=== PATIENT | male | born 1945 | race Caucasian/White ===

== ENCOUNTER 2017-01-06 06:26 | Observation (INO) | payer OTHER ==
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
[2017-01-06] MEDS ORDERED: ONDANSETRON 4 MG/2 ML VIAL IVPB ONE (07:31)
[2017-01-06] MEDS ORDERED: PANTOPRAZOLE SODIUM 40 MG in SODIUM CHLORIDE 100 ML IVPB ONE (07:31)
[2017-01-06] MEDS ORDERED: morphine CARPU-JECT 4 MG/1 ML DISP.SYRIN IVPUSH ONE ×2 (07:31→11:57)
[2017-01-06] MEDS ORDERED: ONDANSETRON 4 MG/2 ML VIAL ONE (07:39)
[2017-01-06] MEDS ORDERED: morphine CARPU-JECT 4 MG/1 ML DISP.SYRIN ONE ×2 (07:39→11:56)
[2017-01-06] MEDS ORDERED: PANTOPRAZOLE SODIUM 100 ML IVPB ONE (07:39)
--- NOTE | 2017-01-06 07:53 | PDOC ---
Attending Attestation - Resident Resident Name: Joana Alvarez - ED Attending Attestation I have performed the following: I have examined & evaluated the patient, The case was reviewed & discussed with the resident, I agree w/resident's findings & plan, Exceptions are as noted - HPI HPI: 71 yo M multiple medical comorbidities presents with abdominal pain. He has history of umbilical hernia which is reducible. He states that the pain is epigastric in origin, but radiates to the entire abdomen. It is crampy, waxing and waning, 10/10 at the worst. Associated with N/V/D, subjective fever, chills. He has had prior similar symptoms in the past. He was evaluated by Dr. Allen on a prior admission, but was lost to follow-up. He has been taking loperamide for the diarrhea. - Physicial Exam PE: GENERAL: Awake, alert, and fully oriented, in no acute distress HEAD: No signs of trauma EYES: PERRLA, EOMI, sclera anicteric, conjunctiva clear ENT: Auricles normal inspection, hearing grossly normal, nares patent, oropharynx clear without exudates. Moist mucosa NECK: Normal ROM, supple, no lymphadenopathy, JVD, or masses LUNGS: Breath sounds equal, clear to auscultation bilaterally. No wheezes, and no crackles HEART: Regular rate and rhythm, normal S1 and S2, no murmurs, rubs or gallops ABDOMEN: Soft, diffuse moderate tenderness, normoactive bowel sounds. No guarding, no rebound. No masses EXTREMITIES: Normal range of motion, no edema. No clubbing or cyanosis. No cords, erythema, or tenderness NEUROLOGICAL: Cranial nerves II through XII grossly intact. Normal speech, normal gait SKIN: Warm, Dry, normal turgor, no rashes or lesions noted. - Medical Decision Making Pt with multiple medical comorbidities presenting with N/V/D, f/c. Will obtain labs, CT a/p to evaluate for possible colitis, diverticulitis.
[2017-01-06 07:56] LABS: BASOPHIL 1.5 % (0-2.0); EOSINOPHIL 0.5 % (0-4.5); MCH 31.1 pg (25.7-33.7); MCHC 34.5 g/dl (32.0-35.9); MEAN CELL VOLUME 90.3 fl (80-96); MEAN PLT VOLUME 7.5 fl (7.5-11.1); PLATELET COUNT 265 K/MM3 (134-434); RDW 13.7 % (11.9-15.9); WHITE BLOOD COUNT 7.7 K/mm3 (4.0-10.0)
[2017-01-06 09:13] LABS: ANION GAP 10 (8-16); BILIRUBIN,TOTAL 0.8 mg/dL (0.2-1.0); CALCIUM 8.7 mg/dL (8.5-10.1); CO2 25 mmol/L (21-32); CREATININE 0.9 mg/dL (0.7-1.3); GLUCOSE,RANDOM 125 mg/dL (74-106); SGOT/AST 22 U/L (15-37); SGPT/ALT 29 U/L (12-78); TOT PROT 7.2 g/dl (6.4-8.2)
[2017-01-06 09:15] LABS: ALK PHOS 59 U/L (45-117); TROPONIN I < 0.02 ng/ml (0.00-0.05)
[2017-01-06 10:59] LABS: URINE APPEARANCE CLEAR; URINE BILIRUBIN NEGATIVE (NEGATIVE); URINE BLOOD NEGATIVE (NEGATIVE); URINE COLOR LTYELLOW; URINE GLUCOSE (UA) NEGATIVE (NEGATIVE); URINE KETONE NEGATIVE (NEGATIVE); URINE LEUK ESTERASE NEGATIVE (NEGATIVE); URINE NITRITE NEGATIVE (NEGATIVE); URINE PROTEIN NEGATIVE (NEGATIVE); URINE UROBILINOGEN NEGATIVE E.U./dl (0.2-1.0)
[2017-01-06] MEDS ORDERED: MAG HYDROX/AL HYDROX/SIMETH 355 ML ORAL.SUSP PO ONE (12:03)
[2017-01-06] MEDS ORDERED: MAG HYDROX/AL HYDROX/SIMETH 30 ML UNIT-DOSE CUP ONE (12:04)
--- NOTE | 2017-01-06 13:48 | EKG ---
Test Reason : Blood Pressure : / mmHG Vent. Rate : 068 BPM Atrial Rate : 068 BPM P-R Int : 188 ms QRS Dur : 108 ms QT Int : 396 ms P-R-T Axes : 037 -18 -03 degrees QTc Int : 421 ms NORMAL SINUS RHYTHM POSSIBLE LEFT ATRIAL ENLARGEMENT SEPTAL INFARCT , AGE UNDETERMINED ABNORMAL ECG WHEN COMPARED WITH ECG OF 23-JAN-2016 00:54, NONSPECIFIC T WAVE ABNORMALITY, WORSE IN LATERAL LEADS Confirmed by KWABENA SOLOMON MD ([id number]) on 01/06/2017 1:47:43 PM Referred By: Confirmed By:KWABENA SOLOMON MD
[2017-01-06 15:42] VITALS: BMI 32.5
[2017-01-06] MEDS: HYDROmorphone HCL CARPU-JECT 1 MG/1 ML DISP.SYRIN IVPB PRN ×2 (16:48→22:09)
[2017-01-06] MEDS: SODIUM CHLORIDE 0.45%/POT 1,000 ML IV SCH (16:49)
[2017-01-06] MEDS: metFORMIN HCL 500 MG TABLET (FP) PO SCH (16:57)
[2017-01-06] MEDS: LIPASE/PROTEASE/AMYLASE 6,000 UNIT CAPSULE PO SCH (16:57)
[2017-01-06] MEDS: sitaGLIPtin PHOSPHATE 50 MG TABLET PO SCH (16:57)
[2017-01-06] MEDS: LOSARTAN POTASSIUM 50 MG TABLET (FP) PO SCH (17:16)
[2017-01-06] MEDS: METOPROLOL SUCCINATE 100 MG TAB.SR.24H (FP) PO SCH (17:17)
[2017-01-06] MEDS: ASPIRIN 81 MG CHEWABLE TABLETS PO SCH (17:17)
[2017-01-06] MEDS: ROFLUMILAST 500 MCG TABLET PO SCH (17:17)
[2017-01-06] MEDS: HYDROCHLOROTHIAZIDE 12.5 MG CAPSULE (FP) PO SCH (17:17)
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
[2017-01-06] MEDS: PANTOPRAZOLE SODIUM 80 MG in SODIUM CHLORIDE 100 ML IVPB SCH (18:24)
[2017-01-06] MEDS ORDERED: PT OWN MED DRAWER 7, Y5N ONE (21:01)
[2017-01-06] MEDS ORDERED: QUEtiapine FUMARATE 25 MG TABLET (FP) ONE (21:01)
[2017-01-06] MEDS: ATORVASTATIN CA 10 MG TABLET (FP) PO SCH (21:29)
[2017-01-06] MEDS: GABAPENTIN 400 MG CAPSULE (FP) PO SCH (21:29)
[2017-01-06] MEDS: QUEtiapine FUMARATE 50 MG TABLET PO SCH (21:29)
[2017-01-06] MEDS: TAMSULOSIN HCL 0.4 MG CAP.ER.24H (FP) PO SCH (21:29)
[2017-01-06] MEDS ORDERED: PATIENT'S OWN MEDICATION (NON-FORMULARY) (Linagliptin/Metformin Hcl [Jentadueto 2.5 Mg-500 PO SCH (22:00)
[2017-01-07] MEDS: PANTOPRAZOLE SODIUM 80 MG in SODIUM CHLORIDE 100 ML IVPB SCH ×3 (02:20→21:31)
[2017-01-07] MEDS: sitaGLIPtin PHOSPHATE 50 MG TABLET PO SCH (06:16)
[2017-01-07] MEDS: metFORMIN HCL 500 MG TABLET (FP) PO SCH (06:16)
[2017-01-07] MEDS: HYDROmorphone HCL CARPU-JECT 1 MG/1 ML DISP.SYRIN IVPB PRN ×3 (06:16→21:30)
[2017-01-07] MEDS ORDERED: PT OWN MED DRAWER 7, Y5N ONE ×5 (07:21→21:26)
[2017-01-07] MEDS: LIPASE/PROTEASE/AMYLASE 6,000 UNIT CAPSULE PO SCH ×2 (07:38→16:58)
[2017-01-07 07:39] LABS: BASOPHIL 0.2 % (0-2.0); EOSINOPHIL 0.9 % (0-4.5); MCH 31.1 pg (25.7-33.7); MCHC 33.9 g/dl (32.0-35.9); MEAN CELL VOLUME 91.6 fl (80-96); MEAN PLT VOLUME 7.2 fl (7.5-11.1); NEUTROPHILS 57.1 % (42.8-82.8); PLATELET COUNT 227 K/MM3 (134-434); RDW 13.8 % (11.9-15.9); WHITE BLOOD COUNT 5.6 K/mm3 (4.0-10.0)
[2017-01-07] MEDS: SODIUM CHLORIDE 0.45%/POT 1,000 ML IV SCH ×3 (07:39→23:00)
[2017-01-07 08:03] LABS: CALCIUM 8.8 mg/dL (8.5-10.1)
[2017-01-07 08:10] LABS: ALBUMIN 3.8 g/dl (3.4-5.0); ALK PHOS 55 U/L (45-117); ANION GAP 8 (8-16); BILIRUBIN,TOTAL 0.9 mg/dL (0.2-1.0); CO2 31 mmol/L (21-32); CREATININE 1.1 mg/dL (0.7-1.3); GLUCOSE,RANDOM 107 mg/dL (74-106); SGOT/AST 22 U/L (15-37); SGPT/ALT 31 U/L (12-78); TOT PROT 6.8 g/dl (6.4-8.2)
[2017-01-07] MEDS: ASPIRIN 81 MG CHEWABLE TABLETS PO SCH (09:18)
[2017-01-07] MEDS: METOPROLOL SUCCINATE 100 MG TAB.SR.24H (FP) PO SCH (09:18)
[2017-01-07] MEDS: LOSARTAN POTASSIUM 50 MG TABLET (FP) PO SCH (09:19)
[2017-01-07] MEDS: ROFLUMILAST 500 MCG TABLET PO SCH (09:19)
[2017-01-07] MEDS: HYDROCHLOROTHIAZIDE 12.5 MG CAPSULE (FP) PO SCH (09:19)
[2017-01-07] MEDS ORDERED: HYDROCHLOROTHIAZIDE 12.5 MG CAPSULE (FP) PO SCH (10:00)
[2017-01-07] MEDS ORDERED: METOPROLOL SUCCINATE 100 MG TAB.SR.24H (FP) PO SCH (10:00)
[2017-01-07] MEDS ORDERED: PATIENT'S OWN MEDICATION (NON-FORMULARY) (Losartan/Hydrochlorothiazide [Hyzaar 100-12.5 Ta PO SCH (10:00)
[2017-01-07] MEDS ORDERED: ASPIRIN 81 MG CHEWABLE TABLETS PO SCH (10:00)
[2017-01-07] MEDS ORDERED: LOSARTAN POTASSIUM 50 MG TABLET (FP) PO SCH (10:00)
[2017-01-07] MEDS ORDERED: ROFLUMILAST 500 MCG TABLET PO SCH (10:00)
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
[2017-01-07] MEDS: INSULIN SLIDING SCALE (NOVOLOG) 1 VIAL SQ SCH ×3 (11:41→21:36)
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
[2017-01-07] MEDS ORDERED: QUEtiapine FUMARATE 25 MG TABLET (FP) ONE (21:25)
[2017-01-07] MEDS: TAMSULOSIN HCL 0.4 MG CAP.ER.24H (FP) PO SCH (21:31)
[2017-01-07] MEDS: GABAPENTIN 400 MG CAPSULE (FP) PO SCH (21:31)
[2017-01-07] MEDS: ATORVASTATIN CA 10 MG TABLET (FP) PO SCH (21:31)
[2017-01-07] MEDS: QUEtiapine FUMARATE 50 MG TABLET PO SCH (21:31)
[2017-01-08] MEDS ORDERED: PT OWN MED DRAWER 7, Y5N ONE ×2 (00:05→10:28)
[2017-01-08] MEDS: HYDROmorphone HCL CARPU-JECT 1 MG/1 ML DISP.SYRIN IVPB PRN (06:11)
[2017-01-08] MEDS: INSULIN SLIDING SCALE (NOVOLOG) 1 VIAL SQ SCH (06:19)
[2017-01-08] MEDS ORDERED: HYDROmorphone HCL CARPU-JECT 1 MG/1 ML DISP.SYRIN IVPB PRN (06:49)
[2017-01-08 06:53] VITALS: BP 139/90; PULSE 75; TEMP 97.7
[2017-01-08 07:59] LABS: BASOPHIL 0.4 % (0-2.0); EOSINOPHIL 0.9 % (0-4.5); MCH 31.3 pg (25.7-33.7); MCHC 34.2 g/dl (32.0-35.9); MEAN CELL VOLUME 91.4 fl (80-96); MEAN PLT VOLUME 7.2 fl (7.5-11.1); NEUTROPHILS 63.9 % (42.8-82.8); PLATELET COUNT 226 K/MM3 (134-434); RDW 13.5 % (11.9-15.9); WHITE BLOOD COUNT 7.7 K/mm3 (4.0-10.0)
--- NOTE | 2017-01-08 08:20 | CON.GU ---
Consult Consult Specialty:: urology Reason for Consultation:: thickened bladder wall - History of Present Illness Chief Complaint: thickened bladder wall History of Present Illness: Patient with history of epigastric pain admitted with diarrhea and epigastric pain. Pathiet with history of bph on flomax. Patient denies gross hematuria, history of kidney stones or previous urologic surgery, dysuria, recurrent uti's , or stranguria. He describes moderate frequency and urgency with nocturia x 2. He feels he is emptying his bladder and denies incontinence. - History Source History Provided By: Patient Limitations to Obtaining History: No Limitations - Past Medical History Cardio/Vascular: Yes: HTN Gastrointestinal: Yes: GERD Hepatobiliary: Yes: Other (cholecystectomy) Musculoskeletal: Yes: Osteoarthritis, Other (chronic lower leg pain) Endocrine: Yes: Diabetes Mellitus - Past Surgical History Past Surgical History: Yes: Cholecystectomy - Alcohol/Substance Use Hx Alcohol Use: No History of Substance Use: reports: None - Smoking History Smoking history: Unknown if ever smoked Have you smoked in the past 12 months: No - Social History ADL: Independent History of Recent Travel: No Home Medications - Allergies Allergies/Adverse Reactions: Allergies Allergy/AdvReac Type Severity Reaction Status Date / Time No Known Allergies Allergy Verified 01/06/17 06:32 - Home Medications Home Medications: Ambulatory Orders Aspirin [ASA -] 81 mg PO DAILY 01/22/16 Ergocalciferol (Vitamin D2) [Drisdol] 50,000 units PO DAILY 01/22/16 Gabapentin [Neurontin] 400 mg PO HS 01/22/16 Linagliptin/Metformin HCl [Jentadueto 2.5 mg-500 mg Tab] 1 each PO BID 01/22/16 Losartan/Hydrochlorothiazide [Hyzaar 100-12.5 Tablet] 1 each PO DAILY 01/22/16 Quetiapine Fumarate [Seroquel -] 50 mg PO HS 01/22/16 Tamsulosin HCl [Flomax -] 0.4 mg PO HS 01/22/16 Metoprolol Succinate [Toprol XL -] 100 mg PO DAILY 01/23/16 Atorvastatin Calcium [Lipitor] 10 mg PO HS 01/06/17 Lipase/Protease/Amylase [Adama Figueroa 36,000 Units Capsule] 1 each PO BID 01/06/17 Roflumilast [Daliresp] 500 mcg PO DAILY 01/06/17 Family Disease History - Family Disease History Family Disease History: Heart Disease: Father ( of [place] 20yrs ago), [place]: Grandparent, Father, Mother, Brother, Sister, Son, Daughter Physical Exam- Vital Signs: Vital Signs Temperature 97.7 F 01/08/17 06:00 Pulse Rate 75 01/08/17 06:00 Respiratory Rate 20 01/08/17 06:00 Blood Pressure 139/90 01/08/17 06:00 O2 Sat by Pulse Oximetry (%) 98 01/08/17 01:00 Constitutional: Yes: Well Nourished, No Distress, Calm Eyes: Yes: WNL, Conjunctiva Clear, EOM Intact HENT: Yes: WNL, Atraumatic, Normocephalic Neck: Yes: WNL, Supple, Trachea Midline Cardiovascular: Yes: Regular Rate and Rhythm Respiratory: Yes: WNL, Regular Gastrointestinal: Yes: Normal Bowel Sounds, Soft Renal/: Yes: WNL Kidneys: Yes: WNL Pelvis: Yes: WNL, Bladder Non Palpable Prostate Exam: Yes: Asymmetrical, Swollen (no prostatic tenderness or fluctuance ) Labs: CBC, BMP 01/08/17 06:30 01/07/17 06:00 Imaging - Results Cat Scan: Report Reviewed Assessment/Plan impression bph neurogenic bladder with wall thickenin plan continue flomax will arrange follow-up as outpatient for uroflow analysis
[2017-01-08 08:22] LABS: CHOLESTEROL 139 mg/dL (50-200); LDL CHOLESTEROL (ONLY SJRH) 92 mg/dL (5-100)
[2017-01-08] MEDS: LIPASE/PROTEASE/AMYLASE 6,000 UNIT CAPSULE PO SCH (09:30)
[2017-01-08] MEDS: PANTOPRAZOLE SODIUM 80 MG in SODIUM CHLORIDE 100 ML IVPB SCH (10:05)
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
[2017-01-08] MEDS: HYDROCHLOROTHIAZIDE 12.5 MG CAPSULE (FP) PO SCH (10:43)
[2017-01-08] MEDS: METOPROLOL SUCCINATE 100 MG TAB.SR.24H (FP) PO SCH (10:43)
[2017-01-08] MEDS: LOSARTAN POTASSIUM 50 MG TABLET (FP) PO SCH (10:43)
[2017-01-08] MEDS: ASPIRIN 81 MG CHEWABLE TABLETS PO SCH (10:43)
[2017-01-08] MEDS: ROFLUMILAST 500 MCG TABLET PO SCH (10:43)
== END 2017-01-08 12:39 | disposition home or self-care (01) ==
LOC: JER 06:26 → JERBED 11:58 → UNDOADMOB 12:49 → J8W 15:27
PROVIDERS: ADMIT Family Medicine; ATTEND Family Medicine
DX: R10.9 Unspecified abdominal pain (principal); K42.9 Umbilical hernia without obstruction or gangrene; K21.9 Gastro-esophageal reflux disease without esophagitis; E11.9 Type 2 diabetes mellitus without complications; I10 Essential (primary) hypertension; M19.90 Unspecified osteoarthritis, unspecified site; M79.606 Pain in leg, unspecified; N32.89 Other specified disorders of bladder; R60.0 Localized edema; N40.0 Benign prostatic hyperplasia without lower urinary tract symptoms; N31.9 Neuromuscular dysfunction of bladder, unspecified; Z87.442 Personal history of urinary calculi
CPT/HCPCS: 36415; 74177-TC; 80053; 80061; 81003; 82550; 82553; 83036; 83605; 83690; 83721; 84484; 85025; 87081; 93005; 93010; 99284-25; G0378; J3480

== ENCOUNTER 2017-02-26 00:51 | Emergency (ER) | payer OTHER ==
[2017-02-26] MEDS ORDERED: ASPIRIN 81 MG CHEWABLE TABLETS PO ONE (01:41)
[2017-02-26] MEDS ORDERED: PANTOPRAZOLE SODIUM 40 MG in SODIUM CHLORIDE 100 ML IVPB ONE (02:22)
[2017-02-26] MEDS ORDERED: morphine CARPU-JECT 4 MG/1 ML DISP.SYRIN IVPUSH ONE (02:22)
[2017-02-26] MEDS ORDERED: SODIUM CHLORIDE 0.9% 1000 ML INFUS.BAG IV ONE (02:22)
[2017-02-26] MEDS ORDERED: FAMOTIDINE 20 MG/50 ML IVPB 50 ML IVPB ONE ×2 (02:22→03:08)
[2017-02-26] MEDS ORDERED: MAG HYDROX/AL HYDROX/SIMETH 30 ML UNIT-DOSE CUP PO ONE (02:22)
[2017-02-26 02:28] VITALS: BMI 32.5
--- NOTE | 2017-02-26 03:00 | PDOC ---
[id number] 4d CHEST PAIN Time Seen by Provider: 02/26/17 01:29 - History of Present Illness Initial Comments: 02/26/17 02:24 CHIEF COMPLAINT: HISTORY OF PRESENT ILLNESS: 71 yo M with hx of DM, Hypertension, GERD, Epigastric hernia, Obesity, s/p cholecystectomy, RLE fracture repair presents to ED with epigastric pain. Patient was initially triaged with chest pain but patient was revealed to have just AMA'ed from [facility]. Called [facility] and discussed with hospitalist MD Veloz, who states patient was brought in for possible ST changes, but was seen by interventional cards who stated ST changes were nonspecific and did not meet STEMI criteria. Patient had full cardiac work up at [facility] this evening with two negative trops. No recent travel or sick contacts. PAST MEDICAL HISTORY: Denies past medical history FAMILY HISTORY: Denies SURGICAL HISTORY: Denies ALLERGIES: No known drug allergies REVIEW OF SYSTEMS General/Constitutional: Denies fever or chills. Denies weakness, weight change. HEENT: Denies change in vision. Denies ear pain or discharge. Denies sore throat. Cardiovascular: Denies chest pain or shortness of breath. Respiratory: Denies cough, wheezing, or hemoptysis. Gastrointestinal: Abdominal pain. Denies nausea, vomiting, diarrhea or constipation. Denies rectal bleeding. Genitourinary: Denies dysuria, frequency, or change in urination. Musculoskeletal: Denies joint or muscle swelling or pain. Denies neck or back pain. Skin and breasts: Denies rash or easy bruising. PHYSICAL EXAM General Appearance: Well-appearing, appropriately dressed. No apparent distress , no intoxication. HEENT: EOMI, PERRLA. No conjunctival pallor. No photophobia, scleral icterus. Respiratory/Chest: Lungs CTAB. Cardiovascular: RRR. S1, S2. Gastrointestinal/Abdominal: Normal bowel sounds. Abdomen soft, non-distended. No tenderness or rebound tenderness. No organomegaly, pulsatile mass, guarding, hernia, hepatomegaly, splenomegaly. Musculoskeletal/Extremities: Normal inspection. FROM of all extremities, normal capillary refill. Pelvis Stable. No CVA tenderness. No tenderness to extremities, pedal edema, swelling, erythema or deformity. Integumentary: Appropriate color, dry, warm. No cyanosis, erythema, jaundice or rash Neurologic: [employer] business [employer] II-XII intact. Fully oriented, alert. Appropriate mood/affect. Motor strength 5/5. No appreciable EOM palsy, facial droop or sensory deficit. 02/26/17 05:07 Past History - Past Medical History Allergies/Adverse Reactions: Allergies Allergy/AdvReac Type Severity Reaction Status Date / Time No Known Allergies Allergy Verified 02/26/17 01:21 Home Medications: Ambulatory Orders Gabapentin [Neurontin] 400 mg PO HS 01/22/16 Linagliptin/Metformin HCl [Jentadueto 2.5 mg-500 mg Tab] 1 each PO BID 01/22/16 Losartan/Hydrochlorothiazide [Hyzaar 100-12.5 Tablet] 1 each PO DAILY 01/22/16 Quetiapine Fumarate [Seroquel -] 50 mg PO HS 01/22/16 Tamsulosin HCl [Flomax -] 0.4 mg PO HS 01/22/16 Metoprolol Succinate [Toprol XL -] 50 mg PO DAILY 01/23/16 Atorvastatin Calcium [Lipitor] 10 mg PO HS 01/06/17 Lipase/Protease/Amylase [Creon Dr 36,000 Units Capsule] 1 each PO BID 01/06/17 Roflumilast [Daliresp] 500 mcg PO DAILY 01/06/17 Aspirin [ASA -] 81 mg PO DAILY tab.chew 01/08/17 Pantoprazole Sodium [Protonix -] 40 mg PO DAILY #30 tablet.ec 01/08/17 Diabetes: Yes GI Disorders: Yes (GERD) HTN: Yes - Surgical History Abdominal Surgery: Yes (gallbladder) Cholecystectomy: Yes Orthopedic Surgery: Yes (screws and pins on his leg.) - Immunization History Immunization Up to Date: Yes - Psycho/Social/Smoking Cessation Hx Anxiety: No Suicidal Ideation: No Smoking History: Unknown if ever smoked Have you smoked in the past 12 months: No Hx Alcohol Use: No Drug/Substance Use Hx: No Substance Use Type: None Hx Substance Use Treatment: No Abd/GI Specific PMHX - Complaint Specific PMHX Colitis: No Diverticulitis: No GERD: Yes Irritable Bowel Synd (IBS): No *Physical Exam - Vital Signs Last Vital Signs Temp Pulse Resp BP Pulse Ox 79 20 178/98 97 02/26/17 02:10 02/26/17 02:10 02/26/17 02:10 02/26/17 02:10 ED Treatment Course - LABORATORY CBC & Chemistry Diagram: 02/26/17 03:41 02/26/17 03:41 Medical Decision Making - Medical Decision Making 71 yo M with hx of DM, Hypertension, GERD, Epigastric hernia, Obesity, s/p cholecystectomy, RLE fracture repair presents to ED with epigastric pain. -EKG, Labs EKG unchanged from prior. Labs unremarkable. Discharge to home with close f/u with GI. *DC/Admit/Observation/Transfer Diagnosis at time of Disposition: Abdominal pain Qualifiers: Abdominal location: epigastric Qualified Code(s): R10.13 - Epigastric pain - Discharge Dispostion Disposition: HOME Admit: No - Referrals Referrals: Donna Galdamez MD [Primary Care Provider] - - Patient Instructions Printed Discharge Instructions: DI for Abdominal Pain-Adult Additional Instructions: Please follow up with Dr. Suarez within the next week. You also need to follow up with the manager maintenance by the end of the next week as well. If you experience any fever, nausea, vomiting, diarrhea, or any new or worsening symptoms, please return to the ER.
[2017-02-26] MEDS ORDERED: PANTOPRAZOLE SODIUM 100 ML IVPB ONE (03:08)
[2017-02-26] MEDS ORDERED: MAG HYDROX/AL HYDROX/SIMETH 30 ML UNIT-DOSE CUP ONE (03:41)
[2017-02-26] MEDS ORDERED: morphine CARPU-JECT 4 MG/1 ML DISP.SYRIN ONE (03:41)
[2017-02-26 03:52] LABS: BASOPHIL 0.3 % (0-2.0); EOSINOPHIL 0.2 % (0-4.5); MCH 31.2 pg (25.7-33.7); MCHC 34.3 g/dl (32.0-35.9); MEAN PLT VOLUME 6.9 fl (7.5-11.1); NEUTROPHILS 62.7 % (42.8-82.8); PLATELET COUNT 197 K/MM3 (134-434); RDW 14.2 % (11.9-15.9); WHITE BLOOD COUNT 8.5 K/mm3 (4.0-10.0)
[2017-02-26 04:18] LABS: ALBUMIN 3.9 g/dl (3.4-5.0); ALK PHOS 58 U/L (45-117); ANION GAP 10 (8-16); BILIRUBIN,TOTAL 0.5 mg/dL (0.2-1.0); CALCIUM 8.8 mg/dL (8.5-10.1); CO2 28 mmol/L (21-32); COCKROFT - GAULT 96.21; CREATININE 1.1 mg/dL (0.7-1.3); GLUCOSE,RANDOM 118 mg/dL (74-106); SGOT/AST 23 U/L (15-37); SGPT/ALT 35 U/L (12-78); TOT PROT 7.1 g/dl (6.4-8.2)
[2017-02-26 05:07] VITALS: BP 175/99; PULSE 81
--- NOTE | 2017-02-26 09:55 | EKG ---
Test Reason : Blood Pressure : / mmHG Vent. Rate : 081 BPM Atrial Rate : 081 BPM P-R Int : 194 ms QRS Dur : 098 ms QT Int : 370 ms P-R-T Axes : 047 012 105 degrees QTc Int : 429 ms NORMAL SINUS RHYTHM POSSIBLE LEFT ATRIAL ENLARGEMENT SEPTAL INFARCT (CITED ON OR BEFORE 06-JAN-2017) ABNORMAL ECG WHEN COMPARED WITH ECG OF 06-JAN-2017 07:45, NONSPECIFIC T WAVE ABNORMALITY, IMPROVED IN LATERAL LEADS Confirmed by GIOVANY JIMENEZ MD ([id number]) on 02/26/2017 9:55:19 AM Referred By: Confirmed By:GIOVANY JIMENEZ MD
== END 2017-02-26 05:16 | disposition home or self-care (01) ==
LOC: JER 00:51
PROC: 3E033GC Introduction of Other Therapeutic Substance into Peripheral Vein, Percutaneous Approach (ICD-10-PCS; principal; 2017-02-26)
PROC: 3E033GC Introduction of Other Therapeutic Substance into Peripheral Vein, Percutaneous Approach (ICD-10-PCS; 2017-02-26)
DX: R10.13 Epigastric pain (principal); I10 Essential (primary) hypertension; E11.9 Type 2 diabetes mellitus without complications; Z79.84 Long term (current) use of oral hypoglycemic drugs; K21.9 Gastro-esophageal reflux disease without esophagitis
CPT/HCPCS: 36415; 80053; 83690; 85025; 93005; 93010; 96365; 96368; 96374; 99283-25

== ENCOUNTER 2017-04-19 23:56 | Inpatient (IN) | payer OTHER ==
[2017-04-20 00:47] VITALS: BMI 24.4
[2017-04-20] MEDS ORDERED: SODIUM CHLORIDE 1,000 ML IV STA (01:13)
--- NOTE | 2017-04-20 01:13 | PDOC ---
History of Present Illness - General History Source: Patient <Everett Zhao - Last Filed: 04/20/17 06:12> - General History Source: Patient Exam Limitations: No Limitations - History of Present Illness Initial Comments: 04/20/17 01:31 The patient is a 71 year old male with significant past medical history of diabetes, hypertension, GERD, epigastric hernia, and obesity who presents to the ED for two complaints. First complaint - patient reports 2 days of pain and discharge from both eyes. He describes the pain as a burning sensation with itchiness and redness to both eyes. Denies any dizziness or visual changes. Second complaint - patient reports 5 days of pain and discomfort to his hernia in the epigastric region. States he has a long history of the hernia and attempted to seek medical attention, but has not had it corrected. Patient also has complaints of associated nausea, but no vomiting or diarrhea. His last bowel movement was 5 days ago. The patient denies fever, chills, cough, SOB, chest pain, and palpitations. Allergies: NKDA Social History: No alcohol, tobacco, or drug use reported. Past Surgical History: cholecystectomy, RLE fracture repair PCP: Dr. Donna Galdamez <Zoe Strong - Last Filed: 04/20/17 06:50> - General Chief Complaint: Eye Problem Stated Complaint: BLURRED VISION/CONSTIPATION Time Seen by Provider: 04/20/17 01:08 Past History - Past Medical History Diabetes: Yes GI Disorders: Yes (GERD) HTN: Yes Psychiatric Problems: Yes - Surgical History Abdominal Surgery: Yes (gallbladder) Cholecystectomy: Yes Orthopedic Surgery: Yes (screws and pins on his leg.) - Immunization History Immunization Up to Date: Yes - Psycho/Social/Smoking Cessation Hx Anxiety: No Suicidal Ideation: No Smoking History: Never smoked Have you smoked in the past 12 months: No Information on smoking cessation initiated: No Hx Alcohol Use: No Drug/Substance Use Hx: No Substance Use Type: None Hx Substance Use Treatment: No <Everett Zhao - Last Filed: 04/20/17 06:12> <Zoe Strong - Last Filed: 04/20/17 06:50> - Past Medical History Allergies/Adverse Reactions: Allergies Allergy/AdvReac Type Severity Reaction Status Date / Time No Known Allergies Allergy Verified 04/20/17 00:43 Home Medications: Ambulatory Orders Gabapentin [Neurontin] 400 mg PO HS 01/22/16 Linagliptin/Metformin HCl [Jentadueto 2.5 mg-500 mg Tab] 1 each PO BID 01/22/16 Losartan/Hydrochlorothiazide [Hyzaar 100-12.5 Tablet] 1 each PO DAILY 01/22/16 Quetiapine Fumarate [Seroquel -] 50 mg PO HS 01/22/16 Tamsulosin HCl [Flomax -] 0.4 mg PO HS 01/22/16 Metoprolol Succinate [Toprol XL -] 50 mg PO DAILY 01/23/16 Atorvastatin Calcium [Lipitor] 10 mg PO HS 01/06/17 Lipase/Protease/Amylase [Creon Dr 36,000 Units Capsule] 1 each PO BID 01/06/17 Roflumilast [Daliresp] 500 mcg PO DAILY 01/06/17 Aspirin [ASA -] 81 mg PO DAILY tab.chew 01/08/17 Pantoprazole Sodium [Protonix -] 40 mg PO DAILY #30 tablet.ec 01/08/17 Review of Systems - Review of Systems Able to Perform ROS?: Yes Comments:: 04/20/17 01:31 CONSTITUTIONAL: Absent: fever, no chills, no fatigue EYES: +bilateral eye pain, discharge, redness, and itchiness Absent: visual changes ENT: Absent: ear pain, no sore throat CARDIOVASCULAR: Absent: chest pain, no palpitations RESPIRATORY: Absent: cough, no SOB GI: +epigastric hernia pain, nausea, constipation Absent: no vomiting, no diarrhea GENITOURINARY: Absent: dysuria, no frequency, no hematuria MUSCULOSKELETAL: Absent: back pain, no arthralgia, no myalgia SKIN: Absent: rash NEURO: Absent: headache <Zoe Strong - Last Filed: 04/20/17 06:50> *Physical Exam - Vital Signs Last Vital Signs Temp Pulse Resp BP Pulse Ox 98.3 F 87 16 181/98 99 04/20/17 00:44 04/20/17 00:44 04/20/17 00:44 04/20/17 00:44 04/20/17 00:44 <Everett Zhao - Last Filed: 04/20/17 06:12> - Vital Signs Last Vital Signs Temp Pulse Resp BP Pulse Ox 98.3 F 87 16 181/98 99 04/20/17 00:44 04/20/17 00:44 04/20/17 00:44 04/20/17 00:44 04/20/17 00:44 - Physical Exam Comments: 04/20/17 01:31 GENERAL: Well-appearing, well-nourished. Mild distress. HEENT: Normocephalic, atraumatic. PERRL, EOM intact. Bilateral eye erythema with copious yellow discharge, primarily in the medial canthus region bilaterally. CARDIOVASCULAR: Normal S1, S2. Regular rate and rhythm. PULMONARY: Clear to auscultation bilaterally. ABDOMEN: Slightly firm, morbidly obese, distended, moderate tenderness and fullness in the epigastric region. EXTREMITIES: Normal ROM in all four extremities. No gross deformities. SKIN: Warm, dry. No rash NEUROLOGICAL: No focal neurological deficits. <Zoe Strong - Last Filed: 04/20/17 06:50> Heart Score/ECG Review - ECG Impressions Comment:: 04/20/17 06:50 NSR @80bpm Possible L atrial enlargement Nonspecific T wave abnormality Abnormal ECG <Zoe Strong - Last Filed: 04/20/17 06:50> ED Treatment Course - LABORATORY CBC & Chemistry Diagram: 04/20/17 02:20 04/20/17 02:29 <Everett Zhao - Last Filed: 04/20/17 06:12> - LABORATORY CBC & Chemistry Diagram: 04/20/17 02:20 04/20/17 02:29 - RADIOLOGY Radiograph Interpretation: 04/20/17 02:40 EXAM: CT ABDOMEN AND PELVIS WITHOUT CONTRAST Reviewed by Imaging cardiac sonographer: Small umbilical hernia containing fat. No nephrolithiasis, ureterolithiasis or obstructive uropathy. No bladder calculi. Unremarkable pancreas. Cholecystectomy. No bowel obstruction, colitis, diverticulitis, free fluid or free air. Appendix not seen. No pericecal inflammation to suggest acute appendicitis. <Zoe Strong - Last Filed: 04/20/17 06:50> Medical Decision Making - Medical Decision Making 04/20/17 06:11 Dr. Zhao: The scribe's documentation has been prepared under my direction and personally reviewed by me in its entirery. I confirm that the note above accurately reflects all work, treatment, procedures, and medical decision making performed by me. <Everett Zhao - Last Filed: 04/20/17 06:12> - Medical Decision Making 04/20/17 05:[address] Isabella Garnett (via answering service) at 5:40 Awaiting call back 04/20/17 06:07 Second call placed to Dr. Garnett (via answering service) at 6:07 and patient's case was discussed. <Zoe Strong - Last Filed: 04/20/17 06:50> *DC/Admit/Observation/Transfer - Discharge Dispostion Admit: Yes <Everett Zhao - Last Filed: 04/20/17 06:12> - Attestations Scribe Attestion: 04/20/17 01:31 Documentation prepared by Zoe Strong, acting as medical library assistant for Everett Zhao MD/DO. <Zoe Strong - Last Filed: 04/20/17 06:50> Diagnosis at time of Disposition: Umbilical hernia, Intractable abdominal pain Abdominal pain Qualifiers: Abdominal location: periumbilical Qualified Code(s): R10.33 - Periumbilical pain Conjunctivitis Qualifiers: Conjunctivitis type: acute Acute conjunctivitis type: unspecified - Discharge Dispostion Condition at time of disposition: Stable - Referrals
[2017-04-20] MEDS ORDERED: CIPROFLOXACIN 0.3% EYE DROPS 5 ML BOTTLE OU STA (01:15)
[2017-04-20] MEDS ORDERED: KETOROLAC TROMETHAMINE 30 MG/1 ML VIAL IVPUSH ONE (01:16)
[2017-04-20] MEDS ORDERED: CIPROFLOXACIN HCL 0.3% OPHTH 2.5ML BOTTLE ONE (02:02)
[2017-04-20] MEDS ORDERED: KETOROLAC TROMETHAMINE 30 MG/1 ML VIAL ONE (02:03)
[2017-04-20 02:30] LABS: BASOPHIL 0.3 % (0-2.0); EOSINOPHIL 1.2 % (0-4.5); MCH 30.4 pg (25.7-33.7); MCHC 32.7 g/dl (32.0-35.9); MEAN PLT VOLUME 7.5 fl (7.5-11.1); NEUTROPHILS 66.6 % (42.8-82.8); PLATELET COUNT 241 K/MM3 (134-434); RDW 14.9 % (11.9-15.9); WHITE BLOOD COUNT 7.8 K/mm3 (4.0-10.0)
[2017-04-20 02:41] LABS: INR 0.98 (0.82-1.09); PROTHROMBIN TIME (PATIENT) 10.8 SEC (9.98-11.88)
[2017-04-20 02:55] LABS: URINE APPEARANCE CLEAR; URINE BILIRUBIN NEGATIVE (NEGATIVE); URINE BLOOD NEGATIVE (NEGATIVE); URINE COLOR COLORLESS; URINE GLUCOSE (UA) NEGATIVE (NEGATIVE); URINE KETONE NEGATIVE (NEGATIVE); URINE LEUK ESTERASE NEGATIVE (NEGATIVE); URINE NITRITE NEGATIVE (NEGATIVE); URINE PROTEIN NEGATIVE (NEGATIVE); URINE UROBILINOGEN NEGATIVE E.U./dl (0.2-1.0)
[2017-04-20 03:02] LABS: ALBUMIN 4.1 g/dl (3.4-5.0); ANION GAP 11 (8-16); BILIRUBIN,TOTAL 0.4 mg/dL (0.2-1.0); CALCIUM 9.4 mg/dL (8.5-10.1); CO2 29 mmol/L (21-32); COCKROFT - GAULT 72.16; CREATININE 1.1 mg/dL (0.7-1.3); GLUCOSE,RANDOM 135 mg/dL (74-106); MAGNESIUM 2.2 mg/dL (1.8-2.4); SGOT/AST 21 U/L (15-37); SGPT/ALT 37 U/L (12-78); TOT PROT 7.7 g/dl (6.4-8.2)
[2017-04-20 03:03] LABS: ALK PHOS 65 U/L (45-117)
[2017-04-20] MEDS ORDERED: traMADol HCL 50 MG TABLET PO ONE (04:28)
[2017-04-20] MEDS ORDERED: traMADol HCL 50 MG TABLET ONE (04:37)
[2017-04-20] MEDS ORDERED: morphine CARPU-JECT 2 MG/1 ML DISP.SYRIN IVPUSH ONE (06:11)
[2017-04-20] MEDS ORDERED: morphine CARPU-JECT 4 MG/1 ML DISP.SYRIN ONE ×3 (06:13→12:46)
[2017-04-20] MEDS ORDERED: MAG HYDROX/AL HYDROX/SIMETH 30 ML UNIT-DOSE CUP PO ONE (06:17)
[2017-04-20] MEDS ORDERED: MAG HYDROX/AL HYDROX/SIMETH 30 ML UNIT-DOSE CUP ONE (06:20)
[2017-04-20] MEDS ORDERED: ACETAMINOPHEN 1000 MG/100 ML VIAL (NON FORMULARY) IVPB PRN (07:04)
[2017-04-20] MEDS ORDERED: ACETAMINOPHEN INJECTION 100 ML IVPB ONE (08:32)
[2017-04-20] MEDS: morphine CARPU-JECT 4 MG/1 ML DISP.SYRIN IVPUSH PRN ×2 (08:49→12:49)
[2017-04-20] MEDS: DEXTROSE 5%-NORMAL SALINE 1,000 ML IV SCH ×2 (08:49→16:16)
--- NOTE | 2017-04-20 08:51 | HP ---
Admitting History and Physical - Admission History of Present Illness: 71 year old male with significant past medical history of diabetes, hypertension , GERD, epigastric hernia, and obesity who presents to the ED for two complaints. First complaint - patient reports 2 days of pain and discharge from both eyes. He describes the pain as a burning sensation with itchiness and redness to both eyes. Denies any dizziness or visual changes. Second complaint - patient reports 5 days of pain and discomfort to his hernia in the epigastric region. States he has a long history of the hernia and attempted to seek medical attention, but has not had it corrected. Patient also has complaints of associated nausea, but no vomiting or diarrhea. His last bowel movement was 5 days ago. - Past Medical History Cardiovascular: Yes: HTN Gastrointestinal: Yes: GERD Hepatobiliary: Yes: Other (cholecystectomy) Musculoskeletal: Yes: Osteoarthritis, Other (chronic lower leg pain) Endocrine: Yes: Diabetes Mellitus - Past Surgical History Past Surgical History: Yes: Cholecystectomy - Smoking History Smoking history: Never smoked Have you smoked in the past 12 months: No - Alcohol/Substance Use Hx Alcohol Use: No History of Substance Use: reports: None - Social History ADL: Independent History of Recent Travel: No Home Medications - Allergies Allergies/Adverse Reactions: Allergies Allergy/AdvReac Type Severity Reaction Status Date / Time No Known Allergies Allergy Verified 04/20/17 00:43 - Home Medications Home Medications: Ambulatory Orders Gabapentin [Neurontin] 400 mg PO HS 01/22/16 Linagliptin/Metformin HCl [Jentadueto 2.5 mg-500 mg Tab] 1 each PO BID 01/22/16 Losartan/Hydrochlorothiazide [Hyzaar 100-12.5 Tablet] 1 each PO DAILY 01/22/16 Quetiapine Fumarate [Seroquel -] 50 mg PO HS 01/22/16 Tamsulosin HCl [Flomax -] 0.4 mg PO HS 01/22/16 Metoprolol Succinate [Toprol XL -] 50 mg PO DAILY 01/23/16 Atorvastatin Calcium [Lipitor] 10 mg PO HS 01/06/17 Lipase/Protease/Amylase [Creon Dr 36,000 Units Capsule] 1 each PO BID 01/06/17 Roflumilast [Daliresp] 500 mcg PO DAILY 01/06/17 Aspirin [ASA -] 81 mg PO DAILY tab.chew 01/08/17 Pantoprazole Sodium [Protonix -] 40 mg PO DAILY #30 tablet.ec 01/08/17 Family Disease History - Family Disease History Family Disease History: Heart Disease: Father ( of MS 20yrs ago), [place]: Grandparent, Father, Mother, Brother, Sister, Son, Daughter Review of Systems - Review of Systems Eyes: reports: Eye Pain, Other (REDNESS) Cardiovascular: reports: Chest Pain (EPIGASTRIC AREA) Respiratory: denies: Cough Gastrointestinal: reports: Abdominal Pain, Bloating, Indigestion, Nausea Physical Examination Vital Signs: Vital Signs Temperature 98.4 F 04/20/17 07:28 Pulse Rate 81 04/20/17 07:28 Respiratory Rate 18 04/20/17 07:28 Blood Pressure 163/92 04/20/17 07:28 O2 Sat by Pulse Oximetry (%) 96 04/20/17 07:28 Eyes: Yes: Other (CONJUNCTIVA RED) Cardiovascular: Yes: Regular Rate and Rhythm Respiratory: Yes: Regular, CTA Bilaterally Gastrointestinal: Yes: Normal Bowel Sounds, Soft, Distention, Tenderness, Epigastrium Imaging - Results Cat Scan: Report Reviewed Problem List - Problems (1) Abdominal pain Assessment/Plan: GI CONSULT PPI NPO IVF Code(s): R10.9 - UNSPECIFIED ABDOMINAL PAIN Qualifiers: Abdominal location: periumbilical Qualified Code(s): R10.33 - Periumbilical pain (2) Conjunctivitis Assessment/Plan: CIPRO OPHTHALMOLOGY CONSULT Code(s): H10.9 - UNSPECIFIED CONJUNCTIVITIS Qualifiers: Conjunctivitis type: acute Acute conjunctivitis type: unspecified (3) Umbilical hernia Assessment/Plan: SURGICAL CONSULT Code(s): K42.9 - UMBILICAL HERNIA WITHOUT OBSTRUCTION OR GANGRENE (4) Acid reflux Assessment/Plan: ON PPI CE EKG Code(s): K21.9 - GASTRO-ESOPHAGEAL REFLUX DISEASE WITHOUT ESOPHAGITIS Qualifiers: Esophagitis presence: without esophagitis Qualified Code(s): K21.9 - Gastro-esophageal reflux disease without esophagitis
[2017-04-20] MEDS: PANTOPRAZOLE SODIUM 100 ML IVPB SCH (09:37)
--- NOTE | 2017-04-20 10:28 | CONSULT ---
Consult Consult Specialty:: Surgery Reason for Consultation:: Abdominal pain, umbilical hernia - History of Present Illness History of Present Illness: 71 male presents for abdominal pain and burning/itching of both of his eyes States the abdominal pain started several days ago Has not had a recent BM + Gas No vomiting/diarrhea - History Source History Provided By: Patient, Medical Record Limitations to Obtaining History: No Limitations - Past Medical History Cardio/Vascular: Yes: HTN Gastrointestinal: Yes: GERD Hepatobiliary: Yes: Other (cholecystectomy) Musculoskeletal: Yes: Osteoarthritis, Other (chronic lower leg pain) Endocrine: Yes: Diabetes Mellitus - Past Surgical History Past Surgical History: Yes: Cholecystectomy - Alcohol/Substance Use Hx Alcohol Use: No History of Substance Use: reports: None - Smoking History Smoking history: Never smoked Have you smoked in the past 12 months: No - Social History ADL: Independent History of Recent Travel: No Home Medications - Allergies Allergies/Adverse Reactions: Allergies Allergy/AdvReac Type Severity Reaction Status Date / Time No Known Allergies Allergy Verified 04/20/17 00:43 - Home Medications Home Medications: Ambulatory Orders Gabapentin [Neurontin] 400 mg PO HS 01/22/16 Linagliptin/Metformin HCl [Jentadueto 2.5 mg-500 mg Tab] 1 each PO BID 01/22/16 Losartan/Hydrochlorothiazide [Hyzaar 100-12.5 Tablet] 1 each PO DAILY 01/22/16 Quetiapine Fumarate [Seroquel -] 50 mg PO HS 01/22/16 Tamsulosin HCl [Flomax -] 0.4 mg PO HS 01/22/16 Metoprolol Succinate [Toprol XL -] 50 mg PO DAILY 01/23/16 Atorvastatin Calcium [Lipitor] 10 mg PO HS 01/06/17 Lipase/Protease/Amylase [Creon Dr 36,000 Units Capsule] 1 each PO BID 01/06/17 Roflumilast [Daliresp] 500 mcg PO DAILY 01/06/17 Aspirin [ASA -] 81 mg PO DAILY tab.chew 01/08/17 Pantoprazole Sodium [Protonix -] 40 mg PO DAILY #30 tablet.ec 01/08/17 Family Disease History - Family Disease History Family Disease History: Heart Disease: Father ( of [place] 20yrs ago), [place]: Grandparent, Father, Mother, Brother, Sister, Son, Daughter Review of Systems - Review of Systems Constitutional: denies: Chills, Fever Neck: reports: No Symptoms Cardiovascular: denies: Chest Pain Respiratory: denies: Cough Gastrointestinal: reports: Abdominal Pain. denies: Diarrhea, Melena, Nausea, Vomiting Neurological: denies: Change in LOC Pain Intensity: 4 Physical Exam Vital Signs: Vital Signs Temperature 98.4 F 04/20/17 07:28 Pulse Rate 86 04/20/17 07:45 Respiratory Rate 16 04/20/17 07:45 Blood Pressure 166/76 04/20/17 07:45 O2 Sat by Pulse Oximetry (%) 97 04/20/17 07:45 Constitutional: Yes: Calm Cardiovascular: Yes: WNL Respiratory: Yes: Diminished Gastrointestinal: Yes: Soft, Tenderness, Other (Reducible nontender umbilical hernia). No: Tenderness, Rebound Neurological: Yes: Alert Labs: CBC,CMP WBC 7.8 K/mm3 (4.0-10.0) 04/20/17 02:20 RBC 4.54 M/mm3 (4.00-5.60) 04/20/17 02:20 Hgb 13.8 GM/dL (11.7-16.9) 04/20/17 02:20 Hct 42.2 % (35.4-49) 04/20/17 02:20 MCV 93.0 fl (80-96) 04/20/17 02:20 MCHC 32.7 g/dl (32.0-35.9) 04/20/17 02:20 RDW 14.9 % (11.9-15.9) 04/20/17 02:20 Plt Count 241 K/MM3 (134-434) D 04/20/17 02:20 MPV 7.5 fl (7.5-11.1) 04/20/17 02:20 Neutrophils % 66.6 % (42.8-82.8) 04/20/17 02:20 Lymphocytes % 21.3 % (8-40) 04/20/17 02:20 Monocytes % 10.6 % (3.8-10.2) H 04/20/17 02:20 Eosinophils % 1.2 % (0-4.5) D 04/20/17 02:20 Basophils % 0.3 % (0-2.0) 04/20/17 02:20 Sodium 140 mmol/L (136-145) 04/20/17 02:29 Potassium 4.7 mmol/L (3.5-5.1) 04/20/17 02:29 Chloride 100 mmol/L (98-107) 04/20/17 02:29 Carbon Dioxide 29 mmol/L (21-32) 04/20/17 02:29 Anion Gap 11 (8-16) 04/20/17 02:29 BUN 11 mg/dL (7-18) D 04/20/17 02:29 Creatinine 1.1 mg/dL (0.7-1.3) 04/20/17 02:29 Creat Clearance w eGFR > 60 (>60) 04/20/17 02:29 Random Glucose 135 mg/dL (74-106) H 04/20/17 02:29 Calcium 9.4 mg/dL (8.5-10.1) 04/20/17 02:29 Magnesium 2.2 mg/dL (1.8-2.4) 04/20/17 02:29 Total Bilirubin 0.4 mg/dL (0.2-1.0) 04/20/17 02:29 AST 21 U/L (15-37) 04/20/17 02:29 ALT 37 U/L (12-78) 04/20/17 02:29 Alkaline Phosphatase 65 U/L (45-117) 04/20/17 02:29 Total Protein 7.7 g/dl (6.4-8.2) 04/20/17 02:29 Albumin 4.1 g/dl (3.4-5.0) 04/20/17 02:29 Lipase 77 U/L (73-393) 04/20/17 02:29 Imaging - Results Cat Scan: Report Reviewed, Image Reviewed Problem List - Problems (1) Abdominal pain Code(s): R10.9 - UNSPECIFIED ABDOMINAL PAIN Qualifiers: Abdominal location: periumbilical Qualified Code(s): R10.33 - Periumbilical pain (2) Umbilical hernia Code(s): K42.9 - UMBILICAL HERNIA WITHOUT OBSTRUCTION OR GANGRENE Qualifiers: Obstruction and gangrene presence: without obstruction or gangrene Qualified Code(s): K42.9 - Umbilical hernia without obstruction or gangrene Assessment/Plan 71 male with umbilical pain + Umbilical hernia noted on exam and imaging- fully reducible and without pain on palpation Unclear the etiology of his abdominal pain but the umbilical hernia does not seem to be the source Can repair electively if desires repair
--- NOTE | 2017-04-20 10:48 | EKG ---
Test Reason : Blood Pressure : / mmHG Vent. Rate : 080 BPM Atrial Rate : 080 BPM P-R Int : 182 ms QRS Dur : 108 ms QT Int : 370 ms P-R-T Axes : 041 -08 016 degrees QTc Int : 426 ms NORMAL SINUS RHYTHM POSSIBLE LEFT ATRIAL ENLARGEMENT NONSPECIFIC T WAVE ABNORMALITY ABNORMAL ECG WHEN COMPARED WITH ECG OF 26-FEB-2017 01:26, NO SIGNIFICANT CHANGE WAS FOUND Confirmed by ALE YOO, MYNOR ([id number]) on 04/20/2017 10:48:27 AM Referred By: VIVIAN Confirmed By:MYNOR AGUILERA MD
[2017-04-20 11:31] LABS: TROPONIN I < 0.02 ng/ml (0.00-0.05)
--- NOTE | 2017-04-20 11:49 | EKG ---
Test Reason : Blood Pressure : / mmHG Vent. Rate : 089 BPM Atrial Rate : 089 BPM P-R Int : 182 ms QRS Dur : 104 ms QT Int : 356 ms P-R-T Axes : 038 -09 007 degrees QTc Int : 433 ms NORMAL SINUS RHYTHM POSSIBLE LEFT ATRIAL ENLARGEMENT NONSPECIFIC T WAVE ABNORMALITY ABNORMAL ECG WHEN COMPARED WITH ECG OF 20-APR-2017 06:45, NO SIGNIFICANT CHANGE WAS FOUND Confirmed by ALE YOO, MYNOR ([id number]) on 04/20/2017 11:49:14 AM Referred By: AMNA ONTIVEROS Confirmed By:MYNOR AGUILERA MD
--- NOTE | 2017-04-20 14:16 | CON.GI ---
Consult Consult Specialty:: gastroenterology Referred by:: Dr Garnett Reason for Consultation:: abdominal pain - History of Present Illness History of Present Illness: 71 y/o male with PMH of diabetes was asked to be seen because of progressive abdominal pain, abdominal distention and constipation. He denies nausea, vomiting , rectal bleeding and weight loss. - Past Medical History Cardio/Vascular: Yes: HTN Gastrointestinal: Yes: GERD Hepatobiliary: Yes: Other (cholecystectomy) Musculoskeletal: Yes: Osteoarthritis, Other (chronic lower leg pain) Endocrine: Yes: Diabetes Mellitus - Past Surgical History Past Surgical History: Yes: Cholecystectomy - Alcohol/Substance Use Hx Alcohol Use: No History of Substance Use: reports: None - Smoking History Smoking history: Never smoked Have you smoked in the past 12 months: No - Social History ADL: Independent History of Recent Travel: No Home Medications - Allergies Allergies/Adverse Reactions: Allergies Allergy/AdvReac Type Severity Reaction Status Date / Time No Known Allergies Allergy Verified 04/20/17 00:43 - Home Medications Home Medications: Ambulatory Orders Gabapentin [Neurontin] 400 mg PO HS 01/22/16 Linagliptin/Metformin HCl [Jentadueto 2.5 mg-500 mg Tab] 1 each PO BID 01/22/16 Losartan/Hydrochlorothiazide [Hyzaar 100-12.5 Tablet] 1 each PO DAILY 01/22/16 Quetiapine Fumarate [Seroquel -] 50 mg PO HS 01/22/16 Tamsulosin HCl [Flomax -] 0.4 mg PO HS 01/22/16 Metoprolol Succinate [Toprol XL -] 50 mg PO DAILY 01/23/16 Atorvastatin Calcium [Lipitor] 10 mg PO HS 01/06/17 Lipase/Protease/Amylase [Adama Figueroa 36,000 Units Capsule] 1 each PO BID 01/06/17 Roflumilast [Daliresp] 500 mcg PO DAILY 01/06/17 Aspirin [ASA -] 81 mg PO DAILY tab.chew 01/08/17 Pantoprazole Sodium [Protonix -] 40 mg PO DAILY #30 tablet.ec 01/08/17 Family Disease History - Family Disease History Family Disease History: Heart Disease: Father ( of [place] 20yrs ago), [place]: Grandparent, Father, Mother, Brother, Sister, Son, Daughter Review of Systems - Review of Systems Constitutional: denies: Fever Eyes: denies: Blind Spots HENT: denies: Difficult Swallowing Neck: denies: Decreased ROM Cardiovascular: denies: Chest Pain Respiratory: denies: SOB Gastrointestinal: reports: Abdominal Pain, Constipation. denies: Dysphagia, Indigestion, Melena, Nausea Physical Exam-GI Vital Signs: Vital Signs Temperature 98.4 F 04/20/17 07:28 Pulse Rate 79 04/20/17 12:18 Respiratory Rate 16 04/20/17 12:18 Blood Pressure 152/79 04/20/17 12:18 O2 Sat by Pulse Oximetry (%) 96 04/20/17 12:18 Constitutional: Yes: Obese Eyes: Yes: Conjunctiva Clear HENT: Yes: Atraumatic Neck: Yes: Supple Cardiovascular: Yes: Regular Rate and Rhythm Respiratory: Yes: CTA Bilaterally Gastrointestinal Inspection: Yes: Other (umbilical hernia) ...Palpate: Yes: Soft. No: Firm/Rigid, Guarding, Hepatomegaly, Pulsatile Mass, Splenomegaly, Tenderness ...Percussion: Yes: Tympanitic Labs: INR, PTT INR 0.98 (0.82-1.09) 04/20/17 02:20 CBC,CMP WBC 7.8 K/mm3 (4.0-10.0) 04/20/17 02:20 RBC 4.54 M/mm3 (4.00-5.60) 04/20/17 02:20 Hgb 13.8 GM/dL (11.7-16.9) 04/20/17 02:20 Hct 42.2 % (35.4-49) 04/20/17 02:20 MCV 93.0 fl (80-96) 04/20/17 02:20 MCHC 32.7 g/dl (32.0-35.9) 04/20/17 02:20 RDW 14.9 % (11.9-15.9) 04/20/17 02:20 Plt Count 241 K/MM3 (134-434) D 04/20/17 02:20 MPV 7.5 fl (7.5-11.1) 04/20/17 02:20 Neutrophils % 66.6 % (42.8-82.8) 04/20/17 02:20 Lymphocytes % 21.3 % (8-40) 04/20/17 02:20 Monocytes % 10.6 % (3.8-10.2) H 04/20/17 02:20 Eosinophils % 1.2 % (0-4.5) D 04/20/17 02:20 Basophils % 0.3 % (0-2.0) 04/20/17 02:20 Sodium 140 mmol/L (136-145) 04/20/17 02:29 Potassium 4.7 mmol/L (3.5-5.1) 04/20/17 02:29 Chloride 100 mmol/L (98-107) 04/20/17 02:29 Carbon Dioxide 29 mmol/L (21-32) 04/20/17 02:29 Anion Gap 11 (8-16) 04/20/17 02:29 BUN 11 mg/dL (7-18) D 04/20/17 02:29 Creatinine 1.1 mg/dL (0.7-1.3) 04/20/17 02:29 Creat Clearance w eGFR > 60 (>60) 04/20/17 02:29 Random Glucose 135 mg/dL (74-106) H 04/20/17 02:29 Calcium 9.4 mg/dL (8.5-10.1) 04/20/17 02:29 Magnesium 2.2 mg/dL (1.8-2.4) 04/20/17 02:29 Total Bilirubin 0.4 mg/dL (0.2-1.0) 04/20/17 02:29 AST 21 U/L (15-37) 04/20/17 02:29 ALT 37 U/L (12-78) 04/20/17 02:29 Alkaline Phosphatase 65 U/L (45-117) 04/20/17 02:29 Creatine Kinase 122 IU/L (39-308) 04/20/17 10:50 Troponin I < 0.02 ng/ml (0.00-0.05) 04/20/17 10:50 Total Protein 7.7 g/dl (6.4-8.2) 04/20/17 02:29 Albumin 4.1 g/dl (3.4-5.0) 04/20/17 02:29 Lipase 77 U/L (73-393) 04/20/17 02:29 Imaging - Results Cat Scan: Image Reviewed Problem List - Problems (1) IBS (irritable bowel syndrome) Assessment/Plan: with concstipation, suspect small bowel bacterial overgrowth and underlying pancratic insufficiency R> flagyl 250mg tid pancrealipase citroma x 1 dose made aware to follow-up for further gi w/u Code(s): K58.9 - IRRITABLE BOWEL SYNDROME WITHOUT DIARRHEA
[2017-04-20] MEDS ORDERED: MAGNESIUM CITRATE 300 ML BOTTLE PO ONE (14:21)
[2017-04-20] MEDS: metroNIDAZOLE 250 MG TABLET PO SCH ×2 (16:13→22:37)
--- NOTE | 2017-04-20 16:42 | CONSULT ---
Consult - text type - Consultation Consultation Note: Ophthalmology consult 71 year old male c/o red eyes with discharge for 2-3 days vision, near OD 20/200, OS 20/200 P 4/4--> 3+/3+, no APD EOM full OU LLL flat S/C tr injection OU K clear OU A/C formed I round lens, appears about 2+ NS through undilated pupil Imp/Plan Ocular allergies vs viral conjunctivitis OU - pt given Ocuflox in the ER, advise to use Ocuflox 4 times a day both eyes in case of bacterial component. Also advise Zaditor (ketotifen) eyedrops (or equivalent allergy drops) twice a day both eyes. Follow up as outpatient
[2017-04-20] MEDS: METOCLOPRAMIDE HCL 10 MG TABLET (FP) PO SCH (17:22)
[2017-04-20] MEDS: LIPASE/PROTEASE/AMYLASE 6,000 UNIT CAPSULE PO SCH (18:35)
[2017-04-20] MEDS ORDERED: PT OWN MED DRAWER 7, Y5N ONE (18:36)
[2017-04-20] MEDS: QUEtiapine FUMARATE 50 MG TABLET PO SCH (22:37)
[2017-04-21] MEDS: morphine CARPU-JECT 4 MG/1 ML DISP.SYRIN IVPUSH PRN ×3 (00:07→21:10)
[2017-04-21] MEDS: METOCLOPRAMIDE HCL 10 MG TABLET (FP) PO SCH ×3 (06:08→17:15)
[2017-04-21] MEDS: metroNIDAZOLE 250 MG TABLET PO SCH ×3 (06:09→21:09)
[2017-04-21 07:14] LABS: MCH 31.6 pg (25.7-33.7); MCHC 33.9 g/dl (32.0-35.9); MEAN CELL VOLUME 93.2 fl (80-96); MEAN PLT VOLUME 7.2 fl (7.5-11.1); PLATELET COUNT 213 K/MM3 (134-434); RDW 15.2 % (11.9-15.9); WHITE BLOOD COUNT 5.9 K/mm3 (4.0-10.0)
[2017-04-21 07:45] LABS: ALBUMIN 3.9 g/dl (3.4-5.0); ALK PHOS 104 U/L (45-117); ANION GAP 7 (8-16); BILIRUBIN,TOTAL 0.7 mg/dL (0.2-1.0); CALCIUM 8.9 mg/dL (8.5-10.1); CO2 30 mmol/L (21-32); COCKROFT - GAULT 79.37; GLUCOSE,RANDOM 132 mg/dL (74-106); SGOT/AST 85 U/L (15-37); SGPT/ALT 163 U/L (12-78); TOT PROT 7.2 g/dl (6.4-8.2)
[2017-04-21] MEDS ORDERED: PT OWN MED DRAWER 7, Y5N ONE ×4 (08:17→18:01)
[2017-04-21] MEDS: LIPASE/PROTEASE/AMYLASE 6,000 UNIT CAPSULE PO SCH ×3 (08:19→17:15)
[2017-04-21] MEDS: DEXTROSE 5%-NORMAL SALINE 1,000 ML IV SCH (08:20)
[2017-04-21] MEDS: PANTOPRAZOLE SODIUM 100 ML IVPB SCH (10:17)
[2017-04-21] MEDS: METOPROLOL SUCCINATE 50 MG TAB.SR.24H (FP) PO SCH (10:20)
--- NOTE | 2017-04-21 16:53 | PN ---
Progress Note (short form) - Note Progress Note: No acute events On diet Pain somewhat improved Vital Signs Period Temp Pulse Resp BP Sys/Hayes Pulse Ox Last 24 Hr 98.1 F-98.7 F 70-80 18-20 145-173/75-85 96-96 Abd soft, no rebound CBC, BMP 04/21/17 06:00 04/21/17 06:00 GI following- suspect underlying pancreatic insufficiency No surgical intervention needed at this time Thank you Problem List - Problems (1) Abdominal pain Code(s): R10.9 - UNSPECIFIED ABDOMINAL PAIN Qualifiers: Abdominal location: periumbilical Qualified Code(s): R10.33 - Periumbilical pain (2) Umbilical hernia Code(s): K42.9 - UMBILICAL HERNIA WITHOUT OBSTRUCTION OR GANGRENE Qualifiers: Obstruction and gangrene presence: without obstruction or gangrene Qualified Code(s): K42.9 - Umbilical hernia without obstruction or gangrene
--- NOTE | 2017-04-21 20:13 | PN ---
Progress Note, Physician Chief Complaint: ABDOMINAL PAIN History of Present Illness: STILL COMPLAINING OF ITCHY EYES MILD ABDOMINAL PAIN, MORPHINE IS HELPING, STILL DECREASED APPETITE BLLE +1 EDEMA - Current Medication List Current Medications: Active Medications Dextrose/Sodium Chloride (D5-Ns -) 1,000 mls @ 42 mls/hr IV ASDIR [facility] Last Admin: 04/21/17 08:20 Dose: 42 mls/hr Pantoprazole Sodium (Protonix 40mg Ivpb (Pre-Docked)) 100 mls @ 200 mls/hr IVPB DAILY [facility] Last Admin: 04/21/17 10:17 Dose: 200 mls/hr Metoclopramide HCl (Reglan -) 5 mg PO TIDAC [facility] Last Admin: 04/21/17 17:15 Dose: 5 mg Metoprolol Succinate (Toprol Xl -) 50 mg PO DAILY [facility] Last Admin: 04/21/17 10:20 Dose: 50 mg Metronidazole (Flagyl -) 250 mg PO TID [facility] Last Admin: 04/21/17 14:26 Dose: 250 mg Morphine Sulfate (Morphine Injection -) 4 mg IVPUSH Q6H PRN PRN Reason: PAIN Last Admin: 04/21/17 11:34 Dose: 4 mg Pancrelipase (Creon Dr 6,000 Units Capsule) 3 cap PO TIDCM [facility] Last Admin: 04/21/17 17:15 Dose: 3 cap Quetiapine Fumarate (Seroquel -) 50 mg PO HS [facility] Last Admin: 04/20/17 22:37 Dose: 50 mg Tetrahydrozoline HCl (Visine -) 1 drop OU BID [facility] - Objective Vital Signs: Vital Signs Temperature 98.3 F 04/21/17 16:00 Pulse Rate 68 04/21/17 16:00 Respiratory Rate 20 04/21/17 16:00 Blood Pressure 118/90 04/21/17 16:00 O2 Sat by Pulse Oximetry (%) 96 04/21/17 14:00 Constitutional: Yes: Well Nourished, No Distress, Calm Eyes: Yes: Conjunctiva Clear Cardiovascular: Yes: Regular Rate and Rhythm, Murmur (LSB GRADE 2 DIASTOLIC MURMER) Respiratory: Yes: Regular Gastrointestinal: Yes: Normal Bowel Sounds Musculoskeletal: Yes: WNL Extremities: Yes: WNL Edema: Yes Edema: LLE: 1+, RLE: 1+ Peripheral Pulses: Left Doralis Pedis: 2+, Right Dorsalis Pedis: 2+ Neurological: Yes: Alert, Oriented Labs: CBC, BMP 04/21/17 06:00 04/21/17 06:00 INR, PTT INR 0.98 (0.82-1.09) 04/20/17 02:20 Problem List - Problems (1) Abdominal pain Assessment/Plan: ON MORPHINE. DIET TOLERATED. NO NAUSEA/VOMITING/DIARRHEA ABNORMAL LIVER ENZYMES Code(s): R10.9 - UNSPECIFIED ABDOMINAL PAIN Qualifiers: Abdominal location: periumbilical Qualified Code(s): R10.33 - Periumbilical pain (2) IBS (irritable bowel syndrome) Code(s): K58.9 - IRRITABLE BOWEL SYNDROME WITHOUT DIARRHEA (3) Umbilical hernia Code(s): K42.9 - UMBILICAL HERNIA WITHOUT OBSTRUCTION OR GANGRENE Qualifiers: Obstruction and gangrene presence: without obstruction or gangrene Qualified Code(s): K42.9 - Umbilical hernia without obstruction or gangrene Assessment/Plan LABS MORPHINE D/C IVF COMPRESSION STOCKINGS DIET MODIFICATION
[2017-04-21] MEDS: QUEtiapine FUMARATE 50 MG TABLET PO SCH (21:09)
[2017-04-21] MEDS: NAPHAZOLINE/PHENIRAMINE OPHTHALMIC 15 ML BOTTLE OU SCH (21:09)
[2017-04-21] MEDS ORDERED: TETRAHYDROZOLINE HCL 1 DROP DROPS OU SCH (22:00)
[2017-04-22] MEDS: morphine CARPU-JECT 4 MG/1 ML DISP.SYRIN IVPUSH PRN (03:23)
[2017-04-22] MEDS ORDERED: amLODIPine BESYLATE 5 MG TABLET (FP) PO ONE (05:45)
[2017-04-22] MEDS: metroNIDAZOLE 250 MG TABLET PO SCH ×2 (05:51→14:50)
[2017-04-22] MEDS: METOCLOPRAMIDE HCL 10 MG TABLET (FP) PO SCH ×3 (06:02→17:35)
[2017-04-22 07:51] LABS: BASOPHIL 0.3 % (0-2.0); EOSINOPHIL 2.5 % (0-4.5); MCH 31.8 pg (25.7-33.7); MCHC 34.4 g/dl (32.0-35.9); MEAN CELL VOLUME 92.5 fl (80-96); MEAN PLT VOLUME 7.2 fl (7.5-11.1); NEUTROPHILS 55.7 % (42.8-82.8); PLATELET COUNT 223 K/MM3 (134-434); RDW 14.7 % (11.9-15.9)
[2017-04-22 08:07] LABS: ALBUMIN 3.9 g/dl (3.4-5.0); ANION GAP 8 (8-16); BILIRUBIN,TOTAL 0.5 mg/dL (0.2-1.0); CALCIUM 9.2 mg/dL (8.5-10.1); CO2 30 mmol/L (21-32); COCKROFT - GAULT 79.37; GLUCOSE,RANDOM 145 mg/dL (74-106); SGOT/AST 35 U/L (15-37); SGPT/ALT 114 U/L (12-78); TOT PROT 7.5 g/dl (6.4-8.2)
[2017-04-22 08:08] LABS: ALK PHOS 93 U/L (45-117)
[2017-04-22] MEDS ORDERED: PT OWN MED DRAWER 7, Y5N ONE ×2 (08:27→20:51)
[2017-04-22] MEDS: LIPASE/PROTEASE/AMYLASE 6,000 UNIT CAPSULE PO SCH ×3 (08:55→17:36)
[2017-04-22] MEDS: PANTOPRAZOLE SODIUM 100 ML IVPB SCH (09:26)
[2017-04-22] MEDS: NAPHAZOLINE/PHENIRAMINE OPHTHALMIC 15 ML BOTTLE OU SCH ×2 (09:27→22:48)
[2017-04-22] MEDS: METOPROLOL SUCCINATE 50 MG TAB.SR.24H (FP) PO SCH (09:28)
--- NOTE | 2017-04-22 10:26 | PN ---
Progress Note, Physician Chief Complaint: ABDOMINAL PAIN History of Present Illness: STILL COMPLAINING OF ITCHY EYES MILD ABDOMINAL PAIN, MORPHINE IS HELPING, STILL DECREASED APPETITE BLLE +1 EDEMA - Current Medication List Current Medications: Active Medications Furosemide (Lasix Injection -) 40 mg IVPUSH ONCE ONE Stop: 04/22/17 10:36 Pantoprazole Sodium (Protonix 40mg Ivpb (Pre-Docked)) 100 mls @ 200 mls/hr IVPB DAILY [facility] Last Admin: 04/22/17 09:26 Dose: 200 mls/hr Metoclopramide HCl (Reglan -) 5 mg PO TIDAC [facility] Last Admin: 04/22/17 06:02 Dose: 5 mg Metoprolol Succinate (Toprol Xl -) 50 mg PO DAILY [facility] Last Admin: 04/22/17 09:28 Dose: 50 mg Metronidazole (Flagyl -) 250 mg PO TID [facility] Last Admin: 04/22/17 05:51 Dose: 250 mg Morphine Sulfate (Morphine Injection -) 4 mg IVPUSH Q6H PRN PRN Reason: PAIN Last Admin: 04/22/17 03:23 Dose: 4 mg Naphazoline HCl/Pheniramine Maleate (Visine-A -) 1 drop OU BID [facility] Last Admin: 04/22/17 09:27 Dose: 1 drop Pancrelipase (Creon Dr 6,000 Units Capsule) 3 cap PO TIDCM [facility] Last Admin: 04/22/17 08:55 Dose: 3 cap Quetiapine Fumarate (Seroquel -) 50 mg PO HS [facility] Last Admin: 04/21/17 21:09 Dose: 50 mg - Objective Vital Signs: Vital Signs Temperature 98.1 F 04/22/17 10:00 Pulse Rate 81 04/22/17 10:00 Respiratory Rate 22 04/22/17 10:05 Blood Pressure 158/102 04/22/17 10:00 O2 Sat by Pulse Oximetry (%) 99 04/22/17 10:05 Constitutional: Yes: Well Nourished, No Distress, Calm Cardiovascular: Yes: Regular Rate and Rhythm Respiratory: Yes: Regular Gastrointestinal: Yes: Normal Bowel Sounds Musculoskeletal: Yes: Joint Stiffness, Muscle Pain (left wrist) Edema: Yes Edema: LLE: 1+, RLE: 1+ Labs: CBC, BMP 04/22/17 06:45 04/22/17 06:45 INR, PTT INR 0.98 (0.82-1.09) 04/20/17 02:20 Problem List - Problems (1) Abdominal pain Assessment/Plan: ON MORPHINE. DIET TOLERATED. NO NAUSEA/VOMITING/DIARRHEA ABNORMAL LIVER ENZYMES Code(s): R10.9 - UNSPECIFIED ABDOMINAL PAIN Qualifiers: Abdominal location: periumbilical Qualified Code(s): R10.33 - Periumbilical pain (2) IBS (irritable bowel syndrome) Code(s): K58.9 - IRRITABLE BOWEL SYNDROME WITHOUT DIARRHEA (3) Umbilical hernia Code(s): K42.9 - UMBILICAL HERNIA WITHOUT OBSTRUCTION OR GANGRENE Qualifiers: Obstruction and gangrene presence: without obstruction or gangrene Qualified Code(s): K42.9 - Umbilical hernia without obstruction or gangrene Assessment/Plan LABS MORPHINE D/C IVF COMPRESSION STOCKINGS THIGH HIGH DIET MODIFICATION FUROSEMIDE IVP ONCE
[2017-04-22] MEDS ORDERED: FUROSEMIDE 40 MG/4 ML INJECTABLE VIAL IVPUSH ONE (10:35)
[2017-04-22] MEDS ORDERED: oxyCODONE HCL 5 MG TABLET PO PRN (16:37)
--- NOTE | 2017-04-22 19:14 | PN ---
GI Progress Note Subjective: patient has chronic abdominal distention, abdominal bloating and constipation for many years, patient on Oxycodone, - Objective Vital Signs: Vital Signs Temperature 98.7 F 04/22/17 14:00 Pulse Rate 71 04/22/17 14:00 Respiratory Rate 20 04/22/17 14:00 Blood Pressure 151/86 04/22/17 14:00 O2 Sat by Pulse Oximetry (%) 99 04/22/17 10:05 Constitutional: Well Nourished Eyes: Yes: Conjunctiva Clear HENT: Yes: Atraumatic Neck: Yes: Supple Cardiovascular: Yes: Regular Rate and Rhythm Respiratory: Yes: CTA Bilaterally ...Palpate: Yes: Soft. No: Firm/Rigid, Guarding, Hepatomegaly, Mass, Pulsatile Mass, Splenomegaly, Tenderness Labs: INR, PTT INR 0.98 (0.82-1.09) 04/20/17 02:20 Problem List - Problems (1) IBS (irritable bowel syndrome) Assessment/Plan: R> discontinue Flagyl Xifaxan 550mg tid continue pancreatic enzyme Code(s): K58.9 - IRRITABLE BOWEL SYNDROME WITHOUT DIARRHEA
[2017-04-22] MEDS ORDERED: morphine CARPU-JECT 4 MG/1 ML DISP.SYRIN IVPUSH ONE (20:00)
[2017-04-22] MEDS: QUEtiapine FUMARATE 50 MG TABLET PO SCH (22:49)
[2017-04-22] MEDS: RIFAXIMIN 550 MG TABLET (UD) PO SCH (22:49)
[2017-04-22] MEDS: Methylnaltrexone Bromide 12 MG/0.6 ML KIT SQ SCH (22:50)
[2017-04-23] MEDS: RIFAXIMIN 550 MG TABLET (UD) PO SCH ×3 (05:46→21:26)
[2017-04-23] MEDS: METOCLOPRAMIDE HCL 10 MG TABLET (FP) PO SCH ×3 (06:01→18:15)
[2017-04-23] MEDS ORDERED: morphine CARPU-JECT 4 MG/1 ML DISP.SYRIN IVPUSH ONE (08:15)
[2017-04-23] MEDS: LIPASE/PROTEASE/AMYLASE 6,000 UNIT CAPSULE PO SCH ×3 (08:23→18:16)
[2017-04-23] MEDS ORDERED: FUROSEMIDE 20 MG TABLET (FP) PO SCH (10:00)
[2017-04-23] MEDS ORDERED: LOSARTAN POTASSIUM 50 MG TABLET (FP) PO SCH (10:00)
[2017-04-23] MEDS: METOPROLOL SUCCINATE 50 MG TAB.SR.24H (FP) PO SCH (10:36)
[2017-04-23] MEDS: PANTOPRAZOLE SODIUM 100 ML IVPB SCH (10:37)
[2017-04-23] MEDS: NAPHAZOLINE/PHENIRAMINE OPHTHALMIC 15 ML BOTTLE OU SCH ×2 (10:39→21:28)
[2017-04-23] MEDS ORDERED: amLODIPine BESYLATE 5 MG TABLET (FP) PO SCH (11:30)
--- NOTE | 2017-04-23 11:36 | PN ---
Progress Note, Physician Chief Complaint: complaining of abdominal pain and leg pain high BP got norvasc got iv lasix yesterday - Current Medication List Current Medications: Active Medications Amlodipine Besylate (Norvasc -) 5 mg PO DAILY [facility] Furosemide (Lasix Injection -) 40 mg IVPUSH DAILY [facility] Losartan Potassium (Cozaar -) 50 mg PO DAILY [facility] Last Admin: 04/23/17 10:36 Dose: 50 mg Methylnaltrexone [place] (Relistor -) 12 mg SQ DAILY [facility] Last Admin: 04/22/17 22:50 Dose: 12 mg Metoclopramide HCl (Reglan -) 5 mg PO TIDAC [facility] Last Admin: 04/23/17 10:37 Dose: 5 mg Metoprolol Succinate (Toprol Xl -) 50 mg PO DAILY [facility] Last Admin: 04/23/17 10:36 Dose: 50 mg Morphine Sulfate (Morphine Injection -) 4 mg IVPUSH Q6H PRN PRN Reason: PAIN Naphazoline HCl/Pheniramine Maleate (Visine-A -) 1 drop OU BID [facility] Last Admin: 04/23/17 10:39 Dose: 1 drop Pancrelipase (Creon Dr 6,000 Units Capsule) 3 cap PO TIDCM [facility] Last Admin: 04/23/17 08:23 Dose: 3 cap Pantoprazole Sodium (Protonix -) 40 mg PO DAILY [facility] Quetiapine Fumarate (Seroquel -) 50 mg PO HS [facility] Last Admin: 04/22/17 22:49 Dose: 50 mg Rifaximin (Xifaxan -) 550 mg PO TID [facility] Last Admin: 04/23/17 05:46 Dose: 550 mg - Objective Vital Signs: Vital Signs Temperature 98.7 F 04/23/17 06:00 Pulse Rate 82 04/23/17 06:00 Respiratory Rate 20 04/23/17 06:00 Blood Pressure 161/100 04/23/17 06:00 O2 Sat by Pulse Oximetry (%) 98 04/22/17 22:00 Constitutional: Yes: Calm Eyes: Yes: Other (conjuctival erythema) Cardiovascular: Yes: Regular Rate and Rhythm, S1, S2 Respiratory: Yes: CTA Bilaterally Gastrointestinal: Yes: Soft, Distention Edema: Yes Neurological: Yes: Alert, Oriented Labs: INR, PTT INR 0.98 (0.82-1.09) 04/20/17 02:20 Problem List - Problems (1) Hypertension Assessment/Plan: inc norvasc to 10mg daily on cozaar Code(s): I10 - ESSENTIAL (PRIMARY) HYPERTENSION Qualifiers: Hypertension type: essential hypertension Qualified Code(s): I10 - Essential (primary) hypertension (2) Abdominal pain Assessment/Plan: appreicate gi fu rifaximin pancreatic enzymes relsitor for constipation Code(s): R10.9 - UNSPECIFIED ABDOMINAL PAIN Qualifiers: Abdominal location: periumbilical Qualified Code(s): R10.33 - Periumbilical pain (3) Conjunctivitis Assessment/Plan: appreicate ophthalmology note oculox drops Code(s): H10.9 - UNSPECIFIED CONJUNCTIVITIS Qualifiers: Conjunctivitis type: acute Acute conjunctivitis type: unspecified (4) Leg edema Assessment/Plan: iv lasix check bmp in am Code(s): R60.0 - LOCALIZED EDEMA
[2017-04-23] MEDS: FUROSEMIDE 40 MG/4 ML INJECTABLE VIAL IVPUSH SCH (13:26)
[2017-04-23] MEDS: morphine CARPU-JECT 4 MG/1 ML DISP.SYRIN IVPUSH PRN ×2 (15:46→22:55)
[2017-04-23] MEDS: OFLOXACIN 0.3% OPHTHALMIC SOLUTION 5 ML BOTTLE OU SCH ×3 (15:47→21:29)
[2017-04-23] MEDS: Methylnaltrexone Bromide 12 MG/0.6 ML KIT SQ SCH (17:00)
[2017-04-23] MEDS ORDERED: PT OWN MED DRAWER 7, Y5N ONE (21:14)
[2017-04-23] MEDS: QUEtiapine FUMARATE 50 MG TABLET PO SCH (22:52)
[2017-04-24] MEDS: OFLOXACIN 0.3% OPHTHALMIC SOLUTION 5 ML BOTTLE OU SCH ×5 (06:15→22:40)
[2017-04-24] MEDS: RIFAXIMIN 550 MG TABLET (UD) PO SCH ×3 (06:15→22:39)
[2017-04-24] MEDS: morphine CARPU-JECT 4 MG/1 ML DISP.SYRIN IVPUSH PRN ×3 (06:16→19:19)
[2017-04-24] MEDS: METOCLOPRAMIDE HCL 10 MG TABLET (FP) PO SCH ×3 (07:52→17:39)
[2017-04-24] MEDS: LIPASE/PROTEASE/AMYLASE 6,000 UNIT CAPSULE PO SCH ×3 (08:00→17:39)
[2017-04-24 08:26] LABS: ANION GAP 11 (8-16); CALCIUM 9.6 mg/dL (8.5-10.1); CO2 31 mmol/L (21-32); CREATININE 1.1 mg/dL (0.7-1.3); GLUCOSE,RANDOM 136 mg/dL (74-106)
[2017-04-24] MEDS ORDERED: PT OWN MED DRAWER 7, Y5N ONE ×6 (10:02→22:37)
[2017-04-24] MEDS: METOPROLOL SUCCINATE 50 MG TAB.SR.24H (FP) PO SCH (10:06)
[2017-04-24] MEDS: FUROSEMIDE 40 MG/4 ML INJECTABLE VIAL IVPUSH SCH (10:06)
[2017-04-24] MEDS: amLODIPine BESYLATE 5 MG TABLET (FP) PO SCH (10:07)
[2017-04-24] MEDS: PANTOPRAZOLE 40 MG TABLET (FP) PO SCH (10:07)
[2017-04-24] MEDS: LOSARTAN POTASSIUM 50 MG TABLET (FP) PO SCH (10:07)
[2017-04-24] MEDS: NAPHAZOLINE/PHENIRAMINE OPHTHALMIC 15 ML BOTTLE OU SCH ×2 (10:09→22:41)
[2017-04-24] MEDS: Methylnaltrexone Bromide 12 MG/0.6 ML KIT SQ SCH (13:29)
--- NOTE | 2017-04-24 18:56 | PN ---
Progress Note, Physician Chief Complaint: ABDOMINAL PAIN History of Present Illness: ITCHY EYES ARE BETTER MILD ABDOMINAL PAIN, MORPHINE IS HELPING, STILL DECREASED APPETITE BLLE TRACE - Current Medication List Current Medications: Active Medications Amlodipine Besylate (Norvasc -) 10 mg PO DAILY COUNTS INCLUDE 234 BEDS AT THE [facility] Last Admin: 04/24/17 10:07 Dose: 10 mg Furosemide (Lasix Injection -) 40 mg IVPUSH DAILY COUNTS INCLUDE 234 BEDS AT THE [facility] Last Admin: 04/24/17 10:06 Dose: 40 mg Losartan Potassium (Cozaar -) 100 mg PO DAILY COUNTS INCLUDE 234 BEDS AT THE [facility] Last Admin: 04/24/17 10:07 Dose: 100 mg Methylnaltrexone [place] (Relistor -) 12 mg SQ DAILY COUNTS INCLUDE 234 BEDS AT THE [facility] Last Admin: 04/24/17 13:29 Dose: 12 mg Metoclopramide HCl (Reglan -) 5 mg PO TIDAC COUNTS INCLUDE 234 BEDS AT THE [facility] Last Admin: 04/24/17 17:39 Dose: 5 mg Metoprolol Succinate (Toprol Xl -) 50 mg PO DAILY COUNTS INCLUDE 234 BEDS AT THE [facility] Last Admin: 04/24/17 10:06 Dose: 50 mg Morphine Sulfate (Morphine Injection -) 4 mg IVPUSH Q6H PRN PRN Reason: PAIN Last Admin: 04/24/17 12:30 Dose: 4 mg Naphazoline HCl/Pheniramine Maleate (Visine-A -) 1 drop OU BID COUNTS INCLUDE 234 BEDS AT THE [facility] Last Admin: 04/24/17 10:09 Dose: 1 drop Ofloxacin (Ocuflox 0.3% Eye Drops -) 1 drop OU Q4HWA COUNTS INCLUDE 234 BEDS AT THE [facility] Last Admin: 04/24/17 17:39 Dose: 1 drop Pancrelipase (Creon Dr 6,000 Units Capsule) 3 cap PO TIDCM COUNTS INCLUDE 234 BEDS AT THE [facility] Last Admin: 04/24/17 17:39 Dose: 3 cap Pantoprazole Sodium (Protonix -) 40 mg PO DAILY COUNTS INCLUDE 234 BEDS AT THE [facility] Last Admin: 04/24/17 10:07 Dose: 40 mg Quetiapine Fumarate (Seroquel -) 50 mg PO HS COUNTS INCLUDE 234 BEDS AT THE [facility] Last Admin: 04/23/17 22:52 Dose: 50 mg Rifaximin (Xifaxan -) 550 mg PO TID COUNTS INCLUDE 234 BEDS AT THE [facility] Last Admin: 04/24/17 13:34 Dose: 550 mg - Objective Vital Signs: Vital Signs Temperature 98.0 F 04/24/17 15:37 Pulse Rate 79 04/24/17 15:37 Respiratory Rate 20 04/24/17 15:37 Blood Pressure 161/78 04/24/17 15:37 O2 Sat by Pulse Oximetry (%) 98 04/24/17 10:00 Constitutional: Yes: Well Nourished, No Distress, Calm Cardiovascular: Yes: Regular Rate and Rhythm Respiratory: Yes: Regular Musculoskeletal: Yes: WNL Extremities: Yes: WNL Edema: Yes Edema: LLE: Trace, RLE: Trace Peripheral Pulses WNL: Yes Neurological: Yes: Alert, Oriented Labs: CBC, BMP 04/24/17 06:40 INR, PTT INR 0.98 (0.82-1.09) 04/20/17 02:20 Problem List - Problems (1) Abdominal pain Assessment/Plan: ON MORPHINE. DIET TOLERATED. NO NAUSEA/VOMITING/DIARRHEA ABNORMAL LIVER ENZYMES- IMPROVING Code(s): R10.9 - UNSPECIFIED ABDOMINAL PAIN Qualifiers: Abdominal location: periumbilical Qualified Code(s): R10.33 - Periumbilical pain (2) IBS (irritable bowel syndrome) Assessment/Plan: ON RIFAXIMIN MORPHINE FOR PAIN Code(s): K58.9 - IRRITABLE BOWEL SYNDROME WITHOUT DIARRHEA (3) Umbilical hernia Code(s): K42.9 - UMBILICAL HERNIA WITHOUT OBSTRUCTION OR GANGRENE Qualifiers: Obstruction and gangrene presence: without obstruction or gangrene Qualified Code(s): K42.9 - Umbilical hernia without obstruction or gangrene Assessment/Plan LABS IMPROVING MORPHINE D/C IVF COMPRESSION STOCKINGS THIGH HIGH DIET MODIFICATION LABS IN AM
[2017-04-24 19:21] LABS: BASOPHIL 0.4 % (0-2.0); EOSINOPHIL 1.3 % (0-4.5); MCH 30.9 pg (25.7-33.7); MCHC 33.4 g/dl (32.0-35.9); MEAN CELL VOLUME 92.3 fl (80-96); MEAN PLT VOLUME 7.2 fl (7.5-11.1); PLATELET COUNT 258 K/MM3 (134-434); RDW 14.4 % (11.9-15.9); WHITE BLOOD COUNT 8.4 K/mm3 (4.0-10.0)
[2017-04-24] MEDS: QUEtiapine FUMARATE 50 MG TABLET PO SCH (22:40)
[2017-04-25] MEDS: morphine CARPU-JECT 4 MG/1 ML DISP.SYRIN IVPUSH PRN ×4 (01:09→19:34)
[2017-04-25] MEDS: METOCLOPRAMIDE HCL 10 MG TABLET (FP) PO SCH ×3 (06:04→16:39)
[2017-04-25] MEDS: RIFAXIMIN 550 MG TABLET (UD) PO SCH ×2 (06:04→13:24)
[2017-04-25] MEDS: OFLOXACIN 0.3% OPHTHALMIC SOLUTION 5 ML BOTTLE OU SCH ×4 (06:07→17:36)
[2017-04-25 07:46] LABS: ALBUMIN 3.7 g/dl (3.4-5.0); ANION GAP 7 (8-16); BILIRUBIN,TOTAL 0.6 mg/dL (0.2-1.0); CALCIUM 8.9 mg/dL (8.5-10.1); CO2 31 mmol/L (21-32); CREATININE 1.2 mg/dL (0.7-1.3); GLUCOSE,RANDOM 115 mg/dL (74-106); SGOT/AST 24 U/L (15-37); SGPT/ALT 67 U/L (12-78); TOT PROT 6.9 g/dl (6.4-8.2)
[2017-04-25 07:47] LABS: ALK PHOS 71 U/L (45-117)
[2017-04-25] MEDS: LIPASE/PROTEASE/AMYLASE 6,000 UNIT CAPSULE PO SCH ×3 (08:51→16:39)
[2017-04-25] MEDS: FUROSEMIDE 40 MG/4 ML INJECTABLE VIAL IVPUSH SCH (09:28)
[2017-04-25] MEDS: Methylnaltrexone Bromide 12 MG/0.6 ML KIT SQ SCH (09:34)
[2017-04-25] MEDS: METOPROLOL SUCCINATE 50 MG TAB.SR.24H (FP) PO SCH (09:34)
[2017-04-25] MEDS: PANTOPRAZOLE 40 MG TABLET (FP) PO SCH (09:34)
[2017-04-25] MEDS: amLODIPine BESYLATE 5 MG TABLET (FP) PO SCH (09:34)
[2017-04-25] MEDS: LOSARTAN POTASSIUM 50 MG TABLET (FP) PO SCH (09:34)
[2017-04-25] MEDS: NAPHAZOLINE/PHENIRAMINE OPHTHALMIC 15 ML BOTTLE OU SCH (09:35)
--- NOTE | 2017-04-25 18:52 | PN ---
Progress Note, Physician Chief Complaint: ABDOMINAL PAIN History of Present Illness: ITCHY EYES ARE BETTER MILD ABDOMINAL PAIN, MORPHINE IS HELPING, STILL DECREASED APPETITE BLLE TRACE - Current Medication List Current Medications: Active Medications Amlodipine Besylate (Norvasc -) 10 mg PO DAILY [facility] Last Admin: 04/25/17 09:34 Dose: 10 mg Furosemide (Lasix Injection -) 40 mg IVPUSH DAILY [facility] Last Admin: 04/25/17 09:28 Dose: 40 mg Losartan Potassium (Cozaar -) 100 mg PO DAILY [facility] Last Admin: 04/25/17 09:34 Dose: 100 mg Methylnaltrexone [place] (Relistor -) 12 mg SQ DAILY [facility] Last Admin: 04/25/17 09:34 Dose: 12 mg Metoclopramide HCl (Reglan -) 5 mg PO TIDAC [facility] Last Admin: 04/25/17 16:39 Dose: 5 mg Metoprolol Succinate (Toprol Xl -) 50 mg PO DAILY [facility] Last Admin: 04/25/17 09:34 Dose: 50 mg Morphine Sulfate (Morphine Injection -) 4 mg IVPUSH Q6H PRN PRN Reason: PAIN Last Admin: 04/25/17 13:05 Dose: 4 mg Naphazoline HCl/Pheniramine Maleate (Visine-A -) 1 drop OU BID [facility] Last Admin: 04/25/17 09:35 Dose: 1 drop Ofloxacin (Ocuflox 0.3% Eye Drops -) 1 drop OU Q4HWA [facility] Last Admin: 04/25/17 17:36 Dose: 1 drop Pancrelipase (Creon Dr 6,000 Units Capsule) 3 cap PO TIDCM [facility] Last Admin: 04/25/17 16:39 Dose: 3 cap Pantoprazole Sodium (Protonix -) 40 mg PO DAILY [facility] Last Admin: 04/25/17 09:34 Dose: 40 mg Quetiapine Fumarate (Seroquel -) 50 mg PO HS [facility] Last Admin: 04/24/17 22:40 Dose: 50 mg Rifaximin (Xifaxan -) 550 mg PO TID [facility] Last Admin: 04/25/17 13:24 Dose: 550 mg - Objective Vital Signs: Vital Signs Temperature 98.2 F 04/25/17 16:00 Pulse Rate 70 04/25/17 16:00 Respiratory Rate 20 04/25/17 16:00 Blood Pressure 144/79 04/25/17 16:00 O2 Sat by Pulse Oximetry (%) 96 04/25/17 10:00 Constitutional: Yes: Well Nourished, Calm, Mild Distress (STILL COMPLAINING FOR ABDOMINAL PAIN) Cardiovascular: Yes: Regular Rate and Rhythm Respiratory: Yes: Regular Gastrointestinal: Yes: Abdomen, Obese Edema: Yes Edema: LLE: Trace, RLE: Trace Neurological: Yes: Alert, Oriented Labs: CBC, BMP 04/24/17 19:10 04/25/17 05:35 INR, PTT INR 0.98 (0.82-1.09) 04/20/17 02:20 Problem List - Problems (1) Abdominal pain Assessment/Plan: ON MORPHINE. DIET TOLERATED. NO NAUSEA/VOMITING/DIARRHEA ABNORMAL LIVER ENZYMES- IMPROVING Code(s): R10.9 - UNSPECIFIED ABDOMINAL PAIN Qualifiers: Abdominal location: periumbilical Qualified Code(s): R10.33 - Periumbilical pain (2) IBS (irritable bowel syndrome) Assessment/Plan: ON RIFAXIMIN MORPHINE FOR PAIN Code(s): K58.9 - IRRITABLE BOWEL SYNDROME WITHOUT DIARRHEA (3) Umbilical hernia Code(s): K42.9 - UMBILICAL HERNIA WITHOUT OBSTRUCTION OR GANGRENE Qualifiers: Obstruction and gangrene presence: without obstruction or gangrene Qualified Code(s): K42.9 - Umbilical hernia without obstruction or gangrene Assessment/Plan LABS IMPROVING MORPHINE, TRIED CONVERTING TO OXYCODONE, PAIN WASN'T WELL MANAGED BLLE TRACE EDEMA HAS COMPRESSION STOCKINGS THIGH HIGH DIET MODIFICATION LABS IN AM
[2017-04-26] MEDS ORDERED: PT OWN MED DRAWER 7, Y5N ONE ×3 (00:03→11:35)
[2017-04-26] MEDS: OFLOXACIN 0.3% OPHTHALMIC SOLUTION 5 ML BOTTLE OU SCH ×3 (00:07→12:06)
[2017-04-26] MEDS: RIFAXIMIN 550 MG TABLET (UD) PO SCH ×2 (00:07→06:06)
[2017-04-26] MEDS: QUEtiapine FUMARATE 50 MG TABLET PO SCH (00:07)
[2017-04-26] MEDS: NAPHAZOLINE/PHENIRAMINE OPHTHALMIC 15 ML BOTTLE OU SCH ×2 (00:08→10:16)
[2017-04-26] MEDS: morphine CARPU-JECT 4 MG/1 ML DISP.SYRIN IVPUSH PRN ×2 (02:29→08:52)
[2017-04-26] MEDS: METOCLOPRAMIDE HCL 10 MG TABLET (FP) PO SCH ×2 (06:07→10:19)
[2017-04-26] MEDS: LIPASE/PROTEASE/AMYLASE 6,000 UNIT CAPSULE PO SCH ×2 (08:52→11:53)
[2017-04-26] MEDS: Methylnaltrexone Bromide 12 MG/0.6 ML KIT SQ SCH (10:17)
[2017-04-26] MEDS: FUROSEMIDE 40 MG/4 ML INJECTABLE VIAL IVPUSH SCH (10:19)
[2017-04-26] MEDS: PANTOPRAZOLE 40 MG TABLET (FP) PO SCH (10:19)
[2017-04-26] MEDS: amLODIPine BESYLATE 5 MG TABLET (FP) PO SCH (10:19)
[2017-04-26] MEDS: LOSARTAN POTASSIUM 50 MG TABLET (FP) PO SCH (10:19)
[2017-04-26] MEDS: METOPROLOL SUCCINATE 50 MG TAB.SR.24H (FP) PO SCH (10:25)
--- NOTE | 2017-04-26 11:41 | DS ---
Physical Examination Vital Signs: Vital Signs Temperature 97.9 F 04/26/17 06:18 Pulse Rate 69 04/26/17 06:18 Respiratory Rate 16 04/26/17 06:18 Blood Pressure 139/63 04/26/17 06:18 O2 Sat by Pulse Oximetry (%) 96 04/25/17 10:00 Constitutional: Yes: Calm Eyes: Yes: Other Neck: Yes: Trachea Midline Cardiovascular: Yes: Regular Rate and Rhythm, S1, S2 Respiratory: Yes: CTA Bilaterally Gastrointestinal: Yes: Soft Extremities: Yes: Other (compression stockings) Neurological: Yes: Alert, Oriented Labs: CBC, BMP 04/24/17 19:10 04/25/17 05:35 Discharge Summary Reason For Visit: INTRACTABLE ABDOMINAL PAIN UMBILICAL HERNIA Current Active Problems Abdominal pain (Acute) Conjunctivitis (Acute) IBS (irritable bowel syndrome) (Acute) Intractable abdominal pain (Acute) Umbilical hernia (Acute) Hospital Course: Admission History of Present Illness: 71 year old male with significant past medical history of diabetes, hypertension , GERD, epigastric hernia, and obesity who presents to the ED for two complaints. First complaint - patient reports 2 days of pain and discharge from both eyes. He describes the pain as a burning sensation with itchiness and redness to both eyes. Denies any dizziness or visual changes. Second complaint - patient reports 5 days of pain and discomfort to his hernia in the epigastric region. States he has a long history of the hernia and attempted to seek medical attention, but has not had it corrected. Patient also has complaints of associated nausea, but no vomiting or diarrhea. His last bowel movement was 5 days ago. - Past Medical History Cardiovascular: Yes: HTN Gastrointestinal: Yes: GERD Hepatobiliary: Yes: Other (cholecystectomy) Musculoskeletal: Yes: Osteoarthritis, Other (chronic lower leg pain) Endocrine: Yes: Diabetes Mellitus - Past Surgical History Past Surgical History: Yes: Cholecystectomy - Smoking History Smoking history: Never smoked Have you smoked in the past 12 months: No abdominal pain sec to small bowel bacterial overgrowth,pancreatic insufiency pancreatic enzymes rfiaximin was on flagyl then stopped seen by GI and surgery conjuctivitis seen by optho got eye drops now improved contispation on chronic opioids relistor Condition: Improved - Instructions Referrals: Donna Galdamez MD [Primary Care Provider] - - Home Medications Comprehensive Discharge Medication List: Ambulatory Orders Gabapentin [Neurontin] 400 mg PO HS 01/22/16 Linagliptin/Metformin HCl [Jentadueto 2.5 mg-500 mg Tab] 1 each PO BID 01/22/16 Losartan/Hydrochlorothiazide [Hyzaar 100-12.5 Tablet] 1 each PO DAILY 01/22/16 Quetiapine Fumarate [Seroquel -] 50 mg PO HS 01/22/16 Tamsulosin HCl [Flomax -] 0.4 mg PO HS 01/22/16 Metoprolol Succinate [Toprol XL -] 50 mg PO DAILY 01/23/16 Atorvastatin Calcium [Lipitor] 10 mg PO HS 01/06/17 Lipase/Protease/Amylase [Creon Dr 36,000 Units Capsule] 1 each PO BID 01/06/17 Roflumilast [Daliresp] 500 mcg PO DAILY 01/06/17 Aspirin [ASA -] 81 mg PO DAILY tab.chew 01/08/17 Pantoprazole Sodium [Protonix -] 40 mg PO DAILY #30 tablet.ec 01/08/17
[2017-04-26 12:19] VITALS: BP 148/77; PULSE 77; TEMP 97.5
[2017-04-26 12:34] LABS: ALBUMIN 4.1 g/dl (3.4-5.0); ANION GAP 7 (8-16); CALCIUM 9.1 mg/dL (8.5-10.1); CO2 31 mmol/L (21-32); CREATININE 1.2 mg/dL (0.7-1.3); GLUCOSE,RANDOM 128 mg/dL (74-106); SGOT/AST 24 U/L (15-37); SGPT/ALT 63 U/L (12-78)
[2017-04-26 12:36] LABS: ALK PHOS 80 U/L (45-117); BILIRUBIN,TOTAL 0.7 mg/dL (0.2-1.0); TOT PROT 7.9 g/dl (6.4-8.2)
== END 2017-04-26 14:05 | disposition home or self-care (01) | DRG 392 ==
LOC: JER 23:56 → INTOOBSV 04-20 06:10 → JERBED 04-20 06:10 → UNDOADMOB 04-20 06:10 → JERBED 04-20 06:17 → UNDOADMIN 04-20 06:17 → JERBED 04-20 07:03 → J5S 04-20 15:30 → OBSVTOIN 04-22 16:00
PROVIDERS: ADMIT Family Medicine; ATTEND Family Medicine
DX: K58.9 Irritable bowel syndrome, unspecified (principal); H10.33 Unspecified acute conjunctivitis, bilateral; K44.9 Diaphragmatic hernia without obstruction or gangrene; K21.9 Gastro-esophageal reflux disease without esophagitis; I10 Essential (primary) hypertension; M19.90 Unspecified osteoarthritis, unspecified site; E11.9 Type 2 diabetes mellitus without complications; K42.9 Umbilical hernia without obstruction or gangrene; K86.89 Other specified diseases of pancreas
CPT/HCPCS: 36415; 71010-TC; 74176-TC; 80048; 80053; 81003; 82550; 83036; 83690; 83735; 83880; 84484; 85025; 85027; 85610; 86850; 86900; 86901; 93005; 93010; 93306-TC; 99283-25; G0378

== ENCOUNTER 2017-05-14 07:31 | Emergency (ER) | payer OTHER ==
[2017-05-14 07:49] VITALS: TEMP 99.7; BMI 33.9
--- NOTE | 2017-05-14 08:03 | PDOC ---
Attending Attestation - Resident Resident Name: Philip Barry - HPI HPI: 05/14/17 09:28 pt presents to the ED complaining of recurrent, diffuse abdominal pain that is similar to prior episodes of similar pain from chronic umbilical hernia, nausea and vomiting. Well appearing in the ED, but with diffuse abdominal tenderness. Patient tells me that no one has ever recommended surgery to correct his hernia. - Physicial Exam PE: 05/14/17 09:33 Abdomen is obese and mildly distended with diffuse tenderness. I do not appreciate a hernia, although the patient is more tender around his umbilicus. - Medical Decision Making 05/14/17 09:[address] abdomen pelvis during admission two weeks ago for the same complaint. Will check labs and give pain control and reassess. will consider discharge home if labs are within normal limits.
[2017-05-14] MEDS ORDERED: morphine CARPU-JECT 4 MG/1 ML DISP.SYRIN IVPUSH ONE (08:29)
[2017-05-14] MEDS ORDERED: morphine CARPU-JECT 4 MG/1 ML DISP.SYRIN ONE (08:36)
--- NOTE | 2017-05-14 08:46 | PDOC ---
History of Present Illness - History of Present Illness Initial Comments: 05/14/17 08:35 Patient is a 71 year old male with a history of HTN, HLD, DM, and an umbilical hernia who presents with a 2 day history of abdominal pain. Patient reports a 2 day history of worsening twisting abdominal pain similar to his previous pain from his umbilical hernia. He states that last night he had 4-5 episodes of non- bloody, non-bilious emesis and worsening 10/10 abdominal pain worse with movement prompting him to call EMS and present to the ED this morning. He reports that his last bowel movement was 2 days ago. He denies any fevers, chills, chest pain, SOB, or dysuria. Of note, he had a recent admission for abdominal pain related to his umbilical hernia d/c on 04/24. He reports that he has never had his hernia repaired and it is questionable whether he has been evaluated for surgical repair of his hernia. <Philip Barry - Last Filed: 05/14/17 15:23> <Jane Leon - Last Filed: 05/15/17 08:16> - General Chief Complaint: Pain Stated Complaint: ABD PAIN Time Seen by Provider: 05/14/17 07:45 Past History - Past Medical History Diabetes: Yes GI Disorders: Yes (GERD) HTN: Yes Psychiatric Problems: Yes - Surgical History Abdominal Surgery: Yes (gallbladder) Cholecystectomy: Yes Orthopedic Surgery: Yes (screws and pins on his leg.) - Immunization History Immunization Up to Date: Yes - Psycho/Social/Smoking Cessation Hx Anxiety: No Suicidal Ideation: No Smoking History: Never smoked Have you smoked in the past 12 months: No Information on smoking cessation initiated: No Hx Alcohol Use: No Drug/Substance Use Hx: No Substance Use Type: None Hx Substance Use Treatment: No <Philip Barry - Last Filed: 05/14/17 15:23> <Jane Leon - Last Filed: 05/15/17 08:16> - Past Medical History Allergies/Adverse Reactions: Allergies Allergy/AdvReac Type Severity Reaction Status Date / Time No Known Allergies Allergy Verified 04/20/17 00:43 Home Medications: Ambulatory Orders Gabapentin [Neurontin] 400 mg PO HS 01/22/16 Linagliptin/Metformin HCl [Jentadueto 2.5 mg-500 mg Tab] 1 each PO BID 01/22/16 Quetiapine Fumarate [Seroquel -] 50 mg PO HS 01/22/16 Tamsulosin HCl [Flomax -] 0.4 mg PO HS 01/22/16 Metoprolol Succinate [Toprol XL -] 50 mg PO DAILY 01/23/16 Atorvastatin Calcium [Lipitor] 10 mg PO HS 01/06/17 Roflumilast [Daliresp] 500 mcg PO DAILY 01/06/17 Aspirin [ASA -] 81 mg PO DAILY tab.chew 01/08/17 Pantoprazole Sodium [Protonix -] 40 mg PO DAILY #30 tablet.ec 01/08/17 Amlodipine Besylate [Norvasc -] 10 mg PO DAILY #30 tablet MDD 1 04/26/17 Lipase/Protease/Amylase [Creon Dr 6,000 Units Capsule] 3 cap PO TIDCM #100 tab MDD 3 04/26/17 Losartan Potassium [Cozaar -] 100 mg PO DAILY #30 tablet MDD 1 04/26/17 Methylnaltrexone [place] [Relistor -] 12 mg SQ DAILY #30 kit MDD 1 04/26/17 Oxycodone HCl 10 mg PO QID PRN #7 tablet MDD 4 04/26/17 Rifaximin [Xifaxan -] 550 mg PO TID #60 tablet MDD 3 04/26/17 Review of Systems - Review of Systems Constitutional: No: Chills, Fever, Night Sweats Respiratory: Yes: Cough. No: Shortness of Breath, Productive cough Cardiac (ROS): No: Chest Pain, Lightheadedness, Palpitations ABD/GI: Yes: Nausea, Vomiting. No: Constipated, Diarrhea, Rectal Bleeding, Tarry Stools : No: Dysuria Integumentary: No: Rash Neurological: No: Headache, Numbness, Tingling, Dizziness <Philip Barry - Last Filed: 05/14/17 15:23> *Physical Exam - Vital Signs Last Vital Signs Temp Pulse Resp BP Pulse Ox 99.7 F H 75 18 189/112 97 05/14/17 07:41 05/14/17 07:41 05/14/17 07:41 05/14/17 07:41 05/14/17 07:41 - Physical Exam Comments: 05/14/17 15:23 General Appearance: Nourished in Moderate Distress, Obese HEENT: No Pharyngeal Erythema, Tonsillar Exudate, Tonsillar Erythema Respiratory/Chest: Lungs Clear, Normal Breath Sounds. No Rales, Rhonchi, Wheezing Cardiovascular: Regular Rhythm, Regular Rate. No Murmur, Gallop/S3, Gallop/S4 Gastrointestinal/Abdominal: Normal Bowel Sounds, Protuberent, Diffuse tenderness to palpation worse around the umbilicus. Guarding noted on exam. No reducible or nonreducible hernia noted on exam. No Rebound Extremity: Normal Capillary Refill. No Coldness, Cyanosis Integumentary: Normal Color, Dry, Warm Neurologic: Fully Oriented, Normal Mood/Affect <Philip Barry - Last Filed: 05/14/17 15:23> - Vital Signs Last Vital Signs Temp Pulse Resp BP Pulse Ox 99.7 F H 80 18 158/90 100 05/14/17 07:41 05/14/17 13:23 05/14/17 13:23 05/14/17 13:23 05/14/17 13:23 <Jane Leon - Last Filed: 05/15/17 08:16> ED Treatment Course - LABORATORY CBC & Chemistry Diagram: 05/14/17 08:34 05/14/17 08:34 <Philip Barry - Last Filed: 05/14/17 15:23> - LABORATORY CBC & Chemistry Diagram: 05/14/17 08:34 05/14/17 08:34 - ADDITIONAL ORDERS Additional order review: 05/14/17 08:34 RBC 4.52 MCV 91.7 MCHC 34.2 RDW 14.4 MPV 7.2 L Neutrophils % 65.0 Lymphocytes % 24.2 Monocytes % 9.8 Eosinophils % 0.7 Basophils % 0.3 - Medications Given in the ED: ED Medications Discontinued Medications Generic Name Dose Route Start Last Admin Trade Name Freq PRN Reason Stop Dose Admin Morphine Sulfate 4 mg 05/14/17 08:29 05/14/17 08:56 Morphine Injection - IVPUSH 05/14/17 08:30 4 mg ONCE ONE Administration Ondansetron HCl 4 mg 05/14/17 09:48 05/14/17 10:02 Zofran Injection IVPUSH 05/14/17 09:49 4 mg ONCE ONE Administration Oxycodone/Acetaminophen 2 combo 05/14/17 12:41 05/14/17 12:50 Percocet 5/325 - PO 05/14/17 12:42 2 combo ONCE ONE Administration <Jane Leon - Last Filed: 05/15/17 08:16> Medical Decision Making - Medical Decision Making 05/14/17 08:55 Patient is a 71 year old male with a history of HTN, HLD, DM, and an umbilical hernia who presents with a 2 day history of abdominal pain. Given that his pain is a similar presentation to he last admission for umbilical hernia pain and hid physical exam, his current symptoms are most likely due to his umbilical hernia. We must rule out incarceration and strangulation of the hernia, however his exam is less concerning for these diagnoses. Given his age and history we feel it reasonable to rule out ACS and will obtain troponin and EKG. Pancreatits is also on the differential although less likely given his presentation and exam and we will obtain a lipase to rule out. Patient had previous had his gallbladder removed which was the original cause of his hernia and therefore gallbladder pathology is less likely as well. We will manage his pain appropriately. 05/14/17 12:15 Patient's laboratory values show no concerning values. We called the patient's primary care physician Dr. Galdamez at 12:12pm and discussed the case. Dr. Galdamez agrees that there is no concerning acute process. The patient has had multiple CT scans which all show benign pathology the most recent on 04/20/17. Dr. Galdamez reports that the patient has been referred to GI multiple times, but the patient has refused follow up with GI. Dr. Galdamez recommended that we discharge the patient with follow up in his clinic. <Philip Barry - Last Filed: 05/14/17 15:23> - Medical Decision Making 05/15/17 08:13 Pt seen and examined with the resident. Agree with above history and physical, assement and plan. Patient presents to the ED with periumbilical pain that appears to be chronic. Abdomen is obese, with mild diffuse tenderness to deep palpation and no perceptable hernia on my exam. Recent admission and CT abdomen that showed umbilical hernia containing fat only. Labs show no concerning values. Patient tolerated PO in the ED. Given recent negative evaluation, will discharge the patient home with follow up with Dr. Galdamez. <Jane Leon - Last Filed: 05/15/17 08:16> *DC/Admit/Observation/Transfer - Attestations Physician Attestion: 05/14/17 12:25 I, Dr. Philip Barry, attest that this document has been prepared under my direction and personally reviewed by me in its entirety. I further attest, that it accurately reflects all work, treatment, procedures and medical decision -making performed by me. <Philip Barry - Last Filed: 05/14/17 15:23> <Jane Leon - Last Filed: 05/15/17 08:16> Diagnosis at time of Disposition: Abdominal pain Qualifiers: Abdominal location: periumbilical Qualified Code(s): R10.33 - Periumbilical pain - Discharge Dispostion Disposition: HOME Condition at time of disposition: Improved - Referrals Referrals: Donna Galdamez MD [Primary Care Provider] - - Patient Instructions Printed Discharge Instructions: DI for Abdominal Pain-Adult Additional Instructions: Please return to the ER if you experience severe worsening symptoms such as vomiting blood, fevers, chills, worsening shortness of breath, or chest pain. Please schedule follow up with your Primary care physician Dr. Galdamez to discuss your ER visit.
[2017-05-14 09:30] LABS: BASOPHIL 0.3 % (0-2.0); EOSINOPHIL 0.7 % (0-4.5); MCH 31.3 pg (25.7-33.7); MCHC 34.2 g/dl (32.0-35.9); MEAN CELL VOLUME 91.7 fl (80-96); MEAN PLT VOLUME 7.2 fl (7.5-11.1); PLATELET COUNT 229 K/MM3 (134-434); RDW 14.4 % (11.9-15.9); WHITE BLOOD COUNT 8.2 K/mm3 (4.0-10.0)
[2017-05-14] MEDS ORDERED: ONDANSETRON 4 MG/2 ML VIAL IVPUSH ONE (09:48)
[2017-05-14] MEDS ORDERED: ONDANSETRON 4 MG/2 ML VIAL ONE (09:58)
[2017-05-14 10:12] LABS: ALBUMIN 3.8 g/dl (3.4-5.0); ANION GAP 10 (8-16); CO2 27 mmol/L (21-32); GLUCOSE,RANDOM 155 mg/dL (74-106); SGOT/AST 23 U/L (15-37); SGPT/ALT 37 U/L (12-78)
[2017-05-14 10:16] LABS: ALK PHOS 70 U/L (45-117); BILIRUBIN,TOTAL 0.3 mg/dL (0.2-1.0); TOT PROT 7.2 g/dl (6.4-8.2); TROPONIN I < 0.02 ng/ml (0.00-0.05)
[2017-05-14] MEDS ORDERED: OXYCODONE/APAP 5/325MG COMBO TABLET PO ONE (12:41)
[2017-05-14] MEDS ORDERED: OXYCODONE/APAP 5/325MG COMBO TABLET ONE (12:48)
[2017-05-14 13:24] VITALS: BP 158/90; PULSE 80
--- NOTE | 2017-05-14 15:48 | EKG ---
Test Reason : Blood Pressure : / mmHG Vent. Rate : 071 BPM Atrial Rate : 071 BPM P-R Int : 182 ms QRS Dur : 106 ms QT Int : 392 ms P-R-T Axes : 045 001 144 degrees QTc Int : 425 ms NORMAL SINUS RHYTHM CANNOT RULE OUT ANTERIOR INFARCT , AGE UNDETERMINED T WAVE ABNORMALITY, CONSIDER LATERAL ISCHEMIA ABNORMAL ECG WHEN COMPARED WITH ECG OF 20-APR-2017 11:00, NO SIGNIFICANT CHANGE WAS FOUND Confirmed by GIOVANY JIMENEZ MD ([id number]) on 05/14/2017 3:47:34 PM Referred By: Confirmed By:GIOVANY JIMENEZ MD
== END 2017-05-14 13:25 | disposition home or self-care (01) ==
LOC: JER 07:31
PROC: 3E033NZ Introduction of Analgesics, Hypnotics, Sedatives into Peripheral Vein, Percutaneous Approach (ICD-10-PCS; principal; 2017-05-14)
PROC: 3E033GC Introduction of Other Therapeutic Substance into Peripheral Vein, Percutaneous Approach (ICD-10-PCS; 2017-05-14)
DX: K42.9 Umbilical hernia without obstruction or gangrene (principal); I10 Essential (primary) hypertension; E78.00 Pure hypercholesterolemia, unspecified; E11.9 Type 2 diabetes mellitus without complications; K21.9 Gastro-esophageal reflux disease without esophagitis
CPT/HCPCS: 36415; 80053; 82550; 82553; 83690; 84484; 85025; 93005; 93010; 96374; 96375; 99283-25

== ENCOUNTER 2017-05-15 10:55 | Emergency (ER) | payer OTHER ==
[2017-05-15 11:05] VITALS: BMI 32.5
--- NOTE | 2017-05-15 11:16 | PDOC ---
Attending Attestation - Resident Resident Name: Vilma Deyica - ED Attending Attestation I have performed the following: I have examined & evaluated the patient, The case was reviewed & discussed with the resident, I agree w/resident's findings & plan, Exceptions are as noted - HPI HPI: 05/15/17 11:14 71 yo M returning to the Er for nausea and vomiting No fevers or chills Was seen in the ER yesterday and hydrated Was seen by PMD and noted to have intractable vomiting - Physicial Exam PE: 05/15/17 11:14 Pt nauseous and vomiting RRR Lungs CTA Abd soft, non tender to palpation - Medical Decision Making Labs wnl Pt has had multiple CT scans Will not repeat today Pt states he feels better Will dicharge to home Follow up with PMD Heart Score/ECG Review #1 ECG reviewed & interpreted by me at: 11:15 05/15/17 11:15 Twelve-lead EKG was performed and reviewed by me. There is normal sinus rhythm with a tachycardiac rate of 102 bpm. The axis is normal. The intervals are normal - pr:176ms, QRS:92ms, QTc:440ms. There are no ST elevations or depressions. T waves nml
[2017-05-15 11:29] LABS: BASOPHIL 0.5 % (0-2.0); EOSINOPHIL 0.4 % (0-4.5); MCHC 34.9 g/dl (32.0-35.9); MEAN CELL VOLUME 91.6 fl (80-96); MEAN PLT VOLUME 6.9 fl (7.5-11.1); NEUTROPHILS 72.2 % (42.8-82.8); PLATELET COUNT 254 K/MM3 (134-434); RDW 14.1 % (11.9-15.9); WHITE BLOOD COUNT 9.1 K/mm3 (4.0-10.0)
[2017-05-15] MEDS ORDERED: LOSARTAN 50MG/HCTZ 12.5MG 1 TAB (FP) PO ONE (11:32)
[2017-05-15] MEDS ORDERED: amLODIPine BESYLATE 10 MG TABLET (FP) PO ONE (11:32)
[2017-05-15] MEDS ORDERED: METOPROLOL SUCCINATE 100 MG TAB.SR.24H (FP) PO ONE (11:33)
[2017-05-15] MEDS ORDERED: SODIUM CHLORIDE 0.9% 1000 ML INFUS.BAG IV ONE (11:35)
[2017-05-15] MEDS ORDERED: amLODIPine BESYLATE 5 MG TABLET (FP) ONE (11:40)
[2017-05-15] MEDS ORDERED: METOPROLOL SUCCINATE 50 MG TAB.SR.24H (FP) ONE (11:40)
[2017-05-15] MEDS ORDERED: LOSARTAN POTASSIUM 25 MG TABLET ONE (11:41)
[2017-05-15 11:54] LABS: ALBUMIN 4.5 g/dl (3.4-5.0); ANION GAP 10 (8-16); BILIRUBIN,TOTAL 0.5 mg/dL (0.2-1.0); CALCIUM 9.7 mg/dL (8.5-10.1); CO2 27 mmol/L (21-32); CREATININE 1.3 mg/dL (0.7-1.3); GLUCOSE,RANDOM 176 mg/dL (74-106); SGOT/AST 36 U/L (15-37); SGPT/ALT 51 U/L (12-78); TOT PROT 8.2 g/dl (6.4-8.2)
[2017-05-15 11:57] LABS: ALK PHOS 73 U/L (45-117); TROPONIN I < 0.02 ng/ml (0.00-0.05)
--- NOTE | 2017-05-15 11:57 | PDOC ---
History of Present Illness - General Chief Complaint: Nausea/Vomiting Stated Complaint: NAUSIA/VOMITING Time Seen by Provider: 05/15/17 10:56 History Source: Patient Exam Limitations: Language Barrier - History of Present Illness Initial Comments: 05/16/17 Patient is a 71 y.o. male with a PMH of HTN, HLD and Type 2 DM who presented to our facility today for a 3 day h/o abdominal pain and associated non-bloody, bilious vomiting. Patient was evaluated at our facility yesterday (05/14) for similar complaints at which time ACS was ruled out and recent CT was noted to show umbilical hernia containing fat only and PE revealed no appreciable hernia. Patient states he returned to the ED since pain and vomiting has not abated since his discharge (3 episodes of non-bloody, non-bilous vomiting since discharge). Timing/Duration: reports: getting worse Quality: reports: severe Abdominal Pain Onset Location: reports: generalized abdomen Treatment Prior to Arrive: improves with: other (Patient was evaluated in our facility on) Past History - Past Medical History Allergies/Adverse Reactions: Allergies Allergy/AdvReac Type Severity Reaction Status Date / Time No Known Allergies Allergy Verified 05/15/17 11:04 Home Medications: Ambulatory Orders Gabapentin [Neurontin] 400 mg PO HS 01/22/16 Linagliptin/Metformin HCl [Jentadueto 2.5 mg-500 mg Tab] 1 each PO BID 01/22/16 Quetiapine Fumarate [Seroquel -] 50 mg PO HS 01/22/16 Tamsulosin HCl [Flomax -] 0.4 mg PO HS 01/22/16 Metoprolol Succinate [Toprol XL -] 50 mg PO DAILY 01/23/16 Atorvastatin Calcium [Lipitor] 10 mg PO HS 01/06/17 Roflumilast [Daliresp] 500 mcg PO DAILY 01/06/17 Aspirin [ASA -] 81 mg PO DAILY tab.chew 01/08/17 Pantoprazole Sodium [Protonix -] 40 mg PO DAILY #30 tablet.ec 01/08/17 Amlodipine Besylate [Norvasc -] 10 mg PO DAILY #30 tablet MDD 1 04/26/17 Lipase/Protease/Amylase [Adama Figueroa 6,000 Units Capsule] 3 cap PO TIDCM #100 tab MDD 3 04/26/17 Losartan Potassium [Cozaar -] 100 mg PO DAILY #30 tablet MDD 1 04/26/17 Methylnaltrexone [place] [Relistor -] 12 mg SQ DAILY #30 kit MDD 1 04/26/17 Oxycodone HCl 10 mg PO QID PRN #7 tablet MDD 4 04/26/17 Rifaximin [Xifaxan -] 550 mg PO TID #60 tablet MDD 3 04/26/17 Hyoscyamine Sulfate 0.125 mg PO BID PRN #10 tab.rapdis 05/15/17 Diabetes: Yes GI Disorders: Yes (GERD) HTN: Yes Psychiatric Problems: Yes - Surgical History Abdominal Surgery: Yes (gallbladder) Cholecystectomy: Yes Orthopedic Surgery: Yes (screws and pins on his leg.) - Immunization History Immunization Up to Date: Yes - Psycho/Social/Smoking Cessation Hx Anxiety: No Suicidal Ideation: No Smoking History: Never smoked Have you smoked in the past 12 months: No Hx Alcohol Use: No Drug/Substance Use Hx: No Substance Use Type: None Hx Substance Use Treatment: No Abd/GI Specific PMHX - Complaint Specific PMHX Colitis: No Diverticulitis: No GERD: Yes Irritable Bowel Synd (IBS): No ED Treatment Course - LABORATORY CBC & Chemistry Diagram: 05/15/17 11:15 05/15/17 11:15 Medical Decision Making - Medical Decision Making As patient continued to complain of pain and given's patient history of hernia as well as distended abdomen on PE, patient was sent for abdominal X-ray which showed no signs of free air or organomegaly. Dr. Garnett (covering physician for patient's PCP Dr. Galdamez) was consulted and agreed with current treatment plan of of IV Fluids and Zofran. As patient's pain had decreased (08/17 @ admission --> 02/15 @ discharge) and Troponin x1 was negative patient was discharged home with a prescription for Bentyl as well instruction to follow up with his PCP, Dr. Galdamez, on Wednesday. At time of discharge patient was also extensively counseled on the importance of evaluation by GI which has been repeatedly suggested by our department and his PCP. *DC/Admit/Observation/Transfer Diagnosis at time of Disposition: Abdominal pain Qualifiers: Abdominal location: generalized Qualified Code(s): R10.84 - Generalized abdominal pain - Discharge Dispostion Disposition: HOME Condition at time of disposition: Improved - Prescriptions Prescriptions: Hyoscyamine Sulfate 0.125 mg PO BID PRN #10 tab.rapdis PRN Reason: abdominal pain - Referrals Referrals: Donna Galdamez MD [Primary Care Provider] - - Attestations Physician Attestion: 05/15/17 15:00 I, Dr. Kamila Dey, attest that this document has been prepared under my direction and personally reviewed by me in its entirety. I further attest, that it accurately reflects all work, treatment, procedures and medical decision -making performed by me.
[2017-05-15] MEDS ORDERED: KETOROLAC TROMETHAMINE 15 MG/ML VIAL IM ONE (12:24)
[2017-05-15] MEDS ORDERED: KETOROLAC TROMETHAMINE 30 MG/1 ML VIAL ONE (12:33)
[2017-05-15 14:46] VITALS: BP 172/92; PULSE 79; TEMP 98.9
[2017-05-15] MEDS ORDERED: DICYCLOMINE HCL 10 MG CAPSULE PO ONE (14:49)
[2017-05-15] MEDS ORDERED: DICYCLOMINE HCL 10 MG CAPSULE ONE (14:52)
--- NOTE | 2017-05-17 13:52 | EKG ---
Test Reason : Blood Pressure : / mmHG Vent. Rate : 102 BPM Atrial Rate : 102 BPM P-R Int : 176 ms QRS Dur : 092 ms QT Int : 338 ms P-R-T Axes : 039 -11 030 degrees QTc Int : 440 ms SINUS TACHYCARDIA POSSIBLE LEFT ATRIAL ENLARGEMENT NONSPECIFIC T WAVE ABNORMALITY ABNORMAL ECG WHEN COMPARED WITH ECG OF 14-MAY-2017 08:45, NO SIGNIFICANT CHANGE WAS FOUND Confirmed by MYNOR AGUILERA MD ([id number]) on 05/17/2017 1:52:20 PM Referred By: Confirmed By:MYNOR AGUILERA MD
== END 2017-05-15 15:34 | disposition home or self-care (01) ==
LOC: JER 10:55
PROC: 3E0233Z Introduction of Anti-inflammatory into Muscle, Percutaneous Approach (ICD-10-PCS; principal; 2017-05-15)
DX: R10.84 Generalized abdominal pain (principal); I10 Essential (primary) hypertension; E11.9 Type 2 diabetes mellitus without complications; Z79.84 Long term (current) use of oral hypoglycemic drugs; K21.9 Gastro-esophageal reflux disease without esophagitis
CPT/HCPCS: 36415; 74020-TC; 80053; 82550; 82553; 84484; 85025; 93005; 93010; 96372; 99282-25

== ENCOUNTER 2017-06-28 08:55 | Inpatient (IN) | payer OTHER ==
[2017-06-28] MEDS ORDERED: ONDANSETRON 4 MG/2 ML VIAL IVPUSH ONE (09:23)
[2017-06-28] MEDS ORDERED: morphine CARPU-JECT 2 MG/1 ML DISP.SYRIN IVPUSH ONE (09:23)
[2017-06-28] MEDS ORDERED: morphine CARPU-JECT 10 MG/1 ML DISP.SYRIN ONE ×2 (09:34→12:06)
[2017-06-28] MEDS ORDERED: ONDANSETRON 4 MG/2 ML VIAL ONE ×2 (09:34→18:31)
--- NOTE | 2017-06-28 09:46 | PDOC ---
History of Present Illness - General Chief Complaint: Pain Stated Complaint: HTN,ABD PAIN Time Seen by Provider: 06/28/17 09:06 History Source: Patient Exam Limitations: No Limitations - History of Present Illness Travel History: No Initial Comments: 06/28/17 09:39 71-year-old male presents to the ED with complaints of generalized abdominal cramping and distention for the past 4 days along with nausea. Patient states last bowel movement was 4 days ago. Patient denies shortness of breath, chest pain, back pain, change in urine pattern, or change in medications. Patient has been seen here in the past for similar symptoms and states was seen by a marine erector in the past but unable to recall his name. Patient denies recent change in diet, recent change in weight. Patient denies alcohol use or drug use. Timing/Duration: reports: constant Quality: reports: mild, moderate, cramping Abdominal Pain Onset Location: reports: generalized abdomen Activities at Onset: reports: none Aggravating Factors: improves with: None Alleviating Factors: improves with: None Past History - Travel Traveled outside of the country in the last 30 days: No Close contact w/someone who was outside of country & ill: No - Past Medical History Allergies/Adverse Reactions: Allergies Allergy/AdvReac Type Severity Reaction Status Date / Time No Known Allergies Allergy Verified 06/28/17 09:05 Home Medications: Ambulatory Orders Gabapentin [Neurontin] 400 mg PO HS 01/22/16 Linagliptin/Metformin HCl [Jentadueto 2.5 mg-500 mg Tab] 1 each PO BID 01/22/16 Quetiapine Fumarate [Seroquel -] 50 mg PO HS 01/22/16 Tamsulosin HCl [Flomax -] 0.4 mg PO HS 01/22/16 Metoprolol Succinate [Toprol XL -] 50 mg PO DAILY 01/23/16 Atorvastatin Calcium [Lipitor] 10 mg PO HS 01/06/17 Roflumilast [Daliresp] 500 mcg PO DAILY 01/06/17 Aspirin [ASA -] 81 mg PO DAILY tab.chew 01/08/17 Pantoprazole Sodium [Protonix -] 40 mg PO DAILY #30 tablet.ec 01/08/17 Amlodipine Besylate [Norvasc -] 10 mg PO DAILY #30 tablet MDD 1 04/26/17 Lipase/Protease/Amylase [Adama Fgiueroa 6,000 Units Capsule] 3 cap PO TIDCM #100 tab MDD 3 04/26/17 Losartan Potassium [Cozaar -] 100 mg PO DAILY #30 tablet MDD 1 04/26/17 Methylnaltrexone [place] [Relistor -] 12 mg SQ DAILY #30 kit MDD 1 04/26/17 Oxycodone HCl 10 mg PO QID PRN #7 tablet MDD 4 04/26/17 Rifaximin [Xifaxan -] 550 mg PO TID #60 tablet MDD 3 04/26/17 Hyoscyamine Sulfate 0.125 mg PO BID PRN #10 tab.rapdis 05/15/17 Diabetes: Yes GI Disorders: Yes (GERD) HTN: Yes Psychiatric Problems: Yes - Surgical History Abdominal Surgery: Yes (gallbladder) Cholecystectomy: Yes Orthopedic Surgery: Yes (screws and pins on his leg.) - Immunization History Immunization Up to Date: Yes - Psycho/Social/Smoking Cessation Hx Anxiety: No Suicidal Ideation: No Smoking History: Never smoked Have you smoked in the past 12 months: No Information on smoking cessation initiated: No Hx Alcohol Use: No Drug/Substance Use Hx: No Substance Use Type: None Hx Substance Use Treatment: No Patient Lives Alone: Yes Lives with/in: lives alone Abd/GI Specific PMHX - Complaint Specific PMHX Colitis: No Diverticulitis: No GERD: Yes Irritable Bowel Synd (IBS): No Review of Systems - Review of Systems Able to Perform ROS?: Yes Constitutional: No: Symptoms Reported HEENTM: No: Symptoms Reported Respiratory: No: Symptoms reported Cardiac (ROS): No: Symptoms Reported ABD/GI: Yes: Constipated, Nausea, Abdominal cramping : No: Symptoms Reported Musculoskeletal: No: Symptoms Reported Integumentary: No: Symptoms Reported Neurological: No: Symptoms reported *Physical Exam - Vital Signs Last Vital Signs Temp Pulse Resp BP Pulse Ox 98.4 F 86 20 169/94 100 06/28/17 09:05 06/28/17 09:05 06/28/17 09:05 06/28/17 09:05 06/28/17 09:05 - Physical Exam General Appearance: Yes: Nourished, Appropriately Dressed. No: Apparent Distress HEENT: negative: Pale Conjunctivae Respiratory/Chest: positive: Lungs Clear, Normal Breath Sounds. negative: Respiratory Distress, Accessory Muscle Use Cardiovascular: positive: Regular Rhythm, Regular Rate. negative: Murmur Vascular Pulses: Dorsalis-Pedis (R): 2+, Doralis-Pedis (L): 2+ Gastrointestinal/Abdominal: positive: Soft, Decreased BS (x4), Distended, Tenderness (generalized mild) Extremity: positive: Normal Capillary Refill, Pedal Edema (2+ pitting bilateral) Integumentary: positive: Normal Color, Warm, Moist Neurologic: positive: Normal Mood/Affect, Motor Strength 5/5 Heart Score/ECG Review - ECG Intrepretation Rhythm: Regular Rhythm (rate 78. Unchanged from previous 05/24) ED Treatment Course - LABORATORY CBC & Chemistry Diagram: 06/28/17 09:28 06/28/17 09:28 - RADIOLOGY Radiology Studies Ordered: Category Date Time Status CHEST X-RAY PORTABLE* [RAD] Stat Radiology 06/28/17 09:26 Completed KUB (KID UR & BLAD) [RAD] Stat Radiology 06/28/17 09:23 Ordered Medical Decision Making - Medical Decision Making 06/28/17 09:57 Patient with complaints of generalized abdominal pain with nausea and constipation for the past 3 days. Patient on exam had abdominal distention with decreased bowel sounds 4 quadrants. Patient otherwise a normal vital signs. Patient ordered for labs including KUB, chest x-ray, Zofran, morphine, urinalysis and will prep for CT with by mouth contrast if KUB is positive for acute findings. As per records patient was admitted here in April and was seen by Dr. Isidro who diagnosed him with IBS without diarrhea and bacterial overgrowth recommending Ward and Adama. 06/28/17 10:41 Chest x-ray negative. Patient with sodium of 133 and a CK of 356. Patient will be given a liter of normal saline. Patient requesting more pain control , pt ordered for morphine ivp Laboratory Tests 05/15/17 05/15/17 06/28/17 11:15 11:15 09:28 WBC 7.9 Hgb 13.4 D Hct 38.7 Plt Count 271 MPV 6.9 L 7.2 L Neutrophils % 69.9 Sodium 131 L Potassium 4.2 Chloride Random Glucose Creatine Kinase 384 H D Troponin I < 0.02 Lipase 06/28/17 09:28 WBC Hgb Hct Plt Count MPV Neutrophils % Sodium 133 L Potassium 3.4 L Chloride 99 Random Glucose 172 H Creatine Kinase 356 H Troponin I 0.02 Lipase 46 L 06/28/17 15:[address] Patient be discharged home to follow-up with Dr. Isidro and his PCP. Patient is to continue his medication as previously prescribed. 06/28/17 16:33 Upon discussing discharge with the patient patient is now stating pain has returned to his abdomen and stating he does not want to go home with the level of pain he is having. I have called his primary care physician Dr. Donna ontiveros who states patient is often noncompliant with GI follow-up including colonoscopy and should be admitted for GI consultation and/or colonoscopy. He recommended I contact Dr. ONTIVEROS for admission. Case discussed with the nurse practitioner Bobbi who will accept the patient to service. I will place consultation to Dr. Isidro. *DC/Admit/Observation/Transfer Diagnosis at time of Disposition: Nausea Abdominal pain Qualifiers: Abdominal location: generalized Qualified Code(s): R10.84 - Generalized abdominal pain - Discharge Dispostion Admit: Yes - Referrals - Patient Instructions
[2017-06-28 09:49] LABS: BASOPHIL 0.3 % (0-2.0); EOSINOPHIL 0.4 % (0-4.5); MCHC 34.7 g/dl (32.0-35.9); MEAN CELL VOLUME 92.4 fl (80-96); MEAN PLT VOLUME 7.2 fl (7.5-11.1); NEUTROPHILS 69.9 % (42.8-82.8); PLATELET COUNT 271 K/MM3 (134-434); RDW 13.8 % (11.9-15.9); WHITE BLOOD COUNT 7.9 K/mm3 (4.0-10.0)
[2017-06-28 10:07] LABS: ANION GAP 8 (8-16); BILIRUBIN,TOTAL 0.7 mg/dL (0.2-1.0); CALCIUM 8.6 mg/dL (8.5-10.1); CO2 26 mmol/L (21-32); CREATININE 0.9 mg/dL (0.7-1.3); GLUCOSE,RANDOM 172 mg/dL (74-106); SGOT/AST 33 U/L (15-37); SGPT/ALT 45 U/L (12-78); TOT PROT 7.2 g/dl (6.4-8.2)
[2017-06-28 10:11] LABS: ALK PHOS 61 U/L (45-117); CPK 356 IU/L (39-308); TROPONIN I 0.02 ng/ml (0.00-0.05)
[2017-06-28] MEDS ORDERED: SODIUM CHLORIDE 1,000 ML IV STA (10:38)
--- NOTE | 2017-06-28 10:58 | EKG ---
Test Reason : Blood Pressure : / mmHG Vent. Rate : 078 BPM Atrial Rate : 078 BPM P-R Int : 194 ms QRS Dur : 108 ms QT Int : 392 ms P-R-T Axes : 048 020 -87 degrees QTc Int : 446 ms NORMAL SINUS RHYTHM POSSIBLE LEFT ATRIAL ENLARGEMENT NONSPECIFIC T WAVE ABNORMALITY ABNORMAL ECG WHEN COMPARED WITH ECG OF 15-MAY-2017 11:07, NO SIGNIFICANT CHANGE WAS FOUND Confirmed by MYNOR AGUILERA MD ([id number]) on 06/28/2017 10:57:32 AM Referred By: Confirmed By:MYNOR AGUILERA MD
[2017-06-28] MEDS ORDERED: morphine CARPU-JECT 4 MG/1 ML DISP.SYRIN IVPUSH ONE (11:53)
[2017-06-28] MEDS ORDERED: MAG HYDROX/AL HYDROX/SIMETH 30 ML UNIT-DOSE CUP PO ONE (14:28)
[2017-06-28] MEDS ORDERED: MAG HYDROX/AL HYDROX/SIMETH 30 ML UNIT-DOSE CUP ONE (14:29)
[2017-06-28] MEDS ORDERED: HYOSCYAMINE SULFATE 0.125 MG *ODT PO PRN (17:22)
[2017-06-28] MEDS ORDERED: POTASSIUM CHLORIDE TABS 20 MEQ TABLET.ER (FP) PO ONE ×2 (17:24→18:30)
[2017-06-28] MEDS ORDERED: LIPASE/PROTEASE/AMYLASE 6,000 UNIT CAPSULE PO SCH (17:30)
--- NOTE | 2017-06-28 18:10 | PDOC ---
*Physical Exam - Vital Signs Last Vital Signs Temp Pulse Resp BP Pulse Ox 98.4 F 66 18 148/85 97 06/28/17 09:05 06/28/17 15:30 06/28/17 15:30 06/28/17 15:30 06/28/17 15:30 ED Treatment Course - LABORATORY CBC & Chemistry Diagram: 06/28/17 09:28 06/28/17 09:28 - ADDITIONAL ORDERS Additional order review: Laboratory Results 06/28/17 06/28/17 09:28 09:28 Sodium 133 L Potassium 3.4 L Chloride 99 Carbon Dioxide 26 Anion Gap 8 BUN 14 Creatinine 0.9 D Creat Clearance w eGFR > 60 Random Glucose 172 H Lactic Acid 1.1 Calcium 8.6 Magnesium 2.0 Total Bilirubin 0.7 D AST 33 ALT 45 Alkaline Phosphatase 61 Creatine Kinase 356 H Creatine Kinase Index 0.9 CK-MB (CK-2) 3.457 Troponin I 0.02 Total Protein 7.2 Albumin 4.0 Lipase 46 L 06/28/17 09:28 RBC 4.20 MCV 92.4 MCHC 34.7 RDW 13.8 MPV 7.2 L Neutrophils % 69.9 Lymphocytes % 21.2 Monocytes % 8.2 Eosinophils % 0.4 Basophils % 0.3 - Medications Given in the ED: ED Medications Discontinued Medications Generic Name Dose Route Start Last Admin Trade Name Martin PRN Reason Stop Dose Admin Al Hydroxide/Mg Hydroxide 30 ml 06/28/17 14:28 06/28/17 14:46 Mylanta Oral Suspension - PO 06/28/17 14:29 30 ml ONCE ONE Administration Sodium Chloride 1,000 mls @ 250 mls/hr 06/28/17 10:38 06/28/17 10:56 Normal Saline - IV 06/28/17 14:37 250 mls/hr ASDIR STA Administration Morphine Sulfate 4 mg 06/28/17 09:23 06/28/17 09:42 Morphine Injection - IVPUSH 06/28/17 09:24 4 mg ONCE ONE Administration Morphine Sulfate 6 mg 06/28/17 11:53 06/28/17 12:14 Morphine Injection - IVPUSH 06/28/17 11:54 6 mg ONCE ONE Administration Ondansetron HCl 4 mg 06/28/17 09:23 06/28/17 09:41 Zofran Injection IVPUSH 06/28/17 09:24 4 mg ONCE ONE Administration Medical Decision Making - Medical Decision Making 06/28/17 18:09 I agree with ERNESTINA Vidal's assessment and plan. *DC/Admit/Observation/Transfer Diagnosis at time of Disposition: Nausea Abdominal pain Qualifiers: Abdominal location: generalized Qualified Code(s): R10.84 - Generalized abdominal pain
[2017-06-28] MEDS ORDERED: oxyCODONE HCL 5 MG TABLET ONE (18:30)
[2017-06-28] MEDS: oxyCODONE HCL 5 MG TABLET PO PRN (18:39)
[2017-06-28] MEDS: ONDANSETRON 4 MG/2 ML VIAL IVPB PRN (18:40)
--- NOTE | 2017-06-28 19:19 | CON.GI ---
Consult Consult Specialty:: GI Referred by:: Dr Galdamez Reason for Consultation:: abdominal pain - History of Present Illness Chief Complaint: Abdominal pain History of Present Illness: Patient well known to our service with several admissions for abdominal pain. Has refused colonoscopy in the past. No evidence of colonic pathology now or in the past. He has had 10 CT scans in the past 3 years. He has no significant lab or imaging abnormals. His complaint is vague with diffuse abdominal discomfort. He was evaluated in the ER and discharged with opt f/u but refused to leave. - History Source History Provided By: Medical Record Limitations to Obtaining History: Poor Historian - Past Medical History Cardio/Vascular: Yes: HTN Gastrointestinal: Yes: GERD Hepatobiliary: Yes: Other (cholecystectomy) Musculoskeletal: Yes: Osteoarthritis, Other (chronic lower leg pain) Endocrine: Yes: Diabetes Mellitus - Past Surgical History Past Surgical History: Yes: Cholecystectomy - Alcohol/Substance Use Hx Alcohol Use: No History of Substance Use: reports: None - Smoking History Smoking history: Never smoked Have you smoked in the past 12 months: No - Social History ADL: Independent History of Recent Travel: No Home Medications - Allergies Allergies/Adverse Reactions: Allergies Allergy/AdvReac Type Severity Reaction Status Date / Time No Known Allergies Allergy Verified 06/28/17 09:05 - Home Medications Home Medications: Ambulatory Orders Gabapentin [Neurontin] 400 mg PO HS 01/22/16 Linagliptin/Metformin HCl [Jentadueto 2.5 mg-500 mg Tab] 1 each PO BID 01/22/16 Quetiapine Fumarate [Seroquel -] 50 mg PO HS 01/22/16 Tamsulosin HCl [Flomax -] 0.4 mg PO HS 01/22/16 Metoprolol Succinate [Toprol XL -] 50 mg PO DAILY 01/23/16 Atorvastatin Calcium [Lipitor] 10 mg PO HS 01/06/17 Roflumilast [Daliresp] 500 mcg PO DAILY 01/06/17 Aspirin [ASA -] 81 mg PO DAILY tab.chew 01/08/17 Pantoprazole Sodium [Protonix -] 40 mg PO DAILY #30 tablet.ec 01/08/17 Amlodipine Besylate [Norvasc -] 10 mg PO DAILY #30 tablet MDD 1 04/26/17 Lipase/Protease/Amylase [Adama Figueroa 6,000 Units Capsule] 3 cap PO TIDCM #100 tab MDD 3 04/26/17 Losartan Potassium [Cozaar -] 100 mg PO DAILY #30 tablet MDD 1 04/26/17 Methylnaltrexone [place] [Relistor -] 12 mg SQ DAILY #30 kit MDD 1 04/26/17 Oxycodone HCl 10 mg PO QID PRN #7 tablet MDD 4 04/26/17 Rifaximin [Xifaxan -] 550 mg PO TID #60 tablet MDD 3 04/26/17 Hyoscyamine Sulfate 0.125 mg PO BID PRN #10 tab.rapdis 05/15/17 Family Disease History - Family Disease History Family Disease History: Heart Disease: Father ( of [place] 20yrs ago), [place]: Grandparent, Father, Mother, Brother, Sister, Son, Daughter Physical Exam-GI Vital Signs: Vital Signs Temperature 98.4 F 06/28/17 09:05 Pulse Rate 66 06/28/17 15:30 Respiratory Rate 18 06/28/17 15:30 Blood Pressure 148/85 06/28/17 15:30 O2 Sat by Pulse Oximetry (%) 97 06/28/17 15:30 Constitutional: Yes: Well Nourished, Obese Cardiovascular: Yes: Regular Rate and Rhythm Respiratory: Yes: CTA Bilaterally Gastrointestinal Inspection: Yes: Distention ...Auscultate: Yes: Normoactive Bowel Sounds Labs: CBC, BMP 06/28/17 09:28 06/28/17 09:28 Hepatic Panel Total Bilirubin 0.7 mg/dL (0.2-1.0) D 06/28/17 09:28 AST 33 U/L (15-37) 06/28/17 09:28 ALT 45 U/L (12-78) 06/28/17 09:28 Alkaline Phosphatase 61 U/L (45-117) 06/28/17 09:28 Albumin 4.0 g/dl (3.4-5.0) 06/28/17 09:28 Imaging - Results Cat Scan: Report Reviewed (NO pathology) Assessment/Plan 71 M with multiple admissions for abdominal discomfort Rec Creon for exocrine pancreatic dysfunction. Can probably d/c if he improves over the next 24 hours. Can schedule for procedures as opt.
[2017-06-28] MEDS: LIPASE/PROTEASE/AMYLASE 36,000 UNIT CAPSULE PO SCH (20:10)
[2017-06-28] MEDS ORDERED: amLODIPine BESYLATE 5 MG TABLET (FP) PO ONE (20:45)
[2017-06-28] MEDS ORDERED: DOCUSATE SODIUM 100 MG CAPSULE (FP) PO ONE (20:45)
[2017-06-28] MEDS: QUEtiapine FUMARATE 50 MG TABLET PO SCH (21:19)
[2017-06-28] MEDS: MAG HYDROX/AL HYDROX/SIMETH 30 ML UNIT-DOSE CUP PO PRN (21:19)
[2017-06-28] MEDS: ATORVASTATIN CA 10 MG TABLET (FP) PO SCH (21:19)
[2017-06-28] MEDS: HEPARIN NA (PORCINE) 5,000 UNITS/ML 1ML VIAL SQ SCH (21:19)
[2017-06-28] MEDS: GABAPENTIN 400 MG CAPSULE (FP) PO SCH (21:20)
[2017-06-28] MEDS: morphine CARPU-JECT 4 MG/1 ML DISP.SYRIN IVPB PRN (21:20)
[2017-06-28] MEDS ORDERED: PATIENT'S OWN MEDICATION (NON-FORMULARY) (Linagliptin/Metformin Hcl [Jentadueto 2.5 Mg-500 PO SCH (22:00)
[2017-06-28] MEDS: RIFAXIMIN 550 MG TABLET (UD) PO SCH (23:00)
[2017-06-29 00:26] VITALS: BMI 34.3
[2017-06-29] MEDS: morphine CARPU-JECT 4 MG/1 ML DISP.SYRIN IVPB PRN ×3 (03:50→16:04)
[2017-06-29] MEDS ORDERED: PT OWN MED DRAWER 7, Y5N ONE ×6 (06:41→17:11)
[2017-06-29] MEDS: metFORMIN HCL 500 MG TABLET (FP) PO SCH ×2 (06:47→16:03)
[2017-06-29] MEDS: RIFAXIMIN 550 MG TABLET (UD) PO SCH ×3 (06:47→21:08)
[2017-06-29] MEDS: sitaGLIPtin PHOSPHATE 100 MG TABLET (FP) PO SCH (06:48)
[2017-06-29 07:22] LABS: BASOPHIL 0.4 % (0-2.0); EOSINOPHIL 1.2 % (0-4.5); MCH 31.5 pg (25.7-33.7); MCHC 33.6 g/dl (32.0-35.9); MEAN CELL VOLUME 93.8 fl (80-96); MEAN PLT VOLUME 6.8 fl (7.5-11.1); PLATELET COUNT 269 K/MM3 (134-434); RDW 14.1 % (11.9-15.9); WHITE BLOOD COUNT 5.8 K/mm3 (4.0-10.0)
[2017-06-29 07:55] LABS: AMYLASE 33 U/L (25-115); ANION GAP 7 (8-16); CALCIUM 8.8 mg/dL (8.5-10.1); CO2 31 mmol/L (21-32); CREATININE 1.1 mg/dL (0.7-1.3); GLUCOSE,RANDOM 141 mg/dL (74-106); SGOT/AST 35 U/L (15-37); SGPT/ALT 54 U/L (12-78)
[2017-06-29 07:57] LABS: ALK PHOS 68 U/L (45-117); BILIRUBIN,TOTAL 0.8 mg/dL (0.2-1.0); TOT PROT 7.5 g/dl (6.4-8.2)
[2017-06-29] MEDS: TAMSULOSIN HCL 0.4 MG CAP.ER.24H (FP) PO SCH (08:24)
[2017-06-29] MEDS: LIPASE/PROTEASE/AMYLASE 36,000 UNIT CAPSULE PO SCH ×3 (08:24→17:13)
[2017-06-29] MEDS: ASPIRIN 81 MG CHEWABLE TABLETS PO SCH (09:27)
[2017-06-29] MEDS: LOSARTAN POTASSIUM 50 MG TABLET (FP) PO SCH (09:27)
[2017-06-29] MEDS: METOPROLOL SUCCINATE 50 MG TAB.SR.24H (FP) PO SCH (09:27)
[2017-06-29] MEDS: amLODIPine BESYLATE 10 MG TABLET (FP) PO SCH (09:27)
[2017-06-29] MEDS: PANTOPRAZOLE 40 MG TABLET (FP) PO SCH (09:27)
[2017-06-29] MEDS: HEPARIN NA (PORCINE) 5,000 UNITS/ML 1ML VIAL SQ SCH ×2 (09:28→21:08)
--- NOTE | 2017-06-29 10:32 | HP ---
Admitting History and Physical - Primary Care Physician PCP: Donna Galdamez I (Edin Suarez) - Admission Chief Complaint: Abdominal pain History of Present Illness: 71-year-old male presents to the ED with complaints of generalized abdominal cramping and distention for the past 3 days along with nausea. Patient states last bowel movement was 3 days ago. Patient denies shortness of breath, chest pain, back pain, change in urine pattern, or change in medications. Pt has been admitted to [facility] multiple times and has had multiple CT abdomen with no underlying etiology. He has cancelled colonoscopy scheduled for him as outpatient twice. Upon evaluation he was given morphine for pain as oxycodone wasn't helping resolve his pain. Today, upon mentioning discharge he complains that he can't walk because of pain in his legs. History Source: Patient Limitations to Obtaining History: No Limitations - Past Medical History Cardiovascular: Yes: HTN Gastrointestinal: Yes: Constipation, GERD, Pancreatitis Hepatobiliary: Yes: Other (cholecystectomy) Musculoskeletal: Yes: Osteoarthritis, Other (chronic lower leg pain) Endocrine: Yes: Diabetes Mellitus - Past Surgical History Past Surgical History: Yes: Cholecystectomy - Smoking History Smoking history: Never smoked Have you smoked in the past 12 months: No - Alcohol/Substance Use Hx Alcohol Use: Yes (occasional beer or glass of wine) History of Substance Use: reports: None - Social History ADL: Independent History of Recent Travel: No Home Medications - Allergies Allergies/Adverse Reactions: Allergies Allergy/AdvReac Type Severity Reaction Status Date / Time No Known Allergies Allergy Verified 06/28/17 09:05 - Home Medications Home Medications: Ambulatory Orders Gabapentin [Neurontin] 400 mg PO HS 01/22/16 Linagliptin/Metformin HCl [Jentadueto 2.5 mg-500 mg Tab] 1 each PO BID 01/22/16 Quetiapine Fumarate [Seroquel -] 50 mg PO HS 01/22/16 Tamsulosin HCl [Flomax -] 0.4 mg PO HS 01/22/16 Metoprolol Succinate [Toprol XL -] 50 mg PO DAILY 01/23/16 Atorvastatin Calcium [Lipitor] 10 mg PO HS 01/06/17 Roflumilast [Daliresp] 500 mcg PO DAILY 01/06/17 Aspirin [ASA -] 81 mg PO DAILY tab.chew 01/08/17 Pantoprazole Sodium [Protonix -] 40 mg PO DAILY #30 tablet.ec 01/08/17 Amlodipine Besylate [Norvasc -] 10 mg PO DAILY #30 tablet MDD 1 04/26/17 Lipase/Protease/Amylase [Creon Dr 6,000 Units Capsule] 3 cap PO TIDCM #100 tab MDD 3 04/26/17 Losartan Potassium [Cozaar -] 100 mg PO DAILY #30 tablet MDD 1 04/26/17 Methylnaltrexone [place] [Relistor -] 12 mg SQ DAILY #30 kit MDD 1 04/26/17 Oxycodone HCl 10 mg PO QID PRN #7 tablet MDD 4 04/26/17 Rifaximin [Xifaxan -] 550 mg PO TID #60 tablet MDD 3 04/26/17 Hyoscyamine Sulfate 0.125 mg PO BID PRN #10 tab.rapdis 05/15/17 Family Disease History - Family Disease History Family Disease History: Heart Disease: Father ( of [place] 20yrs ago), [place]: Grandparent, Father, Mother, Brother, Sister, Son, Daughter Physical Examination Vital Signs: Vital Signs Temperature 98.6 F 06/29/17 09:00 Pulse Rate 85 06/29/17 09:00 Respiratory Rate 18 06/29/17 09:00 Blood Pressure 163/93 06/29/17 09:00 O2 Sat by Pulse Oximetry (%) 98 06/28/17 20:00 Constitutional: Yes: Well Nourished, No Distress, Calm Cardiovascular: Yes: Regular Rate and Rhythm Respiratory: Yes: Regular Gastrointestinal: Yes: Abdomen, Obese, Hypoactive Bowel Sounds, Tenderness ( generalized) Musculoskeletal: Yes: WNL Edema: Yes Edema: LLE: Trace, RLE: Trace Neurological: Yes: Alert, Oriented Psychiatric: Yes: Alert, Oriented Labs: CBC, BMP 06/29/17 06:45 06/29/17 06:45 Imaging - Results X-ray: Report Reviewed Cat Scan: Report Reviewed Problem List - Problems (1) Abdominal pain Code(s): R10.9 - UNSPECIFIED ABDOMINAL PAIN Qualifiers: Abdominal location: generalized Qualified Code(s): R10.84 - Generalized abdominal pain (2) IBS (irritable bowel syndrome) Code(s): K58.9 - IRRITABLE BOWEL SYNDROME WITHOUT DIARRHEA (3) Nausea Code(s): R11.0 - NAUSEA Assessment/Plan -Morphine for pain management -seen by GI -Clear liquid diet today -Prep tomorrow for colonoscopy on -physical therapy
[2017-06-29] MEDS: Methylnaltrexone Bromide 12 MG/0.6 ML KIT SQ SCH (11:30)
[2017-06-29] MEDS: ROFLUMILAST 500 MCG TABLET PO SCH (11:31)
[2017-06-29] MEDS: oxyCODONE HCL 5 MG TABLET PO PRN (20:27)
[2017-06-29] MEDS: QUEtiapine FUMARATE 50 MG TABLET PO SCH (21:08)
[2017-06-29] MEDS: ATORVASTATIN CA 10 MG TABLET (FP) PO SCH (21:08)
[2017-06-29] MEDS: GABAPENTIN 400 MG CAPSULE (FP) PO SCH (21:08)
[2017-06-29 21:10] LABS: URINE APPEARANCE CLEAR; URINE BILIRUBIN NEGATIVE (NEGATIVE); URINE BLOOD NEGATIVE (NEGATIVE); URINE COLOR YELLOW; URINE GLUCOSE (UA) NEGATIVE (NEGATIVE); URINE KETONE NEGATIVE (NEGATIVE); URINE LEUK ESTERASE NEGATIVE (NEGATIVE); URINE NITRITE NEGATIVE (NEGATIVE); URINE PROTEIN NEGATIVE (NEGATIVE); URINE UROBILINOGEN 4.0 E.U/dl mg/dL (0.2-1.0)
[2017-06-30] MEDS: morphine CARPU-JECT 4 MG/1 ML DISP.SYRIN IVPB PRN ×2 (00:11→13:25)
[2017-06-30] MEDS: LIPASE/PROTEASE/AMYLASE 36,000 UNIT CAPSULE PO SCH ×3 (10:05→19:07)
[2017-06-30] MEDS ORDERED: PT OWN MED DRAWER 7, Y5N ONE ×4 (10:09→19:05)
[2017-06-30] MEDS: LOSARTAN POTASSIUM 50 MG TABLET (FP) PO SCH (10:10)
[2017-06-30] MEDS: METOPROLOL SUCCINATE 50 MG TAB.SR.24H (FP) PO SCH (10:10)
[2017-06-30] MEDS: TAMSULOSIN HCL 0.4 MG CAP.ER.24H (FP) PO SCH (10:11)
[2017-06-30] MEDS: ASPIRIN 81 MG CHEWABLE TABLETS PO SCH ×2 (10:11→13:07)
[2017-06-30] MEDS: amLODIPine BESYLATE 10 MG TABLET (FP) PO SCH (10:11)
[2017-06-30] MEDS: PANTOPRAZOLE 40 MG TABLET (FP) PO SCH (10:11)
[2017-06-30] MEDS: ROFLUMILAST 500 MCG TABLET PO SCH (10:13)
[2017-06-30] MEDS: Methylnaltrexone Bromide 12 MG/0.6 ML KIT SQ SCH (11:13)
[2017-06-30] MEDS: HEPARIN NA (PORCINE) 5,000 UNITS/ML 1ML VIAL SQ SCH (11:13)
[2017-06-30 11:28] LABS: BASOPHIL 0.4 % (0-2.0); EOSINOPHIL 2.9 % (0-4.5); MCH 31.2 pg (25.7-33.7); MCHC 33.7 g/dl (32.0-35.9); MEAN CELL VOLUME 92.7 fl (80-96); MEAN PLT VOLUME 6.6 fl (7.5-11.1); NEUTROPHILS 57.3 % (42.8-82.8); PLATELET COUNT 293 K/MM3 (134-434); RDW 14.2 % (11.9-15.9); WHITE BLOOD COUNT 8.3 K/mm3 (4.0-10.0)
[2017-06-30 11:54] LABS: ALBUMIN 4.1 g/dl (3.4-5.0); ANION GAP 8 (8-16); CALCIUM 9.1 mg/dL (8.5-10.1); CO2 28 mmol/L (21-32); CREATININE 1.1 mg/dL (0.7-1.3); GLUCOSE,RANDOM 134 mg/dL (74-106); SGOT/AST 30 U/L (15-37); SGPT/ALT 51 U/L (12-78)
[2017-06-30 11:55] LABS: ALK PHOS 67 U/L (45-117); BILIRUBIN,TOTAL 0.7 mg/dL (0.2-1.0); TOT PROT 7.5 g/dl (6.4-8.2)
--- NOTE | 2017-06-30 13:49 | PN ---
Progress Note, Physician Chief Complaint: Abdominal pain History of Present Illness: NAD,BLLE edema, RLE pain, going for colonoscopy in in AM, still complains of abdominal pain multiple admissions at [facility] in the past, receives morphine IVP, edema seems to be worse. would like to hold morphine, increase oxycodone. Patient wants Demerol instead of PO oxycodone because it upsets his stomach. - Current Medication List Current Medications: Active Medications Al Hydroxide/Mg Hydroxide (Mylanta Oral Suspension -) 30 ml PO Q8H PRN PRN Reason: INDIGESTION Last Admin: 06/28/17 21:19 Dose: 30 ml Amlodipine Besylate (Norvasc -) 10 mg PO DAILY [facility] Last Admin: 06/30/17 10:11 Dose: 10 mg Aspirin (Asa -) 81 mg PO DAILY [facility] Last Admin: 06/30/17 13:07 Dose: 81 mg Atorvastatin Calcium (Lipitor -) 10 mg PO HS [facility] Last Admin: 06/29/17 21:08 Dose: 10 mg Bisacodyl (Dulcolax -) 20 mg PO ONCE ONE Stop: 06/30/17 18:01 Gabapentin (Neurontin -) 400 mg PO HS [facility] Last Admin: 06/29/17 21:08 Dose: 400 mg Heparin Sodium (Porcine) (Heparin -) 5,000 unit SQ BID [facility] Last Admin: 06/30/17 11:13 Dose: 5,000 unit Hyoscyamine Sulfate (Levsin Odt -) 0.125 mg PO BID PRN PRN Reason: abdominal pain Losartan Potassium (Cozaar -) 100 mg PO DAILY [facility] Last Admin: 06/30/17 10:10 Dose: 100 mg Metformin HCl (Glucophage -) 500 mg PO BID@0700,1630 [facility] Last Admin: 06/29/17 16:03 Dose: 500 mg Methylnaltrexone [place] (Relistor -) 12 mg SQ DAILY [facility] Last Admin: 06/30/17 11:13 Dose: 12 mg Metoprolol Succinate (Toprol Xl -) 50 mg PO DAILY [facility] Last Admin: 06/30/17 10:10 Dose: 50 mg Morphine Sulfate (Morphine Injection -) 4 mg IVPB Q6H PRN Last Admin: 06/30/17 13:25 Dose: 4 mg Ondansetron HCl (Zofran Injection) 4 mg IVPB Q8H PRN PRN Reason: NAUSEA Last Admin: 06/28/17 18:40 Dose: 4 mg Oxycodone HCl (Roxicodone -) 10 mg PO QID PRN PRN Reason: PAIN Last Admin: 06/29/17 20:27 Dose: 10 mg Pancrelipase (Creon Dr 36,000 Units Capsule) 1 cap PO TIDCM [facility] Last Admin: 06/30/17 13:08 Dose: 1 cap Pantoprazole Sodium (Protonix -) 40 mg PO DAILY [facility] Last Admin: 06/30/17 10:11 Dose: 40 mg Polyethylene Glycol (Miralax (For Bowel Prep) -) 255 gm PO ONCE ONE Stop: 06/30/17 13:37 Quetiapine Fumarate (Seroquel -) 50 mg PO HS [facility] Last Admin: 06/29/17 21:08 Dose: 50 mg Rifaximin (Xifaxan -) 550 mg PO TID [facility] Last Admin: 06/29/17 21:08 Dose: 550 mg Roflumilast (Daliresp -) 500 mcg PO DAILY [facility] Last Admin: 06/30/17 10:13 Dose: 500 mcg Sitagliptin Phosphate (Januvia -) 100 mg PO DAILY@0700 [facility] Last Admin: 06/29/17 06:48 Dose: 100 mg Sodium Phosphate (Fleet Adult Rectal Enema -) 133 ml CA ONCE ONE Stop: 07/01/17 06:01 Tamsulosin HCl (Flomax -) 0.4 mg PO DAILY@0830 [facility] Last Admin: 06/30/17 10:11 Dose: 0.4 mg - Objective Vital Signs: Vital Signs Temperature 98.2 F 06/30/17 10:04 Pulse Rate 77 06/30/17 10:04 Respiratory Rate 20 06/30/17 10:04 Blood Pressure 161/76 06/30/17 10:04 O2 Sat by Pulse Oximetry (%) 100 06/30/17 11:00 Constitutional: Yes: Well Nourished, No Distress, Calm Cardiovascular: Yes: Regular Rate and Rhythm Respiratory: Yes: Regular Gastrointestinal: Yes: Normal Bowel Sounds, Abdomen, Obese Musculoskeletal: Yes: WNL Extremities: Yes: WNL Edema: Yes Edema: LLE: 1+, RLE: 1+ Peripheral Pulses WNL: Yes Neurological: Yes: Alert, Oriented Psychiatric: Yes: Alert, Oriented Labs: CBC, BMP 06/30/17 11:18 06/30/17 11:18 Problem List - Problems (1) Abdominal pain Assessment/Plan: -colonoscopy in am -had BM yesterday and today -oxycodone and demerol for pain management -NPO after 8 PM tonight, except meds Code(s): R10.9 - UNSPECIFIED ABDOMINAL PAIN Qualifiers: Abdominal location: generalized Qualified Code(s): R10.84 - Generalized abdominal pain (2) IBS (irritable bowel syndrome) Code(s): K58.9 - IRRITABLE BOWEL SYNDROME WITHOUT DIARRHEA (3) Nausea Code(s): R11.0 - NAUSEA (4) Urinary retention Assessment/Plan: U/S renal/bladder-negative for any urinary retention Code(s): R33.9 - RETENTION OF URINE, UNSPECIFIED (5) Bilateral lower extremity edema Assessment/Plan: 2/2 morphine? BLLE U/S doppler, r/o dvt-negative furosemide for diuresis Code(s): R60.0 - LOCALIZED EDEMA Assessment/Plan -d/c morphine, might be the cause of LE edema -Added demerol 25 mg IVp TID PRN -Furosemide for diuresis -U/S doppler BLLE -U/S renal/bladder for urinary retention -seen by GI -Dulcolax x 2-6pm and 9 pm -miralax 1 pkt in 2 liters of crystal light -hold Clear liquid diet at 8 pm -Bowel Prep for colonoscopy tomorrow -Seen by physical therapy
[2017-06-30] MEDS ORDERED: oxyCODONE HCL 5 MG TABLET PO PRN ×2 (13:50→16:59)
[2017-06-30] MEDS: FUROSEMIDE 40 MG/4 ML INJECTABLE VIAL IVPUSH SCH ×2 (14:52→16:07)
[2017-06-30] MEDS: RIFAXIMIN 550 MG TABLET (UD) PO SCH ×2 (14:52→22:18)
[2017-06-30] MEDS: POLYETHYLENE GLYCOL 3350 255 GM BTL PO ONE ×2 (14:55→16:16)
[2017-06-30] MEDS ORDERED: MEPERIDINE HCL CARPU-JECT 25 MG/1 ML DISP.SYRIN IVPUSH PRN (16:53)
[2017-06-30] MEDS: metFORMIN HCL 500 MG TABLET (FP) PO SCH ×2 (19:05→19:06)
[2017-06-30] MEDS: BISACODYL 5 MG TABLET.DR (FP) PO SCH ×2 (19:06→22:17)
[2017-06-30] MEDS: ATORVASTATIN CA 10 MG TABLET (FP) PO SCH (22:17)
[2017-06-30] MEDS: GABAPENTIN 400 MG CAPSULE (FP) PO SCH (22:17)
[2017-06-30] MEDS: QUEtiapine FUMARATE 50 MG TABLET PO SCH (22:17)
[2017-06-30] MEDS: ONDANSETRON 4 MG/2 ML VIAL IVPB PRN (22:17)
[2017-06-30] MEDS: MEPERIDINE HCL CARPU-JECT 25 MG/1 ML DISP.SYRIN IM PRN (22:54)
[2017-07-01] MEDS: sitaGLIPtin PHOSPHATE 100 MG TABLET (FP) PO SCH ×2 (01:45→06:05)
[2017-07-01] MEDS: RIFAXIMIN 550 MG TABLET (UD) PO SCH ×5 (05:20→21:49)
[2017-07-01] MEDS ORDERED: SODIUM PHOSPHATE/NA BIPHOS 133 ML ENEMA PR ONE (06:00)
[2017-07-01] MEDS: metFORMIN HCL 500 MG TABLET (FP) PO SCH ×2 (06:04→17:52)
[2017-07-01] MEDS: MEPERIDINE HCL CARPU-JECT 25 MG/1 ML DISP.SYRIN IM PRN ×2 (07:12→19:06)
[2017-07-01] MEDS ORDERED: PROPOFOL 20 ML ONE ×2 (07:51)
[2017-07-01] MEDS: LIPASE/PROTEASE/AMYLASE 36,000 UNIT CAPSULE PO SCH ×3 (07:53→17:52)
[2017-07-01] MEDS: TAMSULOSIN HCL 0.4 MG CAP.ER.24H (FP) PO SCH ×2 (07:53→11:07)
--- NOTE | 2017-07-01 08:29 | PN ---
Progress Note (short form) - Note Progress Note: ADDENDUM: S/P COLONOSCOPY PREP WAS POOR BUT THE SCOPE WAS PASSED TO THE CECUM AND THE COLON WAS COPIOUSLY IRRIGATED THE SCOPE WAS REMOVED. cOLONOSCOPY WAS NORMAL REC: REPEAT IN 5 YEARS WITH A 2 DAY PREP PATIENT CAN RESUME DIET AND CAN DISCHARGE FROM GI POV FF
[2017-07-01] MEDS ORDERED: PT OWN MED DRAWER 7, Y5N ONE ×2 (11:04→17:56)
[2017-07-01] MEDS: PANTOPRAZOLE 40 MG TABLET (FP) PO SCH (11:05)
[2017-07-01] MEDS: ASPIRIN 81 MG CHEWABLE TABLETS PO SCH (11:06)
[2017-07-01] MEDS: LOSARTAN POTASSIUM 50 MG TABLET (FP) PO SCH (11:07)
[2017-07-01] MEDS: METOPROLOL SUCCINATE 50 MG TAB.SR.24H (FP) PO SCH (11:07)
[2017-07-01] MEDS: amLODIPine BESYLATE 10 MG TABLET (FP) PO SCH (11:07)
[2017-07-01] MEDS: ROFLUMILAST 500 MCG TABLET PO SCH (11:12)
[2017-07-01] MEDS: Methylnaltrexone Bromide 12 MG/0.6 ML KIT SQ SCH (11:14)
[2017-07-01] MEDS: FUROSEMIDE 40 MG/4 ML INJECTABLE VIAL IVPUSH SCH (11:15)
--- NOTE | 2017-07-01 11:31 | DS ---
Physical Examination Vital Signs: Vital Signs Temperature 98.6 F 07/01/17 09:24 Pulse Rate 64 07/01/17 09:24 Respiratory Rate 20 07/01/17 09:24 Blood Pressure 134/64 07/01/17 09:24 O2 Sat by Pulse Oximetry (%) 100 07/01/17 09:24 Constitutional: Yes: Calm Neck: Yes: Trachea Midline Cardiovascular: Yes: Regular Rate and Rhythm, S1, S2 Respiratory: Yes: CTA Bilaterally Gastrointestinal: Yes: Normal Bowel Sounds, Soft Edema: Yes Neurological: Yes: Alert, Oriented Labs: CBC, BMP 06/30/17 11:18 06/30/17 11:18 Discharge Summary Reason For Visit: INTRACTABLE ABDOMINAL PAIN Current Active Problems Abdominal pain (Acute) Bilateral lower extremity edema (Acute) Conjunctivitis (Acute) IBS (irritable bowel syndrome) (Acute) Intractable abdominal pain (Acute) Nausea (Acute) Umbilical hernia (Acute) Urinary retention (Acute) Hospital Course: PCP: Donna Galdamez Iyad) - Admission Chief Complaint: Abdominal pain History of Present Illness: 71-year-old male presents to the ED with complaints of generalized abdominal cramping and distention for the past 3 days along with nausea. Patient states last bowel movement was 3 days ago. Patient denies shortness of breath, chest pain, back pain, change in urine pattern, or change in medications. Pt has been admitted to [facility] multiple times and has had multiple CT abdomen with no underlying etiology. He has cancelled colonoscopy scheduled for him as outpatient twice. Upon evaluation he was given morphine for pain as oxycodone wasn't helping resolve his pain. Today, upon mentioning discharge he complains that he can't walk because of pain in his legs. History Source: Patient Limitations to Obtaining History: No Limitations - Past Medical History Cardiovascular: Yes: HTN Gastrointestinal: Yes: Constipation, GERD, Pancreatitis Hepatobiliary: Yes: Other (cholecystectomy) Musculoskeletal: Yes: Osteoarthritis, Other (chronic lower leg pain) Endocrine: Yes: Diabetes Mellitus - Past Surgical History Past Surgical History: Yes: Cholecystectomy - Smoking History Smoking history: Never smoked Have you smoked in the past 12 months: No - Alcohol/Substance Use Hx Alcohol Use: Yes (occasional beer or glass of wine) abdominal pain: ct scan negative, ceon for exocrine pancreatic dysfunction in hospital seen by GI had colonoscopy- was normal despite poor prep leg swelling iv lasix doppler no dvt PT to see patient Condition: Improved - Instructions Referrals: Donna Galdamez MD [Primary Care Provider] - Orlando Allen MD [Staff Physician] - 1 Week Disposition: HOME - Home Medications Comprehensive Discharge Medication List: Ambulatory Orders Gabapentin [Neurontin] 400 mg PO HS 01/22/16 Linagliptin/Metformin HCl [Jentadueto 2.5 mg-500 mg Tab] 1 each PO BID 01/22/16 Quetiapine Fumarate [Seroquel -] 50 mg PO HS 01/22/16 Tamsulosin HCl [Flomax -] 0.4 mg PO HS 01/22/16 Metoprolol Succinate [Toprol XL -] 50 mg PO DAILY 01/23/16 Atorvastatin Calcium [Lipitor] 10 mg PO HS 01/06/17 Roflumilast [Daliresp] 500 mcg PO DAILY 01/06/17 Aspirin [ASA -] 81 mg PO DAILY tab.chew 01/08/17 Pantoprazole Sodium [Protonix -] 40 mg PO DAILY #30 tablet.ec 01/08/17 Amlodipine Besylate [Norvasc -] 10 mg PO DAILY #30 tablet MDD 1 04/26/17 Lipase/Protease/Amylase [Creon Dr 6,000 Units Capsule] 3 cap PO TIDCM #100 tab MDD 3 04/26/17 Losartan Potassium [Cozaar -] 100 mg PO DAILY #30 tablet MDD 1 04/26/17 Methylnaltrexone [place] [Relistor -] 12 mg SQ DAILY #30 kit MDD 1 04/26/17 Oxycodone HCl 10 mg PO QID PRN #7 tablet MDD 4 04/26/17 Rifaximin [Xifaxan -] 550 mg PO TID #60 tablet MDD 3 04/26/17 Hyoscyamine Sulfate 0.125 mg PO BID PRN #10 tab.rapdis 05/15/17
--- NOTE | 2017-07-01 14:17 | PN ---
Progress Note (short form) - Note Progress Note: assisted living facilty refusing to take patient back unless he has been seen by psychiatry dr elliott consult ordered PT to see patient
[2017-07-01] MEDS: MAG HYDROX/AL HYDROX/SIMETH 30 ML UNIT-DOSE CUP PO PRN (15:05)
--- NOTE | 2017-07-01 19:23 | CON.PSY ---
Psychiatry Consult Chief Complaint: Asked to see this patient to assist with discharge planning, and to evaluate his decision making capacity History of Present Problem: Patient was seen in the [facility]/o of [facility]. He states that he lives in his own apartment and is looking forward to going home. Symptoms: reports: Other. denies: Depressed Mood, Anhedonia, Worthlessness/ Guilt, Decreased Energy, Suicidality, Self destructive thoughts, Appetite Disturbance, Weight change, Hopelessness, Sleep Disturbance, Diurnal Mood Changes, Impaired Concentration, Decreased Motivation, Memory Impairment, Irritability, Expansive / Elevated Mood, Grandiosity, Hyper-religiosity, Excessive Energy, Racing Thoughts, Anxiety, Panic Attacks, Obsessive Thoughts, Flashbacks, Compulsive Behaviors, Agoraphobia, Restlessness, Phobias, Bulimic Behavior, Anorexic Behavior, Somatic Symptoms, Sexual Dysfunction, Inability to Control Temper, Aggressivity, Impulsivity, Depersonalization, Derealization, Amnesic Episodes, Disorganized/Disruptive Thoughts, Delusions, Hallucinations, Paranoia, Conduct Problems, Oppositionalism, Attention Deficit, Learning Problems, Firesetting, Enuresis, Lying, Hyperactivity - Current Medications Current Medications: Active Medications Al Hydroxide/Mg Hydroxide (Mylanta Oral Suspension -) 30 ml PO Q8H PRN PRN Reason: INDIGESTION Last Admin: 07/01/17 15:05 Dose: 30 ml Amlodipine Besylate (Norvasc -) 10 mg PO DAILY [facility] Last Admin: 07/01/17 11:07 Dose: 10 mg Aspirin (Asa -) 81 mg PO DAILY [facility] Last Admin: 07/01/17 11:06 Dose: 81 mg Atorvastatin Calcium (Lipitor -) 10 mg PO HS [facility] Last Admin: 06/30/17 22:17 Dose: 10 mg Furosemide (Lasix Injection -) 40 mg IVPUSH DAILY [facility] Last Admin: 07/01/17 11:15 Dose: 40 mg Gabapentin (Neurontin -) 400 mg PO HS [facility] Last Admin: 06/30/17 22:17 Dose: 400 mg Heparin Sodium (Porcine) (Heparin -) 5,000 unit SQ BID [facility] Last Admin: 06/30/17 11:13 Dose: 5,000 unit Hyoscyamine Sulfate (Levsin Odt -) 0.125 mg PO BID PRN PRN Reason: abdominal pain Losartan Potassium (Cozaar -) 100 mg PO DAILY [facility] Last Admin: 07/01/17 11:07 Dose: 100 mg Meperidine HCl (Demerol Injection -) 25 mg IM Q8H PRN PRN Reason: PAIN Last Admin: 07/01/17 19:06 Dose: 25 mg Metformin HCl (Glucophage -) 500 mg PO BID@0700,1630 [facility] Last Admin: 07/01/17 17:52 Dose: 500 mg Methylnaltrexone [place] (Relistor -) 12 mg SQ DAILY [facility] Last Admin: 07/01/17 11:14 Dose: Not Given Metoprolol Succinate (Toprol Xl -) 50 mg PO DAILY [facility] Last Admin: 07/01/17 11:07 Dose: 50 mg Ondansetron HCl (Zofran Injection) 4 mg IVPB Q8H PRN PRN Reason: NAUSEA Last Admin: 06/30/17 22:17 Dose: 4 mg Oxycodone HCl (Roxicodone -) 10 mg PO Q6H PRN PRN Reason: PAIN Last Admin: 07/01/17 15:05 Dose: 10 mg Pancrelipase (Creon Dr 36,000 Units Capsule) 1 cap PO TIDCM [facility] Last Admin: 07/01/17 17:52 Dose: 1 cap Pantoprazole Sodium (Protonix -) 40 mg PO DAILY [facility] Last Admin: 07/01/17 11:05 Dose: 40 mg Quetiapine Fumarate (Seroquel -) 50 mg PO HS [facility] Last Admin: 06/30/17 22:17 Dose: 50 mg Rifaximin (Xifaxan -) 550 mg PO TID [facility] Last Admin: 07/01/17 15:05 Dose: 550 mg Roflumilast (Daliresp -) 500 mcg PO DAILY [facility] Last Admin: 07/01/17 11:12 Dose: 500 mcg Sitagliptin Phosphate (Januvia -) 100 mg PO DAILY@0700 [facility] Last Admin: 07/01/17 06:05 Dose: Not Given Tamsulosin HCl (Flomax -) 0.4 mg PO DAILY@0830 [facility] Last Admin: 07/01/17 11:07 Dose: 0.4 mg - Allergies Allergies: Allergies Allergy/AdvReac Type Severity Reaction Status Date / Time No Known Allergies Allergy Verified 06/28/17 09:05 - Current Mental Status Evaluation Appearance: Other (neat and casual) Attitude: Cooperative - Affect Affect: Constrictive Appropriateness: Appropriate to Content - Mood Mood: Anxious - Speech/Language Expressive: Coherent Receptive: Age Appropriate Comprehension of Spoken Words - Psychomotor Activity Psychomotor Activity: Normal - Thought Process Thought Process: Intact - Thought Content Hallucinations: Absent Delusions: Absent - Self Perception Self Perception: No Impairment - Cognition Attention: Alert Orientation: Time, Person, Place Memory, Short Term: 2/3 Memory, Remote: Impaired Memory, Remote with Promptin/3 - Concentration Simple Calculations Intact: Yes - Abstraction Proverb Interpretation: Intact Judgement: Minimally Impaired - Insight Insight: Intact - Suicidal Ideation Suicidal Ideation: No - Homicidal Ideation Homicidal Ideation: No Assessment/Plan Patient was conversant and he was able to discuss the potential consequences of going back to his apartment where he lives alone: falls, medications errors, keeping up with his appointments etc. Patient has the capacity at this time, to make decisions with regard to discharge planning providing that its a safe discharge. He will need VNS, REJECTOR and an assessment of his support system if any prior to discharge.
[2017-07-01] MEDS: HEPARIN NA (PORCINE) 5,000 UNITS/ML 1ML VIAL SQ SCH ×2 (21:37→21:48)
[2017-07-01] MEDS: ATORVASTATIN CA 10 MG TABLET (FP) PO SCH ×2 (21:37→21:49)
[2017-07-01] MEDS: GABAPENTIN 400 MG CAPSULE (FP) PO SCH ×2 (21:37→21:49)
[2017-07-01] MEDS: QUEtiapine FUMARATE 50 MG TABLET PO SCH ×2 (21:37→21:49)
[2017-07-02] MEDS: MEPERIDINE HCL CARPU-JECT 25 MG/1 ML DISP.SYRIN IM PRN (02:38)
[2017-07-02] MEDS: sitaGLIPtin PHOSPHATE 100 MG TABLET (FP) PO SCH (06:44)
[2017-07-02] MEDS: RIFAXIMIN 550 MG TABLET (UD) PO SCH ×2 (06:44→14:07)
[2017-07-02] MEDS: metFORMIN HCL 500 MG TABLET (FP) PO SCH (06:44)
[2017-07-02 07:17] VITALS: PULSE 87
[2017-07-02] MEDS ORDERED: PT OWN MED DRAWER 7, Y5N ONE ×2 (08:16→10:43)
[2017-07-02] MEDS: LIPASE/PROTEASE/AMYLASE 36,000 UNIT CAPSULE PO SCH ×2 (08:19→12:27)
[2017-07-02] MEDS: TAMSULOSIN HCL 0.4 MG CAP.ER.24H (FP) PO SCH (08:41)
--- NOTE | 2017-07-02 10:49 | PN ---
Progress Note, Physician Chief Complaint: patient in selerium sitting in wheel chair spoke to him about VNS and STR he refused he said he wants to go home - Current Medication List Current Medications: Active Medications Al Hydroxide/Mg Hydroxide (Mylanta Oral Suspension -) 30 ml PO Q8H PRN PRN Reason: INDIGESTION Last Admin: 07/01/17 15:05 Dose: 30 ml Amlodipine Besylate (Norvasc -) 10 mg PO DAILY [facility] Last Admin: 07/01/17 11:07 Dose: 10 mg Aspirin (Asa -) 81 mg PO DAILY [facility] Last Admin: 07/01/17 11:06 Dose: 81 mg Atorvastatin Calcium (Lipitor -) 10 mg PO HS [facility] Last Admin: 07/01/17 21:49 Dose: 10 mg Furosemide (Lasix Injection -) 40 mg IVPUSH DAILY [facility] Last Admin: 07/01/17 11:15 Dose: 40 mg Gabapentin (Neurontin -) 400 mg PO HS [facility] Last Admin: 07/01/17 21:49 Dose: 400 mg Heparin Sodium (Porcine) (Heparin -) 5,000 unit SQ BID [facility] Last Admin: 07/01/17 21:48 Dose: 5,000 unit Hyoscyamine Sulfate (Levsin Odt -) 0.125 mg PO BID PRN PRN Reason: abdominal pain Losartan Potassium (Cozaar -) 100 mg PO DAILY [facility] Last Admin: 07/01/17 11:07 Dose: 100 mg Meperidine HCl (Demerol Injection -) 25 mg IM Q8H PRN PRN Reason: PAIN Last Admin: 07/02/17 02:38 Dose: 25 mg Metformin HCl (Glucophage -) 500 mg PO BID@0700,1630 [facility] Last Admin: 07/02/17 06:44 Dose: 500 mg Methylnaltrexone [place] (Relistor -) 12 mg SQ DAILY [facility] Last Admin: 07/01/17 11:14 Dose: Not Given Metoprolol Succinate (Toprol Xl -) 50 mg PO DAILY [facility] Last Admin: 07/01/17 11:07 Dose: 50 mg Ondansetron HCl (Zofran Injection) 4 mg IVPB Q8H PRN PRN Reason: NAUSEA Last Admin: 06/30/17 22:17 Dose: 4 mg Oxycodone HCl (Roxicodone -) 10 mg PO Q6H PRN PRN Reason: PAIN Last Admin: 07/01/17 15:05 Dose: 10 mg Pancrelipase (Creon Dr 36,000 Units Capsule) 1 cap PO TIDCM [facility] Last Admin: 07/02/17 08:19 Dose: 1 cap Pantoprazole Sodium (Protonix -) 40 mg PO DAILY [facility] Last Admin: 07/01/17 11:05 Dose: 40 mg Quetiapine Fumarate (Seroquel -) 50 mg PO HS [facility] Last Admin: 07/01/17 21:49 Dose: 50 mg Rifaximin (Xifaxan -) 550 mg PO TID [facility] Last Admin: 07/02/17 06:44 Dose: 550 mg Roflumilast (Daliresp -) 500 mcg PO DAILY [facility] Last Admin: 07/01/17 11:12 Dose: 500 mcg Sitagliptin Phosphate (Januvia -) 100 mg PO DAILY@0700 [facility] Last Admin: 07/02/17 06:44 Dose: 100 mg Tamsulosin HCl (Flomax -) 0.4 mg PO DAILY@0830 [facility] Last Admin: 07/02/17 08:41 Dose: 0.4 mg - Objective Vital Signs: Vital Signs Temperature 98.0 F 07/02/17 06:00 Pulse Rate 87 07/02/17 06:00 Respiratory Rate 20 07/02/17 06:00 Blood Pressure 145/71 07/02/17 06:00 O2 Sat by Pulse Oximetry (%) 98 07/01/17 10:00 Constitutional: Yes: Calm Neck: Yes: Trachea Midline Cardiovascular: Yes: Regular Rate and Rhythm, S1, S2 Respiratory: Yes: CTA Bilaterally Gastrointestinal: Yes: Normal Bowel Sounds, Soft Edema: Yes Neurological: Yes: Alert, Oriented Labs: CBC, BMP 06/30/17 11:18 06/30/17 11:18 Problem List - Problems (1) Abdominal pain Assessment/Plan: seen by GI s/p colonscopy can go home and FU as outpatient levsin as needed creon for exocrine dysfunction Code(s): R10.9 - UNSPECIFIED ABDOMINAL PAIN Qualifiers: Abdominal location: generalized Qualified Code(s): R10.84 - Generalized abdominal pain (2) Bilateral lower extremity edema Assessment/Plan: getting iv lasix at hospital to go home on po lasix fu with PMD Code(s): R60.0 - LOCALIZED EDEMA (3) Diabetes Assessment/Plan: on metformin and januvia Code(s): E11.9 - TYPE 2 DIABETES MELLITUS WITHOUT COMPLICATIONS Qualifiers: Diabetes mellitus type: type 2 (4) Constipation due to opioid therapy Assessment/Plan: relistor Code(s): K59.03 - DRUG INDUCED CONSTIPATION [id number] - ADVERSE EFFECT OF OTHER OPIOIDS, INITIAL ENCOUNTER Assessment/Plan dc home today with VNS and PT patient to FU with PMD
[2017-07-02 10:50] VITALS: BP 131/84; TEMP 98.2
[2017-07-02] MEDS: FUROSEMIDE 40 MG/4 ML INJECTABLE VIAL IVPUSH SCH (10:50)
[2017-07-02] MEDS: HEPARIN NA (PORCINE) 5,000 UNITS/ML 1ML VIAL SQ SCH (10:50)
[2017-07-02] MEDS: Methylnaltrexone Bromide 12 MG/0.6 ML KIT SQ SCH (10:51)
[2017-07-02] MEDS: ROFLUMILAST 500 MCG TABLET PO SCH (10:51)
[2017-07-02] MEDS: amLODIPine BESYLATE 10 MG TABLET (FP) PO SCH (10:52)
[2017-07-02] MEDS: METOPROLOL SUCCINATE 50 MG TAB.SR.24H (FP) PO SCH (10:52)
[2017-07-02] MEDS: PANTOPRAZOLE 40 MG TABLET (FP) PO SCH (10:52)
[2017-07-02] MEDS: ASPIRIN 81 MG CHEWABLE TABLETS PO SCH (10:52)
[2017-07-02] MEDS: LOSARTAN POTASSIUM 50 MG TABLET (FP) PO SCH (10:52)
== END 2017-07-02 14:38 | disposition home or self-care (01) | DRG 392 ==
LOC: JER 08:55 → JERBED 16:40 → J5S 19:36
PROVIDERS: ADMIT Family Medicine; ATTEND Family Medicine
PROC: 0DJD8ZZ Inspection of Lower Intestinal Tract, Via Natural or Artificial Opening Endoscopic (ICD-10-PCS; principal; 2017-07-01 08:00)
DX: R10.84 Generalized abdominal pain (principal); K58.9 Irritable bowel syndrome, unspecified; E11.9 Type 2 diabetes mellitus without complications; R11.0 Nausea; R33.9 Retention of urine, unspecified; K59.03 Drug induced constipation; T40.2X5A Adverse effect of other opioids, initial encounter; D50.9 Iron deficiency anemia, unspecified
CPT/HCPCS: 36415; 71010-TC; 74000-TC; 74176-TC; 76856-TC; 80053; 81003; 82150; 82553; 83605; 83690; 83735; 84484; 85025; 87086; 93005; 93010; 93970-TC; 97116-GP; 97161-GP; 99284-25; C1887; J1644; Q9967

== ENCOUNTER 2017-07-03 06:57 | Emergency (ER) | payer OTHER ==
[2017-07-03 07:33] VITALS: TEMP 97.5; BMI 34.5
--- NOTE | 2017-07-03 07:34 | PDOC ---
*Physical Exam - Vital Signs Last Vital Signs Temp Pulse Resp BP Pulse Ox 97.5 F L 93 H 18 135/88 98 07/03/17 07:18 07/03/17 07:18 07/03/17 07:18 07/03/17 07:18 07/03/17 07:18 ED Treatment Course - LABORATORY CBC & Chemistry Diagram: 07/03/17 07:45 07/03/17 07:45 Medical Decision Making - Medical Decision Making 07/04/17 08:29 I agree with ERNESTINA Salazar's history, assessment and plan *DC/Admit/Observation/Transfer Diagnosis at time of Disposition: Epigastric abdominal pain - Discharge Dispostion Disposition: HOME Condition at time of disposition: Good - Referrals Referrals: Donna Galdamez MD [Primary Care Provider] - - Patient Instructions Printed Discharge Instructions: DI for Epigastric Pain Additional Instructions: You were recommended to start Levsin as stated in your discharge instructions you were given to yesterday. Please also follow-up with Dr. Isidro as discussed. VNS is to begin next week.
[2017-07-03] MEDS ORDERED: MAG HYDROX/AL HYDROX/SIMETH 30 ML UNIT-DOSE CUP PO ONE (07:39)
[2017-07-03] MEDS ORDERED: diphenhydrAMINE HCL 12.5 MG/5 ML UNIT-DOSE CUPS PO ONE (07:39)
[2017-07-03] MEDS ORDERED: HYOSCYAMINE SULFATE 0.125 MG *ODT PO ONE (07:39)
[2017-07-03 08:01] LABS: BASOPHIL 0.4 % (0-2.0); EOSINOPHIL 1.2 % (0-4.5); MCH 31.4 pg (25.7-33.7); MEAN CELL VOLUME 92.3 fl (80-96); MEAN PLT VOLUME 6.7 fl (7.5-11.1); PLATELET COUNT 265 K/MM3 (134-434); WHITE BLOOD COUNT 8.8 K/mm3 (4.0-10.0)
--- NOTE | 2017-07-03 08:10 | PDOC ---
History of Present Illness - General Chief Complaint: Chest Pain Stated Complaint: CHEST PAIN Time Seen by Provider: 07/03/17 07:25 History Source: Patient Exam Limitations: No Limitations - History of Present Illness Initial Comments: 07/03/17 08:10 71-year-old male presents to emergency room with complaints of epigastric pain that radiates to his lower mid chest without palpitations, nausea, or shortness of breath. Patient also complaining of runny nose and generalized body aches. Patient has no other complaints presently and denies fever and chills. Patient also denies urinary or bowel complaints. Patient was recently discharged from [facility] after receiving a colonoscopy and consultations to cardiology and psychiatry. Patient states was to begin a new medication but didn't start it and has not received vns as of yet either. Timing/Duration: constant Severity: moderate Associated Symptoms: reports: chest pain (lower mid sternal) Past History - Travel Traveled outside of the country in the last 30 days: No Close contact w/someone who was outside of country & ill: No - Past Medical History Allergies/Adverse Reactions: Allergies Allergy/AdvReac Type Severity Reaction Status Date / Time No Known Allergies Allergy Verified 07/03/17 07:15 Home Medications: Ambulatory Orders Gabapentin [Neurontin] 400 mg PO HS 01/22/16 Linagliptin/Metformin HCl [Jentadueto 2.5 mg-500 mg Tab] 1 each PO BID 01/22/16 Quetiapine Fumarate [Seroquel -] 50 mg PO HS 01/22/16 Tamsulosin HCl [Flomax -] 0.4 mg PO HS 01/22/16 Metoprolol Succinate [Toprol XL -] 50 mg PO DAILY 01/23/16 Atorvastatin Calcium [Lipitor] 10 mg PO HS 01/06/17 Roflumilast [Daliresp] 500 mcg PO DAILY 01/06/17 Aspirin [ASA -] 81 mg PO DAILY tab.chew 01/08/17 Pantoprazole Sodium [Protonix -] 40 mg PO DAILY #30 tablet.ec 01/08/17 Amlodipine Besylate [Norvasc -] 10 mg PO DAILY #30 tablet MDD 1 04/26/17 Lipase/Protease/Amylase [Adama Dr 6,000 Units Capsule] 3 cap PO TIDCM #100 tab MDD 3 04/26/17 Losartan Potassium [Cozaar -] 100 mg PO DAILY #30 tablet MDD 1 04/26/17 Methylnaltrexone [place] [Relistor -] 12 mg SQ DAILY #30 kit MDD 1 04/26/17 Oxycodone HCl 10 mg PO QID PRN #7 tablet MDD 4 04/26/17 Rifaximin [Xifaxan -] 550 mg PO TID #60 tablet MDD 3 04/26/17 Hyoscyamine Sulfate 0.125 mg PO BID PRN #10 tab.rapdis 05/15/17 Diabetes: Yes GI Disorders: Yes (GERD) HTN: Yes Hypercholesterolemia: Yes Psychiatric Problems: Yes - Surgical History Abdominal Surgery: Yes (gallbladder) Cholecystectomy: Yes Orthopedic Surgery: Yes (screws and pins on his leg.) - Immunization History Immunization Up to Date: Yes - Psycho/Social/Smoking Cessation Hx Anxiety: No Suicidal Ideation: No Smoking History: Never smoked Have you smoked in the past 12 months: No Information on smoking cessation initiated: No Hx Alcohol Use: No Drug/Substance Use Hx: No Substance Use Type: None Hx Substance Use Treatment: No Patient Lives Alone: Yes Lives with/in: lives alone Review of Systems - Review of Systems Able to Perform ROS?: Yes Constitutional: No: Symptoms Reported HEENTM: Yes: Other (runny nose) Respiratory: No: Symptoms reported Cardiac (ROS): Yes: Chest Pain ABD/GI: Yes: Abdominal cramping Musculoskeletal: Yes: Joint Pain (generalized) Integumentary: No: Symptoms Reported Neurological: No: Symptoms reported Hematologic/Lymphatic: No: Symptoms Reported *Physical Exam - Vital Signs Last Vital Signs Temp Pulse Resp BP Pulse Ox 97.5 F L 93 H 18 135/88 98 07/03/17 07:18 07/03/17 07:18 07/03/17 07:18 07/03/17 07:18 07/03/17 07:18 - Physical Exam General Appearance: Yes: Nourished, Appropriately Dressed. No: Apparent Distress HEENT: positive: EOMI, [place], TMs Normal, Pharynx Normal. negative: Pale Conjunctivae Neck: positive: Supple Respiratory/Chest: positive: Lungs Clear, Normal Breath Sounds. negative: Chest Tender, Respiratory Distress, Accessory Muscle Use Cardiovascular: positive: Regular Rhythm, Regular Rate. negative: Murmur Gastrointestinal/Abdominal: positive: Normal Bowel Sounds, Soft, Distended, Tenderness (epigastric). negative: Guarding, Rebound Musculoskeletal: negative: CVA Tenderness Extremity: positive: Normal Capillary Refill, Pedal Edema (2+ pitting) Integumentary: positive: Normal Color, Warm, Moist Neurologic: positive: Motor Strength 5/5 (ambulatory) Heart Score/ECG Review - History History: Slightly suspicious - Electrocardiogram EKG: Normal - Age Age: >/= 65 - Risk Factors Risk Factors Heart Score: Yes Hx Diabetes Based on the list above the patient has:: 1-2 risk factors - Troponin Troponin: </= normal limit - Score Heart Score - Total: 3 - ECG Intrepretation Rhythm: Regular Rhythm (rate 88. no acute findings. Unchanged from 06/28) ED Treatment Course - LABORATORY CBC & Chemistry Diagram: 07/03/17 07:45 07/03/17 07:45 Medical Decision Making - Medical Decision Making 07/03/17 08:14 Patient here with complaints of epigastric pain radiating to his lower mid chest since awakening this morning. Patient states was discharged here yesterday with no complaints. Patient states this had no fever, palpitations, shortness of breath. Patient on exam had epigastric tenderness without reproducible sternal discomfort. Patient given aspirin in the field. Patient has normal vital signs here. Patient ordered for cardiac workup including GI cocktail 07/03/17 09:16 Patient requesting to leave and go home. Patient had repeat vitals which were stable. 07/03/17 09:17 Laboratory Tests 07/03/17 07/03/17 07/03/17 07:45 07:45 07:45 WBC 8.8 Hgb 13.2 Hct 38.8 Plt Count 265 MPV 6.7 L Lymphocytes % 19.2 D Sodium 134 L Potassium 3.6 Chloride 97 L Carbon Dioxide 31 Anion Gap 6 L BUN 13 Creatinine 1.1 Creat Clearance w eGFR > 60 Random Glucose 133 H Calcium 8.7 Total Bilirubin 0.6 AST 41 H D ALT 54 Alkaline Phosphatase 53 D Creatine Kinase 291 Creatine Kinase Index 0.7 Troponin I 0.02 Lipase 144 *DC/Admit/Observation/Transfer Diagnosis at time of Disposition: Epigastric abdominal pain - Discharge Dispostion Disposition: HOME Condition at time of disposition: Good - Referrals Referrals: Donna Galdamez MD [Primary Care Provider] - - Patient Instructions Printed Discharge Instructions: DI for Epigastric Pain Additional Instructions: You were recommended to start Levsin as stated in your discharge instructions you were given to yesterday. Please also follow-up with Dr. Isidro as discussed. VNS is to begin next week.
[2017-07-03 08:22] LABS: ALBUMIN 3.9 g/dl (3.4-5.0); ALK PHOS 53 U/L (45-117); ANION GAP 6 (8-16); BILIRUBIN,TOTAL 0.6 mg/dL (0.2-1.0); CALCIUM 8.7 mg/dL (8.5-10.1); CO2 31 mmol/L (21-32); CREATININE 1.1 mg/dL (0.7-1.3); GLUCOSE,RANDOM 133 mg/dL (74-106); SGOT/AST 41 U/L (15-37); SGPT/ALT 54 U/L (12-78); TOT PROT 6.8 g/dl (6.4-8.2); TROPONIN I 0.02 ng/ml (0.00-0.05)
[2017-07-03] MEDS ORDERED: diphenhydrAMINE HCL 25 MG CAPSULE (FP) PO ONE (08:28)
[2017-07-03] MEDS ORDERED: MAG HYDROX/AL HYDROX/SIMETH 30 ML UNIT-DOSE CUP ONE (08:28)
[2017-07-03 09:18] VITALS: BP 114/51; PULSE 62
--- NOTE | 2017-07-04 21:09 | EKG ---
Test Reason : Blood Pressure : / mmHG Vent. Rate : 088 BPM Atrial Rate : 088 BPM P-R Int : 180 ms QRS Dur : 096 ms QT Int : 344 ms P-R-T Axes : 029 003 -58 degrees QTc Int : 416 ms NORMAL SINUS RHYTHM POSSIBLE LEFT ATRIAL ENLARGEMENT NONSPECIFIC T WAVE ABNORMALITY ABNORMAL ECG WHEN COMPARED WITH ECG OF 28-JUN-2017 09:20, NONSPECIFIC T WAVE ABNORMALITY LESS EVIDENT Confirmed by KEVIN YOO, SARAH ([id number]) on 07/04/2017 9:09:09 PM Referred By: Confirmed By:SARAH BROWN MD
== END 2017-07-03 09:22 | disposition home or self-care (01) ==
LOC: JER 06:57
DX: R10.13 Epigastric pain (principal); K21.9 Gastro-esophageal reflux disease without esophagitis; I10 Essential (primary) hypertension; E11.9 Type 2 diabetes mellitus without complications
CPT/HCPCS: 36415; 80053; 82553; 83690; 84484; 85025; 93005; 93010; 99282-25

== ENCOUNTER 2017-07-18 02:22 | Emergency (ER) | payer OTHER ==
[2017-07-18] MEDS ORDERED: SODIUM CHLORIDE 500 ML IV STA (02:36)
--- NOTE | 2017-07-18 02:47 | PDOC ---
History of Present Illness - General Stated Complaint: BODY ACHES Time Seen by Provider: 07/18/17 02:26 History Source: Patient Exam Limitations: No Limitations - History of Present Illness Travel History: No Initial Comments: 07/18/17 02:42 71yo Male patient w/ PmHx: HTN, HLD, NIDDM presents to ED c/o generalized abdominal pain and bloating which began today at 11am. Patient states he took Pepto Bismuth with worsening of symptoms. Patient was seen on 05/14, 05/15, 07/03 for similar symptoms. Abdominal X-ray done 05/15: resulted negative for pathology. Patient denies CP, Back pain, n/v/d, rash, fever, change in appetite , diff breathing, rectal bleeding, hematuria, dysuria, or any other complaints at this time. Timing/Duration: reports: constant, getting worse Quality: reports: moderate Abdominal Pain Onset Location: reports: generalized abdomen Pain Radiation: reports: no radiation Activities at Onset: reports: no specific activity Treatment Prior to Arrive: worse with: analgesics, antacids, cold pack, heat, laxative, enema, other Past History - Travel Traveled outside of the country in the last 30 days: No Close contact w/someone who was outside of country & ill: No - Past Medical History Allergies/Adverse Reactions: Allergies Allergy/AdvReac Type Severity Reaction Status Date / Time No Known Allergies Allergy Verified 07/18/17 03:07 Home Medications: Ambulatory Orders Gabapentin [Neurontin] 400 mg PO HS 01/22/16 Linagliptin/Metformin HCl [Jentadueto 2.5 mg-500 mg Tab] 1 each PO BID 01/22/16 Quetiapine Fumarate [Seroquel -] 50 mg PO HS 01/22/16 Tamsulosin HCl [Flomax -] 0.4 mg PO HS 01/22/16 Metoprolol Succinate [Toprol XL -] 50 mg PO DAILY 01/23/16 Atorvastatin Calcium [Lipitor] 10 mg PO HS 01/06/17 Roflumilast [Daliresp] 500 mcg PO DAILY 01/06/17 Aspirin [ASA -] 81 mg PO DAILY tab.chew 01/08/17 Pantoprazole Sodium [Protonix -] 40 mg PO DAILY #30 tablet.ec 01/08/17 Amlodipine Besylate [Norvasc -] 10 mg PO DAILY #30 tablet MDD 1 04/26/17 Lipase/Protease/Amylase [[place]on Dr 6,000 Units Capsule] 3 cap PO TIDCM #100 tab MDD 3 04/26/17 Losartan Potassium [Cozaar -] 100 mg PO DAILY #30 tablet MDD 1 04/26/17 Methylnaltrexone [place] [Relistor -] 12 mg SQ DAILY #30 kit MDD 1 04/26/17 Rifaximin [Xifaxan -] 550 mg PO TID #60 tablet MDD 3 04/26/17 Hyoscyamine Sulfate 0.125 mg PO BID PRN #10 tab.rapdis 05/15/17 Diabetes: Yes GI Disorders: Yes (GERD) HTN: Yes Hypercholesterolemia: Yes Psychiatric Problems: Yes - Surgical History Abdominal Surgery: Yes (gallbladder) Cholecystectomy: Yes Orthopedic Surgery: Yes (screws and pins on his leg.) - Immunization History Immunization Up to Date: Yes - Psycho/Social/Smoking Cessation Hx Anxiety: No Suicidal Ideation: No Smoking History: Never smoked Have you smoked in the past 12 months: No Hx Alcohol Use: Yes (occasional beer or glass of wine) Drug/Substance Use Hx: No Substance Use Type: None Hx Substance Use Treatment: No Abd/GI Specific PMHX - Complaint Specific PMHX Colitis: No Diverticulitis: No Gall Bladder Disease: No GERD: Yes Hepatitis: No Irritable Bowel Synd (IBS): No Pancreatitis: No GI Ulcer Disease: No Review of Systems - Review of Systems Able to Perform ROS?: Yes Is the patient limited Tristanian proficient: No Constitutional: No: Chills, Fever, Weakness Respiratory: No: Cough, Shortness of Breath, Wheezing Cardiac (ROS): No: Chest Pain, Palpitations, Syncope, Chest Tightness ABD/GI: Yes: Abdominal Distended, Abdominal cramping. No: Diarrhea, Nausea, Poor Appetite, Poor Fluid Intake, Rectal Bleeding, Vomiting : No: Burning, Dysuria, Flank Pain, Hematuria Musculoskeletal: No: Back Pain Integumentary: No: Bruising, Erythema, Rash, Sweating Neurological: No: Headache, Tremors, Dizziness All Other Systems: Reviewed and Negative *Physical Exam - Physical Exam General Appearance: Yes: Nourished, Appropriately Dressed. No: Apparent Distress, Mild Distress, Moderate Distress, Severe Distress Neck: positive: Trachea midline, Normal Thyroid, Supple. negative: Decreased range of motion, Stridor, Lymphadenopathy (R), Lymphadenopathy (L) Respiratory/Chest: positive: Lungs Clear, Normal Breath Sounds. negative: Chest Tender, Respiratory Distress, Accessory Muscle Use, Labored Respiration, Rapid RR, Rhonchi, Stridor, Wheezing Cardiovascular: positive: Regular Rhythm, Regular Rate Gastrointestinal/Abdominal: positive: Tender ("All over"), Soft, Decreased BS, Distended. negative: Guarding, Rebound, Tenderness Musculoskeletal: positive: Normal Inspection. negative: CVA Tenderness, Decreased Range of Motion, Vertebral Tenderness Extremity: positive: Normal Capillary Refill, Normal Inspection, Normal Range of Motion. negative: Pedal Edema, Swelling, Calf Tenderness, Erythema, Inflammation Integumentary: positive: Normal Color, Dry, Warm Neurologic: positive: gardening supervisor II-XII NML intact, Fully Oriented, Alert, Normal Mood/ Affect, Normal Response, Motor Strength 03/12 ED Treatment Course - LABORATORY CBC & Chemistry Diagram: 07/18/17 02:48 07/18/17 02:48 - RADIOLOGY Radiology Studies Ordered: Category Date Time Status ABDOMEN & PELVIS CT W/O CONTR [CT] Stat CT Scan 07/18/17 02:36 Ordered CHEST X-RAY PORTABLE* [RAD] Stat Radiology 07/18/17 02:36 Ordered *DC/Admit/Observation/Transfer Diagnosis at time of Disposition: Steatosis of liver, abdominal pain, diarrhea and vomi - Discharge Dispostion Disposition: HOME Condition at time of disposition: Stable Admit: No - Referrals Referrals: Orlando Allen MD [Staff Physician] - - Patient Instructions Printed Discharge Instructions: Nonalcoholic Fatty Liver Disease, DI for Abdominal Pain-Adult Additional Instructions: Follow up with Dr. Allen (Gastroenterology). Call to schedule appointment. Continue your current medications as prescribed. Print Language: MALAY
[2017-07-18 02:59] LABS: BASOPHIL 0.4 % (0-2.0); EOSINOPHIL 1.3 % (0-4.5); MCH 31.5 pg (25.7-33.7); MCHC 34.4 g/dl (32.0-35.9); MEAN CELL VOLUME 91.7 fl (80-96); MEAN PLT VOLUME 7.1 fl (7.5-11.1); NEUTROPHILS 65.3 % (42.8-82.8); PLATELET COUNT 258 K/MM3 (134-434); RDW 13.8 % (11.9-15.9); WHITE BLOOD COUNT 8.7 K/mm3 (4.0-10.0)
[2017-07-18 03:07] VITALS: BP 203/86; PULSE 71; TEMP 98.2; BMI 33.9
[2017-07-18 03:29] LABS: ALBUMIN 3.9 g/dl (3.4-5.0); AMYLASE 46 U/L (25-115); ANION GAP 9 (8-16); BILIRUBIN,TOTAL 0.5 mg/dL (0.2-1.0); CALCIUM 8.7 mg/dL (8.5-10.1); CO2 29 mmol/L (21-32); CREATININE 1.1 mg/dL (0.7-1.3); GLUCOSE,RANDOM 145 mg/dL (74-106); SGOT/AST 27 U/L (15-37); SGPT/ALT 47 U/L (12-78); TOT PROT 7.3 g/dl (6.4-8.2)
[2017-07-18 03:30] LABS: ALK PHOS 67 U/L (45-117)
[2017-07-18 04:30] LABS: URINE APPEARANCE CLEAR; URINE BILIRUBIN NEGATIVE (NEGATIVE); URINE BLOOD NEGATIVE (NEGATIVE); URINE COLOR STRAW; URINE GLUCOSE (UA) NEGATIVE (NEGATIVE); URINE KETONE NEGATIVE (NEGATIVE); URINE LEUK ESTERASE NEGATIVE (NEGATIVE); URINE NITRITE NEGATIVE (NEGATIVE); URINE PROTEIN NEGATIVE (NEGATIVE); URINE UROBILINOGEN NEGATIVE mg/dL (0.2-1.0)
[2017-07-18] MEDS ORDERED: morphine CARPU-JECT 4 MG/1 ML DISP.SYRIN IVPUSH ONE (04:33)
[2017-07-18] MEDS ORDERED: morphine CARPU-JECT 4 MG/1 ML DISP.SYRIN ONE (04:38)
--- NOTE | 2017-07-18 09:43 | EKG ---
Test Reason : Blood Pressure : / mmHG Vent. Rate : 086 BPM Atrial Rate : 086 BPM P-R Int : 184 ms QRS Dur : 110 ms QT Int : 380 ms P-R-T Axes : 039 009 027 degrees QTc Int : 454 ms NORMAL SINUS RHYTHM POSSIBLE LEFT ATRIAL ENLARGEMENT POSSIBLE ANTERIOR INFARCT , AGE UNDETERMINED POOR R WAVE PROGRESSION ABNORMAL ECG Confirmed by MD CRISTIAN, YAYA ([id number]) on 07/18/2017 9:43:31 AM Referred By: Confirmed By:YAYA FOSTER MD
== END 2017-07-18 07:10 | disposition home or self-care (01) ==
LOC: JER 02:22
PROC: 3E0337Z Introduction of Electrolytic and Water Balance Substance into Peripheral Vein, Percutaneous Approach (ICD-10-PCS; principal; 2017-07-18)
PROC: 3E033NZ Introduction of Analgesics, Hypnotics, Sedatives into Peripheral Vein, Percutaneous Approach (ICD-10-PCS; 2017-07-18)
DX: K76.0 Fatty (change of) liver, not elsewhere classified (principal); R10.84 Generalized abdominal pain; I10 Essential (primary) hypertension; E11.9 Type 2 diabetes mellitus without complications; Z79.84 Long term (current) use of oral hypoglycemic drugs; E78.00 Pure hypercholesterolemia, unspecified; K21.9 Gastro-esophageal reflux disease without esophagitis
CPT/HCPCS: 36415; 74176-TC; 80053; 81003; 82150; 82553; 83605; 83690; 84484; 85025; 87804; 93005; 93010; 96361; 96374; 99284-25

== ENCOUNTER 2018-01-22 19:45 | Inpatient (IN) | payer MEDICARE, OTHER ==
[2018-01-22] MEDS ORDERED: ACETAMINOPHEN 1000 MG/100 ML VIAL (NON FORMULARY) IVPB ONE (20:31)
[2018-01-22] MEDS ORDERED: SODIUM CHLORIDE 0.9% 500 ML INFUS.BAG IV ONE (20:31)
--- NOTE | 2018-01-22 20:31 | PDOC ---
History of Present Illness - General History Source: Patient Exam Limitations: No Limitations - History of Present Illness Initial Comments: 01/22/18 21:53 Patient is a 72 year old male with a significant past medical history of Hernias , HTN, Diabetes, High cholesterol, who presents to the ED with complaints of abdominal pain that began earlier today. Patient reports experiencing diffuse abdominal pain that began earlier today while at home. He reports experiencing associated symptoms of intermittent back pain, prompting him to come into the ED for further evaluation. He reports noticing brown coloration in his urine which he states has begun to worry him. Denies chest pain, Sob. Denies nausea, vomiting. Denies fevers, chills. Denies trauma to affected area. Denies any other symptoms. Allergies: No allergies Social history: No smoking. No alcohol. No illicit drugs. Surgical history: None PMD: Dr. Galdamez <Tao Womack - Last Filed: 01/22/18 21:53> <Danielle Redman - Last Filed: 01/23/18 01:59> - General Chief Complaint: Pain, Acute Stated Complaint: ABDOMINAL/CHEST PAIN Time Seen by Provider: 01/22/18 20:11 Past History <Tao Womack - Last Filed: 01/22/18 21:53> - Suicide/Smoking/Psychosocial Hx Smoking History: Never smoked Have you smoked in the past 12 months: No Information on smoking cessation initiated: No Hx Alcohol Use: No Drug/Substance Use Hx: No <Danielle Redman - Last Filed: 01/23/18 01:59> - Past Medical History Allergies/Adverse Reactions: Allergies Allergy/AdvReac Type Severity Reaction Status Date / Time No Known Allergies Allergy Verified 01/22/18 21:02 Home Medications: Ambulatory Orders Unobtainable [Unobtainable] 01/22/18 Review of Systems - Review of Systems Able to Perform ROS?: Yes Comments:: 01/22/18 21:53 GENERAL/CONSTITUTIONAL: No fever or chills. No weakness. HEAD, EYES, EARS, NOSE AND THROAT: No change in vision. No ear pain or discharge. No sore throat. CARDIOVASCULAR: No chest pain or shortness of breath. RESPIRATORY: No cough, wheezing, or hemoptysis. GASTROINTESTINAL: +abdominal pain. No nausea, vomiting, diarrhea or constipation. GENITOURINARY: No dysuria, frequency, or change in urination. MUSCULOSKELETAL: +back pain. No joint or muscle swelling or pain. No neck. SKIN: No rash NEUROLOGIC: No headache, vertigo, loss of consciousness, or change in strength/ sensation. ENDOCRINE: No increased thirst. No abnormal weight change. HEMATOLOGIC/LYMPHATIC: No anemia, easy bleeding, or history of blood clots. ALLERGIC/IMMUNOLOGIC: No hives or skin allergy. <Tao Womack - Last Filed: 01/22/18 21:53> *Physical Exam - Vital Signs Last Vital Signs Temp Pulse Resp BP Pulse Ox 99.7 F H 109 H 20 157/86 97 01/22/18 20:08 01/22/18 20:08 01/22/18 20:08 01/22/18 20:08 01/22/18 20:08 - Physical Exam Comments: 01/22/18 21:53 GENERAL: Awake, alert, and fully oriented, in no acute distress HEAD: No signs of trauma EYES: PERRLA, EOMI, sclera anicteric, conjunctiva clear ENT: Auricles normal inspection, hearing grossly normal, nares patent, oropharynx clear without exudates. Moist mucosa NECK: Normal ROM, supple, no lymphadenopathy, JVD, or masses LUNGS: Breath sounds equal, clear to auscultation bilaterally. No wheezes, and no crackles HEART: Regular rate and rhythm, normal S1 and S2, no murmurs, rubs or gallops ABDOMEN: +Decreased bowel sounds. Soft, nontender, No guarding, no rebound. No masses EXTREMITIES: Normal range of motion, no edema. No clubbing or cyanosis. No cords, erythema, or tenderness NEUROLOGICAL: Cranial nerves II through XII grossly intact. Normal speech, normal gait SKIN: Warm, Dry, normal turgor, no rashes or lesions noted. <Tao Womack - Last Filed: 01/22/18 21:53> - Vital Signs Last Vital Signs Temp Pulse Resp BP Pulse Ox 99.7 F H 109 H 20 157/86 97 01/22/18 20:08 01/22/18 20:08 01/22/18 20:08 01/22/18 20:08 01/22/18 20:08 <Danielle Redman - Last Filed: 01/23/18 01:59> ED Treatment Course - LABORATORY CBC & Chemistry Diagram: 01/22/18 20:50 01/22/18 20:50 - ADDITIONAL ORDERS Additional order review: Laboratory Results 01/22/18 01/22/18 20:50 20:50 PT with INR 13.50 H INR 1.19 H PTT (Actin FS) 30.5 01/22/18 20:50 RBC 4.40 MCV 91.4 MCHC 34.7 RDW 14.5 MPV 7.4 L Neutrophils % 85.6 H Lymphocytes % 6.9 L Monocytes % 7.3 Eosinophils % 0.0 Basophils % 0.2 - Medications Given in the ED: ED Medications Discontinued Medications Generic Name Dose Route Start Last Admin Trade Name Martin PRN Reason Stop Dose Admin Acetaminophen 1,000 mg 01/22/18 20:31 01/22/18 21:11 Ofirmev Injection - IVPB 01/22/18 20:32 1,000 mg ONCE ONE Administration Piperacillin Sod/Tazobactam Sod 3.375 gm 01/22/18 21:30 01/22/18 21:45 Zosyn 3.375gm Ivpb (Pre-Docked) IVPB 01/22/18 21:31 3.375 gm NOW ONE Administration Protocol Sodium Chloride 1,000 ml 01/22/18 20:31 01/22/18 21:10 Normal Saline - IV 01/22/18 20:32 1,000 ml ONCE ONE Administration <Tao Womack - Last Filed: 01/22/18 21:53> - LABORATORY CBC & Chemistry Diagram: 01/22/18 20:50 01/22/18 20:50 <Danielle Redman - Last Filed: 01/23/18 01:59> Medical Decision Making - Medical Decision Making 01/22/18 23:17 Pt comes with distended abd and pain; history of ventral hernias. He is afebrile. He states that he has been unable to eat x 2 days. States that he has nura staying hydrated with water. Pt is worried that he may have an obstruction. He has DM and HTN and he is complaint with his meds. 01/22/18 23:18 Chem normal; WBC is elevated. He will be treated with Zosyn; we sent off blood cultures and lactic acid.. Pt's abd pelvis CT is pending 01/23/18 00:33 Patient Name: LITO CLEMENS THIS IS A PRELIMINARY REPORT FROM [facility] DATE OF SERVICE: 2018-01-22 23:22:31 IMAGES: [id number] EXAM: ABDOMEN \T\ PELVIS CT W/O CONTR HISTORY: Rule out ileus COMPARISON: No prior scans have been transmitted for comparison FINDINGS: There is no bowel obstruction, free air, or free fluid. Negative for diverticulitis or colitis. Ventral hernia containing no bowel. Negative for urinary tract stone or obstruction. Fatty borderline enlarged liver. Normal spleen. Fatty atrophy pancreas. Prior cholecystectomy. Normal adrenal glands. The osseous structures are intact. Trace pericardial fluid THIS DOCUMENT HAS BEEN ELECTRONICALLY SIGNED 01/23/18 01:58 Though pt remains with elevated lactic acid, I will not continue hydration, as he has pitting edema of his legs bilaterally and I dont want to fluid overload him. <Danielle Redman - Last Filed: 01/23/18 01:59> *DC/Admit/Observation/Transfer - Attestations Scribe Attestion: 01/22/18 21:54 Documentation prepared by Tao Womack, acting as medical billing instructor for Danielle Redman MD/DO. <Tao Womack - Last Filed: 01/22/18 21:53> - Discharge Dispostion Admit: Yes <Danielle Redman - Last Filed: 01/23/18 01:59> Diagnosis at time of Disposition: Sepsis, Urinary tract infection - Discharge Dispostion Condition at time of disposition: Guarded - Referrals Referrals: Donna Galdamez MD [Primary Care Provider] - - Patient Instructions - Post Discharge Activity
[2018-01-22 20:58] LABS: BASO % 0.2 % (0-2.0); HEMATOCRIT 40.2 % (35.4-49); LYMPH % 6.9 % (8-40); MCH 31.7 pg (25.7-33.7); MCHC 34.7 g/dl (32.0-35.9); MEAN CELL VOLUME 91.4 fl (80-96); MEAN PLT VOLUME 7.4 fl (7.5-11.1); MONO % 7.3 % (3.8-10.2); NEUT % 85.6 % (42.8-82.8); PLATELET COUNT 216 K/MM3 (134-434); RDW 14.5 % (11.9-15.9); WHITE BLOOD COUNT 17.5 K/mm3 (4.0-10.0)
[2018-01-22 21:21] LABS: PROTHROMBIN TIME (PATIENT) 13.5 SEC (9.98-11.88)
[2018-01-22 21:22] LABS: INR 1.19 (0.82-1.09)
[2018-01-22] MEDS ORDERED: ONDANSETRON 4 MG/2 ML VIAL IVPB ONE (21:23)
[2018-01-22] MEDS ORDERED: PIPERACILLIN/TAZOB 3.375 GM/50 ML PRE-DOCKED IVPB ONE (21:30)
[2018-01-22] MEDS ORDERED: PIPERACILLIN/TAZOB 3.375 GM 3.375 GM/50 ML BAG IVPB ONE (21:40)
[2018-01-22 22:48] LABS: ALBUMIN 3.8 g/dl (3.4-5.0); ANION GAP 15 (8-16); BLOOD UREA NITROGEN 13 mg/dL (7-18); CALCIUM 8.8 mg/dL (8.5-10.1); CHLORIDE 95 mmol/L (98-107); CO2 24 mmol/L (21-32); CREATININE 1.2 mg/dL (0.7-1.3); GLUCOSE,RANDOM 207 mg/dL (74-106); POTASSIUM 3.4 mmol/L (3.5-5.1); SGOT/AST 19 U/L (15-37); SGPT/ALT 34 U/L (12-78); SODIUM 134 mmol/L (136-145)
[2018-01-22 22:51] LABS: ALK PHOS 81 U/L (45-117); BILIRUBIN,TOTAL 1.2 mg/dL (0.2-1.0); TOT PROT 7.7 g/dl (6.4-8.2)
[2018-01-23] MEDS ORDERED: HYDROmorphone HCL CARPU-JECT 2 MG/1 ML DISP.SYRIN IVPUSH ONE (00:34)
[2018-01-23] MEDS ORDERED: morphine CARPU-JECT 2 MG/1 ML DISP.SYRIN IVPUSH ONE (00:59)
[2018-01-23] MEDS ORDERED: morphine SULFATE 4 MG/ML VIAL ONE ×2 (00:59→02:56)
[2018-01-23 01:16] LABS: URINE APPEARANCE CLEAR; URINE BILIRUBIN NEGATIVE (NEGATIVE); URINE BLOOD 1+ (NEGATIVE); URINE COLOR YELLOW; URINE GLUCOSE (UA) NEGATIVE (NEGATIVE); URINE KETONE TRACE (NEGATIVE); URINE NITRITE NEGATIVE (NEGATIVE)
[2018-01-23 01:25] LABS: URINE LEUK ESTERASE 1+ (NEGATIVE); URINE PROTEIN 1+ (NEGATIVE)
[2018-01-23 01:27] LABS: URINE BACTERIA MANY /hpf (NONE SEEN); URINE HYALINE CAST 7 /lpf; URINE MUCUS MODERATE
[2018-01-23] MEDS ORDERED: DEXTROSE 5%-0.45% SALINE 1,000 ML IV SCH ×2 (02:00→06:45)
[2018-01-23] MEDS ORDERED: ONDANSETRON 4 MG/2 ML VIAL IVPUSH PRN ×2 (02:02→08:31)
[2018-01-23] MEDS ORDERED: morphine SULFATE 4 MG/ML VIAL IVPUSH PRN (02:02)
--- NOTE | 2018-01-23 02:14 | HP ---
Admitting History and Physical - Primary Care Physician PCP: Edin Suarez - Admission Chief Complaint: Abdominal Pain History of Present Illness: This is a 72 y/o man with a PMHx of HTN, HLD, Cholecystectomy, Hernia's. Who presents to the ED with generalized abdominal pain, nausea, vomiting x1 day. Patient reports having brown urine. Patient reports lower extremity swelling and pain. Patient denies fever, chills, cough, SOB, CP, diarrhea, constipation. History Source: Patient Limitations to Obtaining History: No Limitations - Past Medical History Cardiovascular: Yes: HTN, Hyperlipdemia Gastrointestinal: Yes: Other (Cholecystitis) - Past Surgical History Past Surgical History: Yes: Cholecystectomy - Smoking History Smoking history: Never smoked Have you smoked in the past 12 months: No - Alcohol/Substance Use Hx Alcohol Use: No History of Substance Use: reports: None - Social History ADL: Independent History of Recent Travel: No Home Medications - Allergies Allergies/Adverse Reactions: Allergies Allergy/AdvReac Type Severity Reaction Status Date / Time No Known Allergies Allergy Verified 07/18/17 03:07 - Home Medications Home Medications: Ambulatory Orders Gabapentin [Neurontin] 400 mg PO HS 01/22/16 Linagliptin/Metformin HCl [Jentadueto 2.5 mg-500 mg Tab] 1 each PO BID 01/22/16 Quetiapine Fumarate [Seroquel -] 50 mg PO HS 01/22/16 Tamsulosin HCl [Flomax -] 0.4 mg PO HS 01/22/16 Metoprolol Succinate [Toprol XL -] 50 mg PO DAILY 01/23/16 Atorvastatin Calcium [Lipitor] 10 mg PO HS 01/06/17 Roflumilast [Daliresp] 500 mcg PO DAILY 01/06/17 Aspirin [ASA -] 81 mg PO DAILY tab.chew 01/08/17 Pantoprazole Sodium [Protonix -] 40 mg PO DAILY #30 tablet.ec 01/08/17 Amlodipine Besylate [Norvasc -] 10 mg PO DAILY #30 tablet MDD 1 04/26/17 Lipase/Protease/Amylase [Creon Dr 6,000 Units Capsule] 3 cap PO TIDCM #100 tab MDD 3 04/26/17 Losartan Potassium [Cozaar -] 100 mg PO DAILY #30 tablet MDD 1 04/26/17 Methylnaltrexone Merino [Relistor -] 12 mg SQ DAILY #30 kit MDD 1 04/26/17 Rifaximin [Xifaxan -] 550 mg PO TID #60 tablet MDD 3 04/26/17 Hyoscyamine Sulfate 0.125 mg PO BID PRN #10 tab.rapdis 05/15/17 Unobtainable [Unobtainable] 01/22/18 Family Disease History - Family Disease History Family History: Unable to Obtain Review of Systems - Review of Systems Constitutional: reports: Loss of Appetite Eyes: reports: No Symptoms HENT: reports: No Symptoms Neck: reports: No Symptoms Cardiovascular: reports: No Symptoms Respiratory: reports: No Symptoms Gastrointestinal: reports: Abdominal Pain, Nausea, Vomiting Genitourinary: reports: No Symptoms Breasts: reports: No Symptoms Reported Musculoskeletal: reports: No Symptoms Integumentary: reports: No Symptoms Neurological: reports: No Symptoms Endocrine: reports: No Symptoms Hematology/Lymphatic: reports: No Symptoms Psychiatric: reports: No Symptoms Physical Examination Vital Signs: Vital Signs Temperature 99.7 F H 01/22/18 20:08 Pulse Rate 109 H 01/22/18 20:08 Respiratory Rate 20 01/22/18 20:08 Blood Pressure 157/86 01/22/18 20:08 O2 Sat by Pulse Oximetry (%) 97 01/22/18 20:08 Labs: CBC, BMP 01/22/18 20:50 01/22/18 20:50 Imaging - Results Cat Scan: Image Reviewed Problem List - Problems (1) Sepsis Code(s): A41.9 - SEPSIS, UNSPECIFIED ORGANISM (2) Urinary tract infection Code(s): N39.0 - URINARY TRACT INFECTION, SITE NOT SPECIFIED (3) Abdominal pain with vomiting Code(s): R10.9 - UNSPECIFIED ABDOMINAL PAIN; R11.10 - VOMITING, UNSPECIFIED (4) HTN (hypertension) Code(s): I10 - ESSENTIAL (PRIMARY) HYPERTENSION (5) HLD (hyperlipidemia) Code(s): E78.5 - HYPERLIPIDEMIA, UNSPECIFIED (6) DVT prophylaxis Code(s): [id number] - Assessment/Plan This is a 72 y/o man with a PMHx of: HTN, HLD. Admitted for Sepsis secondary to UTI, Abdominal Pain Plan: 1. Sepsis- Likely secondary to UTI, UA +leukocytes, trace ketones, bacteria. Urine Culture pending, Blood Culture pending, Lactic Acid 2.2, Fluid bolus given in ED, Will trend LA, Zosyn given in ED for pseudomonal coverage will continue, Appreciate ID consult, monitor CBC, BMP, monitor vitals. qSOFA 0, SIRS Criteria met IV 2. UTI- see above 3. Abdominal Pain- CTAP- no bowel obstruction, no free air, no ileus, + ventral hernia, continue IVF, Morphine Sulfate prn, Consider Surgical consult if condition worsens or FU in outpatient setting, monitor vitals 4. HTN- Monitor BP, continue home med, monitor renal function 5. HLD- stable Continue home med, monitor LFTs 6. DM- BGMs, ISS, HgbA1c in am 7. FEN- NS@75ml/hr, Replete lytes prn, NPO 8. DVT ppx- OOB, SCDs, Heparin SQ 9. Medication Reconciliation- Will need to verify current home meds, with patient's pharmacy, 2/2 pt- poor historian Code Status: Full Code Dispo: Requires Inpatient Care Visit type - Emergency Visit Emergency Visit: Yes ED Registration Date: 01/23/18 Care time: The patient presented to the Emergency Department on the above date and was hospitalized for further evaluation of their emergent condition. - New Patient This patient is new to me today: Yes Date on this admission: 01/23/18 - Critical Care Critical Care patient: No Hospitalist Screening - Colonoscopy Questionnaire Colonoscopy Questionnaire: Colonoscopy Questionnaire - Patient: 50 - 75 years old and never had a screening colonoscopy: No History of colon or rectal polyps, or CA: No History of IBD, Crohn's disease or UC: No History of abdominal radiation therapy as a child: No - Relative: 1 with colon or rectal CA, or polyps at age 60 or younger: No Colon or rectal CA diagnosed at age 45 or younger: No Multiple relatives with colon or rectal CA: No - Outcome: Screening Result: Negative Screen
[2018-01-23] MEDS ORDERED: ONDANSETRON 4 MG/2 ML VIAL ONE (02:57)
[2018-01-23 05:06] VITALS: BMI 33.9
[2018-01-23] MEDS ORDERED: HYDROmorphone HCL CARPU-JECT 4 MG/1 ML DISP.SYRIN IVPUSH ONE (06:30)
[2018-01-23] MEDS ORDERED: HYDROmorphone HCL CARPU-JECT 4 MG/1 ML DISP.SYRIN IVPB ONE (06:45)
--- NOTE | 2018-01-23 09:56 | PN ---
Progress Note (short form) - Note Progress Note: ID Full note dictated Selected Entries 01/22/18 20:08 Temperature 99.7 F H Pulse Rate 109 H Respiratory 20 Rate Blood Pressure 157/86 Abd Distended soft no localized pain Microbiology Laboratory Tests 01/22/18 01/22/18 01/22/18 20:50 20:50 21:32 WBC 17.5 H RBC 4.40 Plt Count 216 BUN 13 Creatinine 1.2 Creat Clearance w eGFR 59.68 Lactic Acid 2.2 H* Ur Leukocyte Esterase Urine WBC (Auto) 01/23/18 01:24 WBC RBC Plt Count BUN Creatinine Creat Clearance w eGFR Lactic Acid Ur Leukocyte Esterase 1+ H Urine WBC (Auto) 63 Assessment UTI No intrabd obstruction DM Plan Zosyn pending c/s Problem List - Problems (1) Sepsis Code(s): A41.9 - SEPSIS, UNSPECIFIED ORGANISM (2) Urinary tract infection Code(s): N39.0 - URINARY TRACT INFECTION, SITE NOT SPECIFIED
[2018-01-23] MEDS ORDERED: PIPERACILLIN/TAZOB 3.375 GM 3.375 GM in DEXTROSE 5%-WATER - 50 ML IVPB ONE (10:00)
--- NOTE | 2018-01-23 10:42 | PN ---
Physical Exam: SUBJECTIVE: Patient seen and examined. He is complaining of pain in both legs, abdominal pain and nausea. OBJECTIVE: Vital Signs Period Temp Pulse Resp BP Sys/Hayes Pulse Ox Last 24 Hr 98.1 F-99.7 F 89-109 19-20 134-160/78-88 97-97 GENERAL: The patient is awake, alert, and fully oriented, in no acute distress. LUNGS: Breath sounds equal, clear to auscultation bilaterally, no wheezes, no crackles, no accessory muscle use. HEART: Regular rate and rhythm, S1, S2 without murmur, rub or gallop. ABDOMEN: Obese, soft, nontender, nondistended, normoactive bowel sounds, no guarding, no rebound, no hepatosplenomegaly, no masses. EXTREMITIES: 2+ pulses, warm, well-perfused, 1+ edema. Laboratory Results - last 24 hr 01/22/18 01/22/18 01/22/18 20:30 20:50 20:50 WBC 17.5 H RBC 4.40 Hgb 14.0 Hct 40.2 MCV 91.4 MCH 31.7 MCHC 34.7 RDW 14.5 Plt Count 216 MPV 7.4 L Neutrophils % 85.6 H Lymphocytes % 6.9 L Monocytes % 7.3 Eosinophils % 0.0 Basophils % 0.2 PT with INR INR PTT (Actin FS) 30.5 Sodium Potassium Chloride Carbon Dioxide Anion Gap BUN Creatinine Creat Clearance w eGFR Random Glucose Lactic Acid Calcium Total Bilirubin AST ALT Alkaline Phosphatase Total Protein Albumin Lipase 73 Urine Color Urine Appearance Urine pH Ur Specific Fisher Urine Protein Urine Glucose (UA) Urine Ketones Urine Blood Urine Nitrite Urine Bilirubin Urine Urobilinogen Ur Leukocyte Esterase Urine WBC (Auto) Urine RBC (Auto) Urine Bacteria Hyaline Casts Urine Mucus Blood Type Antibody Screen 01/22/18 01/22/18 01/22/18 20:50 20:50 20:50 WBC RBC Hgb Hct MCV MCH MCHC RDW Plt Count MPV Neutrophils % Lymphocytes % Monocytes % Eosinophils % Basophils % PT with INR 13.50 H INR 1.19 H PTT (Actin FS) Sodium 134 L Potassium 3.4 L Chloride 95 L Carbon Dioxide 24 Anion Gap 15 BUN 13 Creatinine 1.2 Creat Clearance w eGFR 59.68 Random Glucose 207 H Lactic Acid Calcium 8.8 Total Bilirubin 1.2 H AST 19 ALT 34 Alkaline Phosphatase 81 Total Protein 7.7 Albumin 3.8 Lipase Urine Color Urine Appearance Urine pH Ur Specific Fisher Urine Protein Urine Glucose (UA) Urine Ketones Urine Blood Urine Nitrite Urine Bilirubin Urine Urobilinogen Ur Leukocyte Esterase Urine WBC (Auto) Urine RBC (Auto) Urine Bacteria Hyaline Casts Urine Mucus Blood Type A POSITIVE Antibody Screen Negative 01/22/18 01/23/18 01/23/18 21:32 01:24 01:39 WBC RBC Hgb Hct MCV MCH MCHC RDW Plt Count MPV Neutrophils % Lymphocytes % Monocytes % Eosinophils % Basophils % PT with INR INR PTT (Actin FS) Sodium Potassium Chloride Carbon Dioxide Anion Gap BUN Creatinine Creat Clearance w eGFR Random Glucose Lactic Acid 2.2 H* 1.7 Calcium Total Bilirubin AST ALT Alkaline Phosphatase Total Protein Albumin Lipase Urine Color Yellow Urine Appearance Clear Urine pH 5.0 Ur Specific Fisher 1.025 Urine Protein 1+ H Urine Glucose (UA) Negative Urine Ketones Trace H Urine Blood 1+ H Urine Nitrite Negative Urine Bilirubin Negative Urine Urobilinogen 2.0 Ur Leukocyte Esterase 1+ H Urine WBC (Auto) 63 Urine RBC (Auto) 1 Urine Bacteria Many Hyaline Casts 7 Urine Mucus Moderate Blood Type Antibody Screen Active Medications Generic Name Dose Route Start Last Admin Trade Name Freq PRN Reason Stop Dose Admin Dextrose/Sodium Chloride 1,000 mls @ 42 mls/hr 01/23/18 06:45 01/23/18 07:20 D5-1/2ns - IV Not Given ASDIR [facility] Piperacillin/Tazobactam/Dextrose 4.5 gm in 100 mls @ 200 mls/hr 01/23/18 10: 00 Zosyn 4.5gm Ivpb (Premix) IVPB Q8H-IV [facility] Protocol Morphine Sulfate 4 mg 01/23/18 02:02 01/23/18 03:10 Morphine Sulfate IVPUSH 4 mg Q6H PRN Administration PAIN LEVEL 7 - 10 Ondansetron HCl 4 mg 01/23/18 02:02 01/23/18 03:10 Zofran Injection IVPUSH 4 mg Q6H PRN Administration NAUSEA ASSESSMENT/PLAN: 1. Sepsis secondary to UTI - Lactic acid improved with IV fluid - Continue Zosyn - Follow up urine and blood cultures 2. Leg pain and edema - Check venous dopplers 3. Abdominal pain with nausea - Possibly secondary to sepsis, UTI - No acute findings on CT - Continue IV fluid - Continue NPO - Zofran as needed for nausea - Morphine as needed for pain 4. HTN - Patient is unsure of his medications 5. Hyperlipidemia - Patient is unsure of his medications 6. Type 2 DM - Fingersticks with Novolog sliding scale 7. Hyponatremia, mild - Continue IV fluid and monitor electrolytes 8. Hypokalemia - Replete potassium Visit type - Emergency Visit Emergency Visit: Yes ED Registration Date: 01/23/18 Care time: The patient presented to the Emergency Department on the above date and was hospitalized for further evaluation of their emergent condition. - New Patient This patient is new to me today: Yes Date on this admission: 01/23/18 - Critical Care Critical Care patient: No - Discharge Referral Referred to [facility] No
[2018-01-23] MEDS: PIPERACILLIN/TAZOB 4.5 GM 4.5 GM/100 ML BAG IVPB SCH ×2 (10:44→16:59)
--- NOTE | 2018-01-23 11:15 | CONSULT ---
- Consultation REQUESTING PROVIDER: Gray YOO CONSULT REQUEST: We have been asked to surgically evaluate this patient for abdominal pain PCP:Jamaal Castellano MD HISTORY OF PRESENT ILLNESS:72 y/o male presented w/several days of sudden onset diffuse abdominal pain and dark urine w/o anyother c/o. He has known ? abdominal wall hernias ? PMHx: unknown PSHx: cholecystectomy Home Medications Medication Instructions Recorded Unobtainable [Unobtainable] 01/22/18 Allergies Allergy/AdvReac Type Severity Reaction Status Date / Time No Known Allergies Allergy Verified 01/22/18 21:02 PSYCHIATRIC: Absent: anxiety, depression, suicidal or homicidal ideation, hallucinations. PHYSICAL EXAM: GENERAL: Awake, alert, and fully oriented, in no acute distress; uncooperative . HEAD: Normal with no signs of trauma. EYES: sclera anicteric, conjunctiva clear. ABDOMEN: Soft, nontender, not distended but obese, normoactive bowel sounds, no guarding, no rebound, no masses. No organomegaly. ?? ventral hernia below the xiphoid versus diastasis and reducible umbilical hernia. MUSCULOSKELETAL: Normal ROM at all joints. No bony deformities or tenderness. No CVA tenderness. UPPER EXTREMITIES: 2+ pulses, warm, well-perfused. No cyanosis. Cap refill <2 seconds. No peripheral edema. LOWER EXTREMITIES: 2+ pulses, warm, well-perfused. No calf tenderness. No peripheral edema. NEUROLOGICAL: Normal speech, gait not observed. PSYCH: Cooperative. Poor eye contact. Inappropriate mood and affect. SKIN: Warm, dry, normal turgor, no rashes or lesions noted. Vital Signs Temperature 98.8 F 01/23/18 05:03 Pulse Rate 98 H 01/23/18 05:03 Respiratory Rate 20 01/23/18 05:03 Blood Pressure 160/88 01/23/18 05:03 O2 Sat by Pulse Oximetry (%) 97 01/23/18 04:19 Lab Results WBC 17.5 K/mm3 (4.0-10.0) H 01/22/18 20:50 RBC 4.40 M/mm3 (4.00-5.60) 01/22/18 20:50 Hgb 14.0 GM/dL (11.7-16.9) 01/22/18 20:50 Hct 40.2 % (35.4-49) 01/22/18 20:50 MCV 91.4 fl (80-96) 01/22/18 20:50 MCHC 34.7 g/dl (32.0-35.9) 01/22/18 20:50 RDW 14.5 % (11.9-15.9) 01/22/18 20:50 Plt Count 216 K/MM3 (134-434) 01/22/18 20:50 Sodium 134 mmol/L (136-145) L 01/22/18 20:50 Potassium 3.4 mmol/L (3.5-5.1) L 01/22/18 20:50 Chloride 95 mmol/L (98-107) L 01/22/18 20:50 Carbon Dioxide 24 mmol/L (21-32) 01/22/18 20:50 Anion Gap 15 (8-16) 01/22/18 20:50 BUN 13 mg/dL (7-18) 01/22/18 20:50 Creatinine 1.2 mg/dL (0.7-1.3) 01/22/18 20:50 Random Glucose 207 mg/dL (74-106) H 01/22/18 20:50 Calcium 8.8 mg/dL (8.5-10.1) 01/22/18 20:50 Blood Type A POSITIVE 01/22/18 20:50 Antibody Screen Negative 01/22/18 20:50 INR 1.19 (0.82-1.09) H 01/22/18 20:50 CT scan a/p reviewed IMP: umbilical hernia not incarcerated and /or strangulated and ? ventral hernia vs. diastsasis. PLAN: There is no urgency to fix these hernias at this time until the source of his sepsis is identified and treated; will f/u. Octaviano Morales MD FACS Visit type - Case Type Case Type: ED Admission - Emergency Emergency Visit: Yes ED Registration Date: 01/23/18 Care time: The patient presented to the Emergency Department on the above date and was hospitalized for further evaluation of their emergent condition. - New patient This patient is new to me today: Yes Date on this admission: 01/24/18 - Critical Care Critical Care patient: No
[2018-01-23] MEDS ORDERED: SODIUM CHLORIDE 0.45%/POT 20 MEQ/1,000 ML INFUS.BAG IV SCH (11:45)
[2018-01-23] MEDS ORDERED: HYDROmorphone HCL CARPU-JECT 1 MG/1 ML DISP.SYRIN IVPB PRN (13:35)
[2018-01-23] MEDS: morphine SULFATE 4 MG/ML VIAL IVPUSH PRN ×2 (15:42→22:35)
[2018-01-23] MEDS: INSULIN SLIDING SCALE (NOVOLOG) 1 VIAL SQ SCH ×2 (16:55→22:36)
--- NOTE | 2018-01-23 17:30 | CONS ---
DATE OF CONSULTATION: 01/23/2018 This is a 72-year-old diabetic man who is admitted from home complaining of diffuse abdominal discomfort. He is originally from [place] but has lived in the [place] for many years. As mentioned, he is a known diabetic with a history of ventral abdominal hernias, and when he came to the emergency room, he had a CT scan done, which failed to show any evidence of an acute intraabdominal process. I am asked to see him for further evaluation, as he had low-grade temperature and leukocytosis on admission. He denies any cough and states that he has straining when he attempts to urinate. He denies any dysuria. Past medical history as noted above. MEDICATIONS AT HOME: Unknown. ALLERGIES: None known. SOCIAL HISTORY: Former smoker. No history of alcohol use. . No travel. FAMILY HISTORY: Noncontributory. REVIEW OF SYSTEMS: Respiratory: No cough or shortness of breath. Cardiac: No chest pain, palpitations. Gastrointestinal: Abdominal discomfort and distention. No vomiting, diarrhea. Genitourinary: Positive difficulty urinating. PHYSICAL EXAMINATION: General: He was a heavyset male, sitting in a chair, in no acute distress. Vital Signs: Temperature was 98.8, pulse 99, blood pressure 160/88, respirations 20. Neck: Supple. Lungs: Clear to P&A. Heart: S1, S2. Regular rhythm without audible murmur. Abdomen: Distended. Positive bowel sounds. No localized tenderness, guarding, or rebound. Ventral hernias. Extremities: 2+ peripheral edema. White count 17.5, hemoglobin 14, platelets of 216, BUN 13, creatinine 1.2, lactic acid 2.2 and 1.7, liver enzymes within normal limits. Urinalysis was 63 WBCs, 1+ leukocyte esterase, many bacteria. Abdominal CT scan obtained shows trace pericardial effusion, fatty liver, and 2 ventral hernias. No bowel obstruction. ASSESSMENT: Suspect fever and leukocytosis secondary to urinary tract infection. Clinically, no evidence of intraabdominal infection or bowel obstruction related to the ventral hernias. Will empirically treat him with piperacillin/tazobactam for gram-negative urinary organisms in this 72-year-old diabetic male with possible prostatitis. Await cultures of blood and urine. OSCAR WORTHINGTON M.D. [id number]
[2018-01-23] MEDS ORDERED: PIPERACIL/TAZOB 3.375 GM 3.375 GM/50 ML PREMIX IVPB SCH (18:00)
[2018-01-23] MEDS ORDERED: ONDANSETRON 4 MG/2 ML VIAL IVPB STA (20:12)
--- NOTE | 2018-01-23 20:20 | CON.GI ---
Consult Consult Specialty:: GI Referred by:: hsopitalist - History of Present Illness History of Present Illness: 72 y/o male was asked to be seen because of abdominal pain, He was doing well until 5 days ago when he developed progressive abdominal pain associated with dark colored urine. He was admitted with urosepsis. He continued to have mild ot moderated abdominal pain. Uirinal observed to have dark colored urine - Past Medical History Cardio/Vascular: Yes: HTN, Hyperlipdemia Gastrointestinal: Yes: Other (Cholecystitis) - Past Surgical History Past Surgical History: Yes: Cholecystectomy - Alcohol/Substance Use Hx Alcohol Use: No History of Substance Use: reports: None - Smoking History Smoking history: Never smoked Have you smoked in the past 12 months: No - Social History ADL: Independent History of Recent Travel: No Home Medications - Allergies Allergies/Adverse Reactions: Allergies Allergy/AdvReac Type Severity Reaction Status Date / Time No Known Allergies Allergy Verified 01/22/18 21:02 - Home Medications Home Medications: Ambulatory Orders Unobtainable [Unobtainable] 01/22/18 Physical Exam-GI Vital Signs: Vital Signs Temperature 98.7 F 01/23/18 20:00 Pulse Rate 86 01/23/18 20:00 Respiratory Rate 20 01/23/18 20:00 Blood Pressure 159/92 01/23/18 20:00 O2 Sat by Pulse Oximetry (%) 97 01/23/18 09:00 Constitutional: Yes: Obese, Poor Hygeine HENT: Yes: Atraumatic Neck: Yes: Supple Cardiovascular: Yes: Regular Rate and Rhythm Respiratory: Yes: CTA Bilaterally Gastrointestinal Inspection: Yes: Distention ...Palpate: Yes: Soft, Tenderness (--diffuse). No: Firm/Rigid, Guarding, Hepatomegaly, Splenomegaly ...Percussion: Yes: Tympanitic Edema: LLE: 2+, RLE: 2+ Labs: CBC, BMP 01/22/18 20:50 01/22/18 20:50 INR, PTT INR 1.19 (0.82-1.09) H 01/22/18 20:50 Home Medications Medication Instructions Recorded Unobtainable [Unobtainable] 01/22/18 Problem List - Problems (1) Dehydration Assessment/Plan: IV hydration Code(s): E86.0 - DEHYDRATION (2) Abdominal pain with vomiting Assessment/Plan: r/o dyspepsia vs mesenteric ischemia--unlikeiv R> IV hydration CTA r/o mesenteric ischemia Code(s): R10.9 - UNSPECIFIED ABDOMINAL PAIN; R11.10 - VOMITING, UNSPECIFIED
[2018-01-23] MEDS ORDERED: ONDANSETRON 4 MG/2 ML VIAL IVPUSH SCH (20:30)
[2018-01-23] MEDS: SODIUM CHLORIDE 1,000 ML IV SCH (20:31)
[2018-01-23] MEDS: METOCLOPRAMIDE HCL INJECTION 10 MG/2 ML VIAL IVPB SCH (20:31)
[2018-01-23] MEDS: ONDANSETRON 4 MG/2 ML VIAL IVPUSH SCH (20:31)
[2018-01-23] MEDS ORDERED: PANTOPRAZOLE SODIUM 40 MG in SODIUM CHLORIDE 100 ML IVPB SCH (22:00)
[2018-01-23] MEDS: PANTOPRAZOLE SODIUM 40 MG VIAL IVPUSH SCH (22:35)
[2018-01-24] MEDS ORDERED: ONDANSETRON 4 MG/2 ML VIAL IVPUSH PRN (00:31)
[2018-01-24] MEDS: ONDANSETRON 4 MG/2 ML VIAL IVPUSH SCH ×3 (01:01→09:27)
[2018-01-24] MEDS: METOCLOPRAMIDE HCL INJECTION 10 MG/2 ML VIAL IVPB SCH ×3 (02:35→17:39)
[2018-01-24] MEDS: PIPERACILLIN/TAZOB 4.5 GM 4.5 GM/100 ML BAG IVPB SCH (02:35)
[2018-01-24] MEDS: SODIUM CHLORIDE 1,000 ML IV SCH (04:32)
[2018-01-24] MEDS: INSULIN SLIDING SCALE (NOVOLOG) 1 VIAL SQ SCH ×4 (06:01→21:09)
[2018-01-24 08:01] LABS: BASO % 0.4 % (0-2.0); EOS % 0.5 % (0-4.5); HEMATOCRIT 37.1 % (35.4-49); HEMOGLOBIN 12.7 GM/dL (11.7-16.9); LYMPH % 16.6 % (8-40); MCH 31.8 pg (25.7-33.7); MCHC 34.3 g/dl (32.0-35.9); MEAN CELL VOLUME 92.6 fl (80-96); MEAN PLT VOLUME 7.4 fl (7.5-11.1); MONO % 9.8 % (3.8-10.2); NEUT % 72.7 % (42.8-82.8); PLATELET COUNT 208 K/MM3 (134-434); RBC 4.01 M/mm3 (4.00-5.60); RDW 14.5 % (11.9-15.9); WHITE BLOOD COUNT 8.2 K/mm3 (4.0-10.0)
[2018-01-24 08:14] LABS: ANION GAP 4 (8-16); BLOOD UREA NITROGEN 13 mg/dL (7-18); CALCIUM 7.4 mg/dL (8.5-10.1); CHLORIDE 102 mmol/L (98-107); CO2 30 mmol/L (21-32); CREATININE 0.9 mg/dL (0.7-1.3); GLUCOSE,RANDOM 141 mg/dL (74-106); POTASSIUM 3.7 mmol/L (3.5-5.1); SODIUM 136 mmol/L (136-145)
[2018-01-24] MEDS: PANTOPRAZOLE SODIUM 40 MG VIAL IVPUSH SCH ×2 (09:27→21:05)
[2018-01-24] MEDS ORDERED: INSULIN (NOVOLOG) ASPART 100 UNITS/ML 10ML VIAL ONE ×2 (10:06→15:58)
--- NOTE | 2018-01-24 11:02 | PN ---
Progress Note, Physician Chief Complaint: ID Zosyn day 2 therapy T max 100 No complaints Feels better with regard to abd discomfort - Current Medication List Current Medications: Active Medications Piperacillin/Tazobactam/Dextrose (Zosyn 4.5gm Ivpb (Premix)) 4.5 gm in 100 mls @ 200 mls/hr IVPB Q8H-IV [facility] PRN Reason: Protocol Last Admin: 01/24/18 02:35 Dose: 200 mls/hr Sodium Chloride (Normal Saline -) 1,000 mls @ 150 mls/min IV ASDIR [facility] Stop: 01/26/18 01:14 Last Admin: 01/24/18 04:32 Dose: 150 mls/min Insulin Aspart (Novolog Vial Sliding Scale -) 1 vial SQ ACHS [facility] PRN Reason: Protocol Last Admin: 01/24/18 10:44 Dose: 2 units Metoclopramide HCl (Reglan Injection -) 10 mg IVPB Q8H-IV [facility] Last Admin: 01/24/18 09:27 Dose: 10 mg Morphine Sulfate (Morphine Sulfate) 2 mg IVPUSH Q4H PRN PRN Reason: PAIN LEVEL 6-10 Last Admin: 01/23/18 22:35 Dose: 2 mg Ondansetron HCl (Zofran Injection) 4 mg IVPUSH Q4H PRN PRN Reason: NAUSEA AND/OR VOMITING Pantoprazole Sodium (Protonix Iv) 40 mg IVPUSH BID [facility] Last Admin: 01/24/18 09:27 Dose: 40 mg - Objective Vital Signs: Vital Signs Temperature 97.6 F 01/24/18 06:13 Pulse Rate 84 01/24/18 06:13 Respiratory Rate 18 01/24/18 06:13 Blood Pressure 160/90 01/24/18 06:13 O2 Sat by Pulse Oximetry (%) 96 01/23/18 21:00 Constitutional: Yes: Obese Cardiovascular: Yes: S1, S2 Respiratory: Yes: WNL, Regular, CTA Bilaterally Gastrointestinal: Yes: WNL, Normal Bowel Sounds, Soft. No: Tenderness, Tenderness, Rebound Edema: Yes Labs: CBC, BMP 01/24/18 06:30 01/24/18 06:30 INR, PTT INR 1.19 (0.82-1.09) H 01/22/18 20:50 Problem List - Problems (1) Sepsis Code(s): A41.9 - SEPSIS, UNSPECIFIED ORGANISM (2) Urinary tract infection Code(s): N39.0 - URINARY TRACT INFECTION, SITE NOT SPECIFIED Assessment/Plan Microbiology 01/23/18 01:24 Urine - Urine Clean Catch Urine Culture - Final NO GROWTH OBTAINED 01/22/18 21:45 Blood - Peripheral Venous Blood Culture - Preliminary NO GROWTH OBTAINED AFTER 24 HOURS, INCUBATION TO CONTINUE FOR 4 DAYS. 01/22/18 21:34 Blood - Peripheral Venous Blood Culture - Preliminary NO GROWTH OBTAINED AFTER 24 HOURS, INCUBATION TO CONTINUE FOR 4 DAYS. Laboratory Tests 01/22/18 01/23/18 01/24/18 20:50 01:39 06:30 WBC 17.5 H 8.2 D Hgb 12.7 Hct 37.1 Plt Count 208 BUN Creatinine Lactic Acid 1.7 01/24/18 06:30 WBC Hgb Hct Plt Count BUN 13 Creatinine 0.9 D Lactic Acid Assessment Treat for UTI ? prostatitis Plan Ceftin 500mg bid 10 days Robel YOO
--- NOTE | 2018-01-24 15:11 | PN ---
Progress Note, Physician Chief Complaint: Low Grdae fever denies and pain, moving bowel , no abd distentions - Current Medication List Current Medications: Active Medications Cefuroxime Axetil (Ceftin -) 500 mg PO BID [facility] Insulin Aspart (Novolog Vial Sliding Scale -) 1 vial SQ ACHS [facility] PRN Reason: Protocol Last Admin: 01/24/18 10:44 Dose: 2 units Metoclopramide HCl (Reglan Injection -) 10 mg IVPB Q8H-IV [facility] Last Admin: 01/24/18 09:27 Dose: 10 mg Morphine Sulfate (Morphine Sulfate) 2 mg IVPUSH Q4H PRN PRN Reason: PAIN LEVEL 6-10 Last Admin: 01/23/18 22:35 Dose: 2 mg Ondansetron HCl (Zofran Injection) 4 mg IVPUSH Q4H PRN PRN Reason: NAUSEA AND/OR VOMITING Pantoprazole Sodium (Protonix Iv) 40 mg IVPUSH BID [facility] Last Admin: 01/24/18 09:27 Dose: 40 mg - Objective Vital Signs: Vital Signs Temperature 98.5 F 01/24/18 08:00 Pulse Rate 86 01/24/18 08:00 Respiratory Rate 20 01/24/18 08:00 Blood Pressure 163/88 01/24/18 08:00 O2 Sat by Pulse Oximetry (%) 97 01/24/18 08:00 Elderly man not in distress asking for dilaudid HEENT: Mm moist, no anemia, PERRLA EOMI NECK: No JVd No Bruit CHEST: CTA B/L CVS: S1S2 R ABD: Obese non tender Bs + EXT: edema feet, no calf tenderness WIRE STRAIGHTENER: AOX3 non focal Labs: CBC, BMP 01/24/18 06:30 01/24/18 06:30 INR, PTT INR 1.19 (0.82-1.09) H 01/22/18 20:50 Problem List - Problems (1) Abdominal pain with vomiting Assessment/Plan: Resolved evaluted by surgery team, Ct no acute pathology, advance PO as tolerates Code(s): R10.9 - UNSPECIFIED ABDOMINAL PAIN; R11.10 - VOMITING, UNSPECIFIED (2) Urinary tract infection Assessment/Plan: Low Grade fever TWBC trended almost normal so far cultures are negative on PO Ceftin Code(s): N39.0 - URINARY TRACT INFECTION, SITE NOT SPECIFIED (3) HTN (hypertension) Assessment/Plan: Well controlled cont home meds Code(s): I10 - ESSENTIAL (PRIMARY) HYPERTENSION (4) Acute hypokalemia Assessment/Plan: Resolved Code(s): E87.6 - HYPOKALEMIA (5) Umbilical hernia Assessment/Plan: Evaluated by surgery consult no acute issue Code(s): K42.9 - UMBILICAL HERNIA WITHOUT OBSTRUCTION OR GANGRENE Qualifiers: Obstruction and gangrene presence: without obstruction or gangrene Qualified Code(s): K42.9 - Umbilical hernia without obstruction or gangrene (6) Bilateral lower extremity edema Assessment/Plan: chronic Code(s): R60.0 - LOCALIZED EDEMA
--- NOTE | 2018-01-24 20:10 | PN ---
GI Progress Note Subjective: no abdominal pain, no nauea, no vomiting, tolerated solid food - Objective Vital Signs: Vital Signs Temperature 98.4 F 01/24/18 15:26 Pulse Rate 75 01/24/18 15:26 Respiratory Rate 20 01/24/18 15:26 Blood Pressure 145/85 01/24/18 15:26 O2 Sat by Pulse Oximetry (%) 97 01/24/18 08:00 Constitutional: Obese Eyes: Yes: Conjunctiva Clear HENT: Yes: Atraumatic Neck: Yes: Supple Cardiovascular: Yes: Regular Rate and Rhythm Respiratory: Yes: CTA Bilaterally ...Palpate: Yes: Soft, Tenderness. No: Guarding, Hepatomegaly, Mass, Pulsatile Mass, Splenomegaly Labs: CBC, BMP 01/24/18 06:30 01/24/18 06:30 INR, PTT INR 1.19 (0.82-1.09) H 01/22/18 20:50 Problem List - Problems (1) Abdominal pain with vomiting Assessment/Plan: resolved no evidence of mesenteric ischemia R> contnue Protonix, zofran and reglan pleae recall as necessary made aware to follow up for w/u as an outpatient Code(s): R10.9 - UNSPECIFIED ABDOMINAL PAIN; R11.10 - VOMITING, UNSPECIFIED (2) Dehydration Assessment/Plan: resolved Code(s): E86.0 - DEHYDRATION
[2018-01-24] MEDS: CEFUROXIME AXETIL 500 MG TABLET PO SCH (21:06)
[2018-01-24] MEDS: morphine SULFATE 4 MG/ML VIAL IVPUSH PRN (21:09)
[2018-01-25] MEDS: METOCLOPRAMIDE HCL INJECTION 10 MG/2 ML VIAL IVPB SCH ×3 (02:39→17:25)
[2018-01-25] MEDS: morphine SULFATE 4 MG/ML VIAL IVPUSH PRN (03:47)
[2018-01-25] MEDS: INSULIN SLIDING SCALE (NOVOLOG) 1 VIAL SQ SCH ×4 (06:21→21:14)
[2018-01-25 08:18] LABS: BASO % 0.6 % (0-2.0); EOS % 1.1 % (0-4.5); HEMATOCRIT 40.5 % (35.4-49); HEMOGLOBIN 13.9 GM/dL (11.7-16.9); LYMPH % 21.8 % (8-40); MCH 31.9 pg (25.7-33.7); MCHC 34.5 g/dl (32.0-35.9); MEAN CELL VOLUME 92.4 fl (80-96); MEAN PLT VOLUME 7.6 fl (7.5-11.1); MONO % 9.3 % (3.8-10.2); NEUT % 67.2 % (42.8-82.8); PLATELET COUNT 281 K/MM3 (134-434); RBC 4.38 M/mm3 (4.00-5.60); RDW 14.3 % (11.9-15.9); WHITE BLOOD COUNT 8.1 K/mm3 (4.0-10.0)
[2018-01-25 08:41] LABS: ANION GAP 9 (8-16); BLOOD UREA NITROGEN 13 mg/dL (7-18); CALCIUM 8.4 mg/dL (8.5-10.1); CHLORIDE 100 mmol/L (98-107); CO2 27 mmol/L (21-32); CREATININE 0.9 mg/dL (0.7-1.3); GLUCOSE,RANDOM 164 mg/dL (74-106); POTASSIUM 3.5 mmol/L (3.5-5.1); SODIUM 136 mmol/L (136-145)
[2018-01-25] MEDS ORDERED: PT OWN MED DRAWER 7, Y5N ONE ×2 (08:41→09:18)
[2018-01-25] MEDS: CEFUROXIME AXETIL 500 MG TABLET PO SCH ×2 (09:04→21:13)
[2018-01-25] MEDS: PANTOPRAZOLE SODIUM 40 MG VIAL IVPUSH SCH ×2 (09:20→21:13)
[2018-01-25 09:41] LABS: N-TERMINAL BNP 566.94 pg/ml (5-125)
[2018-01-25] MEDS ORDERED: FUROSEMIDE 40 MG/4 ML INJECTABLE VIAL IVPUSH ONE (11:03)
--- NOTE | 2018-01-25 11:14 | PN ---
Progress Note, Physician History of Present Illness: ABDOMINAL PAIN SWELLING - Current Medication List Current Medications: Active Medications Cefuroxime Axetil (Ceftin -) 500 mg PO BID [facility] Last Admin: 01/25/18 09:04 Dose: 500 mg Insulin Aspart (Novolog Vial Sliding Scale -) 1 vial SQ ACHS [facility] PRN Reason: Protocol Last Admin: 01/25/18 06:21 Dose: Not Given Metoclopramide HCl (Reglan Injection -) 10 mg IVPB Q8H-IV [facility] Last Admin: 01/25/18 09:20 Dose: 10 mg Morphine Sulfate (Morphine Sulfate) 2 mg IVPUSH Q4H PRN PRN Reason: PAIN LEVEL 6-10 Last Admin: 01/25/18 03:47 Dose: 2 mg Ondansetron HCl (Zofran Injection) 4 mg IVPUSH Q4H PRN PRN Reason: NAUSEA AND/OR VOMITING Pantoprazole Sodium (Protonix Iv) 40 mg IVPUSH BID [facility] Last Admin: 01/25/18 09:20 Dose: 40 mg - Objective Vital Signs: Vital Signs Temperature 98.8 F 01/25/18 10:00 Pulse Rate 87 01/25/18 10:00 Respiratory Rate 20 01/25/18 10:00 Blood Pressure 164/99 01/25/18 10:00 O2 Sat by Pulse Oximetry (%) 96 01/24/18 20:50 Cardiovascular: Yes: Pulse Irregular, S1, S2 Respiratory: Yes: Regular, CTA Bilaterally Gastrointestinal: Yes: Normal Bowel Sounds, Soft, Tenderness Labs: CBC, BMP 01/25/18 07:35 01/25/18 07:35 INR, PTT INR 1.19 (0.82-1.09) H 01/22/18 20:50 Problem List - Problems (1) CHF (congestive heart failure) Assessment/Plan: BNP CXR ECHO CARDIO LASIX Code(s): I50.9 - HEART FAILURE, UNSPECIFIED (2) Tachycardia Assessment/Plan: R/O AFIB EKG TROP Code(s): R00.0 - TACHYCARDIA, UNSPECIFIED (3) HTN (hypertension) Code(s): I10 - ESSENTIAL (PRIMARY) HYPERTENSION (4) Urinary tract infection Assessment/Plan: ABX PER ID Code(s): N39.0 - URINARY TRACT INFECTION, SITE NOT SPECIFIED (5) Abdominal pain Assessment/Plan: PER GI WILL DISCUSS Code(s): R10.9 - UNSPECIFIED ABDOMINAL PAIN Qualifiers: Abdominal location: generalized Qualified Code(s): R10.84 - Generalized abdominal pain (6) Abnormal CT of the abdomen Code(s): R93.5 - ABN FINDINGS ON DX IMAGING OF ABD REGIONS, INC RETROPERITON
[2018-01-25] MEDS ORDERED: INSULIN (NOVOLOG) ASPART 100 UNITS/ML 10ML VIAL ONE (11:51)
--- NOTE | 2018-01-25 16:29 | EKG ---
Test Reason : Blood Pressure : / mmHG Vent. Rate : 084 BPM Atrial Rate : 084 BPM P-R Int : 188 ms QRS Dur : 112 ms QT Int : 376 ms P-R-T Axes : 041 007 038 degrees QTc Int : 444 ms NORMAL SINUS RHYTHM POSSIBLE LEFT ATRIAL ENLARGEMENT BORDERLINE ECG WHEN COMPARED WITH ECG OF 18-JUL-2017 03:24, NO SIGNIFICANT CHANGE WAS FOUND Confirmed by Mian Aceves ([id number]) on 01/25/2018 4:28:21 PM Referred By: Confirmed By:Mian Aceves
--- NOTE | 2018-01-25 17:00 | CON.CARD ---
Consult Consult Specialty:: Cardiology - History of Present Illness Chief Complaint: Abdominal pain History of Present Illness: 72 M with HTN and chronic edema was admitted with abdominal pain. No previous history of heart failure or known CAD. No dyspnea or orthopnea. Mildly elevcated BNP. CXR with prominent hilar markings.. - History Source History Provided By: Patient, Medical Record - Past Medical History Cardio/Vascular: Yes: HTN, Hyperlipdemia Gastrointestinal: Yes: Other (Cholecystitis) - Past Surgical History Past Surgical History: Yes: Cholecystectomy - Alcohol/Substance Use Hx Alcohol Use: No History of Substance Use: reports: None - Smoking History Smoking history: Never smoked Have you smoked in the past 12 months: No - Social History ADL: Independent History of Recent Travel: No Home Medications - Allergies Allergies/Adverse Reactions: Allergies Allergy/AdvReac Type Severity Reaction Status Date / Time No Known Allergies Allergy Verified 07/18/17 03:07 - Home Medications Home Medications: Ambulatory Orders Gabapentin [Neurontin] 400 mg PO HS 01/22/16 Linagliptin/Metformin HCl [Jentadueto 2.5 mg-500 mg Tab] 1 each PO BID 01/22/16 Quetiapine Fumarate [Seroquel -] 50 mg PO HS 01/22/16 Tamsulosin HCl [Flomax -] 0.4 mg PO HS 01/22/16 Metoprolol Succinate [Toprol XL -] 50 mg PO DAILY 01/23/16 Atorvastatin Calcium [Lipitor] 10 mg PO HS 01/06/17 Roflumilast [Daliresp] 500 mcg PO DAILY 01/06/17 Aspirin [ASA -] 81 mg PO DAILY tab.chew 01/08/17 Pantoprazole Sodium [Protonix -] 40 mg PO DAILY #30 tablet.ec 01/08/17 Amlodipine Besylate [Norvasc -] 10 mg PO DAILY #30 tablet MDD 1 04/26/17 Lipase/Protease/Amylase [Adama Dr 6,000 Units Capsule] 3 cap PO TIDCM #100 tab MDD 3 04/26/17 Losartan Potassium [Cozaar -] 100 mg PO DAILY #30 tablet MDD 1 04/26/17 Methylnaltrexone [place] [Relistor -] 12 mg SQ DAILY #30 kit MDD 1 04/26/17 Rifaximin [Xifaxan -] 550 mg PO TID #60 tablet MDD 3 04/26/17 Hyoscyamine Sulfate 0.125 mg PO BID PRN #10 tab.rapdis 05/15/17 Unobtainable [Unobtainable] 01/22/18 Review of Systems - Review of Systems Constitutional: denies: Chills, Fever HENT: denies: Difficult Swallowing, Ear Discharge, Hearing Loss Neck: reports: No Symptoms Cardiovascular: reports: Edema. denies: Chest Pain, Shortness of Breath Respiratory: denies: Cough, SOB Gastrointestinal: reports: Abdominal Pain Vital Signs: Vital Signs Temperature 98.8 F 01/25/18 10:00 Pulse Rate 87 01/25/18 10:00 Respiratory Rate 20 01/25/18 10:00 Blood Pressure 164/99 01/25/18 10:00 O2 Sat by Pulse Oximetry (%) 96 01/24/18 20:50 Constitutional: Yes: Well Nourished, No Distress Eyes: Yes: Conjunctiva Clear, EOM Intact HENT: Yes: Atraumatic, Normocephalic Neck: Yes: Supple, Trachea Midline Respiratory: Yes: Regular, CTA Bilaterally Gastrointestinal: Yes: Normal Bowel Sounds, Abdomen, Obese, Tenderness JVD: No Carotid Bruit: No PMI: Non-Displaced Heart Sounds: Yes: S1, S2 Murmur: No: Systolic Murmur Edema: Yes Edema: LLE: 1+, RLE: 1+ - Other Data Labs, Other Data: CBC, BMP 01/25/18 07:35 01/25/18 07:35 INR, PTT INR 1.19 (0.82-1.09) H 01/22/18 20:50 Troponin, BNP 01/25/18 01/25/18 07:35 08:30 Troponin I < 0.02 Cancelled B-Natriuretic Peptide 566.94 H Cancelled Troponin, BNP 01/25/18 01/25/18 07:35 08:30 Troponin I < 0.02 Cancelled B-Natriuretic Peptide 566.94 H Cancelled Laboratory Tests 01/22/18 01/25/18 20:50 07:35 B-Natriuretic Peptide 566.94 H Albumin 3.8 Imaging - Results Chest X-ray: Report Reviewed EKG: Image Reviewed Problem List - Problems (1) CHF (congestive heart failure) Code(s): I50.9 - HEART FAILURE, UNSPECIFIED Assessment/Plan Mild pulomnary congestion and edema. Ho DM and HTN. Echocardiogram Lasix 40mg qd. Check Lext duplex.
[2018-01-25] MEDS ORDERED: FUROSEMIDE 40 MG TABLET (FP) PO SCH (17:15)
[2018-01-25] MEDS: oxyCODONE HCL 5 MG TABLET PO PRN (21:14)
[2018-01-25] MEDS ORDERED: amLODIPine BESYLATE 10 MG TABLET (FP) PO ONE (23:45)
[2018-01-26] MEDS: oxyCODONE HCL 5 MG TABLET PO PRN (01:26)
[2018-01-26] MEDS: METOCLOPRAMIDE HCL INJECTION 10 MG/2 ML VIAL IVPB SCH (01:27)
[2018-01-26] MEDS ORDERED: METOPROLOL TARTRATE 25 MG TABLET (FP) PO ONE ×2 (02:29→02:56)
[2018-01-26] MEDS ORDERED: FUROSEMIDE 40 MG/4 ML INJECTABLE VIAL IVPUSH ONE (02:29)
[2018-01-26] MEDS ORDERED: ASPIRIN 325 MG TABLET PO ONE (02:30)
[2018-01-26] MEDS ORDERED: morphine SULFATE 4 MG/ML VIAL IVPUSH ONE (02:32)
--- NOTE | 2018-01-26 02:32 | RAPID ---
Physical Examination Vital Signs: Vital Signs Temperature 98.8 F 01/25/18 22:42 Pulse Rate 81 01/25/18 22:42 Respiratory Rate 20 01/25/18 22:42 Blood Pressure 184/90 01/25/18 22:42 O2 Sat by Pulse Oximetry (%) 97 01/25/18 21:00 Findings/Remarks: Rapid response was called at 2:30am, patient was having chest pain and blood pressure was measured to be 180/100. He states that he has some difficulty breathing. On exam, patient has bilateral diffuse rales. A/P -troponin -CXR -EKG - unchanged from prior -lopressor 5 IV + 25 PO -ASA 325 -morphine 1mg Labs: CBC, BMP 01/25/18 07:35 01/25/18 07:35
[2018-01-26] MEDS ORDERED: METOPROLOL TARTRATE 5 MG/5 ML VIAL IVPUSH ONE (02:49)
[2018-01-26] MEDS: LORazepam 0.5 MG TABLET PO ONE ×2 (02:51→02:56)
[2018-01-26] MEDS ORDERED: LORazepam 2 MG/ML SDV VIAL IVPUSH ONE ×2 (02:55→04:48)
[2018-01-26] MEDS: INSULIN SLIDING SCALE (NOVOLOG) 1 VIAL SQ SCH (06:11)
[2018-01-26] MEDS ORDERED: INSULIN (NOVOLOG) ASPART 100 UNITS/ML 10ML VIAL ONE (06:11)
[2018-01-26 06:46] VITALS: TEMP 98.7
--- NOTE | 2018-01-26 09:07 | PN ---
Progress Note, Physician History of Present Illness: had chest pain last night denies chest pain at this time less abd pain - Current Medication List Current Medications: Active Medications Amlodipine Besylate (Norvasc -) 10 mg PO DAILY [facility] Cefuroxime Axetil (Ceftin -) 500 mg PO BID [facility] Last Admin: 01/25/18 21:13 Dose: 500 mg Furosemide (Lasix -) 40 mg PO DAILY [facility] Last Admin: 01/25/18 17:23 Dose: Not Given Insulin Aspart (Novolog Vial Sliding Scale -) 1 vial SQ ACHS [facility] PRN Reason: Protocol Last Admin: 01/26/18 06:11 Dose: 2 units Metoclopramide HCl (Reglan Injection -) 10 mg IVPB Q8H-IV [facility] Last Admin: 01/26/18 01:27 Dose: 10 mg Ondansetron HCl (Zofran Injection) 4 mg IVPUSH Q4H PRN PRN Reason: NAUSEA AND/OR VOMITING Oxycodone HCl (Roxicodone -) 5 mg PO Q4H PRN PRN Reason: PAIN LEVEL 6-10 Last Admin: 01/26/18 01:26 Dose: 5 mg Pantoprazole Sodium (Protonix Iv) 40 mg IVPUSH BID [facility] Last Admin: 01/25/18 21:13 Dose: 40 mg - Objective Vital Signs: Vital Signs Temperature 98.7 F 01/26/18 06:46 Pulse Rate 102 H 01/26/18 06:46 Respiratory Rate 20 01/26/18 06:46 Blood Pressure 128/92 01/26/18 06:46 O2 Sat by Pulse Oximetry (%) 97 01/25/18 21:00 Neck: Yes: Supple Cardiovascular: Yes: S1, S2 Respiratory: Yes: CTA Bilaterally Gastrointestinal: Yes: Normal Bowel Sounds, Soft. No: Tenderness Edema: Yes Labs: CBC, BMP 01/25/18 07:35 01/25/18 07:35 INR, PTT INR 1.19 (0.82-1.09) H 01/22/18 20:50 Problem List - Problems (1) CHF (congestive heart failure) Assessment/Plan: BNP CXR ECHO CARDIO NOTED LASIX Code(s): I50.9 - HEART FAILURE, UNSPECIFIED (2) Tachycardia Assessment/Plan: R/O AFIB--EKG NOTED--REPEAT EKG TROP Code(s): R00.0 - TACHYCARDIA, UNSPECIFIED (3) HTN (hypertension) Assessment/Plan: MONITOR ON MEDS Code(s): I10 - ESSENTIAL (PRIMARY) HYPERTENSION (4) Urinary tract infection Assessment/Plan: ABX PER ID Code(s): N39.0 - URINARY TRACT INFECTION, SITE NOT SPECIFIED (5) Abdominal pain Assessment/Plan: PER GI WILL DISCUSS Code(s): R10.9 - UNSPECIFIED ABDOMINAL PAIN Qualifiers: Abdominal location: generalized Qualified Code(s): R10.84 - Generalized abdominal pain (6) Abnormal CT of the abdomen Assessment/Plan: PER GI Code(s): R93.5 - ABN FINDINGS ON DX IMAGING OF ABD REGIONS, INC RETROPERITON (7) Chest pain Assessment/Plan: repeat ce ekg cxr cardio follow up tele Code(s): R07.9 - CHEST PAIN, UNSPECIFIED
--- NOTE | 2018-01-26 09:57 | EKG ---
Test Reason : Blood Pressure : / mmHG Vent. Rate : 105 BPM Atrial Rate : 105 BPM P-R Int : 180 ms QRS Dur : 104 ms QT Int : 350 ms P-R-T Axes : 050 028 -05 degrees QTc Int : 462 ms SINUS TACHYCARDIA POSSIBLE LEFT ATRIAL ENLARGEMENT NONSPECIFIC T WAVE ABNORMALITY ABNORMAL ECG WHEN COMPARED WITH ECG OF 25-JAN-2018 11:02, INVERTED T WAVES HAVE REPLACED NONSPECIFIC T WAVE ABNORMALITY IN INFERIOR LEADS Confirmed by MURRAY YOO, AMBER ([id number]) on 01/26/2018 9:57:00 AM Referred By: AMNA ONTIVEROS Confirmed By:AMBER GAO MD
[2018-01-26] MEDS ORDERED: amLODIPine BESYLATE 10 MG TABLET (FP) PO SCH (10:00)
[2018-01-26 10:10] LABS: BASO % 0.2 % (0-2.0); EOS % 0.3 % (0-4.5); HEMATOCRIT 41.1 % (35.4-49); HEMOGLOBIN 14.3 GM/dL (11.7-16.9); LYMPH % 7.2 % (8-40); MCH 31.6 pg (25.7-33.7); MCHC 34.7 g/dl (32.0-35.9); MEAN CELL VOLUME 90.9 fl (80-96); MONO % 7.7 % (3.8-10.2); NEUT % 84.6 % (42.8-82.8); PLATELET COUNT 307 K/MM3 (134-434); RBC 4.52 M/mm3 (4.00-5.60); RDW 14.3 % (11.9-15.9); WHITE BLOOD COUNT 6.7 K/mm3 (4.0-10.0)
--- NOTE | 2018-01-26 10:32 | RAPID ---
Physical Examination Vital Signs: Vital Signs Temperature 98.7 F 01/26/18 06:46 Pulse Rate 102 H 01/26/18 06:46 Respiratory Rate 20 01/26/18 06:46 Blood Pressure 128/92 01/26/18 06:46 O2 Sat by Pulse Oximetry (%) 97 01/25/18 21:00 Constitutional: Yes: Severe Distress Eyes: Yes: WNL HENT: Yes: WNL Cardiovascular: Yes: WNL Respiratory: Yes: WNL Labs: CBC, BMP 01/26/18 09:45 Rapid Response - Rapid Response Assessment: RR called due to pt agitation in hallway of [address]. Patient screaming that he wanted to go home, security present, escorting pt to room in wheelchair. Per nursing, pt had been made multiple promises made by his PMD and was upset that they were not being fulfilled. Pt admitted for sepsis secondary to UTI 2mg IM Ativan ordered, then cancelled. Pt with no hx of pulmonary conditions. Pt received Ativan 1mgx1 and 2mgx1 this AM for similar outbursts. Pt counseled, will sign out AMA. Dr. Suarez to be notified. PE: No signficant change from prior exam this AM Assessment: Pt will sign-out AMA Counseling provided PMD to be notified
[2018-01-26 10:38] LABS: ALBUMIN 3.8 g/dl (3.4-5.0); ANION GAP 14 (8-16); BILIRUBIN,TOTAL 0.8 mg/dL (0.2-1.0); BLOOD UREA NITROGEN 15 mg/dL (7-18); CALCIUM 8.5 mg/dL (8.5-10.1); CHLORIDE 96 mmol/L (98-107); CO2 24 mmol/L (21-32); GLUCOSE,RANDOM 211 mg/dL (74-106); POTASSIUM 3.3 mmol/L (3.5-5.1); SGOT/AST 60 U/L (15-37); SODIUM 134 mmol/L (136-145); TOT PROT 7.6 g/dl (6.4-8.2)
[2018-01-26 10:40] LABS: ALK PHOS 80 U/L (45-117); SGPT/ALT 56 U/L (12-78)
--- NOTE | 2018-01-26 11:55 | EKG ---
Test Reason : Blood Pressure : / mmHG Vent. Rate : 098 BPM Atrial Rate : 098 BPM P-R Int : 188 ms QRS Dur : 096 ms QT Int : 366 ms P-R-T Axes : 035 014 -11 degrees QTc Int : 467 ms NORMAL SINUS RHYTHM POSSIBLE LEFT ATRIAL ENLARGEMENT T WAVE ABNORMALITY, CONSIDER INFERIOR ISCHEMIA ABNORMAL ECG WHEN COMPARED WITH ECG OF 25-JAN-2018 11:02, T WAVE INVERSION NOW EVIDENT IN INFERIOR LEADS Confirmed by NEHA YOO, KWABENA ([id number]) on 01/26/2018 11:55:24 AM Referred By: Confirmed By:KWABENA SOLOMON MD
[2018-01-26 18:07] VITALS: BP 191/103; PULSE 110
== END 2018-01-26 10:30 | disposition left against medical advice (07) | DRG 872 ==
LOC: JER 19:45 → MERGE 01-23 01:57 → JERBED 01-23 01:57 → J6S 01-23 03:33
PROVIDERS: ADMIT Internal Medicine; ATTEND Family Medicine
DX: A41.9 Sepsis, unspecified organism (principal); N39.0 Urinary tract infection, site not specified; E87.1 Hypo-osmolality and hyponatremia; I50.30 Unspecified diastolic (congestive) heart failure; E78.5 Hyperlipidemia, unspecified; R00.0 Tachycardia, unspecified; R07.9 Chest pain, unspecified; R10.84 Generalized abdominal pain; E86.0 Dehydration; E87.6 Hypokalemia; K42.9 Umbilical hernia without obstruction or gangrene; R60.0 Localized edema; I11.0 Hypertensive heart disease with heart failure; E11.9 Type 2 diabetes mellitus without complications
CPT/HCPCS: 36415; 71045-TC-FY; 74175-TC; 74176-TC; 80048; 80053; 81003; 81015; 82550; 82553; 82962; 83605; 83690; 83735; 83880; 84443; 84484; 85025; 85610; 85730; 86850; 86900; 86901; 87040; 87086; 93005; 93010; 93306-TC; 93970-TC; 99283-25; J0131; J3480; J7030

== ENCOUNTER 2018-01-28 00:39 | Inpatient (IN) | payer MEDICARE, OTHER ==
[2018-01-28 01:07] VITALS: BMI 39.5
--- NOTE | 2018-01-28 01:33 | PDOC ---
History of Present Illness - General History Source: Patient, Old Records Exam Limitations: No Limitations - History of Present Illness Initial Comments: 01/28/18 01:48 Patient is a 72 year old male with a significant past medical history of Hernias , HTN, Diabetes, High cholesterol, who presents to the ED with complaints of abdominal pain. Patient reports experiencing intermittent abdominal pain that began 1 week ago and has shown no signs of subsiding. Patient reports experiencing associated symptoms of Sob, neck pain, chest pain and back pain, prompting him to come into the ED for further evaluation. Patient reports experiencing episodes of dysuria, stating I think i have blood in my pee because it looks darker than it normally does. He reports experiencing 1 episode of vomiting yesterday but currently does not experience any nausea. Patient currently is asking for medications to alleviate his pain. Patient was admitted on january 23 for sepsis /UTI but signed out AMA on January 26. Denies Sob. Denies nausea, Denies fevers, chills. Denies trauma to affected area. Denies any other symptoms. Allergies: No allergies Social history: No smoking. No alcohol. No illicit drugs. Surgical history: Cholecystectomy PMD: Dr. Galdamez <Tao Womack - Last Filed: 01/28/18 01:48> - General History Source: Patient <Linda Zhaoan - Last Filed: 01/28/18 03:37> - General Chief Complaint: Pain Stated Complaint: ABDOMINAL PAIN Time Seen by Provider: 01/28/18 00:48 Past History <Tao Womack - Last Filed: 01/28/18 01:48> - Past Medical History COPD: No Diabetes: Yes GI Disorders: Yes (GERD) HTN: Yes Hypercholesterolemia: Yes Psychiatric Problems: Yes - Surgical History Abdominal Surgery: Yes (gallbladder) Cholecystectomy: Yes Orthopedic Surgery: Yes (screws and pins on his leg.) - Immunization History Immunization Up to Date: Yes - Suicide/Smoking/Psychosocial Hx Smoking History: Never smoked Have you smoked in the past 12 months: No Hx Alcohol Use: No Drug/Substance Use Hx: No Substance Use Type: None Hx Substance Use Treatment: No <Everett Zhao - Last Filed: 01/28/18 03:37> - Past Medical History Allergies/Adverse Reactions: Allergies Allergy/AdvReac Type Severity Reaction Status Date / Time No Known Allergies Allergy Verified 07/18/17 03:07 Home Medications: Ambulatory Orders Gabapentin [Neurontin] 400 mg PO HS 01/22/16 Linagliptin/Metformin HCl [Jentadueto 2.5 mg-500 mg Tab] 1 each PO BID 01/22/16 Quetiapine Fumarate [Seroquel -] 50 mg PO HS 01/22/16 Tamsulosin HCl [Flomax -] 0.4 mg PO HS 01/22/16 Metoprolol Succinate [Toprol XL -] 50 mg PO DAILY 01/23/16 Atorvastatin Calcium [Lipitor] 10 mg PO HS 01/06/17 Roflumilast [Daliresp] 500 mcg PO DAILY 01/06/17 Aspirin [ASA -] 81 mg PO DAILY tab.chew 01/08/17 Pantoprazole Sodium [Protonix -] 40 mg PO DAILY #30 tablet.ec 01/08/17 Amlodipine Besylate [Norvasc -] 10 mg PO DAILY #30 tablet MDD 1 04/26/17 Lipase/Protease/Amylase [Adama Dr 6,000 Units Capsule] 3 cap PO TIDCM #100 tab MDD 3 04/26/17 Losartan Potassium [Cozaar -] 100 mg PO DAILY #30 tablet MDD 1 04/26/17 Methylnaltrexone [place] [Relistor -] 12 mg SQ DAILY #30 kit MDD 1 04/26/17 Rifaximin [Xifaxan -] 550 mg PO TID #60 tablet MDD 3 04/26/17 Hyoscyamine Sulfate 0.125 mg PO BID PRN #10 tab.rapdis 05/15/17 Review of Systems - Review of Systems Able to Perform ROS?: Yes Comments:: 01/28/18 01:48 CONSTITUTIONAL: Absent: fever, no chills, no fatigue EYES: Absent: visual changes ENT: Absent: ear pain, no sore throat CARDIOVASCULAR: +Chest pain. Absent: no palpitations RESPIRATORY: Absent: cough, no SOB GI: +Abdominal pain. Absent: abdominal pain, no nausea, no vomiting, no constipation, no diarrhea GENITOURINARY: +dysuria. Absent: no frequency, no hematuria MUSCULOSKELETAL: +Neck pain. +Back pain. Absent: back pain, no arthralgia, no myalgia SKIN: Absent: rash <Tao Womack - Last Filed: 01/28/18 01:48> *Physical Exam - Vital Signs Last Vital Signs Temp Pulse Resp BP Pulse Ox 98.5 F 83 192/89 01/28/18 00:40 01/28/18 00:40 01/28/18 00:40 - Physical Exam Comments: 01/28/18 01:48 Well-appearing, well-nourished. No apparent distress. HEENT: Normocephalic, atraumatic. PERRL, EOM intact. CARDIOVASCULAR: Normal S1, S2. Regular rate and rhythm. PULMONARY: Clear to auscultation bilaterally. ABDOMEN: +Abdominal distention. +Normoactive bowel sounds. Soft, non-tender. EXTREMITIES: Normal ROM in all four extremities. No gross deformities. SKIN: Warm, dry. No rash NEUROLOGICAL: No focal neurological deficits. <Tao Womack - Last Filed: 01/28/18 01:48> - Vital Signs Last Vital Signs Temp Pulse Resp BP Pulse Ox 98.5 F 83 192/89 01/28/18 00:40 01/28/18 00:40 01/28/18 00:40 <Everett Zhao - Last Filed: 01/28/18 03:37> ED Treatment Course - LABORATORY CBC & Chemistry Diagram: 01/28/18 01:54 01/28/18 01:54 <Everett Zhao - Last Filed: 01/28/18 03:37> *DC/Admit/Observation/Transfer - Attestations Scribe Attestion: 01/28/18 01:49 Documentation prepared by Tao Womack, acting as biomedical equipment technician for Everett Zhao MD/. <Tao Womack - Last Filed: 01/28/18 01:48> - Discharge Dispostion Admit: Yes <Everett Zhao - Last Filed: 01/28/18 03:37> Diagnosis at time of Disposition: CHF (congestive heart failure), Hypokalemia, Abdominal pain - Discharge Dispostion Condition at time of disposition: Stable - Referrals Referrals: Donna Galdamez MD [Primary Care Provider] - - Patient Instructions - Post Discharge Activity
[2018-01-28] MEDS ORDERED: morphine CARPU-JECT 2 MG/1 ML DISP.SYRIN IVPUSH ONE (01:39)
[2018-01-28] MEDS ORDERED: ONDANSETRON 4 MG/2 ML VIAL IVPUSH STA (01:39)
[2018-01-28] MEDS ORDERED: FUROSEMIDE 40 MG/4 ML INJECTABLE VIAL IVPUSH ONE (01:39)
[2018-01-28] MEDS ORDERED: MORPHINE SULFATE 10 MG/1 ML *VIAL ONE (02:05)
[2018-01-28] MEDS ORDERED: ONDANSETRON 4 MG/2 ML VIAL ONE (02:07)
[2018-01-28] MEDS ORDERED: FUROSEMIDE 40 MG/4 ML INJECTABLE VIAL ONE (02:07)
[2018-01-28 02:13] LABS: BASO % 0.8 % (0-2.0); EOS % 1.9 % (0-4.5); HEMATOCRIT 36.4 % (35.4-49); HEMOGLOBIN 12.8 GM/dL (11.7-16.9); LYMPH % 25.9 % (8-40); MCHC 35.1 g/dl (32.0-35.9); MEAN CELL VOLUME 91.2 fl (80-96); MEAN PLT VOLUME 7.4 fl (7.5-11.1); MONO % 10.9 % (3.8-10.2); NEUT % 60.5 % (42.8-82.8); PLATELET COUNT 291 K/MM3 (134-434); RBC 3.99 M/mm3 (4.00-5.60); RDW 14.2 % (11.9-15.9); WHITE BLOOD COUNT 7.4 K/mm3 (4.0-10.0)
[2018-01-28 02:29] LABS: INR 1.04 (0.82-1.09); PROTHROMBIN TIME (PATIENT) 11.7 SEC (9.98-11.88)
[2018-01-28 02:39] LABS: N-TERMINAL BNP 457.64 pg/ml (5-125)
[2018-01-28 02:40] LABS: MAGNESIUM 2.1 mg/dL (1.8-2.4)
[2018-01-28 02:55] LABS: ALBUMIN 3.5 g/dl (3.4-5.0); ANION GAP 12 (8-16); BILIRUBIN,TOTAL 0.5 mg/dL (0.2-1.0); BLOOD UREA NITROGEN 14 mg/dL (7-18); CALCIUM 8.2 mg/dL (8.5-10.1); CHLORIDE 98 mmol/L (98-107); CO2 25 mmol/L (21-32); CREATININE 0.8 mg/dL (0.7-1.3); GLUCOSE,RANDOM 141 mg/dL (74-106); SGPT/ALT 47 U/L (12-78); SODIUM 135 mmol/L (136-145); TOT PROT 6.8 g/dl (6.4-8.2)
[2018-01-28 02:58] LABS: ALK PHOS 71 U/L (45-117); POTASSIUM 3.2 mmol/L (3.5-5.1); SGOT/AST 46 U/L (15-37)
[2018-01-28 03:05] LABS: URINE APPEARANCE CLEAR; URINE BILIRUBIN NEGATIVE (NEGATIVE); URINE BLOOD NEGATIVE (NEGATIVE); URINE COLOR STRAW; URINE GLUCOSE (UA) NEGATIVE (NEGATIVE); URINE KETONE NEGATIVE (NEGATIVE); URINE LEUK ESTERASE NEGATIVE (NEGATIVE); URINE NITRITE NEGATIVE (NEGATIVE); URINE PROTEIN NEGATIVE (NEGATIVE)
[2018-01-28] MEDS ORDERED: POTASSIUM CHLORIDE TABS 10 MEQ TABLET.ER (FP) PO ONE (03:28)
[2018-01-28] MEDS ORDERED: POTASSIUM CHLORIDE TABS 20 MEQ TABLET.ER (FP) PO ONE ×2 (03:34→13:00)
--- NOTE | 2018-01-28 03:39 | HP ---
Admitting History and Physical - Primary Care Physician PCP: Edin Suarez - Admission Chief Complaint: Abdominal Pain, SOB History of Present Illness: This is a 72 y/o man with a PMHx of HTN, DM, Chronic Leg Edema. Who presents to the ED with abdominal pain, distention, SOB. Patient was admitted 01/23-01/26 for Sepsis secondary to UTI, and signed out AMA. Patient reports epigastric pain with distention. Patient reports last BM yesterday, "hard, small". Patient reports b/l lower leg swelling. Patient denies fever, chills, dizziness, CP, palpitations, N/V/D, dysuria History Source: Patient, Medical Record Limitations to Obtaining History: Poor Historian, Uncooperative - Past Medical History Cardiovascular: Yes: HTN, Hyperlipdemia Gastrointestinal: Yes: Constipation, Pancreatitis, GERD, Other Hepatobiliary: Yes: Other (cholecystectomy) Musculoskeletal: Yes: Osteoarthritis, Other (chronic lower leg pain) Endocrine: Yes: Diabetes Mellitus - Past Surgical History Past Surgical History: Yes: Cholecystectomy - Smoking History Smoking history: Never smoked Have you smoked in the past 12 months: No - Alcohol/Substance Use Hx Alcohol Use: No History of Substance Use: reports: None - Social History ADL: Independent History of Recent Travel: No Home Medications - Allergies Allergies/Adverse Reactions: Allergies Allergy/AdvReac Type Severity Reaction Status Date / Time No Known Allergies Allergy Verified 07/18/17 03:07 - Home Medications Home Medications: Ambulatory Orders Gabapentin [Neurontin] 400 mg PO HS 01/22/16 Linagliptin/Metformin HCl [Jentadueto 2.5 mg-500 mg Tab] 1 each PO BID 01/22/16 Quetiapine Fumarate [Seroquel -] 50 mg PO HS 01/22/16 Tamsulosin HCl [Flomax -] 0.4 mg PO HS 01/22/16 Metoprolol Succinate [Toprol XL -] 50 mg PO DAILY 01/23/16 Atorvastatin Calcium [Lipitor] 10 mg PO HS 01/06/17 Roflumilast [Daliresp] 500 mcg PO DAILY 01/06/17 Aspirin [ASA -] 81 mg PO DAILY tab.chew 01/08/17 Pantoprazole Sodium [Protonix -] 40 mg PO DAILY #30 tablet.ec 01/08/17 Amlodipine Besylate [Norvasc -] 10 mg PO DAILY #30 tablet MDD 1 04/26/17 Lipase/Protease/Amylase [Creon Dr 6,000 Units Capsule] 3 cap PO TIDCM #100 tab MDD 3 04/26/17 Losartan Potassium [Cozaar -] 100 mg PO DAILY #30 tablet MDD 1 04/26/17 Methylnaltrexone [place] [Relistor -] 12 mg SQ DAILY #30 kit MDD 1 04/26/17 Rifaximin [Xifaxan -] 550 mg PO TID #60 tablet MDD 3 04/26/17 Hyoscyamine Sulfate 0.125 mg PO BID PRN #10 tab.rapdis 05/15/17 Family Disease History - Family Disease History Family Disease History: Heart Disease: Father ( of [place] 20yrs ago), [place]: Grandparent, Father, Mother, Brother, Sister, Son, Daughter Review of Systems - Review of Systems Constitutional: reports: No Symptoms Eyes: reports: No Symptoms HENT: reports: No Symptoms Neck: reports: No Symptoms Cardiovascular: reports: Edema, Shortness of Breath Respiratory: reports: SOB, SOB on Exertion Gastrointestinal: reports: Abdominal Pain, Bloating, Constipation Genitourinary: reports: No Symptoms Breasts: reports: No Symptoms Reported Musculoskeletal: reports: No Symptoms Integumentary: reports: No Symptoms Neurological: reports: Unsteady Gait, Weakness (lower legs) Endocrine: reports: No Symptoms Hematology/Lymphatic: reports: No Symptoms Psychiatric: reports: No Symptoms Physical Examination Vital Signs: Vital Signs Temperature 98.5 F 01/28/18 00:40 Pulse Rate 83 01/28/18 00:40 Respiratory Rate Blood Pressure 192/89 01/28/18 00:40 O2 Sat by Pulse Oximetry (%) Constitutional: Yes: Well Nourished, No Distress, Obese Eyes: Yes: Other (unable to assess- refused to remove sunglasses) HENT: Yes: WNL, Atraumatic, Normocephalic Neck: Yes: WNL, Supple, Trachea Midline Cardiovascular: Yes: WNL, Regular Rate and Rhythm, S1, S2 Respiratory: Yes: WNL, Regular, CTA Bilaterally Gastrointestinal: Yes: Abdomen, Obese, Distention, Hepatomegaly, Hypoactive Bowel Sounds, Tenderness (RUQ), Tenderness, Epigastrium Edema: Yes Edema: LLE: 2+, RLE: 2+ Peripheral Pulses WNL: Yes Neurological: Yes: WNL, Alert, Oriented, Cran Nerves II-XII Intact ...Motor Strength: WNL Psychiatric: Yes: WNL, Alert, Oriented, Agitated Labs: CBC, BMP 01/28/18 01:54 01/28/18 01:54 Laboratory Results - last 24 hr 01/28/18 01/28/18 01/28/18 01:54 01:54 01:54 WBC 7.4 RBC 3.99 L Hgb 12.8 D Hct 36.4 MCV 91.2 MCH 32.0 MCHC 35.1 RDW 14.2 Plt Count 291 MPV 7.4 L Neutrophils % 60.5 D Lymphocytes % 25.9 D Monocytes % 10.9 H Eosinophils % 1.9 D Basophils % 0.8 D PT with INR INR Sodium 135 L Potassium 3.2 L Chloride 98 Carbon Dioxide 25 Anion Gap 12 BUN 14 Creatinine 0.8 Creat Clearance w eGFR > 60 Random Glucose 141 H D Calcium 8.2 L Magnesium Total Bilirubin 0.5 D AST 46 H D ALT 47 Alkaline Phosphatase 71 Ammonia Creatine Kinase 537 H Creatine Kinase Index 0.8 CK-MB (CK-2) 4.375 H Troponin I 0.03 B-Natriuretic Peptide Total Protein 6.8 Albumin 3.5 Lipase Urine Color Urine Appearance Urine pH Ur Specific [place] Urine Protein Urine Glucose (UA) Urine Ketones Urine Blood Urine Nitrite Urine Bilirubin Urine Urobilinogen Ur Leukocyte Esterase Blood Type Cancelled Antibody Screen Cancelled 01/28/18 01/28/18 01/28/18 01:54 01:54 01:54 WBC RBC Hgb Hct MCV MCH MCHC RDW Plt Count MPV Neutrophils % Lymphocytes % Monocytes % Eosinophils % Basophils % PT with INR 11.70 INR 1.04 Sodium Potassium Chloride Carbon Dioxide Anion Gap BUN Creatinine Creat Clearance w eGFR Random Glucose Calcium Magnesium 2.1 Total Bilirubin AST ALT Alkaline Phosphatase Ammonia 34.68 H Creatine Kinase Creatine Kinase Index CK-MB (CK-2) Troponin I B-Natriuretic Peptide 457.64 H Total Protein Albumin Lipase 106 Urine Color Urine Appearance Urine pH Ur Specific [place] Urine Protein Urine Glucose (UA) Urine Ketones Urine Blood Urine Nitrite Urine Bilirubin Urine Urobilinogen Ur Leukocyte Esterase Blood Type Antibody Screen 01/28/18 02:50 WBC RBC Hgb Hct MCV MCH MCHC RDW Plt Count MPV Neutrophils % Lymphocytes % Monocytes % Eosinophils % Basophils % PT with INR INR Sodium Potassium Chloride Carbon Dioxide Anion Gap BUN Creatinine Creat Clearance w eGFR Random Glucose Calcium Magnesium Total Bilirubin AST ALT Alkaline Phosphatase Ammonia Creatine Kinase Creatine Kinase Index CK-MB (CK-2) Troponin I B-Natriuretic Peptide Total Protein Albumin Lipase Urine Color Straw Urine Appearance Clear Urine pH 7.0 D Ur Specific [place] 1.003 Urine Protein Negative Urine Glucose (UA) Negative Urine Ketones Negative Urine Blood Negative Urine Nitrite Negative Urine Bilirubin Negative Urine Urobilinogen 2.0 Ur Leukocyte Esterase Negative Blood Type Antibody Screen Intake & Output 01/25/18 01/26/18 01/27/18 01/28/18 23:59 23:59 23:59 23:59 Output Total 900 Balance -900 Weight 117.934 kg Current Medications Generic Name Dose Route Start Last Admin Trade Name Freq PRN Reason Stop Dose Admin Amlodipine Besylate 10 mg 01/28/18 10:00 Norvasc - PO DAILY KAVITA Insulin Aspart 0 vial 01/28/18 07:00 Novolog Vial Sliding Scale - SQ TIDAC [facility] Protocol Imaging - Results Chest X-ray: Image Reviewed (central congestive changes) X-ray: Pending (FUA) EKG: Image Reviewed (Normal sinus rhythm 75 bpm, possible Left Atrial enlargement, Nonspecific T wave abnormality MI int 184ms, QRS 114ms, QT/QTc 406/ 453ms) Problem List - Problems (1) CHF (congestive heart failure) Code(s): I50.9 - HEART FAILURE, UNSPECIFIED (2) Shortness of breath Code(s): R06.02 - SHORTNESS OF BREATH (3) Abdominal pain Code(s): R10.9 - UNSPECIFIED ABDOMINAL PAIN (4) Acute hypokalemia Code(s): E87.6 - HYPOKALEMIA (5) Acute kidney injury Code(s): N17.9 - ACUTE KIDNEY FAILURE, UNSPECIFIED (6) Bilateral lower extremity edema Code(s): R60.0 - LOCALIZED EDEMA (7) Constipation due to opioid therapy Code(s): K59.03 - DRUG INDUCED CONSTIPATION; T40.2X5A - ADVERSE EFFECT OF OTHER OPIOIDS, INITIAL ENCOUNTER (8) Diabetes Code(s): E11.9 - TYPE 2 DIABETES MELLITUS WITHOUT COMPLICATIONS Qualifiers: Diabetes mellitus type: type 2 (9) HTN (hypertension) Code(s): I10 - ESSENTIAL (PRIMARY) HYPERTENSION (10) DVT prophylaxis Code(s): OGL7337 - Assessment/Plan This is a 72 y/o man with a PMHx of: HTN, DM. Admitted for CHF Exacerbation, Abdominal Pain, Hypokalemia Plan: 1. CHF Exacerbation - Chest Xray image- central congestive changes, awaiting report - BNP 457 improved from last visit (556) - Lasix given in ED, will continue - Echo 01/26 showed- mod concentric LVH, EF-nl, RVSF-nl, mild MR, mild TR, mild AR, trace-mod AVR - CTA 01/23 showed- no aortic dissection - Strict INOs - Daily weights - Consider Cardiology if condition worsens - Monitor vitals 2. Abdominal Pain - hx ventral hernias - CTAP 01/22- showed 2 ventral hernias without evidence of obstruction, trace pericardial effusion, diffuse fatty infiltration liver, hepatomegaly - CTA 01/23 showed- no bowel obstruction, no bowel wall thickening, no diverticulitis, hepatomegaly, extensive hepatic steatosis - Will order FUA r/o fecal retention, ileus (2/2 opioid therapy) - f/u with surgeon outpatient for ventral hernias - Avoid narcotics - NPO until FUA 3. Hypokalemia - Likely secondary to diuretic use - Repleted with KCL in ED - Consider KCL po to current med regimen - Monitor BMP 4. Hypertension - Not controlled - Monitor BP - Continue Norvasc - Consider adding Lisinopril for renal protection 5. Diabetes Mellitus - BGMs - ISS, when diet resumed 6. FEN - Replete lytes - NPO, until FUA, reassess 7. DVT ppx - OOB - Heparin SQ Code Status: Full Code Dispo: Requires Inpatient Care Visit type - Emergency Visit Emergency Visit: Yes ED Registration Date: 01/27/18 Care time: The patient presented to the Emergency Department on the above date and was hospitalized for further evaluation of their emergent condition. - New Patient This patient is new to me today: Yes Date on this admission: 01/28/18 - Critical Care Critical Care patient: No Hospitalist Screening - Colonoscopy Questionnaire Colonoscopy Questionnaire: Colonoscopy Questionnaire - Patient: 50 - 75 years old and never had a screening colonoscopy: No History of colon or rectal polyps, or CA: No History of IBD, Crohn's disease or UC: No History of abdominal radiation therapy as a child: No - Relative: 1 with colon or rectal CA, or polyps at age 60 or younger: No Colon or rectal CA diagnosed at age 45 or younger: No Multiple relatives with colon or rectal CA: No - Outcome: Screening Result: Negative Screen
[2018-01-28 07:31] LABS: BASO % 0.4 % (0-2.0); EOS % 2.5 % (0-4.5); HEMATOCRIT 40.1 % (35.4-49); HEMOGLOBIN 13.9 GM/dL (11.7-16.9); LYMPH % 26.9 % (8-40); MCH 31.7 pg (25.7-33.7); MCHC 34.7 g/dl (32.0-35.9); MEAN CELL VOLUME 91.3 fl (80-96); MONO % 12.8 % (3.8-10.2); NEUT % 57.4 % (42.8-82.8); PLATELET COUNT 307 K/MM3 (134-434); RBC 4.39 M/mm3 (4.00-5.60); RDW 14.3 % (11.9-15.9); WHITE BLOOD COUNT 6.8 K/mm3 (4.0-10.0)
[2018-01-28] MEDS: INSULIN SLIDING SCALE (NOVOLOG) 1 VIAL SQ SCH ×3 (07:54→18:56)
[2018-01-28 08:52] LABS: CHLORIDE 97 mmol/L (98-107); POTASSIUM 3.2 mmol/L (3.5-5.1); SODIUM 139 mmol/L (136-145)
[2018-01-28 09:01] LABS: ANION GAP 15 (8-16); BLOOD UREA NITROGEN 11 mg/dL (7-18); CALCIUM 8.5 mg/dL (8.5-10.1); CO2 27 mmol/L (21-32); CREATININE 0.9 mg/dL (0.7-1.3); GLUCOSE,RANDOM 148 mg/dL (74-106)
--- NOTE | 2018-01-28 09:45 | EKG ---
Test Reason : Blood Pressure : / mmHG Vent. Rate : 075 BPM Atrial Rate : 075 BPM P-R Int : 184 ms QRS Dur : 114 ms QT Int : 406 ms P-R-T Axes : 037 003 019 degrees QTc Int : 453 ms NORMAL SINUS RHYTHM POSSIBLE LEFT ATRIAL ENLARGEMENT NON-SPECIFIC INTRA-VENTRICULAR CONDUCTION DELAY NONSPECIFIC T WAVE ABNORMALITY ABNORMAL ECG Confirmed by GIOVANY JIMENEZ MD ([id number]) on 01/28/2018 9:45:29 AM Referred By: Confirmed By:GIOVANY JIMENEZ MD
--- NOTE | 2018-01-28 09:51 | PN ---
Progress Note, Physician Chief Complaint: This is a 72 y/o man with a PMHx of HTN, DM, Chronic Leg Edema. Who presents to the ED with abdominal pain, distention, SOB and increase leg swelling on ER he got zofran lasix and postassium - Current Medication List Current Medications: Active Medications Amlodipine Besylate (Norvasc -) 10 mg PO DAILY KAVITA Insulin Aspart (Novolog Vial Sliding Scale -) 1 vial SQ TIDAC KAVITA PRN Reason: Protocol Last Admin: 01/28/18 07:54 Dose: Not Given - Objective Vital Signs: Vital Signs Temperature 98.1 F 01/28/18 07:00 Pulse Rate 86 01/28/18 07:00 Respiratory Rate 18 01/28/18 07:00 Blood Pressure 176/92 01/28/18 07:00 O2 Sat by Pulse Oximetry (%) Constitutional: Yes: Calm Cardiovascular: Yes: Regular Rate and Rhythm, S1, S2 Respiratory: Yes: CTA Bilaterally, Diminished (at the bases) Gastrointestinal: Yes: Distention, Tenderness (on right middle quadrant and left upper quadrant) Edema: Yes Neurological: Yes: Alert, Oriented Labs: CBC, BMP 01/28/18 07:05 01/28/18 07:05 INR, PTT INR 1.04 (0.82-1.09) 01/28/18 01:54 Problem List - Problems (1) Abdominal pain Assessment/Plan: NPO GI and surgical eval ct scan with po contrst distended loops of bowel seen on abdominal xray potassium repleted will monitor lipase Code(s): R10.9 - UNSPECIFIED ABDOMINAL PAIN (2) CHF (congestive heart failure) Assessment/Plan: iv lasix cozaar and toprolm norvasc Code(s): I50.9 - HEART FAILURE, UNSPECIFIED (3) Hypokalemia Assessment/Plan: repleted check magnesium and potassium again Code(s): E87.6 - HYPOKALEMIA
[2018-01-28] MEDS: amLODIPine BESYLATE 10 MG TABLET (FP) PO SCH (11:04)
[2018-01-28] MEDS ORDERED: FUROSEMIDE 40 MG/4 ML INJECTABLE VIAL IVPUSH SCH (11:45)
[2018-01-28 12:40] LABS: ANION GAP 10 (8-16); BLOOD UREA NITROGEN 11 mg/dL (7-18); CALCIUM 8.5 mg/dL (8.5-10.1); CHLORIDE 97 mmol/L (98-107); CO2 30 mmol/L (21-32); GLUCOSE,RANDOM 152 mg/dL (74-106); POTASSIUM 3.6 mmol/L (3.5-5.1); SODIUM 137 mmol/L (136-145)
[2018-01-28] MEDS: LOSARTAN POTASSIUM 50 MG TABLET (FP) PO SCH (12:48)
[2018-01-28] MEDS: morphine SULFATE 4 MG/ML VIAL IVPUSH PRN ×2 (12:50→20:49)
[2018-01-28] MEDS ORDERED: TAMSULOSIN HCL 0.4 MG CAP.ER.24H (FP) PO ONE (13:00)
--- NOTE | 2018-01-28 13:34 | CON.CARD ---
Consult Consult Specialty:: Cardiology Reason for Consultation:: HTN and Edema - History of Present Illness History of Present Illness: 72 M with HTN admitted with chronic abdominal pain. Has chronic leg swelling. He was recently admitted for simialr complaints but signed out. Denies dyspnea or chest pain. Echocardigram few days ago showed LVH with presrved LV function and no significant valvlar pathology. - History Source History Provided By: Patient, Medical Record - Past Medical History Cardio/Vascular: Yes: HTN, Hyperlipdemia Gastrointestinal: Yes: Constipation, Pancreatitis, GERD, Other Hepatobiliary: Yes: Other (cholecystectomy) Musculoskeletal: Yes: Osteoarthritis, Other (chronic lower leg pain) Endocrine: Yes: Diabetes Mellitus - Past Surgical History Past Surgical History: Yes: Cholecystectomy - Alcohol/Substance Use Hx Alcohol Use: Yes (ocassional) History of Substance Use: reports: None - Smoking History Smoking history: Never smoked Have you smoked in the past 12 months: No - Social History ADL: Independent History of Recent Travel: No Home Medications - Allergies Allergies/Adverse Reactions: Allergies Allergy/AdvReac Type Severity Reaction Status Date / Time No Known Allergies Allergy Verified 07/18/17 03:07 - Home Medications Home Medications: Ambulatory Orders Gabapentin [Neurontin] 400 mg PO HS 01/22/16 Linagliptin/Metformin HCl [Jentadueto 2.5 mg-500 mg Tab] 1 each PO BID 01/22/16 Quetiapine Fumarate [Seroquel -] 50 mg PO HS 01/22/16 Tamsulosin HCl [Flomax -] 0.4 mg PO HS 01/22/16 Metoprolol Succinate [Toprol XL -] 50 mg PO DAILY 01/23/16 Atorvastatin Calcium [Lipitor] 10 mg PO HS 01/06/17 Roflumilast [Daliresp] 500 mcg PO DAILY 01/06/17 Aspirin [ASA -] 81 mg PO DAILY tab.chew 01/08/17 Pantoprazole Sodium [Protonix -] 40 mg PO DAILY #30 tablet.ec 01/08/17 Amlodipine Besylate [Norvasc -] 10 mg PO DAILY #30 tablet MDD 1 04/26/17 Lipase/Protease/Amylase [[place] Dr 6,000 Units Capsule] 3 cap PO TIDCM #100 tab MDD 3 04/26/17 Losartan Potassium [Cozaar -] 100 mg PO DAILY #30 tablet MDD 1 04/26/17 Methylnaltrexone [place] [Relistor -] 12 mg SQ DAILY #30 kit MDD 1 04/26/17 Rifaximin [Xifaxan -] 550 mg PO TID #60 tablet MDD 3 04/26/17 Hyoscyamine Sulfate 0.125 mg PO BID PRN #10 tab.rapdis 05/15/17 Family Disease History - Family Disease History Family Disease History: Heart Disease: Father ( of [place] 20yrs ago), [place]: Grandparent, Father, Mother, Brother, Sister, Son, Daughter Review of Systems - Review of Systems Constitutional: reports: No Symptoms. denies: Chills, Diaphoresis, Fever Eyes: denies: Blind Spots, Blurred Vision HENT: denies: Difficult Swallowing, Ear Discharge Neck: denies: Decreased ROM, Lumps Cardiovascular: reports: Edema. denies: Chest Pain, Palpitations, Shortness of Breath Respiratory: reports: Exercise Intolerance. denies: Cough, PND, SOB Gastrointestinal: reports: Abdominal Pain Musculoskeletal: reports: No Symptoms Endocrine: denies: Excessive Sweating, Flushing Vital Signs: Vital Signs Temperature 98 F 01/28/18 11:00 Pulse Rate 78 01/28/18 12:54 Respiratory Rate 20 01/28/18 12:54 Blood Pressure 165/89 01/28/18 12:54 O2 Sat by Pulse Oximetry (%) Constitutional: Yes: Well Nourished, No Distress, Calm Eyes: Yes: Conjunctiva Clear, EOM Intact HENT: Yes: Atraumatic, Normocephalic Neck: Yes: Supple, Trachea Midline Respiratory: Yes: Regular, CTA Bilaterally. No: SOB, Stridor, Wheezes Gastrointestinal: Yes: Normal Bowel Sounds, Distention, Tenderness Cardiovascular: Yes: Regular Rate and Rhythm JVD: No Carotid Bruit: No Heart Sounds: Yes: S1, S2 Murmur: No: Systolic Murmur, Diastolic Murmur Edema: Yes Edema: LLE: 1+, RLE: 1+ - Other Data Labs, Other Data: CBC, BMP 01/28/18 07:05 01/28/18 12:05 INR, PTT INR 1.04 (0.82-1.09) 01/28/18 01:54 Troponin, BNP 01/28/18 01/28/18 01:54 01:54 Troponin I 0.03 B-Natriuretic Peptide 457.64 H Troponin, BNP 01/28/18 01/28/18 01:54 01:54 Troponin I 0.03 B-Natriuretic Peptide 457.64 H NSR LAE no STT changes Imaging - Results Chest X-ray: Report Reviewed Problem List - Problems (1) CHF (congestive heart failure) Code(s): I50.9 - HEART FAILURE, UNSPECIFIED (2) HTN (hypertension) Code(s): I10 - ESSENTIAL (PRIMARY) HYPERTENSION Assessment/Plan 72 yo M with chronic abdominal pain, HTN and DM.adm with mild Lext swelling, HTN Likely mild Heart failure with preserved EF. * Add Spironolactone 25mg qd * Consider sleep apnea evaluation. * Continue with low dose diuretics. once edema improves, consider switching from lasix to Hydrochlorothiazide. Will see as needed please call with questions.
--- NOTE | 2018-01-28 16:52 | CON.GI ---
Consult Consult Specialty:: GI Reason for Consultation:: Abdominal pain and distention - History of Present Illness History of Present Illness: 72 year old with PMH of cholecystectomy, GERD, constipation, pancreatitis and hepatic steatosis was consulted on 2/2 abdominal pain and distention, he reports diffused abdominal pain and distention associated with nausea, no vomiting, reports daily BM prior to admission, no rectal bleed. - History Source History Provided By: Patient, Medical Record Limitations to Obtaining History: No Limitations - Past Medical History Cardio/Vascular: Yes: HTN, Hyperlipdemia Gastrointestinal: Yes: Constipation, Pancreatitis, GERD, Other Hepatobiliary: Yes: Other (cholecystectomy) Musculoskeletal: Yes: Osteoarthritis, Other (chronic lower leg pain) Endocrine: Yes: Diabetes Mellitus - Past Surgical History Past Surgical History: Yes: Cholecystectomy - Alcohol/Substance Use Hx Alcohol Use: Yes (ocassional) History of Substance Use: reports: None - Smoking History Smoking history: Never smoked Have you smoked in the past 12 months: No - Social History ADL: Independent History of Recent Travel: No Home Medications - Allergies Allergies/Adverse Reactions: Allergies Allergy/AdvReac Type Severity Reaction Status Date / Time No Known Allergies Allergy Verified 07/18/17 03:07 - Home Medications Home Medications: Ambulatory Orders Gabapentin [Neurontin] 400 mg PO HS 01/22/16 Quetiapine Fumarate [Seroquel -] 50 mg PO HS 01/22/16 Tamsulosin HCl [Flomax -] 0.4 mg PO HS 01/22/16 Atorvastatin Calcium [Lipitor] 10 mg PO HS 01/06/17 Roflumilast [Daliresp] 500 mcg PO DAILY 01/06/17 Aspirin [ASA -] 81 mg PO DAILY tab.chew 01/08/17 Pantoprazole Sodium [Protonix -] 40 mg PO DAILY #30 tablet.ec 01/08/17 Amlodipine Besylate [Norvasc -] 10 mg PO DAILY #30 tablet MDD 1 04/26/17 Lipase/Protease/Amylase [Creon Dr 6,000 Units Capsule] 3 cap PO TIDCM #100 tab MDD 3 04/26/17 Losartan Potassium [Cozaar -] 100 mg PO DAILY #30 tablet MDD 1 04/26/17 Methylnaltrexone [place] [Relistor -] 12 mg SQ DAILY #30 kit MDD 1 04/26/17 Rifaximin [Xifaxan -] 550 mg PO TID #60 tablet MDD 3 04/26/17 Hyoscyamine Sulfate 0.125 mg PO BID PRN #10 tab.rapdis 05/15/17 Insulin Detemir [Levemir Flextouch] 15 unit SQ AM #1 insuln.pen 01/30/18 Metoclopramide HCl [Reglan -] 5 mg PO TIDAC #90 tablet 01/30/18 Naloxegol Oxalate [Movantik] 25 mg PO AM #30 tablet 01/30/18 Pen Needle, Diabetic [Bd Ultra-Fine Pen Needle] 1 each MC AM #100 dis.needle metFORMIN XR [Glucophage Xr -] 500 mg PO BID #60 tab.sr.24h 01/30/18 metroNIDAZOLE [Flagyl -] 250 mg PO TID #12 tablet 01/30/18 Family Disease History - Family Disease History Family Disease History: Heart Disease: Father ( of [place] 20yrs ago), [place]: Grandparent, Father, Mother, Brother, Sister, Son, Daughter Physical Exam-GI Vital Signs: Vital Signs Temperature 98 F 01/28/18 11:00 Pulse Rate 78 01/28/18 12:54 Respiratory Rate 20 01/28/18 12:54 Blood Pressure 165/89 01/28/18 12:54 O2 Sat by Pulse Oximetry (%) Constitutional: Yes: Well Nourished, No Distress, Calm Eyes: Yes: Conjunctiva Clear HENT: Yes: Atraumatic Cardiovascular: Yes: Regular Rate and Rhythm Respiratory: Yes: Regular, CTA Bilaterally Gastrointestinal Inspection: Yes: Distention ...Auscultate: Yes: Normoactive Bowel Sounds ...Palpate: No: Firm/Rigid, Guarding, Soft, Tenderness, Tenderness, Rebound Labs: CBC, BMP 01/28/18 07:05 01/28/18 12:05 INR, PTT INR 1.04 (0.82-1.09) 01/28/18 01:54 Problem List - Problems (1) Abdominal pain Assessment/Plan: with distention Code(s): R10.9 - UNSPECIFIED ABDOMINAL PAIN Qualifiers: Abdominal location: generalized Qualified Code(s): R10.84 - Generalized abdominal pain (2) IBS (irritable bowel syndrome) Assessment/Plan: with constipation, suspect bacterial overgrowth R> advance diet- low fiber lactose free flagyl 250mg tid pancreatic enzymes w Relistor then mantain with [facility] as an outpatient made aware he will need colonoscopy as an outpatient to r/o malignancy Code(s): K58.9 - IRRITABLE BOWEL SYNDROME WITHOUT DIARRHEA
--- NOTE | 2018-01-28 19:26 | CONSULT ---
Consult Consult Specialty:: Surgery Reason for Consultation:: Abdominal distention - History of Present Illness History of Present Illness: 72 male consulted for abdominal pain and distention No vomiting Pain on and off x 1 week - History Source History Provided By: Patient - Past Medical History Cardio/Vascular: Yes: HTN, Hyperlipdemia Gastrointestinal: Yes: Constipation, Pancreatitis, GERD, Other Hepatobiliary: Yes: Other (cholecystectomy) Musculoskeletal: Yes: Osteoarthritis, Other (chronic lower leg pain) Endocrine: Yes: Diabetes Mellitus - Past Surgical History Past Surgical History: Yes: Cholecystectomy - Alcohol/Substance Use Hx Alcohol Use: Yes (ocassional) History of Substance Use: reports: None - Smoking History Smoking history: Never smoked Have you smoked in the past 12 months: No - Social History ADL: Independent History of Recent Travel: No Home Medications - Allergies Allergies/Adverse Reactions: Allergies Allergy/AdvReac Type Severity Reaction Status Date / Time No Known Allergies Allergy Verified 07/18/17 03:07 - Home Medications Home Medications: Ambulatory Orders Gabapentin [Neurontin] 400 mg PO HS 01/22/16 Linagliptin/Metformin HCl [Jentadueto 2.5 mg-500 mg Tab] 1 each PO BID 01/22/16 Quetiapine Fumarate [Seroquel -] 50 mg PO HS 01/22/16 Tamsulosin HCl [Flomax -] 0.4 mg PO HS 01/22/16 Metoprolol Succinate [Toprol XL -] 50 mg PO DAILY 01/23/16 Atorvastatin Calcium [Lipitor] 10 mg PO HS 01/06/17 Roflumilast [Daliresp] 500 mcg PO DAILY 01/06/17 Aspirin [ASA -] 81 mg PO DAILY tab.chew 01/08/17 Pantoprazole Sodium [Protonix -] 40 mg PO DAILY #30 tablet.ec 01/08/17 Amlodipine Besylate [Norvasc -] 10 mg PO DAILY #30 tablet MDD 1 04/26/17 Lipase/Protease/Amylase [Creon Dr 6,000 Units Capsule] 3 cap PO TIDCM #100 tab MDD 3 04/26/17 Losartan Potassium [Cozaar -] 100 mg PO DAILY #30 tablet MDD 1 04/26/17 Methylnaltrexone [place] [Relistor -] 12 mg SQ DAILY #30 kit MDD 1 04/26/17 Rifaximin [Xifaxan -] 550 mg PO TID #60 tablet MDD 3 04/26/17 Hyoscyamine Sulfate 0.125 mg PO BID PRN #10 tab.rapdis 05/15/17 Family Disease History - Family Disease History Family Disease History: Heart Disease: Father ( of [place] 20yrs ago), [place]: Grandparent, Father, Mother, Brother, Sister, Son, Daughter Review of Systems - Review of Systems Constitutional: denies: Fever Cardiovascular: reports: No Symptoms Respiratory: reports: Wheezing Gastrointestinal: reports: Abdominal Pain Neurological: denies: Change in LOC Pain Intensity: 4 Physical Exam Vital Signs: Vital Signs Temperature 98.9 F 01/28/18 18:27 Pulse Rate 74 01/28/18 18:27 Respiratory Rate 18 01/28/18 18:27 Blood Pressure 169/92 01/28/18 18:27 O2 Sat by Pulse Oximetry (%) Constitutional: Yes: Calm HENT: Yes: WNL Neck: Yes: WNL Cardiovascular: Yes: WNL Respiratory: Yes: Diminished Gastrointestinal: Yes: Soft, Abdomen, Obese, Distention, Tenderness (Mild midabdominal tenderness). No: Tenderness, Rebound Labs: CBC, BMP 01/28/18 07:05 01/28/18 12:05 Imaging - Results X-ray: Report Reviewed, Image Reviewed Problem List - Problems (1) Abdominal distention Code(s): R14.0 - ABDOMINAL DISTENSION (GASEOUS) (2) Abdominal pain Code(s): R10.9 - UNSPECIFIED ABDOMINAL PAIN Qualifiers: Abdominal location: generalized Qualified Code(s): R10.84 - Generalized abdominal pain Assessment/Plan 72 male with abdominal distention CT A/P pending NPO IV fluids Serial abdominal exams
[2018-01-28] MEDS ORDERED: DEXTROSE 5%-NORMAL SALINE 1,000 ML IV SCH (22:02)
[2018-01-28] MEDS: QUEtiapine FUMARATE 25 MG TABLET (FP) PO SCH (22:46)
[2018-01-28] MEDS: ONDANSETRON 4 MG/2 ML VIAL IVPUSH SCH (22:56)
[2018-01-29] MEDS: ONDANSETRON 4 MG/2 ML VIAL IVPUSH SCH ×3 (02:50→10:45)
[2018-01-29] MEDS: morphine SULFATE 4 MG/ML VIAL IVPUSH PRN ×4 (04:33→20:31)
[2018-01-29] MEDS: FUROSEMIDE 40 MG/4 ML INJECTABLE VIAL IVPUSH SCH ×2 (06:40→10:47)
[2018-01-29] MEDS: INSULIN SLIDING SCALE (NOVOLOG) 1 VIAL SQ SCH ×3 (06:44→17:13)
[2018-01-29 07:17] LABS: BASO % 0.5 % (0-2.0); EOS % 3.7 % (0-4.5); HEMATOCRIT 40.7 % (35.4-49); HEMOGLOBIN 13.9 GM/dL (11.7-16.9); LYMPH % 26.2 % (8-40); MCH 31.4 pg (25.7-33.7); MCHC 34.1 g/dl (32.0-35.9); MEAN CELL VOLUME 92.1 fl (80-96); MONO % 12.5 % (3.8-10.2); NEUT % 57.1 % (42.8-82.8); PLATELET COUNT 330 K/MM3 (134-434); RBC 4.42 M/mm3 (4.00-5.60); RDW 14.1 % (11.9-15.9); WHITE BLOOD COUNT 5.1 K/mm3 (4.0-10.0)
[2018-01-29 07:51] LABS: CHLORIDE 98 mmol/L (98-107); POTASSIUM 3.4 mmol/L (3.5-5.1); SODIUM 136 mmol/L (136-145)
[2018-01-29 08:01] LABS: ALBUMIN 3.3 g/dl (3.4-5.0); ALK PHOS 64 U/L (45-117); ANION GAP 11 (8-16); BLOOD UREA NITROGEN 10 mg/dL (7-18); CALCIUM 8.4 mg/dL (8.5-10.1); CO2 27 mmol/L (21-32); GLUCOSE,RANDOM 151 mg/dL (74-106); LIPASE 62 U/L (73-393); MAGNESIUM 2.5 mg/dL (1.8-2.4); SGOT/AST 38 U/L (15-37); SGPT/ALT 47 U/L (12-78); TOT PROT 6.9 g/dl (6.4-8.2)
[2018-01-29] MEDS ORDERED: Methylnaltrexone Bromide 12 MG/0.6 ML KIT SQ SCH (10:00)
[2018-01-29] MEDS ORDERED: ONDANSETRON 4 MG/2 ML VIAL IVPUSH PRN (10:03)
[2018-01-29] MEDS ORDERED: PT OWN MED DRAWER 7, Y5N ONE (10:40)
[2018-01-29] MEDS: LOSARTAN POTASSIUM 50 MG TABLET (FP) PO SCH (10:47)
[2018-01-29] MEDS: amLODIPine BESYLATE 10 MG TABLET (FP) PO SCH (10:47)
[2018-01-29] MEDS: POTASSIUM CHLORIDE 10 MEQ in SODIUM CHLORIDE 100 ML IVPB SCH ×2 (11:39→13:54)
[2018-01-29] MEDS: KCL 10 MEQ IVPB 10 MEQ/100 ML INFUS.BAG IVPB SCH (12:21)
--- NOTE | 2018-01-29 18:37 | PN ---
GI Progress Note Subjective: continue to have abdomin pain, abdominal distention and constipation , no fever , no rectal bleeding - Objective Vital Signs: Vital Signs Temperature 98.4 F 01/29/18 18:00 Pulse Rate 84 01/29/18 18:00 Respiratory Rate 18 01/29/18 18:00 Blood Pressure 145/78 01/29/18 14:00 O2 Sat by Pulse Oximetry (%) 96 01/29/18 10:00 Constitutional: Well Nourished Eyes: Yes: Conjunctiva Clear HENT: Yes: Atraumatic Neck: Yes: Supple Cardiovascular: Yes: Regular Rate and Rhythm Respiratory: Yes: CTA Bilaterally ...Palpate: Yes: Soft, Tenderness (mild diffuse). No: Firm/Rigid, Guarding, Hepatomegaly, Mass, Pulsatile Mass, Splenomegaly Labs: CBC, BMP 01/29/18 06:00 01/29/18 06:00 INR, PTT INR 1.04 (0.82-1.09) 01/28/18 01:54 Problem List - Problems (1) IBS (irritable bowel syndrome) Assessment/Plan: with constipation, suspect bacterial overgrowth R> advance diet- low fiber lactose free flagyl 250mg tid pancreatic enzymes w Relistor then mantain with MOvantik as an outpatient made aware he will need colonoscopy as an outpatient to r/o malignancy Code(s): K58.9 - IRRITABLE BOWEL SYNDROME WITHOUT DIARRHEA
--- NOTE | 2018-01-29 20:30 | PN ---
Progress Note, Physician Chief Complaint: Abdominal pain History of Present Illness: Seen by GI still has abdominal pain morphine for pain management CT abd/pelvis shows colitis, ESR elevated started on Flagyl PO - Current Medication List Current Medications: Active Medications Amlodipine Besylate (Norvasc -) 10 mg PO DAILY [facility] Last Admin: 01/29/18 10:47 Dose: 10 mg Furosemide (Lasix Injection -) 40 mg IVPUSH DAILY [facility] Last Admin: 01/29/18 10:47 Dose: 40 mg Dextrose/Sodium Chloride (D5-Ns -) 1,000 mls @ 75 mls/hr IV ASDIR [facility] Stop: 01/30/18 11:21 Last Admin: 01/28/18 22:56 Dose: 75 mls/hr Insulin Aspart (Novolog Vial Sliding Scale -) 1 vial SQ TIDAC [facility] PRN Reason: Protocol Last Admin: 01/29/18 17:13 Dose: Not Given Losartan Potassium (Cozaar -) 100 mg PO DAILY [facility] Last Admin: 01/29/18 10:47 Dose: 100 mg Methylnaltrexone [place] (Relistor -) 12 mg SQ Q2D@1000 [facility] Metoclopramide HCl (Reglan -) 5 mg PO TIDAC [facility] Metronidazole (Flagyl -) 250 mg PO TID [facility] Morphine Sulfate (Morphine Sulfate) 4 mg IVPUSH Q4H PRN PRN Reason: PAIN LEVEL 7 - 10 Last Admin: 01/29/18 15:20 Dose: 4 mg Ondansetron HCl (Zofran Injection) 4 mg IVPUSH Q4H PRN PRN Reason: NAUSEA AND/OR VOMITING Pancrelipase (Creon Dr 36,000 Units Capsule) 1 cap PO TIDCM [facility] Pantoprazole Sodium (Protonix -) 40 mg PO BID [facility] Quetiapine Fumarate (Seroquel -) 50 mg PO HS [facility] Last Admin: 01/28/18 22:46 Dose: 50 mg - Objective Vital Signs: Vital Signs Temperature 98.4 F 01/29/18 18:00 Pulse Rate 84 01/29/18 18:00 Respiratory Rate 18 01/29/18 18:00 Blood Pressure 145/78 01/29/18 14:00 O2 Sat by Pulse Oximetry (%) 96 01/29/18 10:00 Constitutional: Yes: Well Nourished, No Distress, Calm Cardiovascular: Yes: Regular Rate and Rhythm Respiratory: Yes: Regular Gastrointestinal: Yes: Abdomen, Obese, Hypoactive Bowel Sounds, Tenderness Musculoskeletal: Yes: WNL Extremities: Yes: WNL Edema: Yes Edema: LLE: 1+, RLE: 1+ Peripheral Pulses WNL: Yes Neurological: Yes: Alert, Oriented Psychiatric: Yes: Alert, Oriented Labs: CBC, BMP 01/29/18 06:00 01/29/18 06:00 INR, PTT INR 1.04 (0.82-1.09) 01/28/18 01:54 Problem List - Problems (1) Colitis Assessment/Plan: -On Ct abd/pelvis -Seen by GI -Flagyl -Pain management -Colonoscopy outpatient Code(s): K52.9 - NONINFECTIVE GASTROENTERITIS AND COLITIS, UNSPECIFIED (2) Abdominal pain Assessment/Plan: -2/2 to colitis -Pain management -malignancy work up pending Code(s): R10.9 - UNSPECIFIED ABDOMINAL PAIN Qualifiers: Abdominal location: generalized Qualified Code(s): R10.84 - Generalized abdominal pain (3) CHF (congestive heart failure) Assessment/Plan: Chronic, -Diuretics -seen by cardiology -no cardiac intervention recommended at this time -D/C tele Code(s): I50.9 - HEART FAILURE, UNSPECIFIED (4) Hypokalemia Assessment/Plan: -2/2 to NPO status -diet restarted -Potassium supplement -repeat labs in AM Code(s): E87.6 - HYPOKALEMIA (5) Diabetes Assessment/Plan: -uncontrolled -non compliant -diabetic diet -BGM -Insulin -endocrinology consult -RD consult Code(s): E11.9 - TYPE 2 DIABETES MELLITUS WITHOUT COMPLICATIONS Qualifiers: Diabetes mellitus type: type 2 Assessment/Plan see problem list
[2018-01-29] MEDS: LIPASE/PROTEASE/AMYLASE 36,000 UNIT CAPSULE PO SCH (21:31)
[2018-01-29] MEDS: PANTOPRAZOLE 40 MG TABLET (FP) PO SCH (21:32)
[2018-01-29] MEDS: QUEtiapine FUMARATE 25 MG TABLET (FP) PO SCH (21:32)
[2018-01-29] MEDS: METOCLOPRAMIDE HCL 10 MG TABLET (FP) PO SCH (21:32)
[2018-01-29] MEDS: metroNIDAZOLE 250 MG TABLET PO SCH (21:32)
[2018-01-29] MEDS: Methylnaltrexone Bromide 12 MG/0.6 ML KIT SQ SCH (21:32)
--- NOTE | 2018-01-30 00:24 | CONSULT ---
Consult Consult Specialty:: endocrine Referred by:: jay kincaid md. Reason for Consultation:: diabetes mellitus / morbid obesity - History of Present Illness Chief Complaint: high sugar levels History of Present Illness: 72 y/o man with a PMHx of HTN, DM, Chronic Leg Edema. Who presents to the ED with abdominal pain, distention, SOB. Patient was admitted 01/23-01/26 for Sepsis secondary to UTI, and signed out AMA. Patient reports epigastric pain with distention. Patient reports lower leg swelling. he denies fever, chills, dizziness, CP, palpitations, N/V/D, dysuria.he has frequent hunger and difficulty controlling blood sugars - History Source History Provided By: Patient - Past Medical History Cardio/Vascular: Yes: HTN, Hyperlipdemia Gastrointestinal: Yes: Constipation, Pancreatitis, GERD, Other Hepatobiliary: Yes: Other (cholecystectomy) Musculoskeletal: Yes: Osteoarthritis, Other (chronic lower leg pain) Endocrine: Yes: Diabetes Mellitus - Past Surgical History Past Surgical History: Yes: Cholecystectomy - Alcohol/Substance Use Hx Alcohol Use: Yes (ocassional) History of Substance Use: reports: None - Smoking History Smoking history: Never smoked Have you smoked in the past 12 months: No - Social History ADL: Independent History of Recent Travel: No Home Medications - Allergies Allergies/Adverse Reactions: Allergies Allergy/AdvReac Type Severity Reaction Status Date / Time No Known Allergies Allergy Verified 07/18/17 03:07 - Home Medications Home Medications: Ambulatory Orders Gabapentin [Neurontin] 400 mg PO HS 01/22/16 Linagliptin/Metformin HCl [Jentadueto 2.5 mg-500 mg Tab] 1 each PO BID 01/22/16 Quetiapine Fumarate [Seroquel -] 50 mg PO HS 01/22/16 Tamsulosin HCl [Flomax -] 0.4 mg PO HS 01/22/16 Metoprolol Succinate [Toprol XL -] 50 mg PO DAILY 01/23/16 Atorvastatin Calcium [Lipitor] 10 mg PO HS 01/06/17 Roflumilast [Daliresp] 500 mcg PO DAILY 01/06/17 Aspirin [ASA -] 81 mg PO DAILY tab.chew 01/08/17 Pantoprazole Sodium [Protonix -] 40 mg PO DAILY #30 tablet.ec 01/08/17 Amlodipine Besylate [Norvasc -] 10 mg PO DAILY #30 tablet MDD 1 04/26/17 Lipase/Protease/Amylase [Creon Dr 6,000 Units Capsule] 3 cap PO TIDCM #100 tab MDD 3 04/26/17 Losartan Potassium [Cozaar -] 100 mg PO DAILY #30 tablet MDD 1 04/26/17 Methylnaltrexone [place] [Relistor -] 12 mg SQ DAILY #30 kit MDD 1 04/26/17 Rifaximin [Xifaxan -] 550 mg PO TID #60 tablet MDD 3 04/26/17 Hyoscyamine Sulfate 0.125 mg PO BID PRN #10 tab.rapdis 05/15/17 Family Disease History - Family Disease History Family Disease History: Heart Disease: Father ( of [place] 20yrs ago), [place]: Grandparent, Father, Mother, Brother, Sister, Son, Daughter Review of Systems - Review of Systems Constitutional: reports: Weakness Eyes: reports: Blurred Vision HENT: reports: No Symptoms Neck: reports: No Symptoms Cardiovascular: reports: Edema Respiratory: reports: Exercise Intolerance, SOB on Exertion Gastrointestinal: reports: Constipation Genitourinary: reports: Frequency Breasts: reports: No Symptoms Reported Musculoskeletal: reports: Joint Swelling, Muscle Weakness Integumentary: reports: No Symptoms Neurological: reports: Unsteady Gait, Weakness Physical Exam Vital Signs: Vital Signs Temperature 97.8 F 01/29/18 22:00 Pulse Rate 70 01/29/18 22:00 Respiratory Rate 18 01/29/18 22:00 Blood Pressure 151/83 01/29/18 22:00 O2 Sat by Pulse Oximetry (%) 96 01/29/18 21:00 Constitutional: Yes: Anxious Eyes: Yes: EOM Intact HENT: Yes: Normocephalic Neck: Yes: Trachea Midline Cardiovascular: Yes: Regular Rate and Rhythm Respiratory: Yes: CTA Bilaterally Gastrointestinal: Yes: Abdomen, Obese ...Rectal Exam: Yes: Deferred Renal/: Yes: WNL Breast(s): Yes: WNL Musculoskeletal: Yes: Joint Swelling, Muscle Weakness Extremities: Yes: Delayed Capillary Refill Edema: Yes Edema: LLE: 1+, RLE: 1+ Neurological: Yes: Alert, Oriented Labs: CBC, BMP 01/29/18 06:00 01/29/18 06:00 Problem List - Problems (1) Controlled diabetes mellitus type 2 with complications Code(s): E11.8 - TYPE 2 DIABETES MELLITUS WITH UNSPECIFIED COMPLICATIONS (2) Abdominal distention Code(s): R14.0 - ABDOMINAL DISTENSION (GASEOUS) (3) Abdominal pain Code(s): R10.9 - UNSPECIFIED ABDOMINAL PAIN Qualifiers: Abdominal location: generalized Qualified Code(s): R10.84 - Generalized abdominal pain (4) IBS (irritable bowel syndrome) Code(s): K58.9 - IRRITABLE BOWEL SYNDROME WITHOUT DIARRHEA (5) Abdominal pain with vomiting Code(s): R10.9 - UNSPECIFIED ABDOMINAL PAIN; R11.10 - VOMITING, UNSPECIFIED Assessment/Plan Current Active Problems Abdominal distention (Acute) Abdominal pain (Acute) CHF (congestive heart failure) (Acute) Colitis (Acute) Hypokalemia (Acute) IBS (irritable bowel syndrome) (Acute) diabetes mellitus hyperglycemia Abnormal Lab Results 01/29/18 01/29/18 01/29/18 06:00 06:00 06:00 MPV 7.0 L Monocytes % 12.5 H ESR Potassium 3.4 L Random Glucose 151 H Hemoglobin A1c % Calcium 8.4 L Magnesium 2.5 H AST 38 H Ammonia 35.67 H C-Reactive Protein Albumin 3.3 L Lipase 62 L 01/29/18 01/29/18 01/29/18 06:00 06:00 06:00 MPV Monocytes % ESR 34 H Potassium Random Glucose Hemoglobin A1c % 9.3 H D Calcium Magnesium AST Ammonia C-Reactive Protein 2.0 H Albumin Lipase Laboratory Results - last 24 hr 01/29/18 01/29/18 01/29/18 05:31 06:00 06:00 WBC 5.1 RBC 4.42 Hgb 13.9 Hct 40.7 MCV 92.1 MCH 31.4 MCHC 34.1 RDW 14.1 Plt Count 330 MPV 7.0 L Neutrophils % 57.1 Lymphocytes % 26.2 Monocytes % 12.5 H Eosinophils % 3.7 Basophils % 0.5 ESR Sodium 136 Potassium 3.4 L Chloride 98 Carbon Dioxide 27 Anion Gap 11 BUN 10 Creatinine 1.0 Creat Clearance w eGFR > 60 POC Glucometer 136 Random Glucose 151 H Hemoglobin A1c % Calcium 8.4 L Magnesium 2.5 H Total Bilirubin 1.0 D AST 38 H ALT 47 Alkaline Phosphatase 64 Ammonia C-Reactive Protein Total Protein 6.9 Albumin 3.3 L Total Amylase Lipase 62 L 01/29/18 01/29/18 01/29/18 06:00 06:00 06:00 WBC RBC Hgb Hct MCV MCH MCHC RDW Plt Count MPV Neutrophils % Lymphocytes % Monocytes % Eosinophils % Basophils % ESR Sodium Potassium Chloride Carbon Dioxide Anion Gap BUN Creatinine Creat Clearance w eGFR POC Glucometer Random Glucose Hemoglobin A1c % 9.3 H D Calcium Magnesium Total Bilirubin AST ALT Alkaline Phosphatase Ammonia 35.67 H C-Reactive Protein Total Protein Albumin Total Amylase 27 D Lipase 01/29/18 01/29/18 01/29/18 06:00 06:00 12:15 WBC RBC Hgb Hct MCV MCH MCHC RDW Plt Count MPV Neutrophils % Lymphocytes % Monocytes % Eosinophils % Basophils % ESR 34 H Sodium Potassium Chloride Carbon Dioxide Anion Gap BUN Creatinine Creat Clearance w eGFR POC Glucometer 194 Random Glucose Hemoglobin A1c % Calcium Magnesium Total Bilirubin AST ALT Alkaline Phosphatase Ammonia C-Reactive Protein 2.0 H Total Protein Albumin Total Amylase Lipase 01/29/18 17:02 WBC RBC Hgb Hct MCV MCH MCHC RDW Plt Count MPV Neutrophils % Lymphocytes % Monocytes % Eosinophils % Basophils % ESR Sodium Potassium Chloride Carbon Dioxide Anion Gap BUN Creatinine Creat Clearance w eGFR POC Glucometer 159 Random Glucose Hemoglobin A1c % Calcium Magnesium Total Bilirubin AST ALT Alkaline Phosphatase Ammonia C-Reactive Protein Total Protein Albumin Total Amylase Lipase plan: bgm achs novolog doses levemir 15 units am daily metformin 500mg bid diet nutrition for follow up glycemic control
[2018-01-30] MEDS: morphine SULFATE 4 MG/ML VIAL IVPUSH PRN ×5 (01:43→22:57)
[2018-01-30] MEDS: metroNIDAZOLE 250 MG TABLET PO SCH ×3 (05:54→22:51)
[2018-01-30] MEDS: INSULIN SLIDING SCALE (NOVOLOG) 1 VIAL SQ SCH ×3 (06:30→17:00)
[2018-01-30] MEDS: METOCLOPRAMIDE HCL 10 MG TABLET (FP) PO SCH ×3 (06:31→17:01)
[2018-01-30] MEDS: INSULIN DETEMIR 100 UNITS/ML MDV SQ SCH (06:31)
[2018-01-30 07:24] LABS: BASO % 0.5 % (0-2.0); EOS % 4.2 % (0-4.5); HEMATOCRIT 41.4 % (35.4-49); HEMOGLOBIN 14.2 GM/dL (11.7-16.9); LYMPH % 26.9 % (8-40); MCH 31.6 pg (25.7-33.7); MCHC 34.3 g/dl (32.0-35.9); MEAN CELL VOLUME 92.1 fl (80-96); MEAN PLT VOLUME 6.9 fl (7.5-11.1); MONO % 10.9 % (3.8-10.2); NEUT % 57.5 % (42.8-82.8); PLATELET COUNT 366 K/MM3 (134-434); RBC 4.49 M/mm3 (4.00-5.60); WHITE BLOOD COUNT 5.9 K/mm3 (4.0-10.0)
[2018-01-30] MEDS ORDERED: PT OWN MED DRAWER 7, Y5N ONE ×3 (09:09→22:34)
[2018-01-30] MEDS: amLODIPine BESYLATE 10 MG TABLET (FP) PO SCH (10:01)
[2018-01-30] MEDS: FUROSEMIDE 40 MG/4 ML INJECTABLE VIAL IVPUSH SCH (10:01)
[2018-01-30] MEDS: PANTOPRAZOLE 40 MG TABLET (FP) PO SCH ×2 (10:02→22:51)
[2018-01-30] MEDS: LOSARTAN POTASSIUM 50 MG TABLET (FP) PO SCH (10:02)
[2018-01-30] MEDS: LIPASE/PROTEASE/AMYLASE 36,000 UNIT CAPSULE PO SCH ×3 (10:02→18:47)
--- NOTE | 2018-01-30 10:48 | PN ---
Progress Note (short form) - Note Progress Note: No new events reported Abdominal CT shows colitis, no evidence of obstruction or free air Vital Signs Period Temp Pulse Resp BP Sys/Hayes Pulse Ox Last 24 Hr 97.2 F-98.5 F 69-84 18-20 145-159/76-83 96 CBC, BMP 01/30/18 06:00 Antibiotics per ID On diet- continue as tolerated No acute emergent surgical intervention needed at this time Continue medical management Problem List - Problems (1) Abdominal distention Code(s): R14.0 - ABDOMINAL DISTENSION (GASEOUS) (2) Abdominal pain Code(s): R10.9 - UNSPECIFIED ABDOMINAL PAIN Qualifiers: Abdominal location: generalized Qualified Code(s): R10.84 - Generalized abdominal pain
[2018-01-30 11:11] LABS: CHLORIDE 100 mmol/L (98-107); POTASSIUM 3.9 mmol/L (3.5-5.1); SODIUM 136 mmol/L (136-145)
--- NOTE | 2018-01-30 11:39 | PN ---
Progress Note, Physician Chief Complaint: Abdominal pain History of Present Illness: Seen by GI still has abdominal pain morphine for pain management CT abd/pelvis shows colitis, ESR elevated started on Flagyl PO -Lactose free low fiber diabetic diet RD consult Physical therapy - Current Medication List Current Medications: Active Medications Amlodipine Besylate (Norvasc -) 10 mg PO DAILY [facility] Last Admin: 01/30/18 10:01 Dose: 10 mg Furosemide (Lasix Injection -) 40 mg IVPUSH DAILY [facility] Last Admin: 01/30/18 10:01 Dose: 40 mg Insulin Aspart (Novolog Vial Sliding Scale -) 1 vial SQ TIDAC [facility] PRN Reason: Protocol Last Admin: 01/30/18 06:30 Dose: 2 units Insulin Detemir (Levemir Vial) 15 units SQ AM [facility] Last Admin: 01/30/18 06:31 Dose: 15 units Losartan Potassium (Cozaar -) 100 mg PO DAILY [facility] Last Admin: 01/30/18 10:02 Dose: 100 mg Metformin HCl (Glucophage Xr -) 500 mg PO BID [facility] Last Admin: 01/30/18 10:01 Dose: 500 mg Methylnaltrexone [place] (Relistor -) 12 mg SQ Q2D@1000 [facility] Last Admin: 01/29/18 21:32 Dose: 12 mg Metoclopramide HCl (Reglan -) 5 mg PO TIDAC [facility] Last Admin: 01/30/18 10:02 Dose: 5 mg Metronidazole (Flagyl -) 250 mg PO TID [facility] Last Admin: 01/30/18 05:54 Dose: 250 mg Morphine Sulfate (Morphine Sulfate) 4 mg IVPUSH Q4H PRN PRN Reason: PAIN LEVEL 7 - 10 Last Admin: 01/30/18 05:53 Dose: 4 mg Ondansetron HCl (Zofran Injection) 4 mg IVPUSH Q4H PRN PRN Reason: NAUSEA AND/OR VOMITING Pancrelipase (Creon Dr 36,000 Units Capsule) 1 cap PO TIDCM [facility] Last Admin: 01/30/18 10:02 Dose: 1 cap Pantoprazole Sodium (Protonix -) 40 mg PO BID [facility] Last Admin: 01/30/18 10:02 Dose: 40 mg Quetiapine Fumarate (Seroquel -) 50 mg PO HS [facility] Last Admin: 01/29/18 21:32 Dose: 50 mg - Objective Vital Signs: Vital Signs Temperature 97.8 F 01/30/18 06:00 Pulse Rate 72 01/30/18 06:00 Respiratory Rate 18 01/30/18 06:00 Blood Pressure 159/76 01/30/18 06:00 O2 Sat by Pulse Oximetry (%) 96 01/29/18 21:00 Constitutional: Yes: Well Nourished, No Distress, Calm Cardiovascular: Yes: Regular Rate and Rhythm Respiratory: Yes: Regular Gastrointestinal: Yes: Normal Bowel Sounds, Abdomen, Obese, Tenderness Musculoskeletal: Yes: WNL Extremities: Yes: WNL Edema: No Peripheral Pulses WNL: Yes Neurological: Yes: Alert, Oriented Psychiatric: Yes: Alert, Oriented Labs: CBC, BMP 01/30/18 06:00 01/30/18 06:00 INR, PTT INR 1.04 (0.82-1.09) 01/28/18 01:54 Problem List - Problems (1) Colitis Assessment/Plan: -On Ct abd/pelvis -Seen by GI -Flagyl -Pain management -Colonoscopy outpatient Code(s): K52.9 - NONINFECTIVE GASTROENTERITIS AND COLITIS, UNSPECIFIED (2) Abdominal pain Assessment/Plan: -2/2 to colitis -Pain management -malignancy work up pending Code(s): R10.9 - UNSPECIFIED ABDOMINAL PAIN Qualifiers: Abdominal location: generalized Qualified Code(s): R10.84 - Generalized abdominal pain (3) CHF (congestive heart failure) Assessment/Plan: Chronic, -Diuretics, switch lasix to Spironolactone 25 mg upon discharge -seen by cardiology -no cardiac intervention recommended at this time -D/C tele Code(s): I50.9 - HEART FAILURE, UNSPECIFIED (4) Hypokalemia Assessment/Plan: -normalized -2/2 to NPO status -diet restarted -Potassium supplement -repeat labs in AM Code(s): E87.6 - HYPOKALEMIA (5) Diabetes Assessment/Plan: -uncontrolled -non compliant -diabetic diet -BGM -Insulin- levemir 15 U QAM -Metformin XR 500 mg po BID -endocrinology consult -RD consult Code(s): E11.9 - TYPE 2 DIABETES MELLITUS WITHOUT COMPLICATIONS Qualifiers: Diabetes mellitus type: type 2 Assessment/Plan see problem list Physical therapy
[2018-01-30 11:57] LABS: ALBUMIN 3.2 g/dl (3.4-5.0); ALK PHOS 68 U/L (45-117); ANION GAP 9 (8-16); BILIRUBIN,TOTAL 0.5 mg/dL (0.2-1.0); BLOOD UREA NITROGEN 8 mg/dL (7-18); CALCIUM 8.4 mg/dL (8.5-10.1); CO2 27 mmol/L (21-32); CREATININE 1.1 mg/dL (0.7-1.3); GLUCOSE,RANDOM 143 mg/dL (74-106); SGOT/AST 29 U/L (15-37); SGPT/ALT 39 U/L (12-78); TOT PROT 6.6 g/dl (6.4-8.2)
[2018-01-30] MEDS: QUEtiapine FUMARATE 25 MG TABLET (FP) PO SCH (22:51)
[2018-01-31] MEDS: morphine SULFATE 4 MG/ML VIAL IVPUSH PRN ×4 (03:34→20:36)
[2018-01-31] MEDS ORDERED: INSULIN (NOVOLOG) ASPART 100 UNITS/ML 10ML VIAL ONE ×2 (06:50→12:54)
[2018-01-31] MEDS: METOCLOPRAMIDE HCL 10 MG TABLET (FP) PO SCH ×3 (06:54→17:12)
[2018-01-31] MEDS: INSULIN DETEMIR 100 UNITS/ML MDV SQ SCH (06:54)
[2018-01-31] MEDS: metroNIDAZOLE 250 MG TABLET PO SCH ×3 (06:54→21:41)
[2018-01-31] MEDS: INSULIN SLIDING SCALE (NOVOLOG) 1 VIAL SQ SCH ×3 (06:55→17:11)
[2018-01-31] MEDS ORDERED: PT OWN MED DRAWER 7, Y5N ONE ×3 (08:30→10:55)
[2018-01-31] MEDS: LIPASE/PROTEASE/AMYLASE 36,000 UNIT CAPSULE PO SCH ×3 (08:48→17:12)
[2018-01-31] MEDS: FUROSEMIDE 40 MG/4 ML INJECTABLE VIAL IVPUSH SCH (09:01)
[2018-01-31] MEDS: LOSARTAN POTASSIUM 50 MG TABLET (FP) PO SCH (09:01)
[2018-01-31] MEDS: amLODIPine BESYLATE 10 MG TABLET (FP) PO SCH (09:01)
[2018-01-31] MEDS: PANTOPRAZOLE 40 MG TABLET (FP) PO SCH ×2 (09:01→21:41)
[2018-01-31] MEDS: Methylnaltrexone Bromide 12 MG/0.6 ML KIT SQ SCH (11:37)
--- NOTE | 2018-01-31 12:22 | PN ---
Progress Note, Physician Chief Complaint: patient sitting in bed eating food appears comfortable but says he is having abdominal pain - Current Medication List Current Medications: Active Medications Amlodipine Besylate (Norvasc -) 10 mg PO DAILY [facility] Last Admin: 01/31/18 09:01 Dose: 10 mg Furosemide (Lasix Injection -) 40 mg IVPUSH DAILY [facility] Last Admin: 01/31/18 09:01 Dose: 40 mg Insulin Aspart (Novolog Vial Sliding Scale -) 1 vial SQ TIDAC [facility] PRN Reason: Protocol Last Admin: 01/31/18 06:55 Dose: 2 units Insulin Detemir (Levemir Vial) 15 units SQ AM [facility] Last Admin: 01/31/18 06:54 Dose: 15 units Losartan Potassium (Cozaar -) 100 mg PO DAILY [facility] Last Admin: 01/31/18 09:01 Dose: 100 mg Metformin HCl (Glucophage Xr -) 500 mg PO BID [facility] Last Admin: 01/31/18 09:01 Dose: 500 mg Methylnaltrexone [place] (Relistor -) 12 mg SQ Q2D@1000 [facility] Last Admin: 01/31/18 11:37 Dose: 12 mg Metoclopramide HCl (Reglan -) 5 mg PO TIDAC [facility] Last Admin: 01/31/18 06:54 Dose: 5 mg Metronidazole (Flagyl -) 250 mg PO TID [facility] Last Admin: 01/31/18 06:54 Dose: 250 mg Ondansetron HCl (Zofran Injection) 4 mg IVPUSH Q4H PRN PRN Reason: NAUSEA AND/OR VOMITING Pancrelipase (Creon Dr 36,000 Units Capsule) 1 cap PO TIDCM [facility] Last Admin: 01/31/18 08:48 Dose: 1 cap Pantoprazole Sodium (Protonix -) 40 mg PO BID [facility] Last Admin: 01/31/18 09:01 Dose: 40 mg Quetiapine Fumarate (Seroquel -) 50 mg PO HS [facility] Last Admin: 01/30/18 22:51 Dose: 50 mg - Objective Vital Signs: Vital Signs Temperature 98.6 F 01/31/18 11:00 Pulse Rate 71 01/31/18 11:00 Respiratory Rate 18 01/31/18 11:00 Blood Pressure 147/79 01/31/18 11:00 O2 Sat by Pulse Oximetry (%) 96 01/31/18 09:00 Constitutional: Yes: Calm Cardiovascular: Yes: Regular Rate and Rhythm, S1, S2 Respiratory: Yes: CTA Bilaterally Gastrointestinal: Yes: Normal Bowel Sounds, Soft Neurological: Yes: Alert, Oriented Labs: CBC, BMP 01/30/18 06:00 01/30/18 06:00 INR, PTT INR 1.04 (0.82-1.09) 01/28/18 01:54 Problem List - Problems (1) Abdominal pain Assessment/Plan: ct scan shows colitis on flagyl on pancreatyic enzymes for IBS to follow with GI today regarding further plan of care he feels that he is not ready to go home Code(s): R10.9 - UNSPECIFIED ABDOMINAL PAIN Qualifiers: Abdominal location: generalized Qualified Code(s): R10.84 - Generalized abdominal pain (2) CHF (congestive heart failure) Assessment/Plan: iv lasix to stop today- improved will change to po lasix cozaar and toprol norvasc Code(s): I50.9 - HEART FAILURE, UNSPECIFIED (3) Hypokalemia Assessment/Plan: repleted Code(s): E87.6 - HYPOKALEMIA (4) Constipation Assessment/Plan: relistor for now to change to movantik when goes home Code(s): K59.00 - CONSTIPATION, UNSPECIFIED Assessment/Plan tomer have GI see patient regarding dc plaaning if cleared by GI will discharge
--- NOTE | 2018-01-31 13:05 | PN ---
Progress Note (short form) - Note Progress Note: No new events Pain improved On diet Vital Signs Period Temp Pulse Resp BP Sys/Hayes Pulse Ox Last 24 Hr 98.1 F-98.6 F 71-116 18-18 142-169/62-89 96-98 Abd soft, minimal tenderness CBC, BMP 01/30/18 06:00 01/30/18 06:00 Continue diet Colonoscopy as outpatient Problem List - Problems (1) Abdominal distention Code(s): R14.0 - ABDOMINAL DISTENSION (GASEOUS) (2) Abdominal pain Code(s): R10.9 - UNSPECIFIED ABDOMINAL PAIN Qualifiers: Abdominal location: generalized Qualified Code(s): R10.84 - Generalized abdominal pain
[2018-01-31] MEDS: QUEtiapine FUMARATE 25 MG TABLET (FP) PO SCH (21:41)
--- NOTE | 2018-01-31 23:48 | PN ---
Progress Note, Physician Chief Complaint: abdominal pain History of Present Illness: dm type 2,abdominal pain likely colitis with some bloating - Current Medication List Current Medications: Active Medications Amlodipine Besylate (Norvasc -) 10 mg PO DAILY [facility] Last Admin: 01/31/18 09:01 Dose: 10 mg Insulin Aspart (Novolog Vial Sliding Scale -) 1 vial SQ TIDAC [facility] PRN Reason: Protocol Last Admin: 01/31/18 17:11 Dose: 2 units Insulin Detemir (Levemir Vial) 15 units SQ AM [facility] Last Admin: 01/31/18 06:54 Dose: 15 units Losartan Potassium (Cozaar -) 100 mg PO DAILY [facility] Last Admin: 01/31/18 09:01 Dose: 100 mg Methylnaltrexone [place] (Relistor -) 12 mg SQ Q2D@1000 [facility] Last Admin: 01/31/18 11:37 Dose: 12 mg Metoclopramide HCl (Reglan -) 5 mg PO TIDAC [facility] Last Admin: 01/31/18 17:12 Dose: 5 mg Metronidazole (Flagyl -) 250 mg PO TID [facility] Last Admin: 01/31/18 21:41 Dose: 250 mg Morphine Sulfate (Morphine Sulfate) 4 mg IVPUSH Q4H PRN PRN Reason: PAIN LEVEL 7 - 10 Last Admin: 01/31/18 20:36 Dose: 4 mg Ondansetron HCl (Zofran Injection) 4 mg IVPUSH Q4H PRN PRN Reason: NAUSEA AND/OR VOMITING Pancrelipase (Creon Dr 36,000 Units Capsule) 1 cap PO TIDCM [facility] Last Admin: 01/31/18 17:12 Dose: 1 cap Pantoprazole Sodium (Protonix -) 40 mg PO BID [facility] Last Admin: 01/31/18 21:41 Dose: 40 mg Quetiapine Fumarate (Seroquel -) 50 mg PO HS [facility] Last Admin: 01/31/18 21:41 Dose: 50 mg - Objective Vital Signs: Vital Signs Temperature 98.3 F 01/31/18 22:00 Pulse Rate 92 H 01/31/18 22:00 Respiratory Rate 20 01/31/18 22:00 Blood Pressure 158/98 01/31/18 22:00 O2 Sat by Pulse Oximetry (%) 97 01/31/18 20:55 Constitutional: Yes: Well Nourished Eyes: Yes: EOM Intact HENT: Yes: Normocephalic Neck: Yes: Trachea Midline Cardiovascular: Yes: Regular Rate and Rhythm Respiratory: Yes: CTA Bilaterally Gastrointestinal: Yes: Abdomen, Obese ...Rectal Exam: Yes: Deferred Genitourinary: Yes: WNL Breast(s): Yes: WNL Musculoskeletal: Yes: Muscle Weakness Extremities: Yes: WNL Edema: No Peripheral Pulses WNL: Yes Integumentary: Yes: WNL Neurological: Yes: Alert, Oriented Labs: CBC, BMP 01/30/18 06:00 01/30/18 06:00 INR, PTT INR 1.04 (0.82-1.09) 01/28/18 01:54 Problem List - Problems (1) Controlled diabetes mellitus type 2 with complications Code(s): E11.8 - TYPE 2 DIABETES MELLITUS WITH UNSPECIFIED COMPLICATIONS (2) Abdominal distention Code(s): R14.0 - ABDOMINAL DISTENSION (GASEOUS) (3) Abdominal pain Code(s): R10.9 - UNSPECIFIED ABDOMINAL PAIN Qualifiers: Abdominal location: generalized Qualified Code(s): R10.84 - Generalized abdominal pain (4) IBS (irritable bowel syndrome) Code(s): K58.9 - IRRITABLE BOWEL SYNDROME WITHOUT DIARRHEA (5) Abdominal pain with vomiting Code(s): R10.9 - UNSPECIFIED ABDOMINAL PAIN; R11.10 - VOMITING, UNSPECIFIED Assessment/Plan Current Active Problems Abdominal distention (Acute) Abdominal pain (Acute) CHF (congestive heart failure) (Acute) Colitis (Acute) Constipation (Acute) Controlled diabetes mellitus type 2 with complications (Acute) Hypokalemia (Acute) IBS (irritable bowel syndrome) (Acute) Laboratory Results - last 24 hr 01/31/18 01/31/18 01/31/18 06:53 12:47 16:36 POC Glucometer 153 170 166 01/31/18 20:27 POC Glucometer 137 plan bgm qid novolog insulin dose levemir/novolog doses dc oral metformin follow up bgm and clinical reevaluate oral agent once gi symptoms improve
[2018-02-01] MEDS: morphine SULFATE 4 MG/ML VIAL IVPUSH PRN ×5 (00:25→20:22)
[2018-02-01] MEDS: metroNIDAZOLE 250 MG TABLET PO SCH ×3 (05:56→21:23)
[2018-02-01] MEDS: INSULIN SLIDING SCALE (NOVOLOG) 1 VIAL SQ SCH ×3 (06:01→18:25)
[2018-02-01] MEDS: METOCLOPRAMIDE HCL 10 MG TABLET (FP) PO SCH ×3 (06:01→18:25)
[2018-02-01] MEDS: INSULIN DETEMIR 100 UNITS/ML MDV SQ SCH (06:52)
[2018-02-01] MEDS ORDERED: PT OWN MED DRAWER 7, Y5N ONE ×3 (08:39→18:22)
[2018-02-01] MEDS: PANTOPRAZOLE 40 MG TABLET (FP) PO SCH ×2 (10:03→21:23)
[2018-02-01] MEDS: LIPASE/PROTEASE/AMYLASE 36,000 UNIT CAPSULE PO SCH ×3 (10:03→18:26)
[2018-02-01] MEDS: amLODIPine BESYLATE 10 MG TABLET (FP) PO SCH (10:03)
[2018-02-01] MEDS: LOSARTAN POTASSIUM 50 MG TABLET (FP) PO SCH (10:03)
--- NOTE | 2018-02-01 16:36 | PN ---
Progress Note, Physician Chief Complaint: AWAKE ALERT STILL IN PAIN THIS IS MY FIRST ENCOUNTER WITH THIS PATIENT EVENTS AND NOTES REVIEWED - Current Medication List Current Medications: Active Medications Amlodipine Besylate (Norvasc -) 10 mg PO DAILY [facility] Last Admin: 02/01/18 10:03 Dose: 10 mg Insulin Aspart (Novolog Vial Sliding Scale -) 1 vial SQ TIDAC [facility] PRN Reason: Protocol Last Admin: 02/01/18 13:54 Dose: Not Given Insulin Detemir (Levemir Vial) 15 units SQ AM [facility] Last Admin: 02/01/18 06:52 Dose: 15 units Losartan Potassium (Cozaar -) 100 mg PO DAILY [facility] Last Admin: 02/01/18 10:03 Dose: 100 mg Methylnaltrexone [place] (Relistor -) 12 mg SQ Q2D@1000 [facility] Last Admin: 01/31/18 11:37 Dose: 12 mg Metoclopramide HCl (Reglan -) 5 mg PO TIDAC [facility] Last Admin: 02/01/18 12:04 Dose: 5 mg Metronidazole (Flagyl -) 250 mg PO TID [facility] Last Admin: 02/01/18 14:43 Dose: 250 mg Morphine Sulfate (Morphine Sulfate) 4 mg IVPUSH Q4H PRN PRN Reason: PAIN LEVEL 7 - 10 Last Admin: 02/01/18 15:43 Dose: 4 mg Ondansetron HCl (Zofran Injection) 4 mg IVPUSH Q4H PRN PRN Reason: NAUSEA AND/OR VOMITING Pancrelipase (Creon Dr 36,000 Units Capsule) 1 cap PO TIDCM [facility] Last Admin: 02/01/18 13:54 Dose: Not Given Pantoprazole Sodium (Protonix -) 40 mg PO BID [facility] Last Admin: 02/01/18 10:03 Dose: 40 mg Quetiapine Fumarate (Seroquel -) 50 mg PO HS [facility] Last Admin: 01/31/18 21:41 Dose: 50 mg - Objective Vital Signs: Vital Signs Temperature 98.4 F 02/01/18 14:59 Pulse Rate 81 02/01/18 14:59 Respiratory Rate 20 02/01/18 14:59 Blood Pressure 153/79 02/01/18 14:59 O2 Sat by Pulse Oximetry (%) 97 02/01/18 08:51 Constitutional: Yes: Mild Distress Eyes: Yes: WNL HENT: Yes: WNL Neck: Yes: WNL Cardiovascular: Yes: WNL Respiratory: Yes: WNL Gastrointestinal: Yes: Distention, Tenderness Genitourinary: Yes: WNL Musculoskeletal: Yes: WNL Extremities: Yes: WNL Edema: No Peripheral Pulses WNL: Yes Integumentary: Yes: WNL Wound/Incision: Yes: Clean/Dry Neurological: Yes: WNL ...Motor Strength: WNL Psychiatric: Yes: WNL Labs: CBC, BMP 01/30/18 06:00 01/30/18 06:00 INR, PTT INR 1.04 (0.82-1.09) 01/28/18 01:54 Problem List - Problems (1) Abdominal distention Code(s): R14.0 - ABDOMINAL DISTENSION (GASEOUS) (2) Abdominal pain Code(s): R10.9 - UNSPECIFIED ABDOMINAL PAIN Qualifiers: Abdominal location: generalized Qualified Code(s): R10.84 - Generalized abdominal pain (3) Colitis Code(s): K52.9 - NONINFECTIVE GASTROENTERITIS AND COLITIS, UNSPECIFIED (4) Constipation Code(s): K59.00 - CONSTIPATION, UNSPECIFIED (5) Controlled diabetes mellitus type 2 with complications Code(s): E11.8 - TYPE 2 DIABETES MELLITUS WITH UNSPECIFIED COMPLICATIONS (6) IBS (irritable bowel syndrome) Code(s): K58.9 - IRRITABLE BOWEL SYNDROME WITHOUT DIARRHEA (7) Abnormal CT of the abdomen Code(s): R93.5 - ABN FINDINGS ON DX IMAGING OF ABD REGIONS, INC RETROPERITON Assessment/Plan IV ABX ADVANCING DIET GI/SURGERY FOLLOW UP CHECK ESR AND CBC IN MORNING DC PLANNING TOMORROW
[2018-02-01] MEDS: CEFTRIAXONE 2 GM in DEXTROSE 5%-WATER - 100 ML IVPB SCH (18:26)
[2018-02-01] MEDS: LACTOBACILLUS ACIDOPHILUS 1 CAP PO SCH (18:27)
[2018-02-01] MEDS: QUEtiapine FUMARATE 25 MG TABLET (FP) PO SCH (21:23)
[2018-02-02] MEDS: morphine SULFATE 4 MG/ML VIAL IVPUSH PRN ×3 (00:23→10:11)
[2018-02-02] MEDS: METOCLOPRAMIDE HCL 10 MG TABLET (FP) PO SCH ×2 (06:03→11:43)
[2018-02-02] MEDS: metroNIDAZOLE 250 MG TABLET PO SCH (06:03)
[2018-02-02] MEDS ORDERED: INSULIN (NOVOLOG) ASPART 100 UNITS/ML 10ML VIAL ONE (06:16)
[2018-02-02] MEDS: INSULIN SLIDING SCALE (NOVOLOG) 1 VIAL SQ SCH ×2 (06:20→14:05)
[2018-02-02] MEDS: INSULIN DETEMIR 100 UNITS/ML MDV SQ SCH (06:20)
[2018-02-02 07:02] LABS: HEMATOCRIT 40.9 % (35.4-49); HEMOGLOBIN 14.1 GM/dL (11.7-16.9); MCH 31.7 pg (25.7-33.7); MCHC 34.4 g/dl (32.0-35.9); MEAN CELL VOLUME 92.3 fl (80-96); MEAN PLT VOLUME 6.6 fl (7.5-11.1); PLATELET COUNT 386 K/MM3 (134-434); RBC 4.43 M/mm3 (4.00-5.60); RDW 14.1 % (11.9-15.9); WHITE BLOOD COUNT 7.9 K/mm3 (4.0-10.0)
[2018-02-02 07:07] LABS: CHLORIDE 101 mmol/L (98-107); POTASSIUM 4.4 mmol/L (3.5-5.1); SODIUM 137 mmol/L (136-145)
[2018-02-02 07:11] LABS: ANION GAP 6 (8-16); BLOOD UREA NITROGEN 15 mg/dL (7-18); CALCIUM 8.8 mg/dL (8.5-10.1); CO2 30 mmol/L (21-32); CREATININE 1.1 mg/dL (0.7-1.3); GLUCOSE,RANDOM 145 mg/dL (74-106)
[2018-02-02] MEDS ORDERED: PT OWN MED DRAWER 7, Y5N ONE ×2 (08:49→11:42)
[2018-02-02 09:13] VITALS: BP 152/90; PULSE 86; TEMP 98
[2018-02-02] MEDS: PANTOPRAZOLE 40 MG TABLET (FP) PO SCH (09:15)
[2018-02-02] MEDS: amLODIPine BESYLATE 10 MG TABLET (FP) PO SCH (09:15)
[2018-02-02] MEDS: LACTOBACILLUS ACIDOPHILUS 1 CAP PO SCH (09:15)
[2018-02-02] MEDS: LIPASE/PROTEASE/AMYLASE 36,000 UNIT CAPSULE PO SCH ×2 (09:15→14:05)
[2018-02-02] MEDS: LOSARTAN POTASSIUM 50 MG TABLET (FP) PO SCH (09:15)
[2018-02-02 09:36] LABS: ERYTHROCYTE SEDIMENTATION RATE 18 mm/hr (0-20)
--- NOTE | 2018-02-02 10:46 | DS ---
Physical Examination Vital Signs: Vital Signs Temperature 98 F 02/02/18 09:00 Pulse Rate 86 02/02/18 09:00 Respiratory Rate 18 02/02/18 09:00 Blood Pressure 152/90 02/02/18 09:00 O2 Sat by Pulse Oximetry (%) 97 02/02/18 09:00 Findings/Remarks: AWAKE ALERT TOLERATING PO DIET NO FEVERS ESR NORMAL Constitutional: Yes: No Distress Eyes: Yes: WNL HENT: Yes: WNL Neck: Yes: WNL Cardiovascular: Yes: WNL Respiratory: Yes: WNL Gastrointestinal: Yes: WNL Renal/: Yes: WNL Musculoskeletal: Yes: Muscle Weakness Extremities: Yes: WNL Edema: No Peripheral Pulses WNL: Yes Integumentary: Yes: WNL Wound/Incision: Yes: Clean/Dry Neurological: Yes: WNL ...Motor Strength: WNL Psychiatric: Yes: WNL Labs: CBC, BMP 02/02/18 05:30 02/02/18 05:30 Discharge Summary Reason For Visit: HYPOKALEMIA ABDOMINAL PAIN CHF Current Active Problems Abdominal distention (Acute) Abdominal pain (Acute) CHF (congestive heart failure) (Acute) Colitis (Acute) Constipation (Acute) Controlled diabetes mellitus type 2 with complications (Acute) Hypokalemia (Acute) IBS (irritable bowel syndrome) (Acute) Procedures: Principal: CT SCAN Other Procedures: ADMITTED ABD PAIN ACUTE COLITIS IV ABX GIVEN, DIET ADVANCED. AND TOLERATED Condition: Stable - Instructions Diet, Activity, Other Instructions: -Diabetic low fiber lactose free diet -Follow up with PCP within 1 week -Follow up with Gastroenterology in 1 weeks Referrals: Donna Galdamez MD [Primary Care Provider] - Rusty Isidro MD [Staff Physician] - Mian Aceves MD [Staff Physician] - Disposition: VNS/HOME HEALTH CARE - Home Medications Comprehensive Discharge Medication List: Ambulatory Orders Gabapentin [Neurontin] 400 mg PO HS 01/22/16 Quetiapine Fumarate [Seroquel -] 50 mg PO HS 01/22/16 Tamsulosin HCl [Flomax -] 0.4 mg PO HS 01/22/16 Atorvastatin Calcium [Lipitor] 10 mg PO HS 01/06/17 Roflumilast [Daliresp] 500 mcg PO DAILY 01/06/17 Aspirin [ASA -] 81 mg PO DAILY tab.chew 01/08/17 Pantoprazole Sodium [Protonix -] 40 mg PO DAILY #30 tablet.ec 01/08/17 Amlodipine Besylate [Norvasc -] 10 mg PO DAILY #30 tablet MDD 1 04/26/17 Lipase/Protease/Amylase [Creon Dr 6,000 Units Capsule] 3 cap PO TIDCM #100 tab MDD 3 04/26/17 Losartan Potassium [Cozaar -] 100 mg PO DAILY #30 tablet MDD 1 04/26/17 Methylnaltrexone [place] [Relistor -] 12 mg SQ DAILY #30 kit MDD 1 04/26/17 Rifaximin [Xifaxan -] 550 mg PO TID #60 tablet MDD 3 04/26/17 Hyoscyamine Sulfate 0.125 mg PO BID PRN #10 tab.rapdis 05/15/17 Insulin Detemir [Levemir Flextouch] 15 unit SQ AM #1 insuln.pen 01/30/18 Metoclopramide HCl [Reglan -] 5 mg PO TIDAC #90 tablet 01/30/18 Naloxegol Oxalate [Movantik] 25 mg PO AM #30 tablet 01/30/18 Pen Needle, Diabetic [Bd Ultra-Fine Pen Needle] 1 each MC AM #100 dis.needle metFORMIN XR [Glucophage Xr -] 500 mg PO BID #60 tab.sr.24h 01/30/18 metroNIDAZOLE [Flagyl -] 250 mg PO TID #12 tablet 01/30/18
[2018-02-02] MEDS: CEFTRIAXONE 2 GM in DEXTROSE 5%-WATER - 100 ML IVPB SCH (11:39)
[2018-02-02] MEDS: Methylnaltrexone Bromide 12 MG/0.6 ML KIT SQ SCH (11:43)
== END 2018-02-02 13:58 | disposition home health service (06) | DRG 391 ==
LOC: JER 00:39 → INTOOBSV 03:37 → JERBED 03:37 → UNDOADMIN 03:43 → J4S 06:43 → OBSVTOIN 08:10
PROVIDERS: ADMIT Internal Medicine; ATTEND Family Medicine
DX: K52.9 Noninfective gastroenteritis and colitis, unspecified (principal); I50.31 Acute diastolic (congestive) heart failure; I11.0 Hypertensive heart disease with heart failure; I50.9 Heart failure, unspecified; E87.6 Hypokalemia; K59.00 Constipation, unspecified; K58.9 Irritable bowel syndrome, unspecified; E66.01 Morbid (severe) obesity due to excess calories; Z68.37 Body mass index [BMI] 37.0-37.9, adult; K21.9 Gastro-esophageal reflux disease without esophagitis; E11.65 Type 2 diabetes mellitus with hyperglycemia
CPT/HCPCS: 36415; 71045-TC-FY; 74019-TC-FY; 74176-TC; 80048; 80053; 81003; 82140; 82150; 82550; 82553; 82962; 83036; 83605; 83690; 83735; 83880; 84484; 85025; 85027; 85610; 85651; 86140; 86850; 86900; 86901; 87040; 87086; 93005; 93010; 97116-GP; 97161-GP; 99284-25; G0378

== ENCOUNTER 2018-03-26 23:18 | Inpatient (IN) | payer MEDICARE, OTHER ==
--- NOTE | 2018-03-26 23:46 | PDOC ---
History of Present Illness - History of Present Illness Initial Comments: 03/26/18 23:45 Mr. Moraes is a 72 yo male w/ pmh of hernias, htn, diabetes, high cholesterol, and recent admission 01/28-02/02 who presents on direction of PCP Dr. Suarez for abdominal pain. Mr. Moraes has known abdominal hernias and has had 2 days of increased pain and swelling of his abdomen. He also complains of vomiting today that he describes as "white and sticky." Mr. Moraes denies any relation of his pain to food and denies any alcohol abuse. Denies chest pain, shortness of breath, headache and dizziness. Denies fever, chills, diarrhea, and constipation. Denies dysuria, frequency, urgency and hematuria. Allergies: NKDA <Justice Diallo - Last Filed: 03/27/18 06:35> <Moses Buckley - Last Filed: 03/27/18 08:45> - General Chief Complaint: Pain Stated Complaint: ABD PAIN Time Seen by Provider: 03/26/18 23:45 Past History - Past Medical History Cancer: No Cardiac Disorders: Yes CVA: No COPD: No CHF: Yes Diabetes: Yes GI Disorders: Yes (GERD) HTN: Yes Hypercholesterolemia: Yes Liver Disease: Yes Psychiatric Problems: Yes Seizures: No Thyroid Disease: No - Surgical History Abdominal Surgery: Yes (gallbladder) Cholecystectomy: Yes Orthopedic Surgery: Yes (screws in rt legs) - Immunization History Immunization Up to Date: Yes - Suicide/Smoking/Psychosocial Hx Smoking History: Never smoked Have you smoked in the past 12 months: No Hx Alcohol Use: Yes (ocassional) Drug/Substance Use Hx: No Substance Use Type: None Hx Substance Use Treatment: No <Justice Diallo - Last Filed: 03/27/18 06:35> <Moses Buckley - Last Filed: 03/27/18 08:45> - Past Medical History Allergies/Adverse Reactions: Allergies Allergy/AdvReac Type Severity Reaction Status Date / Time No Known Allergies Allergy Verified 03/26/18 23:52 Home Medications: Ambulatory Orders Gabapentin [Neurontin] 400 mg PO HS 01/22/16 Quetiapine Fumarate [Seroquel -] 50 mg PO HS 01/22/16 Tamsulosin HCl [Flomax -] 0.4 mg PO HS 01/22/16 Atorvastatin Calcium [Lipitor] 10 mg PO HS 01/06/17 Roflumilast [Daliresp] 500 mcg PO DAILY 01/06/17 Aspirin [ASA -] 81 mg PO DAILY tab.chew 01/08/17 Pantoprazole Sodium [Protonix -] 40 mg PO DAILY #30 tablet.ec 01/08/17 Amlodipine Besylate [Norvasc -] 10 mg PO DAILY #30 tablet MDD 1 04/26/17 Lipase/Protease/Amylase [Adama Figueroa 6,000 Units Capsule] 3 cap PO TIDCM #100 tab MDD 3 04/26/17 Losartan Potassium [Cozaar -] 100 mg PO DAILY #30 tablet MDD 1 04/26/17 Methylnaltrexone [place] [Relistor -] 12 mg SQ DAILY #30 kit MDD 1 04/26/17 Rifaximin [Xifaxan -] 550 mg PO TID #60 tablet MDD 3 04/26/17 Hyoscyamine Sulfate 0.125 mg PO BID PRN #10 tab.rapdis 05/15/17 Insulin Detemir [Levemir Flextouch] 15 unit SQ AM #1 insuln.pen 01/30/18 Metoclopramide HCl [Reglan -] 5 mg PO TIDAC #90 tablet 01/30/18 Naloxegol Oxalate [Movantik] 25 mg PO AM #30 tablet 01/30/18 Pen Needle, Diabetic [Bd Ultra-Fine Pen Needle] 1 each MC AM #100 dis.needle metFORMIN XR [Glucophage Xr -] 500 mg PO BID #60 tab.sr.24h 01/30/18 metroNIDAZOLE [Flagyl -] 250 mg PO TID #12 tablet 01/30/18 Amlodipine Besylate [Norvasc -] 10 mg PO DAILY tablet 02/02/18 Amoxicillin/Potassium Clav [Augmentin 500-125 Tablet] 1 each PO BID #14 tablet 02/02/18 Insulin (Levemir) [Levemir Vial] 15 units SQ AM ml 02/02/18 Insulin Sliding Scale [Novolog Vial Sliding Scale -] 1 vial SQ TIDAC units Lactobacillus Acidophilus [Bacid -] 1 tab PO DAILY #30 tab 02/02/18 Lipase/Protease/Amylase [Adama Figueroa 36,000 Units Capsule] 1 cap PO TIDCM capsule. 02/02/18 Losartan Potassium [Cozaar -] 100 mg PO DAILY tablet 02/02/18 Pantoprazole Sodium [Protonix -] 40 mg PO BID tablet.ec 02/02/18 Quetiapine Fumarate [Seroquel -] 50 mg PO HS #30 tablet 02/02/18 Review of Systems - Review of Systems Comments:: 03/26/18 23:46 GENERAL/CONSTITUTIONAL: No fever or chills. No weakness. HEAD, EYES, EARS, NOSE AND THROAT: No change in vision. No ear pain or discharge. No sore throat. CARDIOVASCULAR: No chest pain or shortness of breath RESPIRATORY: No cough, wheezing, or hemoptysis. GASTROINTESTINAL: +N/V as described with midline abdominal pain and protuberant abdomen. No diarrhea or constipation. GENITOURINARY: No dysuria, frequency, or change in urination. MUSCULOSKELETAL: No joint or muscle swelling or pain. No neck or back pain. SKIN: No rash NEUROLOGIC: No headache, vertigo, loss of consciousness, or change in strength/ sensation. ENDOCRINE: No increased thirst. No abnormal weight change HEMATOLOGIC/LYMPHATIC: No anemia, easy bleeding, or history of blood clots. ALLERGIC/IMMUNOLOGIC: No hives or skin allergy. <Justice Diallo - Last Filed: 03/27/18 06:35> *Physical Exam - Physical Exam Comments: 03/26/18 23:46 GENERAL: Awake, alert, and fully oriented, in no acute distress HEAD: No signs of trauma, normocephalic, atraumatic EYES: PERRLA, EOMI, sclera anicteric, conjunctiva clear ENT: Auricles normal inspection, hearing grossly normal, nares patent, oropharynx clear without exudates. Moist mucosa NECK: Normal ROM, supple, no lymphadenopathy, JVD, or masses LUNGS: No distress, speaks full sentences, clear to auscultation bilaterally HEART: Regular rate and rhythm, normal S1 and S2, no murmurs, rubs or gallops, peripheral pulses normal and equal bilaterally. ABDOMEN: +Midline epigastric TTP. Abdomen protuberant. Midline abdominal hernia noted. Soft, normoactive bowel sounds. No guarding, no rebound. EXTREMITIES: Normal inspection, Normal range of motion, no edema. No clubbing or cyanosis. NEUROLOGICAL: Cranial nerves II through XII grossly intact. Normal speech, normal gait, no focal sensorimotor deficits SKIN: Warm, Dry, normal turgor, no rashes or lesions noted. <Justice Diallo - Last Filed: 03/27/18 06:35> - Vital Signs Last Vital Signs Temp Pulse Resp BP Pulse Ox 97.9 F 81 20 180/97 97 03/27/18 06:23 03/27/18 06:23 03/27/18 06:23 03/27/18 06:23 03/27/18 07:34 <Moses Buckley - Last Filed: 03/27/18 08:45> ED Treatment Course - LABORATORY CBC & Chemistry Diagram: 03/27/18 00:53 03/27/18 00:53 <Justice Diallo - Last Filed: 03/27/18 06:35> - LABORATORY CBC & Chemistry Diagram: 03/27/18 00:53 03/27/18 00:53 - ADDITIONAL ORDERS Additional order review: Laboratory Results 03/27/18 03/27/18 03/27/18 00:53 00:53 00:44 PT with INR 11.30 INR 1.00 PTT (Actin FS) 29.6 Sodium 137 Potassium 3.1 L D Chloride 101 Carbon Dioxide 28 Anion Gap 8 BUN 20 H D Creatinine 1.0 Creat Clearance w eGFR > 60 Random Glucose 147 H Calcium 8.4 L Total Bilirubin 0.4 AST 28 ALT 47 D Alkaline Phosphatase 66 Total Protein 7.4 Albumin 4.0 D Lipase 150 Blood Type A POSITIVE Antibody Screen Negative 03/27/18 00:53 RBC 4.34 MCV 92.1 MCHC 33.8 RDW 14.6 MPV 7.4 L D Neutrophils % 67.4 Lymphocytes % 23.5 Monocytes % 8.4 Eosinophils % 0.4 D Basophils % 0.3 - Medications Given in the ED: ED Medications Discontinued Medications Generic Name Dose Route Start Last Admin Trade Name Freq PRN Reason Stop Dose Admin Acetaminophen 1,000 mg 03/27/18 00:51 03/27/18 01:04 Ofirmev Injection - IVPB 03/27/18 00:52 1,000 mg ONCE ONE Administration Famotidine 20 mg in 12 mls @ 144 mls/hr 03/27/18 00:23 03/27/18 01:04 Pepcid 20 Mg/12 Ml Push IVPB 03/27/18 00:27 144 mls/hr ONCE ONE Administration Sodium Chloride 1,000 mls @ 1,000 mls/hr 03/27/18 00:23 03/27/18 01:04 Normal Saline - IV 03/27/18 01:22 1,000 mls/hr ASDIR STA Administration Magnesium Sulfate 2 gm 03/27/18 02:28 03/27/18 02:53 Magnesium Sulfate IVPB 03/27/18 02:29 2 gm ONCE ONE Administration Morphine Sulfate 4 mg 03/27/18 05:09 03/27/18 05:26 Morphine Injection - IVPUSH 03/27/18 05:10 4 mg ONCE ONE Administration Potassium Chloride 40 meq 03/27/18 02:28 03/27/18 02:53 K-Dur - PO 03/27/18 02:29 40 meq ONCE ONE Administration <Moses Buckley - Last Filed: 03/27/18 08:45> Medical Decision Making - Medical Decision Making 03/27/18 05:57 Mr. Moraes is a 72 yo male w/ pmh as described who presents for evaluation of abdominal pain with Dr. Davis consult on direction of PCP. Pre-op labs and abdominal CT ordered for evaluation. Patient noted to be hypokalemic. Magnesium (IV) and oral potassium given for repletion. 03/27/18 06:24 CT read: Fatty liver. Normal appendix, no bowel obstruction or focal inflammation. No hydronephrosis or other acute findings. Patient continues to report significant pain despite 4mg morphine given for pain control. 03/27/18 06:40 Patient continuing to report abdominal pain unrelieved by morphine. 03/27/18 06:59 Inpatient team paged for admission. Patient signed out to Dr. Buckley for further evaluation. <Justice Diallo - Last Filed: 03/27/18 06:35> *DC/Admit/Observation/Transfer <Justice Diallo - Last Filed: 03/27/18 06:35> <Moses Buckley - Last Filed: 03/27/18 08:45> Diagnosis at time of Disposition: Fatty liver Abdominal pain Qualifiers: Abdominal location: unspecified location Qualified Code(s): R10.9 - Unspecified abdominal pain Abdominal hernia Qualifiers: Hernia type: unspecified Obstruction and gangrene presence: without obstruction or gangrene Recurrence: not specified as recurrent Qualified Code(s) : K46.9 - Unspecified abdominal hernia without obstruction or gangrene - Discharge Dispostion Condition at time of disposition: Fair
[2018-03-27] MEDS ORDERED: SODIUM CHLORIDE 1,000 ML IV STA (00:23)
[2018-03-27] MEDS ORDERED: FAMOTIDINE IV 20 MG/12 ML VIAL IVPB ONE (00:23)
--- NOTE | 2018-03-27 00:27 | PDOC ---
Attending Attestation - Resident Resident Name: Justice Diallo - ED Attending Attestation I have performed the following: I have examined & evaluated the patient, The case was reviewed & discussed with the resident, I agree w/resident's findings & plan - HPI HPI: 03/27/18 00:20 Pt comes with abdominal distension and known ventral hernas, no symptomatic with pain and vomiting. - Physicial Exam PE: 03/27/18 00:22 Agree with resident exam. - Medical Decision Making 03/27/18 00:22 CT abd pelvis with oral contrast; preop labs and surgical consult with Dr. Davis. He was sent to the ER for admission for symptomatic/worsening abdominal hernias. <Danielle Redman - Last Filed: 03/27/18 00:20> Heart Score/ECG Review - ECG Intrepretation Comment:: 03/27/18 04:18 Completed @2:14:48 Normal Sinus rhythm Possible left atrial enlargment Nonspecific T wave abnormality Prolonged QT Abnormal ECG Vent. rate 81 bpm [place] interval interval 184 ms QRS duration 112 ms <Tao Womack - Last Filed: 03/27/18 04:20>
[2018-03-27] MEDS ORDERED: ACETAMINOPHEN 1000 MG/100 ML VIAL (NON FORMULARY) IVPB ONE (00:51)
[2018-03-27] MEDS ORDERED: FAMOTIDINE 20 MG/50 ML IVPB 20 MG/50 ML MG IVPB ONE (00:58)
[2018-03-27] MEDS ORDERED: ACETAMINOPHEN INJECTION 100 ML IVPB ONE (00:58)
[2018-03-27 01:08] LABS: BASO % 0.3 % (0-2.0); EOS % 0.4 % (0-4.5); HEMATOCRIT 39.9 % (35.4-49); HEMOGLOBIN 13.5 GM/dL (11.7-16.9); LYMPH % 23.5 % (8-40); MCH 31.1 pg (25.7-33.7); MCHC 33.8 g/dl (32.0-35.9); MEAN CELL VOLUME 92.1 fl (80-96); MEAN PLT VOLUME 7.4 fl (7.5-11.1); MONO % 8.4 % (3.8-10.2); NEUT % 67.4 % (42.8-82.8); PLATELET COUNT 271 K/MM3 (134-434); RBC 4.34 M/mm3 (4.00-5.60); RDW 14.6 % (11.9-15.9); WHITE BLOOD COUNT 8.7 K/mm3 (4.0-10.0)
[2018-03-27 01:19] LABS: PROTHROMBIN TIME (PATIENT) 11.3 SEC (9.7-13.0)
[2018-03-27 01:22] LABS: ACTIVATED PTT 29.6 SECONDS (26.9-34.4)
[2018-03-27 01:29] LABS: ALK PHOS 66 U/L (45-117); ANION GAP 8 (8-16); BILIRUBIN,TOTAL 0.4 mg/dL (0.2-1.0); BLOOD UREA NITROGEN 20 mg/dL (7-18); CALCIUM 8.4 mg/dL (8.5-10.1); CHLORIDE 101 mmol/L (98-107); CO2 28 mmol/L (21-32); GLUCOSE,RANDOM 147 mg/dL (74-106); LIPASE 150 U/L (73-393); POTASSIUM 3.1 mmol/L (3.5-5.1); SGOT/AST 28 U/L (15-37); SGPT/ALT 47 U/L (12-78); SODIUM 137 mmol/L (136-145); TOT PROT 7.4 g/dl (6.4-8.2)
[2018-03-27] MEDS ORDERED: MAGNESIUM SULF 50% (8.12 MEQ/2 ML-1 GM VIAL) IVPB ONE (02:28)
[2018-03-27] MEDS ORDERED: POTASSIUM CHLORIDE TABS 20 MEQ TABLET.ER (FP) PO ONE ×2 (02:28→02:42)
[2018-03-27] MEDS ORDERED: MAGNESIUM SULF 50% (8.12 MEQ/2 ML-1 GM VIAL) ONE (02:42)
[2018-03-27] MEDS ORDERED: morphine CARPU-JECT 4 MG/1 ML DISP.SYRIN IVPUSH ONE ×2 (05:09→10:17)
[2018-03-27] MEDS ORDERED: morphine SULFATE 4 MG/ML VIAL ONE (05:13)
[2018-03-27 14:53] VITALS: BMI 33.4
[2018-03-27] MEDS: D5-1/2NS+20 MEQ KCL - 20 MEQ/1,000 ML INFUS.BAG IV SCH (16:35)
[2018-03-27] MEDS: PANTOPRAZOLE 40 MG TABLET (FP) PO SCH (16:36)
[2018-03-27] MEDS: LOSARTAN POTASSIUM 50 MG TABLET (FP) PO SCH (16:36)
[2018-03-27] MEDS: amLODIPine BESYLATE 10 MG TABLET (FP) PO SCH (16:36)
[2018-03-27] MEDS: TAMSULOSIN HCL 0.4 MG CAP.ER.24H (FP) PO SCH (16:36)
[2018-03-27] MEDS: METOCLOPRAMIDE HCL 10 MG TABLET (FP) PO SCH (16:38)
[2018-03-27] MEDS: RIFAXIMIN 550 MG TABLET (UD) PO SCH ×2 (16:53→21:39)
[2018-03-27] MEDS: INSULIN SLIDING SCALE (NOVOLOG) 1 VIAL SQ SCH ×2 (17:03→21:39)
[2018-03-27] MEDS ORDERED: morphine CARPU-JECT 4 MG/1 ML DISP.SYRIN SQ PRN (17:35)
[2018-03-27] MEDS: morphine SULFATE 4 MG/ML VIAL IVPUSH PRN (17:59)
[2018-03-27] MEDS: ROFLUMILAST 500 MCG TABLET PO SCH (20:09)
[2018-03-27] MEDS: HEPARIN NA (PORCINE) 5,000 UNITS/ML 1ML VIAL SQ SCH (21:39)
[2018-03-27 21:40] LABS: URINE APPEARANCE CLEAR; URINE BILIRUBIN NEGATIVE (<2.0 mg/dL); URINE COLOR YELLOW; URINE GLUCOSE (UA) NEGATIVE (NEGATIVE); URINE KETONE NEGATIVE (NEGATIVE); URINE LEUK ESTERASE NEGATIVE (NEGATIVE); URINE NITRITE NEGATIVE (NEGATIVE); URINE PROTEIN 1+ (NEGATIVE)
[2018-03-27 21:44] LABS: URINE MUCUS RARE
[2018-03-27] MEDS ORDERED: QUEtiapine FUMARATE 50 MG TABLET PO SCH (22:00)
[2018-03-27] MEDS ORDERED: GABAPENTIN 400 MG CAPSULE (FP) PO SCH (22:00)
[2018-03-27] MEDS ORDERED: ATORVASTATIN CA 10 MG TABLET (FP) PO SCH (22:00)
[2018-03-28] MEDS: morphine SULFATE 4 MG/ML VIAL IVPUSH PRN ×3 (00:01→18:11)
[2018-03-28] MEDS: INSULIN SLIDING SCALE (NOVOLOG) 1 VIAL SQ SCH ×3 (06:07→17:44)
[2018-03-28] MEDS: METOCLOPRAMIDE HCL 10 MG TABLET (FP) PO SCH ×3 (06:08→17:45)
[2018-03-28] MEDS: RIFAXIMIN 550 MG TABLET (UD) PO SCH ×2 (06:08→15:10)
[2018-03-28 07:55] LABS: BASO % 0.6 % (0-2.0); EOS % 1.4 % (0-4.5); HEMATOCRIT 42.9 % (35.4-49); HEMOGLOBIN 14.4 GM/dL (11.7-16.9); LYMPH % 27.9 % (8-40); MCH 31.4 pg (25.7-33.7); MCHC 33.6 g/dl (32.0-35.9); MEAN CELL VOLUME 93.4 fl (80-96); MEAN PLT VOLUME 7.3 fl (7.5-11.1); NEUT % 58.1 % (42.8-82.8); PLATELET COUNT 301 K/MM3 (134-434); RBC 4.59 M/mm3 (4.00-5.60); RDW 14.4 % (11.9-15.9); WHITE BLOOD COUNT 6.1 K/mm3 (4.0-10.0)
[2018-03-28 08:22] LABS: ALBUMIN 4.1 g/dl (3.4-5.0); ANION GAP 6 (8-16); BLOOD UREA NITROGEN 11 mg/dL (7-18); CALCIUM 8.8 mg/dL (8.5-10.1); CHLORIDE 105 mmol/L (98-107); CO2 30 mmol/L (21-32); GLUCOSE,RANDOM 185 mg/dL (74-106); POTASSIUM 3.8 mmol/L (3.5-5.1); SGOT/AST 49 U/L (15-37); SGPT/ALT 59 U/L (12-78); SODIUM 141 mmol/L (136-145)
[2018-03-28 08:24] LABS: ALK PHOS 71 U/L (45-117); BILIRUBIN,TOTAL 0.7 mg/dL (0.2-1.0); TOT PROT 7.6 g/dl (6.4-8.2)
[2018-03-28] MEDS ORDERED: Methylnaltrexone Bromide 12 MG/0.6 ML KIT SQ SCH (10:00)
[2018-03-28] MEDS ORDERED: PT OWN MED DRAWER 7, Y5N ONE ×2 (10:15→15:02)
[2018-03-28] MEDS: TAMSULOSIN HCL 0.4 MG CAP.ER.24H (FP) PO SCH (10:22)
[2018-03-28] MEDS: LOSARTAN POTASSIUM 50 MG TABLET (FP) PO SCH (10:23)
[2018-03-28] MEDS: PANTOPRAZOLE 40 MG TABLET (FP) PO SCH (10:23)
[2018-03-28] MEDS: amLODIPine BESYLATE 10 MG TABLET (FP) PO SCH (10:23)
[2018-03-28] MEDS: HEPARIN NA (PORCINE) 5,000 UNITS/ML 1ML VIAL SQ SCH (10:24)
[2018-03-28] MEDS ORDERED: morphine CARPU-JECT 2 MG/1 ML DISP.SYRIN ONE (11:28)
[2018-03-28] MEDS ORDERED: morphine CARPU-JECT 2 MG/1 ML DISP.SYRIN IVPUSH ONE (12:45)
--- NOTE | 2018-03-28 13:04 | CONSULT ---
<Katia Carbajalian - Last Filed: 03/28/18 13:35> - Consultation REQUESTING PROVIDER: CONSULT REQUEST: We have been asked to surgically evaluate this patient for medicine. PCP:Edin Suarez HISTORY OF PRESENT ILLNESS: 72yo M presented with diffuse abd pain and n/v x 3 days. Pt was seen previously in january 2018 for similar complaints. Pt was to follow up with GI for possible endoscopy and colonoscopy. Pt states that he did not follow up with GI. Pt currently denies n/v. Continues to complain of diffuse abd pain. Pt passing flatus and reports BM yesterday. PMHx: HTN, BPH, DM PSHx: cholecystectomy Home Medications Medication Instructions Recorded Gabapentin [Neurontin] 400 mg PO HS 01/22/16 Quetiapine Fumarate [Seroquel -] 50 mg PO HS 01/22/16 Tamsulosin HCl [Flomax -] 0.4 mg PO HS 01/22/16 Atorvastatin Calcium [Lipitor] 10 mg PO HS 01/06/17 Roflumilast [Daliresp] 500 mcg PO DAILY 01/06/17 Aspirin [ASA -] 81 mg PO DAILY tab.chew 01/08/17 Pantoprazole Sodium [Protonix -] 40 mg PO DAILY #30 tablet.ec 01/08/17 Methylnaltrexone [place] [Relistor 12 mg SQ DAILY #30 kit MDD 1 04/26/17 -] Rifaximin [Xifaxan -] 550 mg PO TID #60 tablet MDD 3 04/26/17 Metoclopramide HCl [Reglan -] 5 mg PO TIDAC #90 tablet 01/30/18 Naloxegol Oxalate [Movantik] 25 mg PO AM #30 tablet 01/30/18 metFORMIN XR [Glucophage Xr -] 500 mg PO BID #60 tab.sr.24h 01/30/18 Amlodipine Besylate [Norvasc -] 10 mg PO DAILY tablet 02/02/18 Lipase/Protease/Amylase [Adama Figueroa 1 cap PO TIDCM capsule. 02/02/18 36,000 Units Capsule] Losartan Potassium [Cozaar -] 100 mg PO DAILY tablet 02/02/18 Allergies Allergy/AdvReac Type Severity Reaction Status Date / Time No Known Allergies Allergy Verified 03/26/18 23:52 REVIEW OF SYSTEMS: CONSTITUTIONAL: Absent: fever, chills, diaphoresis, generalized weakness, malaise, loss of appetite, weight change PHYSICAL EXAM: GENERAL: Awake, alert, and fully oriented, in no acute distress. HEAD: Normal with no signs of trauma. EYES: PERRL, sclera anicteric, conjunctiva clear. ABDOMEN: Soft, MILD DIFFUSE TENDERNESS, MILDLY distended, no guarding, no rebound, abdominal defect over epigastric area. No organomegaly. MUSCULOSKELETAL: Normal ROM at all joints. No bony deformities or tenderness. No CVA tenderness. UPPER EXTREMITIES: 2+ pulses, warm, well-perfused. No cyanosis. Cap refill <2 seconds. No peripheral edema. LOWER EXTREMITIES: 2+ pulses, warm, well-perfused. No calf tenderness. No peripheral edema. NEUROLOGICAL: Normal speech, gait not observed. PSYCH: Cooperative. Good eye contact. Appropriate mood and affect. SKIN: Warm, dry, normal turgor, no rashes or lesions noted. Vital Signs Temperature 97.8 F 03/28/18 06:00 Pulse Rate 85 03/28/18 06:00 Respiratory Rate 20 03/28/18 06:00 Blood Pressure 174/87 03/28/18 06:00 O2 Sat by Pulse Oximetry (%) 98 03/27/18 21:00 Lab Results WBC 6.1 K/mm3 (4.0-10.0) 03/28/18 07:40 RBC 4.59 M/mm3 (4.00-5.60) 03/28/18 07:40 Hgb 14.4 GM/dL (11.7-16.9) 03/28/18 07:40 Hct 42.9 % (35.4-49) 03/28/18 07:40 MCV 93.4 fl (80-96) 03/28/18 07:40 MCHC 33.6 g/dl (32.0-35.9) 03/28/18 07:40 RDW 14.4 % (11.9-15.9) 03/28/18 07:40 Plt Count 301 K/MM3 (134-434) 03/28/18 07:40 Sodium 141 mmol/L (136-145) 03/28/18 07:40 Potassium 3.8 mmol/L (3.5-5.1) D 03/28/18 07:40 Chloride 105 mmol/L (98-107) 03/28/18 07:40 Carbon Dioxide 30 mmol/L (21-32) 03/28/18 07:40 Anion Gap 6 (8-16) L 03/28/18 07:40 BUN 11 mg/dL (7-18) D 03/28/18 07:40 Creatinine 1.0 mg/dL (0.7-1.3) 03/28/18 07:40 Random Glucose 185 mg/dL (74-106) H D 03/28/18 07:40 Calcium 8.8 mg/dL (8.5-10.1) 03/28/18 07:40 Blood Type A POSITIVE 03/27/18 00:44 Antibody Screen Negative 03/27/18 00:44 INR 1.00 (0.82-1.09) 03/27/18 00:53 Imaging: CT abd/pel report reviewed no significant findings Problem List - Problems (1) Abdominal pain with vomiting Assessment/Plan: 72yo M abd pain with nausea (resolved), ventral hernia. -Pt shows no signs of acute surgical issue or intervention -recommend serial abd exams -pain control -hydration -follow up with Dr. Mcfarland as outpatient follow up -Discussed with Dr. Mcfarland who agrees with plan Code(s): R10.9 - UNSPECIFIED ABDOMINAL PAIN; R11.10 - VOMITING, UNSPECIFIED <Johann Davis - Last Filed: 03/29/18 09:49> - Consultation REQUESTING PROVIDER: CONSULT REQUEST: We have been asked to surgically evaluate this patient for ( specify). PCP:Edin Suarez HISTORY OF PRESENT ILLNESS: PMHx: PSHx: Home Medications Medication Instructions Recorded Gabapentin [Neurontin] 400 mg PO HS 01/22/16 Quetiapine Fumarate [Seroquel -] 50 mg PO HS 01/22/16 Tamsulosin HCl [Flomax -] 0.4 mg PO HS 01/22/16 Atorvastatin Calcium [Lipitor] 10 mg PO HS 01/06/17 Roflumilast [Daliresp] 500 mcg PO DAILY 01/06/17 Aspirin [ASA -] 81 mg PO DAILY tab.chew 01/08/17 Pantoprazole Sodium [Protonix -] 40 mg PO DAILY #30 tablet.ec 01/08/17 Methylnaltrexone [place] [Relistor 12 mg SQ DAILY #30 kit MDD 1 04/26/17 -] Rifaximin [Xifaxan -] 550 mg PO TID #60 tablet MDD 3 04/26/17 Metoclopramide HCl [Reglan -] 5 mg PO TIDAC #90 tablet 01/30/18 Naloxegol Oxalate [Movantik] 25 mg PO AM #30 tablet 01/30/18 metFORMIN XR [Glucophage Xr -] 500 mg PO BID #60 tab.sr.24h 01/30/18 Amlodipine Besylate [Norvasc -] 10 mg PO DAILY tablet 02/02/18 Lipase/Protease/Amylase [Adama Figueroa 1 cap PO TIDCM capsule. 02/02/18 36,000 Units Capsule] Losartan Potassium [Cozaar -] 100 mg PO DAILY tablet 02/02/18 Allergies Allergy/AdvReac Type Severity Reaction Status Date / Time No Known Allergies Allergy Verified 03/26/18 23:52 REVIEW OF SYSTEMS: CONSTITUTIONAL: Absent: fever, chills, diaphoresis, generalized weakness, malaise, loss of appetite, weight change CARDIOVASCULAR: Absent: chest pain, syncope, palpitations, irregular heart rate, lightheadedness , peripheral edema RESPIRATORY: Absent: cough, shortness of breath, dyspnea with exertion, wheezing, stridor, hemoptysis GASTROINTESTINAL: Absent: abdominal pain, abdominal distension, nausea, vomiting, diarrhea, constipation, melena, hematochezia GENITOURINARY: Absent: dysuria, frequency, urgency, hesitancy, hematuria, flank pain, genital pain MUSCULOSKELETAL: Absent: myalgia, arthralgia, joint swelling, back pain, neck pain SKIN: Absent: rash, itching, pallor HEMATOLOGIC/IMMUNOLOGIC: Absent: easy bleeding, easy bruising, lymphadenopathy NEUROLOGIC: Absent: headache, focal weakness, paresthesias, dizziness, unsteady gait, seizure, mental status changes, bladder or bowel incontinence PSYCHIATRIC: Absent: anxiety, depression, suicidal or homicidal ideation, hallucinations. PHYSICAL EXAM: GENERAL: Awake, alert, and fully oriented, in no acute distress. HEAD: Normal with no signs of trauma. EYES: PERRL, sclera anicteric, conjunctiva clear. NECK: Normal ROM, supple without lymphadenopathy, JVD, or masses. LUNGS: Clear to auscultation bilat anteriorly. No wheezes, and no crackles. No accessory muscle use. HEART: Regular rate and rhythm. No murmurs ABDOMEN: Soft, nontender, not distended, normoactive bowel sounds, no guarding, no rebound, no masses. No organomegaly. MUSCULOSKELETAL: Normal ROM at all joints. No bony deformities or tenderness. No CVA tenderness. UPPER EXTREMITIES: 2+ pulses, warm, well-perfused. No cyanosis. Cap refill <2 seconds. No peripheral edema. LOWER EXTREMITIES: 2+ pulses, warm, well-perfused. No calf tenderness. No peripheral edema. NEUROLOGICAL: Normal speech, gait not observed. PSYCH: Cooperative. Good eye contact. Appropriate mood and affect. SKIN: Warm, dry, normal turgor, no rashes or lesions noted. Vital Signs Temperature 98.4 F 03/28/18 18:00 Pulse Rate 100 H 03/28/18 18:00 Respiratory Rate 18 03/28/18 18:00 Blood Pressure 161/90 03/28/18 18:00 O2 Sat by Pulse Oximetry (%) 98 03/28/18 09:00 Lab Results WBC 6.1 K/mm3 (4.0-10.0) 03/28/18 07:40 RBC 4.59 M/mm3 (4.00-5.60) 03/28/18 07:40 Hgb 14.4 GM/dL (11.7-16.9) 03/28/18 07:40 Hct 42.9 % (35.4-49) 03/28/18 07:40 MCV 93.4 fl (80-96) 03/28/18 07:40 MCHC 33.6 g/dl (32.0-35.9) 03/28/18 07:40 RDW 14.4 % (11.9-15.9) 03/28/18 07:40 Plt Count 301 K/MM3 (134-434) 03/28/18 07:40 Sodium 141 mmol/L (136-145) 03/28/18 07:40 Potassium 3.8 mmol/L (3.5-5.1) D 03/28/18 07:40 Chloride 105 mmol/L (98-107) 03/28/18 07:40 Carbon Dioxide 30 mmol/L (21-32) 03/28/18 07:40 Anion Gap 6 (8-16) L 03/28/18 07:40 BUN 11 mg/dL (7-18) D 03/28/18 07:40 Creatinine 1.0 mg/dL (0.7-1.3) 03/28/18 07:40 Random Glucose 185 mg/dL (74-106) H D 03/28/18 07:40 Calcium 8.8 mg/dL (8.5-10.1) 03/28/18 07:40 Blood Type A POSITIVE 03/27/18 00:44 Antibody Screen Negative 03/27/18 00:44 INR 1.00 (0.82-1.09) 03/27/18 00:53 Agree Presented for abdominal pain- now improved Recurrent pain Umbilical hernia- no obstruction, fully easily reducible Tolerated diet Follow up in office for possible hernia repair
--- NOTE | 2018-03-28 13:18 | PN ---
Progress Note (short form) - Note Progress Note: PULMONARY CONSULTATION DICTATED 03/28/18 IMP ABDOMINAL PAIN MULTIPLE HERNIAS HTN HLD PLAN SURGERY EVALUATION ANALGESICS AT THIS TIME THERE ARE NO PULMONARY CONTRAINDICATIONS IF PT SHOULD REQUIRE SURGERY INCENTIVE SPIROMETER POST OP DVT PROPHYLAXIS POST OP DR WALTER Problem List - Problems (1) Abdominal hernia Code(s): K46.9 - UNSPECIFIED ABDOMINAL HERNIA WITHOUT OBSTRUCTION OR GANGRENE Qualifiers: Hernia type: unspecified Obstruction and gangrene presence: without obstruction or gangrene Recurrence: not specified as recurrent Qualified Code(s): K46.9 - Unspecified abdominal hernia without obstruction or gangrene (2) Abdominal pain Code(s): R10.9 - UNSPECIFIED ABDOMINAL PAIN Qualifiers: Abdominal location: unspecified location Qualified Code(s): R10.9 - Unspecified abdominal pain (3) HLD (hyperlipidemia) Code(s): E78.5 - HYPERLIPIDEMIA, UNSPECIFIED (4) HTN (hypertension) Code(s): I10 - ESSENTIAL (PRIMARY) HYPERTENSION
[2018-03-28] MEDS: ROFLUMILAST 500 MCG TABLET PO SCH (15:10)
[2018-03-28] MEDS: D5-1/2NS+20 MEQ KCL - 20 MEQ/1,000 ML INFUS.BAG IV SCH (15:12)
--- NOTE | 2018-03-28 15:52 | CON.GI ---
Consult Consult Specialty:: GI Reason for Consultation:: Abdominal pain on admission - History of Present Illness History of Present Illness: Chart reviewed. Events noted. per ED intake: Mr. Moraes is a 72 yo male w/ pmh of hernias, htn, diabetes, high cholesterol, and recent admission 01/28-02/02 who presents on direction of PCP Dr. Suarez for abdominal pain. Mr. Moraes has known abdominal hernias and has had 2 days of increased pain and swelling of his abdomen. He also complains of vomiting today that he describes as "white and sticky." Mr. Moraes denies any relation of his pain to food and denies any alcohol abuse. Denies chest pain, shortness of breath, headache and dizziness. Denies fever, chills, diarrhea, and constipation. Denies dysuria, frequency, urgency and hematuria. At the time of this encounter, the patient reports mild tenderness at ventral abdominal wall defect. No fever, chills, jaundice, changes in bowels, weight loss. Tolerating reg. diet. Had normal colonoscopy within last [address] Scherer. No history of PUD, GERD. Takes ASA. A CT A/P noted fatty liver, otherwise no acute GI pathology. Afebrile, Normal WBC, Lipase. No lactic acid. - History Source History Provided By: Patient, Medical Record - Past Medical History Cardio/Vascular: Yes: HTN, Hyperlipdemia Gastrointestinal: Yes: Constipation, Pancreatitis, GERD, Other Hepatobiliary: Yes: Other (cholecystectomy) Musculoskeletal: Yes: Osteoarthritis, Other (chronic lower leg pain) Endocrine: Yes: Diabetes Mellitus - Past Surgical History Past Surgical History: Yes: Cholecystectomy - Alcohol/Substance Use Hx Alcohol Use: Yes (RARE/OCCASSIONAL) History of Substance Use: reports: None - Smoking History Smoking history: Never smoked Have you smoked in the past 12 months: No - Social History ADL: Independent History of Recent Travel: No Home Medications - Allergies Allergies/Adverse Reactions: Allergies Allergy/AdvReac Type Severity Reaction Status Date / Time No Known Allergies Allergy Verified 03/26/18 23:52 - Home Medications Home Medications: Ambulatory Orders Gabapentin [Neurontin] 400 mg PO HS 01/22/16 Quetiapine Fumarate [Seroquel -] 50 mg PO HS 01/22/16 Tamsulosin HCl [Flomax -] 0.4 mg PO HS 01/22/16 Atorvastatin Calcium [Lipitor] 10 mg PO HS 01/06/17 Roflumilast [Daliresp] 500 mcg PO DAILY 01/06/17 Aspirin [ASA -] 81 mg PO DAILY tab.chew 01/08/17 Pantoprazole Sodium [Protonix -] 40 mg PO DAILY #30 tablet.ec 01/08/17 Methylnaltrexone [place] [Relistor -] 12 mg SQ DAILY #30 kit MDD 1 04/26/17 Rifaximin [Xifaxan -] 550 mg PO TID #60 tablet MDD 3 04/26/17 Metoclopramide HCl [Reglan -] 5 mg PO TIDAC #90 tablet 01/30/18 Naloxegol Oxalate [Movantik] 25 mg PO AM #30 tablet 01/30/18 metFORMIN XR [Glucophage Xr -] 500 mg PO BID #60 tab.sr.24h 01/30/18 Amlodipine Besylate [Norvasc -] 10 mg PO DAILY tablet 02/02/18 Lipase/Protease/Amylase [Adama Figueroa 36,000 Units Capsule] 1 cap PO TIDCM capsule. 02/02/18 Losartan Potassium [Cozaar -] 100 mg PO DAILY tablet 02/02/18 Family Disease History - Family Disease History Family Disease History: Heart Disease: Father ( of [place] 20yrs ago), [place]: Grandparent, Father, Mother, Brother, Sister, Son, Daughter Review of Systems Findings/Remarks: as per HPI, H&P Physical Exam-GI Vital Signs: Vital Signs Temperature 98.1 F 03/28/18 15:03 Pulse Rate 88 03/28/18 14:22 Respiratory Rate 18 03/28/18 14:22 Blood Pressure 145/89 03/28/18 14:22 O2 Sat by Pulse Oximetry (%) 98 03/27/18 21:00 Constitutional: Yes: Well Nourished, No Distress, Calm, Other (Ambulating) Eyes: Yes: Conjunctiva Clear. No: Sclera Icterus HENT: Yes: Atraumatic Neck: Yes: Supple Cardiovascular: Yes: Regular Rate and Rhythm Respiratory: Yes: Regular Gastrointestinal Inspection: Yes: Distention ...Auscultate: Yes: Normoactive Bowel Sounds ...Palpate: Yes: Soft ...Percussion: Yes: Other (ventral abd. wall defect. No mass, tenderness noted.) Labs: CBC, BMP 03/28/18 07:40 03/28/18 07:40 INR, PTT INR 1.00 (0.82-1.09) 03/27/18 00:53 Imaging - Results Cat Scan: Report Reviewed Problem List - Problems (1) Abdominal hernia Code(s): K46.9 - UNSPECIFIED ABDOMINAL HERNIA WITHOUT OBSTRUCTION OR GANGRENE Qualifiers: Hernia type: unspecified Obstruction and gangrene presence: without obstruction or gangrene Recurrence: not specified as recurrent Qualified Code(s): K46.9 - Unspecified abdominal hernia without obstruction or gangrene Assessment/Plan Ventra hernia. Non-surgical abdomen. No signs of toxicity, or bowel ischemia. Tolerating regular diet. Seen by Sx and offered op follow up. No acute GI issues at this time. Avoid strenuous physical activities for now. Follow with Sx as OP.
--- NOTE | 2018-03-28 15:57 | HP ---
Admitting History and Physical - Primary Care Physician PCP: Isabella Garnett - Admission Chief Complaint: ABD PAIN/N/V History of Present Illness: Mr. Moraes is a 72 yo male w/ pmh of hernias, htn, diabetes, high cholesterol, and recent admission 01/28-02/02 who presents on direction of PCP Dr. Suarez for abdominal pain. Mr. Moraes has known abdominal hernias and has had 2 days of increased pain and swelling of his abdomen. He also complains of vomiting today that he describes as "white and sticky." Mr. Moraes denies any relation of his pain to food and denies any alcohol abuse. Denies chest pain, shortness of breath, headache and dizziness. Denies fever, chills, diarrhea, and constipation. Denies dysuria, frequency, urgency and hematuria. History Source: Patient, Medical Record - Past Medical History Cardiovascular: Yes: HTN, Hyperlipdemia Gastrointestinal: Yes: Constipation, Pancreatitis, GERD, Other Hepatobiliary: Yes: Other (cholecystectomy) Musculoskeletal: Yes: Osteoarthritis, Other (chronic lower leg pain) Endocrine: Yes: Diabetes Mellitus - Past Surgical History Past Surgical History: Yes: Cholecystectomy - Smoking History Smoking history: Never smoked Have you smoked in the past 12 months: No - Alcohol/Substance Use Hx Alcohol Use: Yes (RARE/OCCASSIONAL) History of Substance Use: reports: None - Social History ADL: Independent History of Recent Travel: No Home Medications - Allergies Allergies/Adverse Reactions: Allergies Allergy/AdvReac Type Severity Reaction Status Date / Time No Known Allergies Allergy Verified 03/26/18 23:52 - Home Medications Home Medications: Ambulatory Orders Gabapentin [Neurontin] 400 mg PO HS 01/22/16 Quetiapine Fumarate [Seroquel -] 50 mg PO HS 01/22/16 Tamsulosin HCl [Flomax -] 0.4 mg PO HS 01/22/16 Atorvastatin Calcium [Lipitor] 10 mg PO HS 01/06/17 Roflumilast [Daliresp] 500 mcg PO DAILY 01/06/17 Aspirin [ASA -] 81 mg PO DAILY tab.chew 01/08/17 Pantoprazole Sodium [Protonix -] 40 mg PO DAILY #30 tablet.ec 01/08/17 Methylnaltrexone [place] [Relistor -] 12 mg SQ DAILY #30 kit MDD 1 06/19/17 Rifaximin [Xifaxan -] 550 mg PO TID #60 tablet MDD 3 04/26/17 Metoclopramide HCl [Reglan -] 5 mg PO TIDAC #90 tablet 01/30/18 Naloxegol Oxalate [Movantik] 25 mg PO AM #30 tablet 01/30/18 metFORMIN XR [Glucophage Xr -] 500 mg PO BID #60 tab.sr.24h 01/30/18 Amlodipine Besylate [Norvasc -] 10 mg PO DAILY tablet 02/02/18 Lipase/Protease/Amylase [Adama Figueroa 36,000 Units Capsule] 1 cap PO TIDCM capsule. 02/02/18 Losartan Potassium [Cozaar -] 100 mg PO DAILY tablet 02/02/18 Family Disease History - Family Disease History Family Disease History: Heart Disease: Father ( of [place] 20yrs ago), [place]: Grandparent, Father, Mother, Brother, Sister, Son, Daughter Review of Systems - Review of Systems Constitutional: reports: Loss of Appetite Eyes: reports: No Symptoms HENT: reports: No Symptoms Neck: reports: No Symptoms Cardiovascular: reports: No Symptoms Respiratory: reports: No Symptoms Gastrointestinal: reports: Abdominal Pain, Bloating, Nausea, Vomiting Genitourinary: reports: No Symptoms Musculoskeletal: reports: No Symptoms Integumentary: reports: No Symptoms Neurological: reports: No Symptoms Endocrine: reports: No Symptoms Hematology/Lymphatic: reports: No Symptoms Psychiatric: reports: No Symptoms Physical Examination Vital Signs: Vital Signs Temperature 98.1 F 03/28/18 15:03 Pulse Rate 88 03/28/18 14:22 Respiratory Rate 18 03/28/18 14:22 Blood Pressure 145/89 03/28/18 14:22 O2 Sat by Pulse Oximetry (%) 98 03/27/18 21:00 Constitutional: Yes: Mild Distress Eyes: Yes: WNL HENT: Yes: WNL Neck: Yes: WNL Cardiovascular: Yes: WNL Respiratory: Yes: WNL Gastrointestinal: Yes: Distention, Tenderness Renal/: Yes: WNL Musculoskeletal: Yes: WNL Extremities: Yes: WNL Edema: Yes Edema: LLE: 1+, RLE: 1+ Peripheral Pulses WNL: Yes Integumentary: Yes: WNL Wound/Incision: Yes: Clean/Dry Neurological: Yes: WNL ...Motor Strength: WNL Psychiatric: Yes: WNL Labs: CBC, BMP 03/28/18 07:40 03/28/18 07:40 Imaging - Results Cat Scan: Report Reviewed Problem List - Problems (1) Abdominal hernia Code(s): K46.9 - UNSPECIFIED ABDOMINAL HERNIA WITHOUT OBSTRUCTION OR GANGRENE Qualifiers: Hernia type: unspecified Obstruction and gangrene presence: without obstruction or gangrene Recurrence: not specified as recurrent Qualified Code(s): K46.9 - Unspecified abdominal hernia without obstruction or gangrene (2) Abdominal pain Code(s): R10.9 - UNSPECIFIED ABDOMINAL PAIN Qualifiers: Abdominal location: unspecified location Qualified Code(s): R10.9 - Unspecified abdominal pain (3) Fatty liver Code(s): K76.0 - FATTY (CHANGE OF) LIVER, NOT ELSEWHERE CLASSIFIED (4) Abdominal distention Code(s): R14.0 - ABDOMINAL DISTENSION (GASEOUS) (5) Abdominal pain with vomiting Code(s): R10.9 - UNSPECIFIED ABDOMINAL PAIN; R11.10 - VOMITING, UNSPECIFIED (6) Abnormal CT of the abdomen Code(s): R93.5 - ABN FINDINGS ON DX IMAGING OF ABD REGIONS, INC RETROPERITON (7) Acid reflux Code(s): K21.9 - GASTRO-ESOPHAGEAL REFLUX DISEASE WITHOUT ESOPHAGITIS Qualifiers: Esophagitis presence: without esophagitis Qualified Code(s): K21.9 - Gastro -esophageal reflux disease without esophagitis (8) Acute hypokalemia Code(s): E87.6 - HYPOKALEMIA Assessment/Plan IV MEDICATION FOR PAIN CONTROL MORPHINE IV SURGERY EVAL NO ACUTE ABD AT THIS TIME GI EVAL PENDING OOB TO CHAIR R/O MALING[facility] FOR PAIN MEDS
--- NOTE | 2018-03-28 16:22 | DS ---
Physical Examination Vital Signs: Vital Signs Temperature 98.1 F 03/28/18 15:03 Pulse Rate 88 03/28/18 14:22 Respiratory Rate 18 03/28/18 14:22 Blood Pressure 145/89 03/28/18 14:22 O2 Sat by Pulse Oximetry (%) 98 03/27/18 21:00 Findings/Remarks: PATIENT SEEN BY GI AND SURGERY CLEARED TO GO HOME F/U OUTPATIENT SEE H AND P FOR PHYSICAL Constitutional: Yes: No Distress Labs: CBC, BMP 03/28/18 07:40 03/28/18 07:40 Discharge Summary Reason For Visit: ABD PAIN Current Active Problems Abdominal hernia (Acute) Abdominal pain (Acute) Fatty liver (Acute) Procedures: Principal: CT ABD Hospital Course: ADMITTED FOR PAIN MEDS, SURGICAL AND GI EVAL, SEEN BY BOTH CONSULTANTS AND DEEMED OUTPATIENT F/U. CAN SEE HIS PMD IN 2-3 DAYS FOR F/U AND HERNIA REPAIR OUTPATIENT SURGERY Condition: Fair - Instructions Diet, Activity, Other Instructions: SEE YOUR DOCTOR/PMD IN 2-3 DAYS OUTPATIENT HERNIA REPAIR WHEN CLEARED RETURN TO ER IF YOU HAVE SEVERE PAIN Disposition: HOME - Home Medications Comprehensive Discharge Medication List: Ambulatory Orders Gabapentin [Neurontin] 400 mg PO HS 01/22/16 Quetiapine Fumarate [Seroquel -] 50 mg PO HS 01/22/16 Tamsulosin HCl [Flomax -] 0.4 mg PO HS 01/22/16 Atorvastatin Calcium [Lipitor] 10 mg PO HS 01/06/17 Roflumilast [Daliresp] 500 mcg PO DAILY 01/06/17 Aspirin [ASA -] 81 mg PO DAILY tab.chew 01/08/17 Pantoprazole Sodium [Protonix -] 40 mg PO DAILY #30 tablet.ec 01/08/17 Methylnaltrexone [place] [Relistor -] 12 mg SQ DAILY #30 kit MDD 1 04/26/17 Rifaximin [Xifaxan -] 550 mg PO TID #60 tablet MDD 3 04/26/17 Metoclopramide HCl [Reglan -] 5 mg PO TIDAC #90 tablet 01/30/18 Naloxegol Oxalate [Movantik] 25 mg PO AM #30 tablet 01/30/18 metFORMIN XR [Glucophage Xr -] 500 mg PO BID #60 tab.sr.24h 01/30/18 Amlodipine Besylate [Norvasc -] 10 mg PO DAILY tablet 02/02/18 Lipase/Protease/Amylase [Adama Figueroa 36,000 Units Capsule] 1 cap PO TIDCM capsule. 02/02/18 Losartan Potassium [Cozaar -] 100 mg PO DAILY tablet 02/02/18
--- NOTE | 2018-03-28 16:25 | CONS ---
DATE OF CONSULTATION: 03/28/2018 REFERRING PHYSICIAN: Edin Suarez MD The patient is a 72-year-old male, past medical history of hernias, hypertension, diabetes, hypercholesterolemia, admitted to [facility] with complaint of abdominal pain. The patient apparently has had 2 to 3 day history of increased abdominal pain and swelling of his abdomen. He went to see Dr. Suarez, at which time he was advised to go to the emergency room. He denied any chest pain. He denied any shortness of breath, cough, or hemoptysis. He denies any history of COPD or asthma in the past. He is a nonsmoker. He denies any history of occupational exposure to chemicals or fumes. Past medical history, again, includes hypertension, diabetes, hypercholesterolemia, as well as multiple hernias. REVIEW OF SYSTEMS: No orthopnea, no PND, no chest pain. Positive abdominal pain. No nausea, no vomiting, no hemoptysis. Current medications include Flomax, Cozaar, rifaximin, heparin, Neurontin, Seroquel, Norvasc, Relistor, Lipitor, NovoLog, Reglan, Protonix. PHYSICAL EXAMINATION: General: The patient is a well-developed, well-nourished man, awake, alert, in no acute distress. Vital Signs: He is currently afebrile. Blood pressure is 174/87. Respiratory rate 20. HEENT: Normocephalic, atraumatic. Neck: Supple. Heart: Regular, S1, S2. Abdomen: Soft. Bowel sounds present. Extremities: No cyanosis. There is trace bilateral lower extremity edema. O2 saturation is 98 on room air. LABORATORY DATA: WBC is 6.1, hemoglobin 14.4, hematocrit 42.9, platelet count of 301,000, INR 1, BUN 11, creatinine 1.0. CT of the abdomen reveals no acute masses, fatty infiltration of liver, status post cholecystectomy. There is no adenopathy or abdominal aortic aneurysm. No evidence of inflammation of colon. IMPRESSION: 1. Abdominal pain, possibly secondary to hernias. 2. History of hypertension. 3. Diabetes. 4. Hypertension. 5. Hypercholesterolemia. At this time, there are no pulmonary contraindications should the patient require surgery. Incentive spirometer postop and DVT prophylaxis postop, analgesics. BRISA WALTER M.D. [id number] MTDD
[2018-03-28 19:10] VITALS: BP 161/90; PULSE 100; TEMP 98.4
--- NOTE | 2018-03-29 00:26 | EKG ---
Test Reason : Blood Pressure : / mmHG Vent. Rate : 081 BPM Atrial Rate : 081 BPM P-R Int : 184 ms QRS Dur : 112 ms QT Int : 396 ms P-R-T Axes : 045 025 019 degrees QTc Int : 460 ms NORMAL SINUS RHYTHM POSSIBLE LEFT ATRIAL ENLARGEMENT NONSPECIFIC T WAVE ABNORMALITY PROLONGED QT ABNORMAL ECG WHEN COMPARED WITH ECG OF 28-JAN-2018 01:59, NO SIGNIFICANT CHANGE WAS FOUND Confirmed by MYNOR AGUILERA MD ([id number]) on 03/29/2018 12:26:17 AM Referred By: Confirmed By:MYNOR AGUILERA MD
== END 2018-03-28 20:15 | disposition home or self-care (01) | DRG 395 ==
LOC: JER 23:18 → JERBED 03-27 08:45 → OBSVTOIN 03-27 14:33 → J5S 03-27 14:48 → UNDODISIN 03-28 19:46
PROVIDERS: ADMIT Family Medicine; ATTEND Family Medicine
DX: K46.9 Unspecified abdominal hernia without obstruction or gangrene (principal); K76.0 Fatty (change of) liver, not elsewhere classified; E11.9 Type 2 diabetes mellitus without complications; I10 Essential (primary) hypertension; E78.5 Hyperlipidemia, unspecified; E87.6 Hypokalemia; K21.9 Gastro-esophageal reflux disease without esophagitis
CPT/HCPCS: 36415; 71045-TC-FY; 74176-TC; 80053; 81003; 81015; 82150; 82962; 83690; 84484; 85025; 85610; 85730; 86850; 86900; 86901; 93005; 93010; 99285-25; G0378; J0131; J1644; J7030

== ENCOUNTER 2018-03-30 03:15 | Observation (INO) | payer MEDICARE, OTHER ==
[2018-03-30 03:49] VITALS: BMI 34.5
--- NOTE | 2018-03-30 03:52 | PDOC ---
History of Present Illness - General History Source: Old Records Exam Limitations: No Limitations - History of Present Illness Initial Comments: 04/08/18 06:10 Patient is a 72 year old male with a significant past medical history of HTN, DMII, HLD, abdominal hernias, possible chronic diastolic CHF, Diabetes Mellitus , who presents to the ED with complaints of chest pain that began x2 days ago. Patient reports experiencing gradually increased chest pain that began x2 days ago and has shown no signs of subsiding. He reports chest pain is a pressured 10/10 pain that he states is localized in the middle of his chest. Patient reports being compliant with all of his prescribed medications with no relief, prompting him to come into the ED for further evaluations. He reports taking on dose of aspirin just prior to come into the ED. Denies nausea, vomiting. Denies contact with sick individuals, out of state travelling. Denies trauma to affected area. Denies fever, chills. Denies any other symptoms. Allergies: None Social history: No smoking, No alcohol. No illicit drugs. Surgical history: Cholecystectomy PMD: Dr. Suarez, Dr. Garnett <Tao Womack - Last Filed: 04/08/18 06:10> - General History Source: Patient <MarioelenitaEverett - Last Filed: 04/18/18 19:17> - General Chief Complaint: Chest Pain Stated Complaint: HIGH BP Time Seen by Provider: 03/30/18 03:52 Past History <Tao Womack - Last Filed: 04/08/18 06:10> - Past Medical History Anemia: Yes Asthma: No Cancer: No Cardiac Disorders: Yes CVA: No COPD: No CHF: No DVT: No Dementia: No Diabetes: Yes GI Disorders: Yes (GERD) Disorders: No HTN: Yes Hypercholesterolemia: Yes Liver Disease: Yes Psychiatric Problems: Yes Seizures: No Thyroid Disease: No - Surgical History Abdominal Surgery: Yes (gallbladder) Appendectomy: No Cardiac Surgery: No Cholecystectomy: Yes Lung Surgery: No Neurologic Surgery: No Orthopedic Surgery: Yes (R.ANKLE SX WITH SCREWS) - Immunization History Immunization Up to Date: Yes - Suicide/Smoking/Psychosocial Hx Smoking History: Never smoked Have you smoked in the past 12 months: No Hx Alcohol Use: No Drug/Substance Use Hx: No Substance Use Type: None Hx Substance Use Treatment: No <Everett Zhao - Last Filed: 04/18/18 19:17> - Past Medical History Allergies/Adverse Reactions: Allergies Allergy/AdvReac Type Severity Reaction Status Date / Time No Known Allergies Allergy Verified 03/30/18 03:27 Home Medications: Ambulatory Orders Gabapentin [Neurontin] 400 mg PO HS 01/22/16 Quetiapine Fumarate [Seroquel -] 50 mg PO HS 01/22/16 Tamsulosin HCl [Flomax -] 0.4 mg PO HS 01/22/16 Atorvastatin Calcium [Lipitor] 10 mg PO HS 01/06/17 Roflumilast [Daliresp] 500 mcg PO DAILY 01/06/17 Aspirin [ASA -] 81 mg PO DAILY tab.chew 01/08/17 Pantoprazole Sodium [Protonix -] 40 mg PO DAILY #30 tablet.ec 01/08/17 Methylnaltrexone [place] [Relistor -] 12 mg SQ DAILY #30 kit MDD 1 04/26/17 Rifaximin [Xifaxan -] 550 mg PO TID #60 tablet MDD 3 04/26/17 Metoclopramide HCl [Reglan -] 5 mg PO TIDAC #90 tablet 01/30/18 Naloxegol Oxalate [Movantik] 25 mg PO AM #30 tablet 01/30/18 metFORMIN XR [Glucophage Xr -] 500 mg PO BID #60 tab.sr.24h 01/30/18 Amlodipine Besylate [Norvasc -] 10 mg PO DAILY tablet 02/02/18 Lipase/Protease/Amylase [Adama Figueroa 36,000 Units Capsule] 1 cap PO TIDCM capsule. 02/02/18 Losartan Potassium [Cozaar -] 100 mg PO DAILY tablet 02/02/18 Review of Systems - Review of Systems Able to Perform ROS?: Yes Comments:: 04/08/18 06:10 CONSTITUTIONAL: Absent: fever, no chills, no fatigue EYES: Absent: visual changes ENT: Absent: ear pain, no sore throat CARDIOVASCULAR: +chest pain. Absent: palpitations RESPIRATORY: Absent: cough, no SOB GI: Absent: abdominal pain, no nausea, no vomiting, no constipation, no diarrhea GENITOURINARY: Absent: dysuria, no frequency, no hematuria MUSCULOSKELETAL: Absent: back pain, no arthralgia, no myalgia SKIN: Absent: rash All Other Systems: Reviewed and Negative <Tao Womack - Last Filed: 04/08/18 06:10> *Physical Exam - Vital Signs Last Vital Signs Temp Pulse Resp BP Pulse Ox 98.2 F 84 20 175/97 98 03/30/18 03:24 03/30/18 03:24 03/30/18 03:24 03/30/18 03:24 03/30/18 03:24 - Physical Exam Comments: 04/08/18 06:10 GENERAL: Well-appearing, well-nourished. No apparent distress. HEENT: Normocephalic, atraumatic. PERRL, EOM intact. CARDIOVASCULAR: Normal S1, S2. Regular rate and rhythm. PULMONARY: Clear to auscultation bilaterally. ABDOMEN: Soft, non-distended, non-tender. EXTREMITIES: Normal ROM in all four extremities. No gross deformities. SKIN: Warm, dry. No rash NEUROLOGICAL: No focal neurological deficits. <Tao Womack - Last Filed: 04/08/18 06:10> - Vital Signs Last Vital Signs Temp Pulse Resp BP Pulse Ox 98.2 F 84 20 175/97 98 03/30/18 03:24 03/30/18 03:24 03/30/18 03:24 03/30/18 03:24 03/30/18 03:24 <Everett Zhao - Last Filed: 04/18/18 19:17> Moderate Sedation - Procedure Monitoring Vital Signs: Vital Signs Temp Pulse Resp BP Pulse Ox 98.2 F 84 20 175/97 98 03/30/18 03:24 03/30/18 03:24 03/30/18 03:24 03/30/18 03:24 03/30/18 03:24 <Tao Womack - Last Filed: 04/08/18 06:10> - Procedure Monitoring Vital Signs: Vital Signs Temp Pulse Resp BP Pulse Ox 98.2 F 84 20 175/97 98 03/30/18 03:24 03/30/18 03:24 03/30/18 03:24 03/30/18 03:24 03/30/18 03:24 <Everett Zhao - Last Filed: 04/18/18 19:17> Heart Score/ECG Review - ECG Intrepretation Comment:: 05/23/18 03:55 Completed @3:39:47 Normal sinus rhythm Possible left atrial enlargement Incomplete Left bundle branch block Nonspecific T wave abnormality abnormal ECG Vent. rate 77 bpm [place] interval 192 ms QRS duration 112 ms QT/QTc 354/400 ms <Tao Womack - Last Filed: 04/08/18 06:10> ED Treatment Course - LABORATORY CBC & Chemistry Diagram: 03/31/18 05:40 03/31/18 05:40 <Tao Womack - Last Filed: 04/08/18 06:10> - LABORATORY CBC & Chemistry Diagram: 03/31/18 05:40 03/31/18 05:40 <Everett Zhao - Last Filed: 04/18/18 19:17> Medical Decision Making - Medical Decision Making 04/18/18 19:17 Dr. Zhao: The scribe's documentation has been prepared under my direction and personally reviewed by me in its entirery. I confirm that the note above accurately reflects all work, treatment, procedures, and medical decision making performed by me. <Everett Zhao - Last Filed: 04/18/18 19:17> *DC/Admit/Observation/Transfer - Attestations Scribe Attestion: 04/08/18 06:11 Documentation prepared by Tao Womack, acting as medical physicist for María Robison DO. <Tao Womack - Last Filed: 04/08/18 06:10> <Everett Zhao - Last Filed: 04/18/18 19:17> Diagnosis at time of Disposition: Chest pain Qualifiers: Chest pain type: unspecified Qualified Code(s): R07.9 - Chest pain, unspecified - Discharge Dispostion Disposition: HOME Condition at time of disposition: Stable
[2018-03-30] MEDS ORDERED: NITROGLYCERIN 2% OINTMENT - 1GM PACKET TD ONE ×2 (04:00→04:02)
[2018-03-30] MEDS ORDERED: ONDANSETRON 4 MG/2 ML VIAL ONE (06:00)
[2018-03-30] MEDS ORDERED: PANTOPRAZOLE SODIUM 40 MG/100 ML PRE-DOCKED IVPB ONE (06:00)
[2018-03-30] MEDS ORDERED: PANTOPRAZOLE SODIUM 40 MG/100 ML BAG IVPB ONE (06:00)
[2018-03-30 06:39] LABS: BASO % 0.3 % (0-2.0); EOS % 0.7 % (0-4.5); HEMATOCRIT 39.8 % (35.4-49); HEMOGLOBIN 13.4 GM/dL (11.7-16.9); LYMPH % 22.5 % (8-40); MCHC 33.7 g/dl (32.0-35.9); MEAN CELL VOLUME 92.1 fl (80-96); MEAN PLT VOLUME 6.9 fl (7.5-11.1); MONO % 9.9 % (3.8-10.2); NEUT % 66.6 % (42.8-82.8); PLATELET COUNT 273 K/MM3 (134-434); RBC 4.32 M/mm3 (4.00-5.60); RDW 14.1 % (11.9-15.9); WHITE BLOOD COUNT 7.7 K/mm3 (4.0-10.0)
[2018-03-30 06:40] LABS: INR 1.04 (0.82-1.09); PROTHROMBIN TIME (PATIENT) 11.8 SEC (9.7-13.0)
[2018-03-30] MEDS ORDERED: ONDANSETRON 4 MG/2 ML VIAL IVPUSH ONE (07:00)
[2018-03-30 07:20] LABS: ALBUMIN 3.6 g/dl (3.4-5.0); ALK PHOS 59 U/L (45-117); ANION GAP 9 (8-16); BILIRUBIN,TOTAL 0.5 mg/dL (0.2-1.0); BLOOD UREA NITROGEN 17 mg/dL (7-18); CALCIUM 8.9 mg/dL (8.5-10.1); CHLORIDE 101 mmol/L (98-107); CO2 27 mmol/L (21-32); CREATININE 1.4 mg/dL (0.7-1.3); GLUCOSE,RANDOM 159 mg/dL (74-106); LIPASE 111 U/L (73-393); N-TERMINAL BNP 488.93 pg/ml (5-125); POTASSIUM 3.3 mmol/L (3.5-5.1); SGOT/AST 27 U/L (15-37); SGPT/ALT 42 U/L (12-78); SODIUM 137 mmol/L (136-145); TOT PROT 6.9 g/dl (6.4-8.2)
--- NOTE | 2018-03-30 08:10 | PDOC ---
*Physical Exam - Vital Signs Last Vital Signs Temp Pulse Resp BP Pulse Ox 98.2 F 84 20 175/97 100 03/30/18 03:24 03/30/18 03:24 03/30/18 03:24 03/30/18 03:24 03/30/18 07:59 <Caryn Deleon - Last Filed: 03/30/18 12:11> - Vital Signs Last Vital Signs Temp Pulse Resp BP Pulse Ox 98.2 F 84 20 175/97 98 03/30/18 03:24 03/30/18 03:24 03/30/18 03:24 03/30/18 03:24 03/30/18 03:24 <María Robison - Last Filed: 03/30/18 16:48> Heart Score/ECG Review - ECG Impressions Comment:: EKG 03:39- NSR 77 bpm, no acute ST/T changes <María Robison - Last Filed: 03/30/18 16:48> ED Treatment Course - LABORATORY CBC & Chemistry Diagram: 03/30/18 04:15 03/30/18 04:15 - ADDITIONAL ORDERS Additional order review: Laboratory Results 03/30/18 03/30/18 03/30/18 04:15 04:15 04:12 PT with INR 11.80 INR 1.04 Sodium 137 Potassium 3.3 L Chloride 101 Carbon Dioxide 27 Anion Gap 9 BUN 17 D Creatinine 1.4 H D Creat Clearance w eGFR 49.96 Random Glucose 159 H Calcium 8.9 Magnesium 2.0 Total Bilirubin 0.5 D AST 27 D ALT 42 D Alkaline Phosphatase 59 Creatine Kinase 140 Troponin I 0.03 D B-Natriuretic Peptide 488.93 H Total Protein 6.9 Albumin 3.6 Lipase 111 Blood Type A POSITIVE Antibody Screen Negative 03/30/18 04:15 RBC 4.32 MCV 92.1 MCHC 33.7 RDW 14.1 MPV 6.9 L Neutrophils % 66.6 Lymphocytes % 22.5 Monocytes % 9.9 Eosinophils % 0.7 Basophils % 0.3 - Medications Given in the ED: ED Medications Discontinued Medications Generic Name Dose Route Start Last Admin Trade Name Freq PRN Reason Stop Dose Admin Morphine Sulfate 4 mg 03/30/18 08:13 03/30/18 08:57 Morphine Injection - IVPUSH 03/30/18 08:14 4 mg ONCE ONE Administration Nitroglycerin 0.5 inch 03/30/18 04:00 03/30/18 04:58 Nitro-Bid 2% Paste - TD 03/30/18 04:01 0.5 inch ONCE ONE Administration Ondansetron HCl 4 mg 03/30/18 07:00 03/30/18 06:59 Zofran Injection IVPUSH 03/30/18 07:01 4 mg ONCE ONE Administration Pantoprazole Sodium 40 mg 03/30/18 06:00 03/30/18 06:59 Protonix 40mg Ivpb (Pre-Docked) IVPB 03/30/18 06:01 40 mg ONCE ONE Administration <PanchoCaryn - Last Filed: 03/30/18 12:11> - LABORATORY CBC & Chemistry Diagram: 03/30/18 04:15 03/30/18 16:00 - ADDITIONAL ORDERS Additional order review: Laboratory Results 03/30/18 03/30/18 03/30/18 04:15 04:15 04:12 PT with INR 11.80 INR 1.04 Sodium 137 Potassium 3.3 L Chloride 101 Carbon Dioxide 27 Anion Gap 9 BUN 17 D Creatinine 1.4 H D Creat Clearance w eGFR 49.96 Random Glucose 159 H Calcium 8.9 Magnesium 2.0 Total Bilirubin 0.5 D AST 27 D ALT 42 D Alkaline Phosphatase 59 Creatine Kinase 140 Troponin I 0.03 D B-Natriuretic Peptide 488.93 H Total Protein 6.9 Albumin 3.6 Lipase 111 Blood Type A POSITIVE Antibody Screen Negative 03/30/18 04:15 RBC 4.32 MCV 92.1 MCHC 33.7 RDW 14.1 MPV 6.9 L Neutrophils % 66.6 Lymphocytes % 22.5 Monocytes % 9.9 Eosinophils % 0.7 Basophils % 0.3 - Medications Given in the ED: ED Medications Discontinued Medications Generic Name Dose Route Start Last Admin Trade Name Freq PRN Reason Stop Dose Admin Nitroglycerin 0.5 inch 03/30/18 04:00 03/30/18 04:58 Nitro-Bid 2% Paste - TD 03/30/18 04:01 0.5 inch ONCE ONE Administration Ondansetron HCl 4 mg 03/30/18 07:00 03/30/18 06:59 Zofran Injection IVPUSH 03/30/18 07:01 4 mg ONCE ONE Administration Pantoprazole Sodium 40 mg 03/30/18 06:00 03/30/18 06:59 Protonix 40mg Ivpb (Pre-Docked) IVPB 03/30/18 06:01 40 mg ONCE ONE Administration <María Robison - Last Filed: 03/30/18 16:48> Medical Decision Making - Medical Decision Making 03/30/18 11:14 Dr. Suarez was paged and notified via phone service. Second page was placed at 12:11. <Caryn Deleon - Last Filed: 03/30/18 12:11> - Medical Decision Making 03/30/18 08:13 Pt received at 7am shift change. Presented with cp, epigastric pain. Chart reviewed, patient was just recently admitted and discharged for similar complaint. Will d/w Dr. Suarez, patient's primary. 03/30/18 09:01 D/w Dr. Suarez. Will f/u with him regarding disposition. 03/30/18 12:09 Case d/w Dr. Suarez. Patient is continuing to c/o chest pain and epigastric pain. Will admit to tele on observation. <María Robison - Last Filed: 03/30/18 16:48> *DC/Admit/Observation/Transfer <Caryn Deleon - Last Filed: 03/30/18 12:11> - Discharge Dispostion Decision to Admit order: Yes <María Robison - Last Filed: 03/30/18 16:48> Diagnosis at time of Disposition: Chest pain Qualifiers: Chest pain type: unspecified Qualified Code(s): R07.9 - Chest pain, unspecified - Discharge Dispostion Condition at time of disposition: Stable
[2018-03-30] MEDS ORDERED: morphine CARPU-JECT 4 MG/1 ML DISP.SYRIN IVPUSH ONE ×2 (08:13→12:45)
[2018-03-30] MEDS ORDERED: morphine SULFATE 4 MG/ML VIAL ONE (08:53)
--- NOTE | 2018-03-30 10:27 | EKG ---
Test Reason : Blood Pressure : / mmHG Vent. Rate : 077 BPM Atrial Rate : 077 BPM P-R Int : 192 ms QRS Dur : 112 ms QT Int : 354 ms P-R-T Axes : 034 009 071 degrees QTc Int : 400 ms NORMAL SINUS RHYTHM POSSIBLE LEFT ATRIAL ENLARGEMENT INCOMPLETE LEFT BUNDLE BRANCH BLOCK NONSPECIFIC T WAVE ABNORMALITY ABNORMAL ECG WHEN COMPARED WITH ECG OF 27-MAR-2018 02:14, QT HAS SHORTENED Confirmed by NEHA YOO, KWABENA ([id number]) on 03/30/2018 10:27:21 AM Referred By: Confirmed By:KWABENA SOLOMON MD
[2018-03-30] MEDS ORDERED: MAG HYDROX/AL HYDROX/SIMETH -MYLANTA- ORAL SUSPENSION PO ONE (11:17)
[2018-03-30] MEDS ORDERED: MAG HYDROX/AL HYDROX/SIMETH 30 ML UNIT-DOSE CUP ONE (11:38)
[2018-03-30] MEDS ORDERED: LOSARTAN POTASSIUM 50 MG TABLET (FP) PO ONE (12:42)
[2018-03-30] MEDS ORDERED: amLODIPine BESYLATE 10 MG TABLET (FP) PO ONE (12:42)
--- NOTE | 2018-03-30 13:07 | HP ---
Admitting History and Physical - Admission History of Present Illness: 72 year old man h/o HTN, DMII, HLD, abdominal hernias, possible chronic diastolic CHF with multiple admissions for abdominal pain again admitted for abdominal pain with reported radiation up to the chest. - Past Medical History Cardiovascular: Yes: HTN, Hyperlipdemia Gastrointestinal: Yes: Constipation, Pancreatitis, GERD, Other Hepatobiliary: Yes: Other (cholecystectomy) Musculoskeletal: Yes: Osteoarthritis, Other (chronic lower leg pain) Endocrine: Yes: Diabetes Mellitus - Past Surgical History Past Surgical History: Yes: Cholecystectomy - Smoking History Smoking history: Never smoked Have you smoked in the past 12 months: No - Alcohol/Substance Use Hx Alcohol Use: No History of Substance Use: reports: None - Social History ADL: Independent History of Recent Travel: No Home Medications - Allergies Allergies/Adverse Reactions: Allergies Allergy/AdvReac Type Severity Reaction Status Date / Time No Known Allergies Allergy Verified 03/30/18 03:27 - Home Medications Home Medications: Ambulatory Orders Gabapentin [Neurontin] 400 mg PO HS 01/22/16 Quetiapine Fumarate [Seroquel -] 50 mg PO HS 01/22/16 Tamsulosin HCl [Flomax -] 0.4 mg PO HS 01/22/16 Atorvastatin Calcium [Lipitor] 10 mg PO HS 01/06/17 Roflumilast [Daliresp] 500 mcg PO DAILY 01/06/17 Aspirin [ASA -] 81 mg PO DAILY tab.chew 01/08/17 Pantoprazole Sodium [Protonix -] 40 mg PO DAILY #30 tablet.ec 01/08/17 Methylnaltrexone [place] [Relistor -] 12 mg SQ DAILY #30 kit MDD 1 04/26/17 Rifaximin [Xifaxan -] 550 mg PO TID #60 tablet MDD 3 04/26/17 Metoclopramide HCl [Reglan -] 5 mg PO TIDAC #90 tablet 01/30/18 Naloxegol Oxalate [Movantik] 25 mg PO AM #30 tablet 01/30/18 metFORMIN XR [Glucophage Xr -] 500 mg PO BID #60 tab.sr.24h 01/30/18 Amlodipine Besylate [Norvasc -] 10 mg PO DAILY tablet 02/02/18 Lipase/Protease/Amylase [Adama Figueroa 36,000 Units Capsule] 1 cap PO TIDCM capsule. 02/02/18 Losartan Potassium [Cozaar -] 100 mg PO DAILY tablet 02/02/18 Family Disease History - Family Disease History Family Disease History: Heart Disease: Father ( of [place] 20yrs ago), [place]: Grandparent, Father, Mother, Brother, Sister, Son, Daughter Review of Systems - Review of Systems Cardiovascular: reports: Chest Pain Respiratory: denies: SOB Gastrointestinal: reports: Abdominal Pain, Bloating Physical Examination Vital Signs: Vital Signs Temperature 98.2 F 03/30/18 03:24 Pulse Rate 84 03/30/18 03:24 Respiratory Rate 20 03/30/18 03:24 Blood Pressure 175/97 03/30/18 03:24 O2 Sat by Pulse Oximetry (%) 100 03/30/18 07:59 Cardiovascular: Yes: S1, S2 Respiratory: Yes: Regular, CTA Bilaterally Gastrointestinal: Yes: Normal Bowel Sounds, Soft. No: Tenderness Edema: No Labs: CBC, BMP 03/30/18 04:15 03/30/18 04:15 Problem List - Problems (1) CKD (chronic kidney disease) Assessment/Plan: -repeat Code(s): N18.9 - CHRONIC KIDNEY DISEASE, UNSPECIFIED Qualifiers: Chronic kidney disease stage: on chronic dialysis Qualified Code(s): N18.6 - End stage renal disease; Z99.2 - Dependence on renal dialysis (2) Abdominal pain Assessment/Plan: -multiple admisions -gi consult -avoid pain meds Code(s): R10.9 - UNSPECIFIED ABDOMINAL PAIN (3) Chest pain Assessment/Plan: -follow ce -cardio Code(s): R07.9 - CHEST PAIN, UNSPECIFIED Qualifiers: Chest pain type: unspecified Qualified Code(s): R07.9 - Chest pain, unspecified (4) Diabetes Assessment/Plan: bgm Code(s): E11.9 - TYPE 2 DIABETES MELLITUS WITHOUT COMPLICATIONS Qualifiers: Diabetes mellitus type: type 2 (5) HTN (hypertension) Code(s): I10 - ESSENTIAL (PRIMARY) HYPERTENSION (6) Hypokalemia Code(s): E87.6 - HYPOKALEMIA
--- NOTE | 2018-03-30 15:52 | CON.CARD ---
Consult Consult Specialty:: Cardiology Referred by:: Dr. Suarez Reason for Consultation:: Chest pain - History of Present Illness Chief Complaint: Abdominal pain radiating up to chest History of Present Illness: 72 year old man h/o HTN, DMII, HLD, abdominal hernias, possible chronic diastolic CHF with multiple admissions for abdominal pain again admitted for abdominal pain with reported radiation up to the chest. Pt seen and examined in the ER in [facility]. main complaint is worsening of his chronic abdominal pain. states it occasionally radiates to the epigastrum and low substernal area mainly when lying down at night, relieved by changing position in bed. Denies any relationship to exertion. No sob, palpitations. no pnd, orthopnea, possible trace b/l LE edema. - History Source History Provided By: Patient, Medical Record Limitations to Obtaining History: Poor Historian - Past Medical History Cardio/Vascular: Yes: HTN, Hyperlipdemia Gastrointestinal: Yes: Constipation, Pancreatitis, GERD, Other Hepatobiliary: Yes: Other (cholecystectomy) Musculoskeletal: Yes: Osteoarthritis, Other (chronic lower leg pain) Endocrine: Yes: Diabetes Mellitus - Past Surgical History Past Surgical History: Yes: Cholecystectomy - Alcohol/Substance Use Hx Alcohol Use: No History of Substance Use: reports: None - Smoking History Smoking history: Never smoked Have you smoked in the past 12 months: No - Social History ADL: Independent History of Recent Travel: No Home Medications - Allergies Allergies/Adverse Reactions: Allergies Allergy/AdvReac Type Severity Reaction Status Date / Time No Known Allergies Allergy Verified 03/30/18 03:27 - Home Medications Home Medications: Ambulatory Orders Gabapentin [Neurontin] 400 mg PO HS 01/22/16 Quetiapine Fumarate [Seroquel -] 50 mg PO HS 01/22/16 Tamsulosin HCl [Flomax -] 0.4 mg PO HS 01/22/16 Atorvastatin Calcium [Lipitor] 10 mg PO HS 01/06/17 Roflumilast [Daliresp] 500 mcg PO DAILY 01/06/17 Aspirin [ASA -] 81 mg PO DAILY tab.chew 01/08/17 Pantoprazole Sodium [Protonix -] 40 mg PO DAILY #30 tablet.ec 01/08/17 Methylnaltrexone [place] [Relistor -] 12 mg SQ DAILY #30 kit MDD 1 04/26/17 Rifaximin [Xifaxan -] 550 mg PO TID #60 tablet MDD 3 04/26/17 Metoclopramide HCl [Reglan -] 5 mg PO TIDAC #90 tablet 01/30/18 Naloxegol Oxalate [Movantik] 25 mg PO AM #30 tablet 01/30/18 metFORMIN XR [Glucophage Xr -] 500 mg PO BID #60 tab.sr.24h 01/30/18 Amlodipine Besylate [Norvasc -] 10 mg PO DAILY tablet 02/02/18 Lipase/Protease/Amylase [Adama Figueroa 36,000 Units Capsule] 1 cap PO TIDCM capsule. 02/02/18 Losartan Potassium [Cozaar -] 100 mg PO DAILY tablet 02/02/18 Family Disease History - Family Disease History Family Disease History: Heart Disease: Father ( of [place] 20yrs ago), [place]: Grandparent, Father, Mother, Brother, Sister, Son, Daughter Review of Systems - Review of Systems Constitutional: denies: No Symptoms, Chills, Diaphoresis, Fever, Lethargy, Loss of Appetite, Malaise, Night Sweats, Unintentional Wgt. Loss, Weakness, Other Eyes: denies: No Symptoms, Blind Spots, Blurred Vision, Double Vision, Eye Pain , Floaters, Photophobia, Recent Change in Vision, Other HENT: denies: No Symptoms, Difficult Swallowing, Ear Discharge, Ear Pain, Epistaxis, Gingival Bleeding, Hearing Loss, Mouth Swelling, Nasal Congestion, Ocular Prosthesis, Throat Pain, Toothache, Ringing in Ears, Other Neck: denies: No Symptoms, Decreased ROM, Lumps, Pain on Movement, Stiffness, Swollen Glands, Tenderness, Other Cardiovascular: reports: Chest Pain. denies: No Symptoms, Edema, Palpitations, Shortness of Breath, Other Respiratory: denies: No Symptoms, Cough, Exercise Intolerance, Hemoptysis, Orthopnea, PND, Snoring, SOB, SOB on Exertion, Wheezing, Other Gastrointestinal: reports: Abdominal Pain, Bloating. denies: No Symptoms, Constipation, Diarrhea, Dysphagia, Indigestion, Melena, Nausea, Rectal Bleeding , Vomiting, Vomiting Blood, Other Genitourinary: denies: No Symptoms, Burning, Discharge, Dysuria, Flank Pain, Frequency, Hematuria, Incontinence, Lesions, Menses, Pain, Testicular Mass, Testicular Pain, Testicular Swelling, Urgency, Vaginal Bleeding, Other Breasts: denies: No Symptoms Reported, See HPI, Breast Implants, Discharge from Nipple, Lumps, Pain, Skin Changes, Other Musculoskeletal: denies: No Symptoms, Back Pain, Crepitus, Decreased ROM, Extremity Pain, Joint Pain, Joint Swelling, Muscle Pain, Muscle Cramps, Muscle Weakness, Other Integumentary: denies: No Symptoms, Blister, Bruising, Change in Color, Eczema, Erythema, Incision, Lesions, Lump, Pallor, Pruritis, Rash, Wound, Other Neurological: denies: No Symptoms, Change in LOC, Change in Speech, Confusion, Dizziness, Headache, Incoordination, Numbness, Parasthesia, Pre-Existing Deficit , Seizure, Syncope, Tremors, Unsteady Gait, Weakness, Other Endocrine: denies: No Symptoms, Excessive Sweating, Flushing, Increased Hunger, Increased Thirst, Intolerance to Cold, Intolerance to Heat, Unexplained Weight Gain, Unexplained Weight Loss, Other Hematology/Lymphatic: denies: No Symptoms, Easily Bruised, Excessive Bleeding, Swollen Glands, Other Psychiatric: denies: No Symptoms, Altered Sleep Pattern, Anxiety, Depression, Hallucinations, Panic, Paranoia, Suicidal, Other - Risk Factors Known Risk Factors: Yes: Diabetes Mellitus, Hypercholesterolemia, Hypertension Vital Signs: Vital Signs Temperature 98.2 F 03/30/18 03:24 Pulse Rate 84 03/30/18 03:24 Respiratory Rate 20 03/30/18 03:24 Blood Pressure 175/97 03/30/18 03:24 O2 Sat by Pulse Oximetry (%) 100 03/30/18 07:59 Constitutional: Yes: No Distress, Calm, Obese Eyes: Yes: Conjunctiva Clear, EOM Intact, PERRL HENT: Yes: Atraumatic, Normocephalic Neck: Yes: Supple, Trachea Midline Respiratory: Yes: WNL, Regular, CTA Bilaterally. No: Rales, Rhonchi, Wheezes Gastrointestinal: Yes: WNL, Normal Bowel Sounds, Soft. No: Distention, Tenderness Cardiovascular: Yes: Regular Rate and Rhythm. No: Bradycardia, Tachycardia, Pulse Irregular, Gallop, Rub, Varicosities JVD: No Carotid Bruit: No PMI: Non-Displaced Heart Sounds: Yes: S1, S2. No: Split S2, S3, S4, Clicks, Gallop, Rub, Bruit Murmur: No: Systolic Murmur, Diastolic Murmur Musculoskeletal: Yes: WNL Extremities: Yes: WNL Edema: LLE: Trace, RLE: Trace Peripheral Pulses WNL: Yes Peripheral Pulses: 2+ Left Doralis Pedis, 2+ Right Dorsalis Pedis Integumentary: Yes: WNL Neurological: Yes: Alert, Oriented, Cran Nerves II-XII Intact Psychiatric: Yes: Alert, Oriented - Other Data Labs, Other Data: CBC, BMP 03/30/18 04:15 03/30/18 04:15 INR, PTT INR 1.04 (0.82-1.09) 03/30/18 04:15 Troponin, BNP 03/30/18 04:15 Troponin I 0.03 D B-Natriuretic Peptide 488.93 H Troponin, BNP 03/30/18 04:15 Troponin I 0.03 D B-Natriuretic Peptide 488.93 H EKG-NSR 77bpm, LAE, incomplete LBBB, nsst, no sig change from past EKGs Echo: Report Reviewed Imaging - Results Chest X-ray: Report Reviewed, Image Reviewed EKG: Report Reviewed, Image Reviewed Other: Report Reviewed, Image Reviewed Assessment/Plan 72 year old man h/o HTN, DMII, HLD, abdominal hernias, possible chronic diastolic CHF with multiple admissions for abdominal pain again admitted for abdominal pain with reported radiation up to the chest. Pt seen and examined in the ER in [facility]. main complaint is worsening of his chronic abdominal pain. states it occasionally radiates to the epigastrum and low substernal area mainly when lying down at night, relieved by changing position in bed. Denies any relationship to exertion. No sob, palpitations. no pnd, orthopnea, possible trace b/l LE edema. Chest pain-atypical, unlikely ACS, more likely referred from abdomen/epigastrum possible GI related -cardiac enzymes wnl -no changes on ekg -echo 01/27/18 showed normal LV systolic function, mod LVH, mild mr/tr -No additional inpatient cardiac work up needed at this time -[facility] outpatient f/up for further work up as needed Edema-h/o possible chronic diastolic CHF -no current symptoms, trace b/l edema -cont home medical regimen -outpatient f/up HTN-uncontrolled -cont home medical regimen and adjust as needed -outpatient f/up Please call with any additional questions.
[2018-03-30 16:36] LABS: ALBUMIN 3.9 g/dl (3.4-5.0); ANION GAP 8 (8-16); BLOOD UREA NITROGEN 16 mg/dL (7-18); CALCIUM 9.4 mg/dL (8.5-10.1); CHLORIDE 102 mmol/L (98-107); CHOLESTEROL 140 mg/dL (50-200); CO2 28 mmol/L (21-32); CREATININE 1.5 mg/dL (0.7-1.3); GLUCOSE,RANDOM 140 mg/dL (74-106); SGOT/AST 38 U/L (15-37); SGPT/ALT 49 U/L (12-78); SODIUM 138 mmol/L (136-145); TRIGLYCERIDES 167 mg/dL (35-160)
[2018-03-30 16:40] LABS: ALK PHOS 65 U/L (45-117); BILIRUBIN,TOTAL 0.7 mg/dL (0.2-1.0); HDL CHOLESTEROL 33 mg/dL (40-60); TOT PROT 7.5 g/dl (6.4-8.2)
[2018-03-30] MEDS ORDERED: amLODIPine BESYLATE 5 MG TABLET (FP) ONE (16:56)
[2018-03-30] MEDS ORDERED: METOCLOPRAMIDE HCL 10 MG TABLET (FP) PO ONE (16:58)
[2018-03-30] MEDS: RIFAXIMIN 550 MG TABLET (UD) PO SCH ×2 (17:00→22:30)
[2018-03-30] MEDS: METOCLOPRAMIDE HCL 10 MG TABLET (FP) PO SCH (17:09)
--- NOTE | 2018-03-30 17:48 | CON.GI ---
Consult Consult Specialty:: GI Reason for Consultation:: epigastric pain - History of Present Illness History of Present Illness: for 72-year-old gentleman with a history as stated below and multiple visits to the hospital over the year for abdominal symptoms. Reviewing chart, revealed multiple imaging studies, workups with no clear answer. At the time of this encounter the patient reports epigastric, nonradiating pain of 1 day duration, onset one day ago, with nausea and one episode of vomiting without fever, chills, jaundice, diarrhea. There is no hematemesis, coffee-ground, melena, hematochezia. There is no dysphagia, odynophagia, history of chronic GERD. The patient reports no weight loss. He reports no recent ill contacts, changes in medications, changes in diet, travels. while in ED he received milk of magnesia and morphine. at home to take small dose aspirin among other medications. CBC is normal. CMP shows mild renal insufficiency and normal liver chemistries including bilirubin and alk phos. Lipase normal. Cardiology consultation and recommendations noted. - Past Medical History Cardio/Vascular: Yes: HTN, Hyperlipdemia Gastrointestinal: Yes: Constipation, Pancreatitis, GERD, Other Hepatobiliary: Yes: Other (cholecystectomy) Musculoskeletal: Yes: Osteoarthritis, Other (chronic lower leg pain) Endocrine: Yes: Diabetes Mellitus - Past Surgical History Past Surgical History: Yes: Cholecystectomy - Alcohol/Substance Use Hx Alcohol Use: No History of Substance Use: reports: None - Smoking History Smoking history: Never smoked Have you smoked in the past 12 months: No - Social History ADL: Independent History of Recent Travel: No Home Medications - Allergies Allergies/Adverse Reactions: Allergies Allergy/AdvReac Type Severity Reaction Status Date / Time No Known Allergies Allergy Verified 03/30/18 03:27 - Home Medications Home Medications: Ambulatory Orders Gabapentin [Neurontin] 400 mg PO HS 01/22/16 Quetiapine Fumarate [Seroquel -] 50 mg PO HS 01/22/16 Tamsulosin HCl [Flomax -] 0.4 mg PO HS 01/22/16 Atorvastatin Calcium [Lipitor] 10 mg PO HS 01/06/17 Roflumilast [Daliresp] 500 mcg PO DAILY 01/06/17 Aspirin [ASA -] 81 mg PO DAILY tab.chew 01/08/17 Pantoprazole Sodium [Protonix -] 40 mg PO DAILY #30 tablet.ec 01/08/17 Methylnaltrexone [place] [Relistor -] 12 mg SQ DAILY #30 kit MDD 1 04/26/17 Rifaximin [Xifaxan -] 550 mg PO TID #60 tablet MDD 3 04/26/17 Metoclopramide HCl [Reglan -] 5 mg PO TIDAC #90 tablet 01/30/18 Naloxegol Oxalate [Movantik] 25 mg PO AM #30 tablet 01/30/18 metFORMIN XR [Glucophage Xr -] 500 mg PO BID #60 tab.sr.24h 01/30/18 Amlodipine Besylate [Norvasc -] 10 mg PO DAILY tablet 02/02/18 Lipase/Protease/Amylase [Adama Figueroa 36,000 Units Capsule] 1 cap PO TIDCM capsule. 02/02/18 Losartan Potassium [Cozaar -] 100 mg PO DAILY tablet 02/02/18 Family Disease History - Family Disease History Family Disease History: Heart Disease: Father ( of [place] 20yrs ago), [place]: Grandparent, Father, Mother, Brother, Sister, Son, Daughter Review of Systems Findings/Remarks: As per H&P and HPI Physical Exam-GI Vital Signs: Vital Signs Temperature 98.2 F 03/30/18 03:24 Pulse Rate 84 03/30/18 03:24 Respiratory Rate 20 03/30/18 03:24 Blood Pressure 175/97 03/30/18 03:24 O2 Sat by Pulse Oximetry (%) 100 03/30/18 07:59 Constitutional: Yes: Well Nourished, No Distress, Calm Eyes: Yes: Conjunctiva Clear HENT: Yes: Atraumatic Neck: Yes: Supple Cardiovascular: Yes: Regular Rate and Rhythm Respiratory: Yes: Regular Gastrointestinal Inspection: No: Distention ...Auscultate: Yes: Normoactive Bowel Sounds ...Palpate: Yes: Soft. No: Firm/Rigid, Guarding, Tenderness, Epigastium, Tenderness, Rebound Neurological: Yes: Alert, Oriented Labs: CBC, BMP 03/30/18 04:15 03/30/18 16:00 INR, PTT INR 1.04 (0.82-1.09) 03/30/18 04:15 Laboratory Last Values WBC 7.7 K/mm3 (4.0-10.0) 03/30/18 04:15 RBC 4.32 M/mm3 (4.00-5.60) 03/30/18 04:15 Hgb 13.4 GM/dL (11.7-16.9) 03/30/18 04:15 Hct 39.8 % (35.4-49) 03/30/18 04:15 MCV 92.1 fl (80-96) 03/30/18 04:15 MCH 31.0 pg (25.7-33.7) 03/30/18 04:15 MCHC 33.7 g/dl (32.0-35.9) 03/30/18 04:15 RDW 14.1 % (11.9-15.9) 03/30/18 04:15 Plt Count 273 K/MM3 (134-434) 03/30/18 04:15 MPV 6.9 fl (7.5-11.1) L 03/30/18 04:15 Neutrophils % 66.6 % (42.8-82.8) 03/30/18 04:15 Lymphocytes % 22.5 % (8-40) 03/30/18 04:15 Monocytes % 9.9 % (3.8-10.2) 03/30/18 04:15 Eosinophils % 0.7 % (0-4.5) 03/30/18 04:15 Basophils % 0.3 % (0-2.0) 03/30/18 04:15 Nucleated RBC % 0 % (0-0) 03/30/18 04:15 PT with INR 11.80 SEC (9.7-13.0) 03/30/18 04:15 INR 1.04 (0.82-1.09) 03/30/18 04:15 Sodium 138 mmol/L (136-145) 03/30/18 16:00 Potassium 4.0 mmol/L (3.5-5.1) D 03/30/18 16:00 Chloride 102 mmol/L (98-107) 03/30/18 16:00 Carbon Dioxide 28 mmol/L (21-32) 03/30/18 16:00 Anion Gap 8 (8-16) 03/30/18 16:00 BUN 16 mg/dL (7-18) 03/30/18 16:00 Creatinine 1.5 mg/dL (0.7-1.3) H 03/30/18 16:00 Creat Clearance w eGFR 46.13 (>60) 03/30/18 16:00 Random Glucose 140 mg/dL (74-106) H 03/30/18 16:00 Calcium 9.4 mg/dL (8.5-10.1) 03/30/18 16:00 Magnesium 2.0 mg/dL (1.8-2.4) 03/30/18 04:15 Total Bilirubin 0.7 mg/dL (0.2-1.0) D 03/30/18 16:00 AST 38 U/L (15-37) H D 03/30/18 16:00 ALT 49 U/L (12-78) 03/30/18 16:00 Alkaline Phosphatase 65 U/L (45-117) 03/30/18 16:00 Creatine Kinase 89 IU/L (39-308) 03/30/18 16:00 Troponin I 0.02 ng/ml (0.00-0.05) D 03/30/18 16:00 B-Natriuretic Peptide 488.93 pg/ml (5-125) H 03/30/18 04:15 Total Protein 7.5 g/dl (6.4-8.2) 03/30/18 16:00 Albumin 3.9 g/dl (3.4-5.0) 03/30/18 16:00 Triglycerides 167 mg/dL (35-160) H D 03/30/18 16:00 Cholesterol 140 mg/dL (50-200) 03/30/18 16:00 Total LDL Cholesterol 96 mg/dL (5-100) 03/30/18 16:00 HDL Cholesterol 33 mg/dL (40-60) L D 03/30/18 16:00 Lipase 111 U/L (73-393) 03/30/18 04:15 Blood Type A POSITIVE 03/30/18 04:12 Antibody Screen Negative 03/30/18 04:12 Problem List - Problems (1) Abdominal pain Code(s): R10.9 - UNSPECIFIED ABDOMINAL PAIN Assessment/Plan 72-year-old gentleman with above medical history and recurrent, chronic abdominal pain with no clear explanation.? IBS. He does not appear septic, or in distress. Physical exam reveals benign abdomen. His blood work reveals no significant, acute pathology requiring in-hospital workup. Recommend to continue with PPI, MOM, advance diet and observe. If able to tolerate regular diet, okay to discharge patient home from GI point of view with GI follow-up within one week for outpatient workup to rule out inflammatory states. Discussed with patient's nurse.
[2018-03-30] MEDS ORDERED: MAGNESIUM HYDROX 2400MG/30ML ORAL SUSPENSION 30 ML CUP PO PRN (18:03)
[2018-03-30] MEDS: LIPASE/PROTEASE/AMYLASE 36,000 UNIT CAPSULE PO SCH (18:16)
[2018-03-30] MEDS ORDERED: GABAPENTIN 100 MG CAPSULE (FP) ONE (21:37)
[2018-03-30] MEDS ORDERED: QUEtiapine FUMARATE 25 MG TABLET (FP) ONE (21:37)
[2018-03-30] MEDS ORDERED: HEPARIN NA (PORCINE) 5,000 UNITS/ML 1ML VIAL ONE (21:37)
[2018-03-30] MEDS ORDERED: TAMSULOSIN HCL 0.4 MG CAP.ER.24H (FP) ONE (21:38)
[2018-03-30] MEDS ORDERED: GABAPENTIN 400 MG CAPSULE (FP) PO SCH (22:00)
[2018-03-30] MEDS ORDERED: QUEtiapine FUMARATE 50 MG TABLET PO SCH (22:00)
[2018-03-30] MEDS ORDERED: ATORVASTATIN CA 10 MG TABLET (FP) PO SCH (22:00)
[2018-03-30] MEDS ORDERED: TAMSULOSIN HCL 0.4 MG CAP.ER.24H (FP) PO SCH (22:00)
[2018-03-30] MEDS: HEPARIN NA (PORCINE) 5,000 UNITS/ML 1ML VIAL SQ SCH (22:31)
[2018-03-31] MEDS: RIFAXIMIN 550 MG TABLET (UD) PO SCH ×2 (06:07→14:21)
[2018-03-31 07:10] LABS: BASO % 0.5 % (0-2.0); EOS % 3.1 % (0-4.5); HEMATOCRIT 38.5 % (35.4-49); HEMOGLOBIN 13.2 GM/dL (11.7-16.9); LYMPH % 22.1 % (8-40); MCH 31.7 pg (25.7-33.7); MCHC 34.3 g/dl (32.0-35.9); MEAN CELL VOLUME 92.4 fl (80-96); MEAN PLT VOLUME 7.4 fl (7.5-11.1); MONO % 9.5 % (3.8-10.2); NEUT % 64.8 % (42.8-82.8); PLATELET COUNT 243 K/MM3 (134-434); RBC 4.17 M/mm3 (4.00-5.60); RDW 14.1 % (11.9-15.9); WHITE BLOOD COUNT 6.8 K/mm3 (4.0-10.0)
[2018-03-31 07:48] LABS: ALBUMIN 3.3 g/dl (3.4-5.0); ANION GAP 6 (8-16); BLOOD UREA NITROGEN 18 mg/dL (7-18); CALCIUM 9.1 mg/dL (8.5-10.1); CHLORIDE 103 mmol/L (98-107); CO2 30 mmol/L (21-32); GLUCOSE,RANDOM 159 mg/dL (74-106); LIPASE 140 U/L (73-393); MAGNESIUM 2.1 mg/dL (1.8-2.4); POTASSIUM 3.6 mmol/L (3.5-5.1); SGOT/AST 31 U/L (15-37); SODIUM 139 mmol/L (136-145)
[2018-03-31 08:01] LABS: ALK PHOS 58 U/L (45-117); BILIRUBIN,TOTAL 0.5 mg/dL (0.2-1.0); CREATININE 1.4 mg/dL (0.7-1.3); N-TERMINAL BNP 434.67 pg/ml (5-125); SGPT/ALT 46 U/L (12-78); TOT PROT 6.5 g/dl (6.4-8.2)
--- NOTE | 2018-03-31 08:05 | DS ---
Physical Examination Vital Signs: Vital Signs Temperature 98.0 F 03/31/18 06:43 Pulse Rate 76 03/31/18 06:43 Respiratory Rate 18 03/31/18 06:43 Blood Pressure 161/79 03/31/18 06:43 O2 Sat by Pulse Oximetry (%) 96 03/31/18 06:43 Cardiovascular: Yes: S1, S2 Respiratory: Yes: Regular, CTA Bilaterally Gastrointestinal: Yes: Normal Bowel Sounds, Soft. No: Tenderness Labs: CBC, BMP 03/31/18 05:40 Discharge Summary Reason For Visit: CHEST PAIN Current Active Problems Abdominal pain (Acute) CKD (chronic kidney disease) (Acute) Chest pain (Acute) Hospital Course: 72 year old man h/o HTN, DMII, HLD, abdominal hernias, possible chronic diastolic CHF with multiple admissions for abdominal pain again admitted for abdominal pain with reported radiation up to the chest. - Past Medical History Cardiovascular: Yes: HTN, Hyperlipdemia Gastrointestinal: Yes: Constipation, Pancreatitis, GERD, Other Hepatobiliary: Yes: Other (cholecystectomy) Musculoskeletal: Yes: Osteoarthritis, Other (chronic lower leg pain) Endocrine: Yes: Diabetes Mellitus - Past Surgical History Past Surgical History: Yes: Cholecystectomy - Problems (1) CKD (chronic kidney disease) Assessment/Plan: -repeat Code(s): N18.9 - CHRONIC KIDNEY DISEASE, UNSPECIFIED Qualifiers: Chronic kidney disease stage: on chronic dialysis Qualified Code(s): N18.6 - End stage renal disease; Z99.2 - Dependence on renal dialysis (2) Abdominal pain Assessment/Plan: -multiple admissions -gi consult noted--outpatient work up -avoid pain meds Code(s): R10.9 - UNSPECIFIED ABDOMINAL PAIN (3) Chest pain Assessment/Plan: -follow ce -echo pending -cardio noted--no further w/u indicated Code(s): R07.9 - CHEST PAIN, UNSPECIFIED Qualifiers: Chest pain type: unspecified Qualified Code(s): R07.9 - Chest pain, unspecified (4) Diabetes Assessment/Plan: bgm Code(s): E11.9 - TYPE 2 DIABETES MELLITUS WITHOUT COMPLICATIONS Qualifiers: Diabetes mellitus type: type 2 (5) HTN (hypertension) Code(s): I10 - ESSENTIAL (PRIMARY) HYPERTENSION (6) Hypokalemia Code(s): E87.6 - HYPOKALEMIA Condition: Stable - Instructions Referrals: Isabella Garnett MD [Primary Care Provider] - 1 Week Disposition: HOME - Home Medications Comprehensive Discharge Medication List: Ambulatory Orders Gabapentin [Neurontin] 400 mg PO HS 01/22/16 Quetiapine Fumarate [Seroquel -] 50 mg PO HS 01/22/16 Tamsulosin HCl [Flomax -] 0.4 mg PO HS 01/22/16 Atorvastatin Calcium [Lipitor] 10 mg PO HS 01/06/17 Roflumilast [Daliresp] 500 mcg PO DAILY 01/06/17 Aspirin [ASA -] 81 mg PO DAILY tab.chew 01/08/17 Pantoprazole Sodium [Protonix -] 40 mg PO DAILY #30 tablet.ec 01/08/17 Methylnaltrexone [place] [Relistor -] 12 mg SQ DAILY #30 kit MDD 1 04/26/17 Rifaximin [Xifaxan -] 550 mg PO TID #60 tablet MDD 3 04/26/17 Metoclopramide HCl [Reglan -] 5 mg PO TIDAC #90 tablet 01/30/18 Naloxegol Oxalate [Movantik] 25 mg PO AM #30 tablet 01/30/18 metFORMIN XR [Glucophage Xr -] 500 mg PO BID #60 tab.sr.24h 01/30/18 Amlodipine Besylate [Norvasc -] 10 mg PO DAILY tablet 02/02/18 Lipase/Protease/Amylase [Adama Figueroa 36,000 Units Capsule] 1 cap PO TIDCM capsule. 02/02/18 Losartan Potassium [Cozaar -] 100 mg PO DAILY tablet 02/02/18
[2018-03-31] MEDS ORDERED: LOSARTAN POTASSIUM 50 MG TABLET (FP) PO SCH (10:00)
[2018-03-31] MEDS ORDERED: ASPIRIN 81 MG CHEWABLE TABLETS PO SCH (10:00)
[2018-03-31] MEDS ORDERED: ROFLUMILAST 500 MCG TABLET PO SCH (10:00)
[2018-03-31] MEDS ORDERED: PANTOPRAZOLE 40 MG TABLET (FP) PO SCH (10:00)
[2018-03-31] MEDS ORDERED: Methylnaltrexone Bromide 12 MG/0.6 ML KIT SQ SCH (10:00)
[2018-03-31] MEDS ORDERED: amLODIPine BESYLATE 10 MG TABLET (FP) PO SCH (10:00)
[2018-03-31] MEDS: LIPASE/PROTEASE/AMYLASE 36,000 UNIT CAPSULE PO SCH ×2 (10:20→13:07)
[2018-03-31] MEDS: HEPARIN NA (PORCINE) 5,000 UNITS/ML 1ML VIAL SQ SCH (10:20)
[2018-03-31] MEDS: METOCLOPRAMIDE HCL 10 MG TABLET (FP) PO SCH ×2 (10:20→11:30)
[2018-03-31 11:07] VITALS: BP 173/77; PULSE 82; TEMP 97.3
--- NOTE | 2018-04-02 08:45 | EKG ---
Test Reason : Blood Pressure : / mmHG Vent. Rate : 082 BPM Atrial Rate : 082 BPM P-R Int : 196 ms QRS Dur : 102 ms QT Int : 376 ms P-R-T Axes : 044 000 078 degrees QTc Int : 439 ms NORMAL SINUS RHYTHM POSSIBLE LEFT ATRIAL ENLARGEMENT NONSPECIFIC T WAVE ABNORMALITY ABNORMAL ECG WHEN COMPARED WITH ECG OF 30-MAR-2018 03:39, NO SIGNIFICANT CHANGE WAS FOUND Confirmed by NEHA YOO, KWABENA ([id number]) on 04/02/2018 8:45:10 AM Referred By: Confirmed By:KWABENA SOLOMON MD
== END 2018-03-31 14:47 | disposition home or self-care (01) ==
LOC: JER 03:15 → JERBED 12:49
PROVIDERS: ADMIT Family Medicine; ATTEND Family Medicine
PROC: 3E033GC Introduction of Other Therapeutic Substance into Peripheral Vein, Percutaneous Approach (ICD-10-PCS; principal; 2018-03-30)
PROC: 3E033NZ Introduction of Analgesics, Hypnotics, Sedatives into Peripheral Vein, Percutaneous Approach (ICD-10-PCS; 2018-03-30)
PROC: 3E013GC Introduction of Other Therapeutic Substance into Subcutaneous Tissue, Percutaneous Approach (ICD-10-PCS; 2018-03-30)
DX: R07.89 Other chest pain (principal); E11.22 Type 2 diabetes mellitus with diabetic chronic kidney disease; I12.0 Hypertensive chronic kidney disease with stage 5 chronic kidney disease or end stage renal disease; N18.6 End stage renal disease; E87.6 Hypokalemia; R60.1 Generalized edema; R10.9 Unspecified abdominal pain; E78.5 Hyperlipidemia, unspecified; D64.9 Anemia, unspecified; K21.9 Gastro-esophageal reflux disease without esophagitis; Z99.2 Dependence on renal dialysis; Z79.84 Long term (current) use of oral hypoglycemic drugs; Z79.82 Long term (current) use of aspirin
CPT/HCPCS: 36415; 71045-TC-FY; 80053; 80061; 82550; 83036; 83690; 83721; 83735; 83880; 84484; 85025; 85610; 86850; 86900; 86901; 93005; 93010; 93306-TC; 96372; 96374; 96375; 99285-25; G0378; J1644

== ENCOUNTER 2018-10-07 23:22 | Emergency (ER) | payer MEDICARE, OTHER ==
[2018-10-07 23:53] VITALS: BMI 32.3
--- NOTE | 2018-10-08 00:11 | PDOC ---
History of Present Illness - General Chief Complaint: Blood Pressure Problem Stated Complaint: BLOOD PRESSURE PROBLEM - History of Present Illness Initial Comments: The patient is a 72M w/ a history of T2DM, HTN, GERD, pancreatitis, HLD, BPH, and two ventral incisional hernias who presents for evaluation of 2d of epigastric abdominal pain. Described as constant, worsening, radiating to R flank, worse with movement and palpation, not alleviated by anything that he can identify. Endorses associated N, Vx3 today, and diarrhea (unknown if bloody) +flatus Last ate yesterday Patient has tried taking oxycodone, Rx'ed for chronic pain, with little relief. Denies fevers/chills, JENKINS, vision changes, chest pain, SOB, or changes in sensation PCP: Dr. Suarez 10/08/18 00:35 Past History - Past Medical History Allergies/Adverse Reactions: Allergies Allergy/AdvReac Type Severity Reaction Status Date / Time No Known Allergies Allergy Verified 03/30/18 03:27 Home Medications: Ambulatory Orders Gabapentin [Neurontin] 400 mg PO HS 01/22/16 Quetiapine Fumarate [Seroquel -] 50 mg PO HS 01/22/16 Tamsulosin HCl [Flomax -] 0.4 mg PO HS 01/22/16 Atorvastatin Calcium [Lipitor] 10 mg PO HS 01/06/17 Roflumilast [Daliresp] 500 mcg PO DAILY 01/06/17 Aspirin [ASA -] 81 mg PO DAILY tab.chew 01/08/17 Pantoprazole Sodium [Protonix -] 40 mg PO DAILY #30 tablet.ec 01/08/17 Methylnaltrexone [place] [Relistor -] 12 mg SQ DAILY #30 kit MDD 1 04/26/17 Rifaximin [Xifaxan -] 550 mg PO TID #60 tablet MDD 3 04/26/17 Metoclopramide HCl [Reglan -] 5 mg PO TIDAC #90 tablet 01/30/18 Naloxegol Oxalate [Movantik] 25 mg PO AM #30 tablet 01/30/18 metFORMIN XR [Glucophage Xr -] 500 mg PO BID #60 tab.sr.24h 01/30/18 Amlodipine Besylate [Norvasc -] 10 mg PO DAILY tablet 02/02/18 Lipase/Protease/Amylase [Adama Figueroa 36,000 Units Capsule] 1 cap PO TIDCM capsule. 02/02/18 Losartan Potassium [Cozaar -] 100 mg PO DAILY tablet 02/02/18 Anemia: Yes Asthma: No Cancer: No Cardiac Disorders: Yes CVA: No COPD: No CHF: No DVT: No Dementia: No Diabetes: Yes GI Disorders: Yes (GERD) Disorders: No HTN: Yes Hypercholesterolemia: Yes Liver Disease: Yes Psychiatric Problems: Yes Seizures: No Thyroid Disease: No - Surgical History Abdominal Surgery: Yes (gallbladder) Appendectomy: No Cardiac Surgery: No Cholecystectomy: Yes Lung Surgery: No Neurologic Surgery: No Orthopedic Surgery: Yes (R.ANKLE SX WITH SCREWS) - Immunization History Immunization Up to Date: Yes - Suicide/Smoking/Psychosocial Hx Smoking History: Never smoked Have you smoked in the past 12 months: No Information on smoking cessation initiated: No Hx Alcohol Use: No Drug/Substance Use Hx: No Substance Use Type: None Hx Substance Use Treatment: No Review of Systems - Review of Systems Able to Perform ROS?: Yes Comments:: GENERAL/CONSTITUTIONAL: No fever or chills. No weakness HEAD, EYES, EARS, NOSE AND THROAT: No change in vision. No ear pain or discharge. No sore throat CARDIOVASCULAR: No chest pain or shortness of breath GASTROINTESTINAL: per HPI GENITOURINARY: No dysuria, frequency, or change in urination MUSCULOSKELETAL: +chronic pain SKIN: No rash NEUROLOGIC: No headache, vertigo, loss of consciousness, or change in strength/ sensation ENDOCRINE: No increased thirst. No abnormal weight change HEMATOLOGIC/LYMPHATIC: No anemia, easy bleeding, or history of blood clots ALLERGIC/IMMUNOLOGIC: No hives or skin allergy 10/08/18 00:10 Is the patient limited Tongan proficient: No *Physical Exam - Vital Signs Last Vital Signs Temp Pulse Resp BP Pulse Ox 98.2 F 91 H 20 173/93 H 99 10/07/18 23:51 10/07/18 23:51 10/07/18 23:51 10/07/18 23:51 10/07/18 23:51 - Physical Exam Comments: GENERAL: Awake, alert, and fully oriented HEAD: No signs of trauma, normocephalic, atraumatic EYES: PERRLA, EOMI, sclera anicteric, conjunctiva clear ENT: Hearing grossly normal, nares patent, oropharynx clear without exudates. Moist mucosa LUNGS: No distress, speaks full sentences, clear to auscultation bilaterally HEART: Regular rate and rhythm, normal S1 and S2, no murmurs appreciated, peripheral pulses normal and equal bilaterally ABDOMEN: Soft, epigastric TTP, diffuse TTP which is painful in the epigastrium, Epigastric defect palpated approximately 2cm x 2cm on exam with no bowel palpable, Small umbilical hernia; normoactive bowel sounds. No guarding, no rebound EXTREMITIES : Normal inspection, Normal range of motion, no edema NEUROLOGICAL: Cranial nerves II through XII grossly intact. Normal speech, no focal sensorimotor deficits SKIN: Warm, Dry, normal turgor, no rashes or lesions noted 10/08/18 00:11 Moderate Sedation - Procedure Monitoring Vital Signs: Procedure Monitoring Vital Signs Temperature 98.2 F 10/07/18 23:51 Pulse Rate 91 H 10/07/18 23:51 Respiratory Rate 20 10/07/18 23:51 Blood Pressure 173/93 H 10/07/18 23:51 O2 Sat by Pulse Oximetry (%) 99 10/07/18 23:51 ED Treatment Course - LABORATORY CBC & Chemistry Diagram: 10/08/18 00:27 10/08/18 00:27 Medical Decision Making - Medical Decision Making The patient is a 72M w/ a history of HTN, HLD, T2DM, BPH, and abdominal hernias who presents for evaluation of 2d of worsening, cramping epigastric abdominal pain associated w/ N/V ED Course Not likely to be an incarcerated hernia as no bowel palpated in epigastrium CMP, CBC, Lipase, Cardiac enzymes ECG CXR, CT A&P w/ IV contrast Ofirmev and Zofran 10/08/18 00:45 GI coctail for symptomatic relief 1L NS Lipase wnl Lytes wnl No MAXWELL No anemia No leukocytosis ECG w/ NSR, HR 83, QTc 451, no ST elevation Pt to CT 10/08/18 01:30 UA w/o evidence of UTI CT read pending 10/08/18 02:09 Plan for repeat Trop I, PO challenge, and reassess 10/08/18 02:21 Patient now with emesis with streaks of BRB. Will give Reglan and Benadryl; Pepcid given earlier Patient signed out to Dr. Horta, history presentation, and plan to this point discussed 10/08/18 02:33 *DC/Admit/Observation/Transfer Diagnosis at time of Disposition: Epigastric abdominal pain Nausea & vomiting Qualifiers: Vomiting type: unspecified Vomiting Intractability: non-intractable Qualified Code(s): R11.2 - Nausea with vomiting, unspecified - Discharge Dispostion Condition at time of disposition: Stable Decision to Admit order: No - Referrals Referrals: Donna Galdamez MD [Primary Care Provider] - Hollis Mckeon DO [Staff Physician] - - Patient Instructions Printed Discharge Instructions: DI for Epigastric Pain Additional Instructions: You were seen in the Emergency Department today for abdominal pain. Review the handouts provided at discharge. Follow up with your primary care provider within 1-3 days. Return to the Emergency Department if you develop fevers/chills, chest pain, difficulty breathing, worsening pain, worsening symptoms, or any new/concerning symptoms - Post Discharge Activity
[2018-10-08] MEDS ORDERED: ONDANSETRON 4 MG/2 ML VIAL IVPUSH ONE (00:18)
[2018-10-08] MEDS ORDERED: ACETAMINOPHEN 1000 MG/100 ML VIAL (NON FORMULARY) IVPB ONE (00:18)
[2018-10-08] MEDS ORDERED: ACETAMINOPHEN INJECTION 100 ML IVPB ONE (00:32)
[2018-10-08] MEDS ORDERED: ONDANSETRON 4 MG/2 ML VIAL ONE (00:33)
[2018-10-08 00:41] LABS: BASO % 0.3 % (0-2.0); EOS % 0.2 % (0-4.5); HEMATOCRIT 40.9 % (35.4-49); HEMOGLOBIN 14.6 GM/dL (11.7-16.9); LYMPH % 22.3 % (8-40); MCH 32.7 pg (25.7-33.7); MCHC 35.7 g/dl (32.0-35.9); MEAN CELL VOLUME 91.5 fl (80-96); MEAN PLT VOLUME 6.7 fl (7.5-11.1); MONO % 7.6 % (3.8-10.2); NEUT % 69.6 % (42.8-82.8); PLATELET COUNT 332 K/MM3 (134-434); RBC 4.47 M/mm3 (4.00-5.60); RDW 13.9 % (11.9-15.9); WHITE BLOOD COUNT 9.2 K/mm3 (4.0-10.0)
--- NOTE | 2018-10-08 00:51 | PDOC ---
Attending Attestation - Resident Resident Name: Jerry Morton - ED Attending Attestation I have performed the following: I have examined & evaluated the patient, The case was reviewed & discussed with the resident, I agree w/resident's findings & plan, Exceptions are as noted - HPI HPI: 10/08/18 01:47 72yo male with epigastric pain tonight. Pt with n/v/d x 2 days. Took immodium earlier. No radiation of the pain. No cp/sob. No dysuria. No f/c. No sick contacts. No other complaints. - Physicial Exam PE: 10/08/18 01:47 gen: aaox3, appears uncomfortable heart: +s1s2 reg lungs: cta b/l abd: soft, epigastric ttp, ventral hernia defect palpated without contents, no cva ttp ext: no c/c/e - Medical Decision Making 10/08/18 00:50 I, Dr. Cecile Evans, DO, attest that this document has been prepared under my direction and personally reviewed by me in its entirety. I further attest, that it accurately reflects all work, treatment, procedures and medical decision -making performed by me. 10/08/18 01:51 a/p: 72yo male with hx of hernias, abd pain, n/v/d -epigastric pain - poss gastritis, pud, vs hernia, vs pancreatitis -will send labs, ekg, cxr, ct abd/pelvis -defect palpated without content -will medicate for pain -will monitor and reassess 10/08/18 01:52 lipase negative no elevated WBC Heart Score/ECG Review - ECG Intrepretation Comment:: 10/08/18 00:50 sinus at 83, nl axis, nl interval, q waves septal leads that are age indeterminate, no acute st/t wave findings
[2018-10-08] MEDS ORDERED: SODIUM CHLORIDE 0.9% 500 ML INFUS.BAG IV ONE ×2 (01:06→04:44)
[2018-10-08 01:09] LABS: ALBUMIN 4.2 g/dl (3.4-5.0); ALK PHOS 65 U/L (45-117); ANION GAP 9 MMOL/L (8-16); BILIRUBIN,TOTAL 0.6 mg/dL (0.2-1); BLOOD UREA NITROGEN 14 mg/dL (7-18); CALCIUM 8.6 mg/dL (8.5-10.1); CHLORIDE 97 mmol/L (98-107); CO2 26 mmol/L (21-32); CREATININE 1.1 mg/dL (0.55-1.3); GLUCOSE,RANDOM 132 mg/dL (74-106); LIPASE 97 U/L (73-393); POTASSIUM 3.8 mmol/L (3.5-5.1); SGOT/AST 24 U/L (15-37); SGPT/ALT 37 U/L (13-61); SODIUM 131 mmol/L (136-145); TOT PROT 7.8 g/dl (6.4-8.2)
[2018-10-08] MEDS ORDERED: LIDOCAINE VISCOUS 2% ORAL/TOP 20 ML UNIT-DOSE CUP MM ONE (01:18)
[2018-10-08] MEDS ORDERED: MAG HYDROX/AL HYDROX/SIMETH 30 ML UNIT-DOSE CUP PO ONE ×2 (01:18→06:54)
[2018-10-08] MEDS ORDERED: FAMOTIDINE 20 MG/50 ML IVPB 20 MG/50 ML MG IVPB ONE ×3 (01:18→02:26)
[2018-10-08] MEDS ORDERED: MAG HYDROX/AL HYDROX/SIMETH 30 ML UNIT-DOSE CUP ONE ×2 (01:23→07:00)
[2018-10-08] MEDS ORDERED: LIDOCAINE VISCOUS 2% ORAL/TOP 20 ML UNIT-DOSE CUP ONE (01:23)
[2018-10-08 01:59] LABS: URINE APPEARANCE CLEAR; URINE BILIRUBIN NEGATIVE (<2.0 mg/dL); URINE COLOR YELLOW; URINE GLUCOSE (UA) NEGATIVE (NEGATIVE); URINE KETONE 1+ (NEGATIVE); URINE LEUK ESTERASE NEGATIVE (NEGATIVE); URINE NITRITE NEGATIVE (NEGATIVE); URINE PROTEIN 1+ (NEGATIVE); URINE UROBILINOGEN NEGATIVE mg/dL (0.2-1.0)
[2018-10-08 02:07] LABS: EPI CELLS RARE /HPF (FEW); URINE MUCUS RARE
[2018-10-08] MEDS ORDERED: METOCLOPRAMIDE HCL INJECTION 10 MG/2 ML VIAL IVPUSH ONE (02:25)
[2018-10-08] MEDS ORDERED: METOCLOPRAMIDE HCL INJECTION 10 MG/2 ML VIAL ONE (02:37)
--- NOTE | 2018-10-08 04:01 | PDOC ---
*Physical Exam - Vital Signs Last Vital Signs Temp Pulse Resp BP Pulse Ox 98.2 F 91 H 20 173/93 H 99 10/07/18 23:51 10/07/18 23:51 10/07/18 23:51 10/07/18 23:51 10/07/18 23:51 ED Treatment Course - LABORATORY CBC & Chemistry Diagram: 10/08/18 00:27 10/08/18 00:27 - ADDITIONAL ORDERS Additional order review: Laboratory Results 10/08/18 10/08/18 00:50 00:27 Sodium 131 L Potassium 3.8 Chloride 97 L Carbon Dioxide 26 Anion Gap 9 BUN 14 Creatinine 1.1 Creat Clearance w eGFR > 60 Random Glucose 132 H Calcium 8.6 Total Bilirubin 0.6 AST 24 ALT 37 Alkaline Phosphatase 65 Creatine Kinase 170 Creatine Kinase Index 1.4 CK-MB (CK-2) 2.4 Troponin I < 0.02 Total Protein 7.8 Albumin 4.2 Lipase 97 Urine Color Yellow Urine Appearance Clear Urine pH 5.0 Ur Specific [place] 1.026 Urine Protein 1+ H Urine Glucose (UA) Negative Urine Ketones 1+ H Urine Blood Negative Urine Nitrite Negative Urine Bilirubin Negative Urine Urobilinogen Negative Ur Leukocyte Esterase Negative Urine WBC (Auto) <1 Urine RBC (Auto) 4 Ur Epithelial Cells Rare Urine Mucus Rare 10/08/18 00:27 RBC 4.47 MCV 91.5 MCHC 35.7 RDW 13.9 MPV 6.7 L Neutrophils % 69.6 Lymphocytes % 22.3 Monocytes % 7.6 Eosinophils % 0.2 D Basophils % 0.3 - Medications Given in the ED: ED Medications Discontinued Medications Generic Name Dose Route Start Last Admin Trade Name Martin PRN Reason Stop Dose Admin Acetaminophen 1,000 mg 10/08/18 00:18 10/08/18 00:37 Ofirmev Injection - IVPB 10/08/18 00:19 1,000 mg ONCE ONE Administration Al Hydroxide/Mg Hydroxide 30 ml 10/08/18 01:18 10/08/18 01:26 Mylanta Oral Suspension - PO 10/08/18 01:19 30 ml ONCE ONE Administration Diphenhydramine HCl 25 mg 10/08/18 02:32 10/08/18 02:49 Benadryl Injection - IVPB 10/08/18 02:33 25 mg ONCE ONE Administration Famotidine/Sodium Chloride 20 mg in 50 mls @ 100 mls/hr 10/08/18 01:18 02:29 Pepcid 20 Mg Premixed Ivpb - IVPB 10/08/18 01:47 100 mls/hr ONCE ONE Administration Famotidine/Sodium Chloride 20 mg in 50 mls @ 100 mls/hr 10/08/18 02:26 02:29 Pepcid 20 Mg Premixed Ivpb - IVPB 10/08/18 02:55 Not Given ONCE ONE Lidocaine HCl 20 ml 10/08/18 01:18 10/08/18 01:26 Xylocaine 2% Viscous Oral - MM 10/08/18 01:19 20 ml ONCE ONE Administration Metoclopramide HCl 10 mg 10/08/18 02:25 10/08/18 02:49 Reglan Injection - IVPUSH 10/08/18 02:26 10 mg ONCE ONE Administration Ondansetron HCl 4 mg 10/08/18 00:18 10/08/18 00:37 Zofran Injection IVPUSH 10/08/18 00:19 4 mg ONCE ONE Administration Sodium Chloride 1,000 ml 10/08/18 01:06 10/08/18 01:55 Normal Saline - IV 10/08/18 01:07 1,000 ml ONCE ONE Administration Medical Decision Making - Medical Decision Making Pt was signed out to me by resident Dr. Morton, who explained the presentation , ED course, any pending results, and needed interventions. Pending results include CT abd/pelvis, second troponin, and clinical improvement from nausea/ vomiting. Pt is currently stable and has had no further vomiting since administration of reglan and benadryl. CT scan: 1. fatty supraumbilical midline fascial herniation. Tiny fatty umbilical hernia. 2. Decompression of L colon 3. Mild fatty liver infiltration. No concerning findings on CT scan at this time. Second troponin has been sent to lab, pending results. 10/08/18 03:58 Pt was provided additional 1 L NS. Second troponin <.02. 10/08/18 05:23 Pt complaining of continued abdominal distension, but feeling much better than presentation. Pt has had no additional vomiting since last interventions. Providing .4 mg flomax, 20 gm PO lactulose, 30 mg PO mylanta, and 30 mg IV toradol for pain and gas. Repeat BP 164/80 (improvement from presentation), pt stable. Considering normal lab results and imaging pt can be discharged to home with follow-up. Pt advised to follow-up with PCP in 1-2 days. Strict return precautions provided with pt understanding. 10/08/18 06:56 *DC/Admit/Observation/Transfer Diagnosis at time of Disposition: Epigastric abdominal pain Nausea & vomiting Qualifiers: Vomiting type: unspecified Vomiting Intractability: non-intractable Qualified Code(s): R11.2 - Nausea with vomiting, unspecified - Discharge Dispostion Disposition: HOME Condition at time of disposition: Improved Decision to Admit order: No - Referrals Referrals: Hollis Mckeon DO [Staff Physician] - Donna Galdamez MD [Primary Care Provider] - - Patient Instructions Printed Discharge Instructions: DI for Epigastric Pain Additional Instructions: You were seen in the Emergency Department today for abdominal pain. Review the handouts provided at discharge. Follow up with your primary care provider within 1-3 days. Return to the Emergency Department if you develop fevers/chills, chest pain, difficulty breathing, worsening pain, worsening symptoms, difficulty tolerating PO food or fluid intake, or any new/concerning symptoms. Print Language: SYRIAC - Post Discharge Activity
[2018-10-08] MEDS ORDERED: TAMSULOSIN HCL 0.4 MG CAP PO ONE (06:54)
[2018-10-08] MEDS ORDERED: LACTULOSE 20 GM/30 ML UDC (FOR ORAL USE ONLY) PO ONE (06:55)
[2018-10-08] MEDS ORDERED: KETOROLAC TROMETHAMINE 30 MG/1 ML VIAL IVPUSH ONE (06:57)
[2018-10-08] MEDS ORDERED: LACTULOSE 20 GM/30 ML UDC (FOR ORAL USE ONLY) ONE (06:59)
[2018-10-08] MEDS ORDERED: KETOROLAC TROMETHAMINE 30 MG/1 ML VIAL ONE (07:00)
[2018-10-08] MEDS ORDERED: TAMSULOSIN HCL 0.4 MG CAP ONE (07:00)
[2018-10-08 07:21] VITALS: BP 164/78; PULSE 88; TEMP 98.5
--- NOTE | 2018-10-08 17:11 | EKG ---
Test Reason : Blood Pressure : / mmHG Vent. Rate : 083 BPM Atrial Rate : 083 BPM P-R Int : 196 ms QRS Dur : 106 ms QT Int : 384 ms P-R-T Axes : 045 016 033 degrees QTc Int : 451 ms POOR DATA QUALITY, INTERPRETATION MAY BE ADVERSELY AFFECTED NORMAL SINUS RHYTHM POSSIBLE LEFT ATRIAL ENLARGEMENT NONSPECIFIC T WAVE ABNORMALITY ABNORMAL ECG WHEN COMPARED WITH ECG OF 31-MAR-2018 14:31, NO SIGNIFICANT CHANGE WAS FOUND Confirmed by MD BASIM, ASHTYN ([id number]) on 10/08/2018 5:11:46 PM Referred By: Confirmed By:ASHTYN STALLWORTH MD
== END 2018-10-08 07:21 | disposition home or self-care (01) ==
LOC: JER 23:22
PROC: 3E033GC Introduction of Other Therapeutic Substance into Peripheral Vein, Percutaneous Approach (ICD-10-PCS; principal; 2018-10-07)
PROC: 3E033GC Introduction of Other Therapeutic Substance into Peripheral Vein, Percutaneous Approach (ICD-10-PCS; 2018-10-07)
PROC: 3E033GC Introduction of Other Therapeutic Substance into Peripheral Vein, Percutaneous Approach (ICD-10-PCS; 2018-10-07)
PROC: 3E033NZ Introduction of Analgesics, Hypnotics, Sedatives into Peripheral Vein, Percutaneous Approach (ICD-10-PCS; 2018-10-07)
PROC: 3E0333Z Introduction of Anti-inflammatory into Peripheral Vein, Percutaneous Approach (ICD-10-PCS; 2018-10-07)
DX: K29.70 Gastritis, unspecified, without bleeding (principal); I10 Essential (primary) hypertension; E11.9 Type 2 diabetes mellitus without complications; Z79.84 Long term (current) use of oral hypoglycemic drugs; E78.5 Hyperlipidemia, unspecified; K21.9 Gastro-esophageal reflux disease without esophagitis; N40.0 Benign prostatic hyperplasia without lower urinary tract symptoms
CPT/HCPCS: 36415; 71045-TC-FY; 74177-TC; 80053; 81003; 81015; 82550; 82553; 83690; 84484; 85025; 93005; 93010; 96365; 96375; 99281-25; J0131

== ENCOUNTER 2018-12-03 02:59 | Emergency (ER) | payer MEDICARE, OTHER ==
[2018-12-03 03:20] VITALS: BMI 33.9
--- NOTE | 2018-12-03 03:59 | PDOC ---
History of Present Illness - General Chief Complaint: Pain, Acute Stated Complaint: ABD PAIN/INTOX History Source: Patient Exam Limitations: No Limitations - History of Present Illness Initial Comments: 12/03/18 06:46 72 yo M with a hx of DM, HTN, GERD, pancreatitis, HLD, BPH, and hernias presents to the emergency department with epigastric and RUQ abdominal pain for the past two days. Per the patient, he states that the pain is a cramping sensation, 8/10, non radiating, and similar to his previous abdominal pains in the past. The patient states it worsens when he sees his abdominal contents bulge through his hernia. Pain is not relieved by anything. Per the patient, he endorses 2-3x of vomiting episodes NBNB yesterday. Denies the following: fever, chills, headaches, chest pain, dysuria, hematuria, constipation, diarrhea. ENdorses increased leg swelling bilaterally. Past History - Past Medical History Allergies/Adverse Reactions: Allergies Allergy/AdvReac Type Severity Reaction Status Date / Time No Known Allergies Allergy Verified 12/03/18 03:17 Home Medications: Ambulatory Orders Gabapentin [Neurontin] 400 mg PO HS 01/22/16 Quetiapine Fumarate [Seroquel -] 50 mg PO HS 01/22/16 Tamsulosin HCl [Flomax -] 0.4 mg PO HS 01/22/16 Atorvastatin Calcium [Lipitor] 10 mg PO HS 01/06/17 Roflumilast [Daliresp] 500 mcg PO DAILY 01/06/17 Aspirin [ASA -] 81 mg PO DAILY tab.chew 01/08/17 Pantoprazole Sodium [Protonix -] 40 mg PO DAILY #30 tablet.ec 01/08/17 Methylnaltrexone [place] [Relistor -] 12 mg SQ DAILY #30 kit MDD 1 04/26/17 Rifaximin [Xifaxan -] 550 mg PO TID #60 tablet MDD 3 04/26/17 Metoclopramide HCl [Reglan -] 5 mg PO TIDAC #90 tablet 01/30/18 Naloxegol Oxalate [Movantik] 25 mg PO AM #30 tablet 01/30/18 metFORMIN XR [Glucophage Xr -] 500 mg PO BID #60 tab.sr.24h 01/30/18 Amlodipine Besylate [Norvasc -] 10 mg PO DAILY tablet 02/02/18 Lipase/Protease/Amylase [Adama Figueroa 36,000 Units Capsule] 1 cap PO TIDCM capsule. 02/02/18 Losartan Potassium [Cozaar -] 100 mg PO DAILY tablet 02/02/18 Anemia: Yes Asthma: No Cancer: No Cardiac Disorders: Yes CVA: No COPD: No CHF: No DVT: No Dementia: No Diabetes: Yes GI Disorders: Yes (GERD) Disorders: No HTN: Yes Hypercholesterolemia: Yes Liver Disease: Yes Psychiatric Problems: Yes Seizures: No Thyroid Disease: No - Surgical History Abdominal Surgery: Yes (gallbladder) Appendectomy: No Cardiac Surgery: No Cholecystectomy: Yes Lung Surgery: No Neurologic Surgery: No Orthopedic Surgery: Yes (R.ANKLE SX WITH SCREWS) - Immunization History Td Vaccination: Yes TDAP Vaccination: Yes Immunization Up to Date: Yes - Suicide/Smoking/Psychosocial Hx Smoking History: Unknown if ever smoked Have you smoked in the past 12 months: No Information on smoking cessation initiated: No Hx Alcohol Use: Yes Drug/Substance Use Hx: No Substance Use Type: None Hx Substance Use Treatment: No Review of Systems - Review of Systems Constitutional: Yes: Weakness. No: Chills, Diaphoresis, Fever HEENTM: No: Eye Pain, Recent change in vision, Ear Pain, Nose Pain, Throat Pain , Mouth Pain Respiratory: No: Cough, Shortness of Breath, SOB with Exertion Cardiac (ROS): No: Chest Pain, Lightheadedness, Palpitations, Syncope, Chest Tightness ABD/GI: Yes: Nausea, Vomiting, Abdominal cramping. No: Constipated, Diarrhea, Poor Appetite, Poor Fluid Intake, Rectal Bleeding, Tarry Stools : No: Burning, Dysuria, Hematuria, Urgency Musculoskeletal: No: Back Pain, Joint Pain, Neck Pain Integumentary: No: Erythema, Flushing, Pruritus, Rash Neurological: No: Headache, Numbness, Tingling, Tremors, Ataxia, Dizziness Psychiatric: No: Change in Appetite Endocrine: No: Unexplained Weight Gain Hematologic/Lymphatic: No: Anemia *Physical Exam - Vital Signs Last Vital Signs Temp Pulse Resp BP Pulse Ox 97.4 F L 70 18 137/75 98 12/03/18 03:17 12/03/18 03:17 12/03/18 03:17 12/03/18 03:17 01/26/19 03:17 - Physical Exam General Appearance: Yes: Nourished, Appropriately Dressed, Alcohol on Breath. No: Apparent Distress, Intoxicated HEENT: positive: EOMI, [place], Normal Voice, Pharynx Normal, Hearing Grossly Normal. negative: Pale Conjunctivae, Scleral Icterus (R), Scleral Icterus (L), Muffled/Hoarse voice, Pharyngeal Erythema, Tonsillar Exudate, Tonsillar Erythema , Excessive drooling Neck: positive: Trachea midline. negative: Tender, Lymphadenopathy (R), Lymphadenopathy (L) Respiratory/Chest: positive: Lungs Clear, Normal Breath Sounds. negative: Chest Tender, Respiratory Distress, Accessory Muscle Use, Crackles, Rales, Rhonchi, Stridor, Wheezing, Hyperresonant Cardiovascular: positive: Regular Rhythm, Regular Rate, S1, S2. negative: Systolic Murmur Gastrointestinal/Abdominal: positive: Normal Bowel Sounds, Tender (epigastric region and RUQ. Ventral hernia located in the epigastric region and serves as the point of maximal tenderness. hernia reduces easily), Flat, Soft Lymphatic: negative: Adenopathy Musculoskeletal: positive: Normal Inspection. negative: CVA Tenderness, Vertebral Tenderness Extremity: positive: Normal Capillary Refill, Normal Range of Motion, Swelling ( bilaterally). negative: Normal Inspection, Tender Integumentary: positive: Normal Color, Dry, Warm Neurologic: positive: touch up worker II-XII NML intact, Fully Oriented, Alert, Normal Mood/ Affect, Normal Response, Motor Strength 5/5. negative: EOM Palsy, Facial Droop , Sensory Deficit Moderate Sedation - Procedure Monitoring Vital Signs: Procedure Monitoring Vital Signs Temperature 97.4 F L 12/03/18 03:17 Pulse Rate 70 12/03/18 03:17 Respiratory Rate 18 12/03/18 03:17 Blood Pressure 137/75 12/03/18 03:17 O2 Sat by Pulse Oximetry (%) 98 12/03/18 03:17 ED Treatment Course - LABORATORY CBC & Chemistry Diagram: 12/03/18 05:11 12/03/18 05:11 Medical Decision Making - Medical Decision Making 12/03/18 06:59 72 yo M with a hx of DM, HTN, GERD, pancreatitis, HLD, BPH, and hernias presents to the emergency department with epigastric and RUQ abdominal pain for the past two days. Initial vitals: Initial Vital Signs Temp Pulse Resp BP Pulse Ox 97.4 F L 70 18 137/75 98 12/03/18 03:17 12/03/18 03:17 12/03/18 03:17 12/03/18 03:17 12/03/18 03:17 Work up: ddx: patient complains of general malaise and abdominal pain. ddx includes viral gastroenteritis, cholelithiasis, cholecystitis, pyelonephritis, UTI, nephrolithiasis, SBO, AAA, gastritis, GERD Dispo: Signed out to Dr. Sandoval *DC/Admit/Observation/Transfer Diagnosis at time of Disposition: Abdominal pain Qualifiers: Abdominal location: generalized Qualified Code(s): R10.84 - Generalized abdominal pain - Discharge Dispostion Disposition: HOME Condition at time of disposition: Stable - Referrals Referrals: Donna Galdamez MD [Primary Care Provider] - Rusty Damian MD [Staff Physician] - - Patient Instructions Printed Discharge Instructions: DI for Abdominal Pain-Adult Additional Instructions: Please return to the emergency department with any new or worsening symptoms or concerns. Please follow up with your primary care physician within 72 hours. As discussed please follow up with Dr. damian within 72 hours. - Post Discharge Activity
[2018-12-03 05:18] LABS: BASO % 0.9 % (0-2.0); EOS % 1.7 % (0-4.5); HEMATOCRIT 42.2 % (35.4-49); HEMOGLOBIN 14.9 GM/dL (11.7-16.9); LYMPH % 32.5 % (8-40); MCH 32.7 pg (25.7-33.7); MCHC 35.3 g/dl (32.0-35.9); MEAN CELL VOLUME 92.8 fl (80-96); MEAN PLT VOLUME 6.9 fl (7.5-11.1); MONO % 8.7 % (3.8-10.2); NEUT % 56.2 % (42.8-82.8); PLATELET COUNT 272 K/MM3 (134-434); RBC 4.55 M/mm3 (4.00-5.60); RDW 14.4 % (11.9-15.9); WHITE BLOOD COUNT 5.4 K/mm3 (4.0-10.0)
[2018-12-03] MEDS ORDERED: ACETAMINOPHEN 1000 MG/100 ML VIAL (NON FORMULARY) IVPB ONE (05:37)
[2018-12-03] MEDS ORDERED: ONDANSETRON 4 MG/2 ML VIAL IVPUSH ONE ×2 (05:37→07:46)
[2018-12-03] MEDS ORDERED: SODIUM CHLORIDE 1,000 ML IV STA ×2 (05:37→12:53)
[2018-12-03 05:38] VITALS: TEMP 98.9
[2018-12-03] MEDS ORDERED: ACETAMINOPHEN INJECTION 100 ML IVPB ONE (05:40)
[2018-12-03] MEDS ORDERED: ONDANSETRON 4 MG/2 ML VIAL ONE ×2 (05:40→07:54)
[2018-12-03 05:52] LABS: ALBUMIN 4.2 g/dl (3.4-5.0); ALK PHOS 65 U/L (45-117); ANION GAP 8 MMOL/L (8-16); BILIRUBIN,TOTAL 0.4 mg/dL (0.2-1); BLOOD UREA NITROGEN 8 mg/dL (7-18); CALCIUM 8.4 mg/dL (8.5-10.1); CHLORIDE 102 mmol/L (98-107); CO2 29 mmol/L (21-32); GLUCOSE,RANDOM 168 mg/dL (74-106); LIPASE 104 U/L (73-393); POTASSIUM 3.6 mmol/L (3.5-5.1); SGOT/AST 20 U/L (15-37); SGPT/ALT 35 U/L (13-61); SODIUM 138 mmol/L (136-145); TOT PROT 7.7 g/dl (6.4-8.2)
[2018-12-03] MEDS ORDERED: MAGNESIUM SULF 50% (8.12 MEQ/2 ML-1 GM VIAL) IVPB ONE (05:59)
[2018-12-03] MEDS ORDERED: POTASSIUM CHLORIDE TABS 20 MEQ TABLET.ER (FP) PO ONE ×2 (05:59→06:03)
[2018-12-03] MEDS ORDERED: MAGNESIUM 1GM/D5W - 2 GM/200 ML IVPB IVPB ONE (06:03)
--- NOTE | 2018-12-03 08:11 | PDOC ---
*Physical Exam - Vital Signs Last Vital Signs Temp Pulse Resp BP Pulse Ox 98.9 F 76 20 142/77 96 12/03/18 05:33 12/03/18 05:33 12/03/18 07:56 12/03/18 07:56 12/03/18 07:56 - Physical Exam Comments: 12/03/18 08:11 GENERAL: Awake, alert, and fully oriented, in no acute distress HEAD: No signs of trauma, normocephalic, atraumatic EYES: PERRLA, EOMI, sclera anicteric, conjunctiva clear ENT: Hearing grossly normal, nares patent, oropharynx clear without exudates. Moist mucosa NECK: Normal ROM, supple, no lymphadenopathy, JVD, or masses LUNGS: No distress, speaks full sentences, clear to auscultation bilaterally HEART: Regular rate and rhythm, normal S1 and S2, no murmurs, rubs or gallops, peripheral pulses normal and equal bilaterally. ABDOMEN: Soft, NDS, nontender, normoactive bowel sounds. No guarding, no rebound. No masses. Neg CVA ttp. EXTREMITIES : Normal inspection, Normal range of motion, no edema. No clubbing or cyanosis. SKIN: Warm, Dry, normal turgor, no rashes or lesions noted ED Treatment Course - LABORATORY CBC & Chemistry Diagram: 12/03/18 05:11 12/03/18 05:11 - ADDITIONAL ORDERS Additional order review: Laboratory Results 12/03/18 12/03/18 12/03/18 05:11 05:11 05:11 Sodium 138 Potassium 3.6 Chloride 102 Carbon Dioxide 29 Anion Gap 8 BUN 8 Creatinine 1.0 Creat Clearance w eGFR > 60 Random Glucose 168 H Calcium 8.4 L Total Bilirubin 0.4 AST 20 ALT 35 Alkaline Phosphatase 65 Creatine Kinase 180 Creatine Kinase Index 1.6 CK-MB (CK-2) 3.0 Troponin I 0.02 B-Natriuretic Peptide 429.9 H Total Protein 7.7 Albumin 4.2 Lipase 104 Alcohol, Quantitative 79.0 H 12/03/18 05:11 RBC 4.55 MCV 92.8 MCHC 35.3 RDW 14.4 MPV 6.9 L Neutrophils % 56.2 Lymphocytes % 32.5 D Monocytes % 8.7 Eosinophils % 1.7 D Basophils % 0.9 - Medications Given in the ED: ED Medications Discontinued Medications Generic Name Dose Route Start Last Admin Trade Name Martin PRN Reason Stop Dose Admin Acetaminophen 1,000 mg 12/03/18 05:37 12/03/18 05:46 Ofirmev Injection - IVPB 12/03/18 05:38 1,000 mg ONCE ONE Administration Sodium Chloride 1,000 mls @ 1,000 mls/hr 12/03/18 05:37 12/03/18 05:46 Normal Saline - IV 12/03/18 06:36 1,000 mls/hr ASDIR STA Administration Magnesium Sulfate 2 gm 12/03/18 05:59 12/03/18 06:12 Magnesium Sulfate IVPB 12/03/18 06:00 2 gm ONCE ONE Administration Ondansetron HCl 4 mg 12/03/18 05:37 12/03/18 05:47 Zofran Injection IVPUSH 12/03/18 05:38 4 mg ONCE ONE Administration Ondansetron HCl 4 mg 12/03/18 07:46 12/03/18 07:55 Zofran Injection IVPUSH 12/03/18 07:47 4 mg ONCE ONE Administration Potassium Chloride 40 meq 12/03/18 05:59 12/03/18 06:12 K-Dur - PO 12/03/18 06:00 40 meq ONCE ONE Administration Medical Decision Making - Medical Decision Making 12/03/18 08:10 72 yo M with h/o DM, HTN, HLD, GERD, pancreatitis, BPH, hernias who p/w midabdominal pain, vomiting, diarrhea, decreased appetite x 2 days. Vitals wnl, AF. Physical exam unremarkable. Denies F,C, CP, SOB, urinary complaints, postprandial pain, constipation, lightheadedness, weakness, sensory changes. Possible gastroenteritis. Will consider mesenteric ischemia, colitis, diverticulitis. Low suspicion pyelonephritis, AAA, Ao dissection. Recieved signout from Dr. Marcial. Pending CT AP. Labs unremarkable. Pending lactic acid. Etoh 79.0 Ed Course: 12/03/18 08:44 EKG: NSR with absent YVETTE, STD. Q waves lead III, nml R wave progresion. Nml interval duration and axis. 12/03/18 08:48 Patient tolerating PO intake. 12/03/18 08:50 Lactic Acid: 3.1 12/03/18 08:[address] Rudolph Thompson answering service. Requested and awaiting call back. 12/03/18 12:53 CT AP: Unremarkable. No evidence of ischemia, obstruction, acute pathology, Umbilical hernia with no evidence of strangulation/incarceration. Second call back for Rudolph Thompson. Awaiting call back. 12/03/18 12:[address] Thompson. Patient to be discharged home and follow up with Deven Thompson. Patient stable for d/c with return precautions. *DC/Admit/Observation/Transfer Diagnosis at time of Disposition: Abdominal pain Qualifiers: Abdominal location: generalized Qualified Code(s): R10.84 - Generalized abdominal pain - Discharge Dispostion Disposition: HOME Condition at time of disposition: Stable Decision to Admit order: No - Referrals Referrals: Donna Galdamez MD [Primary Care Provider] - Rusty Damian MD [Staff Physician] - - Patient Instructions Printed Discharge Instructions: DI for Abdominal Pain-Adult Additional Instructions: Please return to the emergency department with any new or worsening symptoms or concerns. Please follow up with your primary care physician within 72 hours. As discussed please follow up with Dr. damian within 72 hours. - Post Discharge Activity - Attestations Physician Attestion: 12/03/18 08:52 I attest to the information provided in this note.
[2018-12-03] MEDS ORDERED: IBUPROFEN 400 MG TABLET (FP) PO ONE ×2 (11:13→11:21)
--- NOTE | 2018-12-03 12:51 | EKG ---
Test Reason : Blood Pressure : / mmHG Vent. Rate : 073 BPM Atrial Rate : 073 BPM P-R Int : 202 ms QRS Dur : 110 ms QT Int : 400 ms P-R-T Axes : 046 005 -80 degrees QTc Int : 440 ms NORMAL SINUS RHYTHM POSSIBLE LEFT ATRIAL ENLARGEMENT NONSPECIFIC T WAVE ABNORMALITY ABNORMAL ECG WHEN COMPARED WITH ECG OF 08-OCT-2018 00:34, NO SIGNIFICANT CHANGE WAS FOUND Confirmed by GIOVANY JIMENEZ MD ([id number]) on 12/03/2018 12:51:16 PM Referred By: Confirmed By:GIOVANY JIMENEZ MD
[2018-12-03 13:47] VITALS: BP 138/79; PULSE 88
== END 2018-12-03 13:47 | disposition home or self-care (01) ==
LOC: JER 02:59
PROC: 3E0337Z Introduction of Electrolytic and Water Balance Substance into Peripheral Vein, Percutaneous Approach (ICD-10-PCS; principal; 2018-12-03)
PROC: 3E033GC Introduction of Other Therapeutic Substance into Peripheral Vein, Percutaneous Approach (ICD-10-PCS; 2018-12-03)
PROC: 3E033GC Introduction of Other Therapeutic Substance into Peripheral Vein, Percutaneous Approach (ICD-10-PCS; 2018-12-03)
DX: R10.84 Generalized abdominal pain (principal); F10.10 Alcohol abuse, uncomplicated; Y90.3 Blood alcohol level of 60-79 mg/100 ml; I10 Essential (primary) hypertension; E78.00 Pure hypercholesterolemia, unspecified; E11.9 Type 2 diabetes mellitus without complications; Z79.84 Long term (current) use of oral hypoglycemic drugs; K21.9 Gastro-esophageal reflux disease without esophagitis
CPT/HCPCS: 36415; 74175-TC; 80053; 80307; 82550; 82553; 83605; 83690; 83880; 84484; 85025; 93005; 93010; 96361; 96374; 96375; 99283-25; J0131; J7030

== ENCOUNTER 2019-01-21 21:58 | Observation (INO) | payer MEDICARE, OTHER ==
[2019-01-21 22:30] VITALS: BMI 27.8
--- NOTE | 2019-01-21 22:38 | PDOC ---
History of Present Illness - History of Present Illness Initial Comments: 01/21/19 22:34 73 yo M with h/o DM, HTN, CKD, HLD, GERD, pancreatitis, BPH, hernias who p/w cough. Patient reports one week of SOB, productive clear sputum cough, and diffuse dull, pleuritic, chest and back pain. No identifiable alleviators. Recent ED encounter (12/03/2018) with unremarkable CTA for complaint of abdominal pain, diffusely. Patient denies JENKINS, vision change, palpitations, wheezing, orthopena, PND, leg swelling/pain, N/V, F,C, CP, urinary complaints, hematuria, BPR, diarrhea, constipation, lightheadedness, weakness, sensory changes. PMHx: as noted above ROS: as noted SHx: Denies tobacco use. Social Etoh. Denies IVDA Allergies: NKDA PMD: Donna Galdamez 01/21/19 23:24 <Shane Sandoval - Last Filed: 01/21/19 23:51> <Danielle Redman - Last Filed: 01/22/19 04:47> - General Chief Complaint: Cold Symptoms Stated Complaint: COUGH Time Seen by Provider: 01/21/19 22:13 Past History - Past Medical History Anemia: Yes Asthma: No Cancer: No Cardiac Disorders: Yes CVA: No COPD: No CHF: No DVT: No Dementia: No Diabetes: Yes GI Disorders: Yes (GERD) Disorders: No HTN: Yes Hypercholesterolemia: Yes Liver Disease: Yes Psychiatric Problems: Yes Seizures: No Thyroid Disease: No - Surgical History Abdominal Surgery: Yes (gallbladder) Appendectomy: No Cardiac Surgery: No Cholecystectomy: Yes Lung Surgery: No Neurologic Surgery: No Orthopedic Surgery: Yes (R.ANKLE SX WITH SCREWS) - Immunization History Td Vaccination: Yes TDAP Vaccination: Yes Immunization Up to Date: Yes - Suicide/Smoking/Psychosocial Hx Smoking History: Unknown if ever smoked Have you smoked in the past 12 months: No Information on smoking cessation initiated: No Hx Alcohol Use: No Drug/Substance Use Hx: No Substance Use Type: None Hx Substance Use Treatment: No <Shane Sandoval - Last Filed: 01/21/19 23:51> <Danielle Redman - Last Filed: 01/22/19 04:47> - Past Medical History Allergies/Adverse Reactions: Allergies Allergy/AdvReac Type Severity Reaction Status Date / Time No Known Allergies Allergy Verified 01/21/19 22:10 Home Medications: Ambulatory Orders Gabapentin [Neurontin] 400 mg PO HS 01/22/16 Quetiapine Fumarate [Seroquel -] 50 mg PO HS 01/22/16 Tamsulosin HCl [Flomax -] 0.4 mg PO HS 01/22/16 Atorvastatin Calcium [Lipitor] 10 mg PO HS 01/06/17 Roflumilast [Daliresp] 500 mcg PO DAILY 01/06/17 Aspirin [ASA -] 81 mg PO DAILY tab.chew 01/08/17 Pantoprazole Sodium [Protonix -] 40 mg PO DAILY #30 tablet.ec 01/08/17 Methylnaltrexone [place] [Relistor -] 12 mg SQ DAILY #30 kit MDD 1 04/26/17 Rifaximin [Xifaxan -] 550 mg PO TID #60 tablet MDD 3 04/26/17 Metoclopramide HCl [Reglan -] 5 mg PO TIDAC #90 tablet 01/30/18 Naloxegol Oxalate [Movantik] 25 mg PO AM #30 tablet 01/30/18 metFORMIN XR [Glucophage Xr -] 500 mg PO BID #60 tab.sr.24h 01/30/18 Amlodipine Besylate [Norvasc -] 10 mg PO DAILY tablet 02/02/18 Lipase/Protease/Amylase [Adama Figueroa 36,000 Units Capsule] 1 cap PO TIDCM capsule. 02/02/18 Losartan Potassium [Cozaar -] 100 mg PO DAILY tablet 02/02/18 Oseltamivir Phosphate [Tamiflu -] 75 mg PO BID #10 capsule 01/22/19 Review of Systems - Review of Systems Comments:: 01/21/19 22:37 GENERAL/CONSTITUTIONAL: No fever or chills. No weakness. HEAD, EYES, EARS, NOSE AND THROAT: No change in vision. No ear pain or discharge. No sore throat. CARDIOVASCULAR: + SOB. No chest pain RESPIRATORY: + cough. No wheezing, or hemoptysis. GASTROINTESTINAL: No nausea, vomiting, diarrhea or constipation. GENITOURINARY: No dysuria, frequency, or change in urination. MUSCULOSKELETAL: No joint or muscle swelling or pain. No neck or back pain. SKIN: No rash NEUROLOGIC: No headache, vertigo, loss of consciousness, or change in strength/ sensation. ENDOCRINE: No increased thirst. No abnormal weight change HEMATOLOGIC/LYMPHATIC: No anemia, easy bleeding, or history of blood clots. ALLERGIC/IMMUNOLOGIC: No hives or skin allergy. <Dimitris Sandovalson - Last Filed: 01/21/19 23:51> *Physical Exam - Vital Signs Last Vital Signs Temp Pulse Resp BP Pulse Ox 98.6 F 100 H 20 182/91 H 96 01/21/19 22:10 01/21/19 22:10 01/21/19 22:10 01/21/19 22:10 01/21/19 22:10 - Physical Exam Comments: 01/21/19 22:37 GENERAL: Awake, alert, and fully oriented, in no acute distress HEAD: No signs of trauma, normocephalic, atraumatic EYES: PERRLA, EOMI, sclera anicteric, conjunctiva clear ENT: Auricles normal inspection, hearing grossly normal, nares patent, oropharynx clear without exudates. Moist mucosa NECK: Normal ROM, supple, no lymphadenopathy, JVD, or masses LUNGS: No distress, speaks full sentences, clear to auscultation bilaterally HEART: Irregular rate and rhythm, normal S1 and S2, no murmurs, rubs or gallops , peripheral pulses normal and equal bilaterally. ABDOMEN: Protuberant, Soft, nontender, normoactive bowel sounds. No guarding, no rebound. No masses EXTREMITIES : Normal inspection, Normal range of motion, no edema. No clubbing or cyanosis. NEUROLOGICAL: Cranial nerves II through XII grossly intact. Normal speech, normal gait, no focal sensorimotor deficits SKIN: Warm, Dry, normal turgor, no rashes or lesions noted <Shane Sanodval - Last Filed: 01/21/19 23:51> - Vital Signs Last Vital Signs Temp Pulse Resp BP Pulse Ox 97.9 F 88 22 H 175/89 H 99 01/22/19 01:28 01/22/19 01:28 01/22/19 01:28 01/22/19 01:28 01/22/19 01:28 <Danielle Redman - Last Filed: 01/22/19 04:47> Moderate Sedation - Procedure Monitoring Vital Signs: Procedure Monitoring Vital Signs Temperature 98.6 F 01/21/19 22:10 Pulse Rate 100 H 01/21/19 22:10 Respiratory Rate 20 01/21/19 22:10 Blood Pressure 182/91 H 01/21/19 22:10 O2 Sat by Pulse Oximetry (%) 96 01/21/19 22:10 <Shane Sandoval - Last Filed: 01/21/19 23:51> - Procedure Monitoring Vital Signs: Procedure Monitoring Vital Signs Temperature 97.9 F 01/22/19 01:28 Pulse Rate 88 01/22/19 01:28 Respiratory Rate 22 H 01/22/19 01:28 Blood Pressure 175/89 H 01/22/19 01:28 O2 Sat by Pulse Oximetry (%) 99 01/22/19 01:28 <Danielle Redman - Last Filed: 01/22/19 04:47> ED Treatment Course - LABORATORY CBC & Chemistry Diagram: 01/22/19 00:00 01/22/19 00:00 - ADDITIONAL ORDERS Additional order review: Laboratory Results 01/22/19 00:00 Sodium 137 Potassium 4.5 Chloride 102 Carbon Dioxide 27 Anion Gap 7 L BUN 17 Creatinine 1.2 Creat Clearance w eGFR 59.51 Random Glucose 197 H Calcium 8.7 Total Bilirubin 0.3 AST 18 ALT 29 Alkaline Phosphatase 71 Total Protein 7.3 Albumin 3.8 01/22/19 00:00 RBC 4.21 MCV 94.7 MCHC 35.4 RDW 14.2 MPV 7.6 D Neutrophils % 62.8 Lymphocytes % 21.9 D Monocytes % 12.6 H Eosinophils % 2.2 Basophils % 0.5 - Medications Given in the ED: ED Medications Discontinued Medications Generic Name Dose Route Start Last Admin Trade Name Martin PRN Reason Stop Dose Admin Acetaminophen 650 mg 01/21/19 22:52 01/21/19 23:38 Tylenol - PO 01/21/19 22:53 Not Given ONCE ONE Amlodipine Besylate 10 mg 01/21/19 23:25 01/21/19 23:38 Norvasc - PO 01/21/19 23:26 10 mg ONCE ONE Administration Losartan Potassium 100 mg 01/21/19 23:25 01/21/19 23:38 Cozaar - PO 01/21/19 23:26 100 mg ONCE ONE Administration Oxycodone/Acetaminophen 2 combo 01/21/19 23:25 01/21/19 23:38 Percocet 5/325 - PO 01/21/19 23:26 2 combo ONCE ONE Administration <Stefania Redmanreen - Last Filed: 01/22/19 04:47> Medical Decision Making - Medical Decision Making 01/21/19 22:40 73 yo M with h/o DM, HTN, CKD, HLD, GERD, pancreatitis, BPH, hernias who p/w one week of SOB, productive clear sputum cough, and diffuse dull, pleuritic, chest and back pain. BP 182/91, HR 100, vitals otherwise wnl, AF, A&Ox3. Physical exam unremarkable. R/o PNA. Differential PNA, Flu, URI, asthma/COPD, reactive airway dz. pleural effusion, CHF. Ed Course: 01/21/19 22:55 Perococet, Amlodipine, Losartan Pt. stable. Endorsed to night team. Pending labs, flu, CXR, EKG. <Shane Sandoval - Last Filed: 01/21/19 23:51> *DC/Admit/Observation/Transfer - Attestations Physician Attestion: 01/21/19 22:37 I attest to the information provided in this note. <Shane Sandoval - Last Filed: 01/21/19 23:51> - Discharge Dispostion Decision to Admit order: Yes <Danielle Redman - Last Filed: 01/22/19 04:47> Diagnosis at time of Disposition: Cough, Influenza - Discharge Dispostion Condition at time of disposition: Guarded - Prescriptions Prescriptions: Oseltamivir Phosphate [Tamiflu -] 75 mg PO BID #10 capsule - Referrals Referrals: Donna Galdamez MD [Primary Care Provider] - - Patient Instructions Printed Discharge Instructions: DI for Viral Upper Respiratory Infection -- Adult Additional Instructions: Please return to the emergency department with any new or worsening symptoms or concerns. Please follow up with your primary care physician within 72 hours.
--- NOTE | 2019-01-21 22:50 | PDOC ---
Attending Attestation - HPI HPI: 01/21/19 23:26 The patient is a 73 year old male, with a significant PMH of diabetes mellitus, hypertension, CKD, hyperlipidemia, GERD, pancreatitis, BPH, hernias, who presents to the emergency department with one week of productive cough with clear sputum. The patient also endorses shortness of breath. The patient states the cough is associated with chest wall and back pain. The patient denies palpitations, leg swelling, calf tenderness, headache and dizziness. Denies fever, chills, nausea, vomit, diarrhea and constipation. Denies dysuria, frequency, urgency and hematuria. Allergies: NKA PCP: Dr Donna Galdamez Documentation prepared by Dillan Meeks, acting as medical imaging technologist for Danielle Redman MD. - Physicial Exam PE: 01/21/19 23:36 GENERAL: Awake, alert, and fully oriented, in no acute distress HEAD: No signs of trauma EYES: PERRLA, EOMI, sclera anicteric, conjunctiva clear ENT: Auricles normal inspection, hearing grossly normal, nares patent, oropharynx clear without exudates. Moist mucosa NECK: Normal ROM, supple, no lymphadenopathy, JVD, or masses LUNGS: Breath sounds equal, clear to auscultation bilaterally. No wheezes, and no crackles HEART: Regular rate and rhythm, normal S1 and S2, no murmurs, rubs or gallops ABDOMEN: (+) Protuberant abdomen. Soft, nontender, normoactive bowel sounds. No guarding, no rebound. No masses EXTREMITIES: Normal range of motion, no edema. No clubbing or cyanosis. No cords, erythema, or tenderness NEUROLOGICAL: Cranial nerves II through XII grossly intact. Normal speech, normal gait SKIN: Warm, Dry, normal turgor, no rashes or lesions noted. <Dillan Meeks - Last Filed: 01/21/19 23:36> - Resident Resident Name: Shane Sandoval - ED Attending Attestation I have performed the following: I have examined & evaluated the patient, The case was reviewed & discussed with the resident, I agree w/resident's findings & plan - Medical Decision Making 01/22/19 00:50 CBC normal Flu and chem pending 01/22/19 04:14 Flu +; pt states that he feels unwell and that he is too weak to walk. He is asking to stay in the hispital, as he cannot walk and cannot care for himself at home. <Danielle Redman - Last Filed: 01/22/19 04:15>
[2019-01-21] MEDS ORDERED: ACETAMINOPHEN 325 MG TABLET (FP) PO ONE (22:52)
[2019-01-21] MEDS ORDERED: amLODIPine BESYLATE 10 MG TABLET (FP) PO ONE (23:25)
[2019-01-21] MEDS ORDERED: LOSARTAN POTASSIUM 50 MG TABLET (FP) PO ONE (23:25)
[2019-01-21] MEDS ORDERED: amLODIPine BESYLATE 5 MG TABLET (FP) ONE (23:33)
[2019-01-21] MEDS ORDERED: LOSARTAN POTASSIUM 50 MG TABLET (FP) ONE (23:33)
[2019-01-22 00:42] LABS: BASO % 0.5 % (0-2.0); EOS % 2.2 % (0-4.5); HEMATOCRIT 39.9 % (35.4-49); HEMOGLOBIN 14.1 GM/dL (11.7-16.9); LYMPH % 21.9 % (8-40); MCH 33.5 pg (25.7-33.7); MCHC 35.4 g/dl (32.0-35.9); MEAN CELL VOLUME 94.7 fl (80-96); MEAN PLT VOLUME 7.6 fl (7.5-11.1); MONO % 12.6 % (3.8-10.2); NEUT % 62.8 % (42.8-82.8); PLATELET COUNT 229 K/MM3 (134-434); RBC 4.21 M/mm3 (4.00-5.60); RDW 14.2 % (11.9-15.9); WHITE BLOOD COUNT 7.1 K/mm3 (4.0-10.0)
[2019-01-22 01:05] LABS: ANION GAP 7 MMOL/L (8-16); BLOOD UREA NITROGEN 17 mg/dL (7-18); CALCIUM 8.7 mg/dL (8.5-10.1); CHLORIDE 102 mmol/L (98-107); CO2 27 mmol/L (21-32); CREATININE 1.2 mg/dL (0.55-1.3); GLUCOSE,RANDOM 197 mg/dL (74-106); POTASSIUM 4.5 mmol/L (3.5-5.1); SODIUM 137 mmol/L (136-145); TOT PROT 7.3 g/dl (6.4-8.2)
[2019-01-22 01:06] LABS: ALBUMIN 3.8 g/dl (3.4-5.0); ALK PHOS 71 U/L (45-117); BILIRUBIN,TOTAL 0.3 mg/dL (0.2-1); SGOT/AST 18 U/L (15-37); SGPT/ALT 29 U/L (13-61)
[2019-01-22] MEDS ORDERED: OSELTAMIVIR PHOSPHATE 75 MG CAPSULE PO ONE (01:37)
[2019-01-22] MEDS ORDERED: OSELTAMIVIR PHOSPHATE 75 MG CAPSULE ONE (01:56)
[2019-01-22] MEDS ORDERED: SODIUM CHLORIDE 0.9% 500 ML INFUS.BAG IV ONE (04:15)
[2019-01-22] MEDS ORDERED: ACETAMINOPHEN 1000 MG/100 ML VIAL (NON FORMULARY) IVPB ONE (04:21)
[2019-01-22] MEDS ORDERED: ACETAMINOPHEN INJECTION 100 ML IVPB ONE (04:26)
--- NOTE | 2019-01-22 04:48 | HP ---
CHIEF COMPLAINT: weakness, cough PCP: Rudolph HISTORY OF PRESENT ILLNESS: 73 year old male c/o 4 days of nonproductive cough, headache, hoarseness, and general malaise. Patient was felt generalized weakness and was too weak to ambulate, had to be brought in by ambulance to ER. Patient reports his nephew being sick recently. ER course was notable for: (1) cxr (2) ekg (3) Recent Travel: no PAST MEDICAL HISTORY: diabetes mellitus, hypertension, CKD, hyperlipidemia, GERD , pancreatitis, BPH, hernias PAST SURGICAL HISTORY: cholecystectomy Social History: Smoking: no Alcohol:no Drugs: no Family History: denied Allergies No Known Allergies Allergy (Verified 01/21/19 22:10) HOME MEDICATIONS: Home Medications Medication Instructions Recorded Gabapentin [Neurontin] 400 mg PO HS 01/22/16 Quetiapine Fumarate [Seroquel -] 50 mg PO HS 01/22/16 Tamsulosin HCl [Flomax -] 0.4 mg PO HS 01/22/16 Atorvastatin Calcium [Lipitor] 10 mg PO HS 01/06/17 Roflumilast [Daliresp] 500 mcg PO DAILY 01/06/17 Aspirin [ASA -] 81 mg PO DAILY tab.chew 01/08/17 Pantoprazole Sodium [Protonix -] 40 mg PO DAILY #30 tablet.ec 01/08/17 Methylnaltrexone [place] [Relistor 12 mg SQ DAILY #30 kit MDD 1 04/26/17 -] Rifaximin [Xifaxan -] 550 mg PO TID #60 tablet MDD 3 04/26/17 Metoclopramide HCl [Reglan -] 5 mg PO TIDAC #90 tablet 01/30/18 Naloxegol Oxalate [Movantik] 25 mg PO AM #30 tablet 01/30/18 metFORMIN XR [Glucophage Xr -] 500 mg PO BID #60 tab.sr.24h 01/30/18 Amlodipine Besylate [Norvasc -] 10 mg PO DAILY tablet 02/02/18 Lipase/Protease/Amylase [Adama Figueroa 1 cap PO TIDCM capsule. 02/02/18 36,000 Units Capsule] Losartan Potassium [Cozaar -] 100 mg PO DAILY tablet 02/02/18 Oseltamivir Phosphate [Tamiflu -] 75 mg PO BID #10 capsule 01/22/19 REVIEW OF SYSTEMS CONSTITUTIONAL: Absent: fever, chills, diaphoresis, , loss of appetite, weight change present- generalized weakness, malaise HEENT: Absent: throat pain, throat swelling, difficulty swallowing, mouth swelling, ear pain, eye pain, visual changes present- rhinorrhea, nasal congestion, hoarseness CARDIOVASCULAR: Absent: chest pain, syncope, palpitations, irregular heart rate, lightheadedness , peripheral edema RESPIRATORY: Absent: cough, shortness of breath, dyspnea with exertion, orthopnea, wheezing, stridor, hemoptysis GASTROINTESTINAL: Absent: abdominal pain, abdominal distension, nausea, vomiting, diarrhea, constipation, melena, hematochezia GENITOURINARY: Absent: dysuria, frequency, urgency, hesitancy, hematuria, flank pain, genital pain MUSCULOSKELETAL: Absent: myalgia, arthralgia, joint swelling, back pain, neck pain SKIN: Absent: rash, itching, pallor HEMATOLOGIC/IMMUNOLOGIC: Absent: easy bleeding, easy bruising, lymphadenopathy, frequent infections ENDOCRINE: Absent: unexplained weight gain, unexplained weight loss, heat intolerance, cold intolerance NEUROLOGIC: Absent: headache, focal weakness or paresthesias, dizziness, unsteady gait, seizure, mental status changes, bladder or bowel incontinence present- photophobia PSYCHIATRIC: Absent: anxiety, depression, suicidal or homicidal ideation, hallucinations. PHYSICAL EXAMINATION Vital Signs - 24 hr 01/21/19 01/22/19 01/22/19 22:10 01:03 01:28 Temperature 98.6 F 97.9 F Pulse Rate 100 H Pulse Rate [ 88 Radial] Respiratory 20 22 H Rate Blood Pressure 182/91 H Blood Pressure 175/89 H [Arm] O2 Sat by Pulse 96 99 99 Oximetry (%) GENERAL: Awake, alert, and fully oriented, in no acute distress. HEAD: Normal with no signs of trauma. EYES: Pupils equal, round and reactive to light, extraocular movements intact, sclera anicteric, conjunctiva clear. No lid lag. EARS, NOSE, THROAT: Ears normal, nares patent, oropharynx clear without exudates. Moist mucous membranes. NECK: Normal range of motion, supple without lymphadenopathy, JVD, or masses. LUNGS: Breath sounds equal, clear to auscultation bilaterally. No wheezes, and no crackles. No accessory muscle use. HEART: Regular rate and rhythm, normal S1 and S2 without murmur, rub or gallop. ABDOMEN: Soft, obese, nontender, not distended, normoactive bowel sounds, no guarding, no rebound, no masses. MUSCULOSKELETAL: Normal range of motion at all joints. No bony deformities or tenderness. No CVA tenderness. UPPER EXTREMITIES: 2+ pulses, warm, well-perfused. No cyanosis. No clubbing. No peripheral edema. LOWER EXTREMITIES: 2+ pulses, warm, well-perfused. No calf tenderness. 1+ pedal edema b/l NEUROLOGICAL: Cranial nerves II-XII intact. Normal speech. Normal gait. PSYCHIATRIC: Cooperative. Good eye contact. Appropriate mood and affect. SKIN: Warm, dry, normal turgor, no rashes or lesions noted, normal capillary refill. Laboratory Results - last 24 hr 01/22/19 01/22/19 01/22/19 00:00 00:00 00:00 WBC 7.1 RBC 4.21 Hgb 14.1 Hct 39.9 MCV 94.7 MCH 33.5 MCHC 35.4 RDW 14.2 Plt Count 229 MPV 7.6 D Absolute Neuts (auto) 4.4 Neutrophils % 62.8 Lymphocytes % 21.9 D Monocytes % 12.6 H Eosinophils % 2.2 Basophils % 0.5 Nucleated RBC % 0 Sodium 137 Potassium 4.5 Chloride 102 Carbon Dioxide 27 Anion Gap 7 L BUN 17 Creatinine 1.2 Creat Clearance w eGFR 59.51 Random Glucose 197 H Calcium 8.7 Total Bilirubin 0.3 AST 18 ALT 29 Alkaline Phosphatase 71 Total Protein 7.3 Albumin 3.8 Influenza A (Rapid) Positive A Influenza B (Rapid) Negative cxr reviewed ekg reviewed ASSESSMENT/PLAN: #influenza A+ -observation -bed rest -IV fluid hydration -treat symptoms -tylenol po prn if fever -troponin #HTN - uncontrolled -amlodipine -losartan -titrate BP meds #DM - -insulin sliding scale -a1c -diabetic diet -asa -atorvastatin #DVT ppx -heparin sc Visit type - Emergency Visit Emergency Visit: Yes Care time: The patient presented to the Emergency Department on the above date and was hospitalized for further evaluation of their emergent condition. - New Patient This patient is new to me today: Yes Date on this admission: 01/22/19 - Critical Care Critical Care patient: No
[2019-01-22] MEDS ORDERED: ACETAMINOPHEN 325 MG TABLET (FP) PO PRN (05:22)
[2019-01-22] MEDS ORDERED: SODIUM CHLORIDE 1,000 ML IV SCH (05:30)
[2019-01-22] MEDS ORDERED: INSULIN SLIDING SCALE (NOVOLOG) 1 VIAL SQ SCH (07:00)
[2019-01-22] MEDS ORDERED: INSULIN (NOVOLOG) ASPART 100 UNITS/ML 10ML VIAL ONE (07:59)
[2019-01-22] MEDS ORDERED: LIPASE/PROTEASE/AMYLASE 36,000 UNIT CAPSULE PO SCH (08:00)
--- NOTE | 2019-01-22 09:59 | PN ---
Progress Note, Physician Chief Complaint: Influenza A History of Present Illness: Known to our service well from previous admissions NAD, some expected generalized weakness Influenza A + Complains that he has a lot of back/abd/BLLE pain-which is chronic States he lost his pain medications on the bus and his PCP won't give him more pain meds. Received percocet 2 tabs last night with relief. Started on Tamiflu Labs+CXR unremarkable denies and SOB - Current Medication List Current Medications: Active Medications Acetaminophen (Tylenol -) 650 mg PO Q6H PRN PRN Reason: FEVER Amlodipine Besylate (Norvasc -) 10 mg PO DAILY [facility] Aspirin (Asa -) 81 mg PO DAILY [facility] Atorvastatin Calcium (Lipitor -) 10 mg PO HS [facility] Gabapentin (Neurontin -) 400 mg PO HS [facility] Heparin Sodium (Porcine) (Heparin -) 5,000 unit SQ BID [facility] Sodium Chloride (Normal Saline -) 1,000 mls @ 75 mls/hr IV ASDIR [facility] Insulin Aspart (Novolog Vial Sliding Scale -) 1 vial SQ ACHS [facility]; Protocol Last Admin: 01/22/19 08:01 Dose: 4 units Losartan Potassium (Cozaar -) 100 mg PO DAILY [facility] Oseltamivir Phosphate (Tamiflu -) 75 mg PO BID [facility] Stop: 01/27/19 09:59 Pancrelipase (Creon Dr 36,000 Units Capsule) 1 cap PO TIDCM [facility] Pantoprazole Sodium (Protonix -) 40 mg PO DAILY [facility] Quetiapine Fumarate (Seroquel -) 50 mg PO HS [facility] Roflumilast (Daliresp -) 500 mcg PO DAILY [facility] Tamsulosin HCl (Flomax -) 0.4 mg PO HS [facility] - Objective Vital Signs: Vital Signs Temperature 98.1 F 01/22/19 06:10 Pulse Rate 85 01/22/19 06:10 Respiratory Rate 22 H 01/22/19 01:28 Blood Pressure 158/80 01/22/19 06:10 O2 Sat by Pulse Oximetry (%) 100 01/22/19 06:10 Constitutional: Yes: Well Nourished, No Distress, Calm, Obese Cardiovascular: Yes: Regular Rate and Rhythm Respiratory: Yes: Regular Gastrointestinal: Yes: Normal Bowel Sounds, Soft, Abdomen, Obese Musculoskeletal: Yes: WNL Extremities: Yes: WNL Edema: No Peripheral Pulses WNL: Yes Neurological: Yes: Alert, Oriented Psychiatric: Yes: Alert, Oriented Labs: CBC, BMP 01/22/19 00:00 01/22/19 00:00 Problem List - Problems (1) Abdominal pain Assessment/Plan: -chronic -Continue pain meds at home -prescribed 5 day temporary supply to the pharmacy, instructed to follow up with PCP Code(s): R10.9 - UNSPECIFIED ABDOMINAL PAIN Qualifiers: Abdominal location: unspecified location Qualified Code(s): R10.9 - Unspecified abdominal pain (2) Acid reflux Code(s): K21.9 - GASTRO-ESOPHAGEAL REFLUX DISEASE WITHOUT ESOPHAGITIS Qualifiers: Esophagitis presence: without esophagitis Qualified Code(s): K21.9 - Gastro -esophageal reflux disease without esophagitis (3) Influenza Assessment/Plan: -Complete tamiflu 75 mg po BID x 5 days -po hydration -supportive care Code(s): J11.1 - FLU DUE TO UNIDENTIFIED INFLUENZA VIRUS W OTH RESP MANIFEST Assessment/Plan see problem list Self ambulatory
[2019-01-22] MEDS ORDERED: ASPIRIN 81 MG CHEWABLE TABLETS PO SCH (10:00)
[2019-01-22] MEDS ORDERED: ROFLUMILAST 500 MCG TABLET PO SCH (10:00)
[2019-01-22] MEDS ORDERED: LOSARTAN POTASSIUM 50 MG TABLET (FP) PO SCH (10:00)
[2019-01-22] MEDS ORDERED: PANTOPRAZOLE 40 MG TABLET (FP) PO SCH (10:00)
[2019-01-22] MEDS ORDERED: HEPARIN NA (PORCINE) 5,000 UNITS/ML 1ML VIAL SQ SCH (10:00)
[2019-01-22] MEDS ORDERED: amLODIPine BESYLATE 10 MG TABLET (FP) PO SCH (10:00)
[2019-01-22] MEDS ORDERED: OSELTAMIVIR PHOSPHATE 75 MG CAPSULE PO SCH (10:00)
[2019-01-22 10:19] VITALS: BP 161/83; PULSE 87; TEMP 98.9
--- NOTE | 2019-01-22 11:07 | EKG ---
Test Reason : Blood Pressure : / mmHG Vent. Rate : 087 BPM Atrial Rate : 087 BPM P-R Int : 184 ms QRS Dur : 104 ms QT Int : 340 ms P-R-T Axes : 042 -03 072 degrees QTc Int : 409 ms SINUS RHYTHM WITH OCCASIONAL PREMATURE VENTRICULAR COMPLEXES POSSIBLE LEFT ATRIAL ENLARGEMENT NONSPECIFIC T WAVE ABNORMALITY ABNORMAL ECG WHEN COMPARED WITH ECG OF 03-DEC-2018 07:42, PREMATURE VENTRICULAR COMPLEXES ARE NOW PRESENT Confirmed by MD BASIM, ASHTYN ([id number]) on 01/22/2019 11:07:05 AM Referred By: Confirmed By:ASHTYN STALLWORTH MD
[2019-01-22] MEDS ORDERED: GABAPENTIN 400 MG CAPSULE (FP) PO SCH (22:00)
[2019-01-22] MEDS ORDERED: QUEtiapine FUMARATE 25 MG TABLET (FP) PO SCH (22:00)
[2019-01-22] MEDS ORDERED: TAMSULOSIN HCL 0.4 MG CAP PO SCH (22:00)
[2019-01-22] MEDS ORDERED: ATORVASTATIN CA 10 MG TABLET (FP) PO SCH (22:00)
[2019-01-23] MEDS ORDERED: QUEtiapine FUMARATE 25 MG TABLET (FP) PO SCH (22:00)
== END 2019-01-22 10:32 | disposition home or self-care (01) ==
LOC: JER 21:58 → JERBED 01-22 04:47
PROVIDERS: ADMIT Internal Medicine; ATTEND Family Medicine
PROC: 3E033NZ Introduction of Analgesics, Hypnotics, Sedatives into Peripheral Vein, Percutaneous Approach (ICD-10-PCS; principal; 2019-01-22)
PROC: 3E0337Z Introduction of Electrolytic and Water Balance Substance into Peripheral Vein, Percutaneous Approach (ICD-10-PCS; 2019-01-22)
PROC: 3E033GC Introduction of Other Therapeutic Substance into Peripheral Vein, Percutaneous Approach (ICD-10-PCS; 2019-01-22)
PROC: 3E013VG Introduction of Insulin into Subcutaneous Tissue, Percutaneous Approach (ICD-10-PCS; 2019-01-22)
DX: J10.1 Influenza due to other identified influenza virus with other respiratory manifestations (principal); E11.22 Type 2 diabetes mellitus with diabetic chronic kidney disease; I12.9 Hypertensive chronic kidney disease with stage 1 through stage 4 chronic kidney disease, or unspecified chronic kidney disease; N18.9 Chronic kidney disease, unspecified; Z79.84 Long term (current) use of oral hypoglycemic drugs; E78.5 Hyperlipidemia, unspecified; K21.9 Gastro-esophageal reflux disease without esophagitis; N40.0 Benign prostatic hyperplasia without lower urinary tract symptoms; R10.9 Unspecified abdominal pain; Z79.82 Long term (current) use of aspirin; Z87.19 Personal history of other diseases of the digestive system
CPT/HCPCS: 36415; 71045-TC-FY; 80053; 82550; 82553; 82962; 83036; 84484; 85025; 87804; 93005; 93010; 96372; 96374; 96375; 99284-25; G0378; J0131; J7030

== ENCOUNTER 2020-01-08 17:19 | Emergency (ER) | payer MEDICARE, OTHER ==
[2020-01-08 17:50] VITALS: TEMP 98.3; BMI 33.9
--- NOTE | 2020-01-08 17:50 | PDOC ---
Documentation entered by Kiel Mccrary SCRIBE, acting as scribe for Bronwyn Lopes MD. Bronwyn Lopes MD: This documentation has been prepared by the Demetra hughes Angel, SCRIBE, under my direction and personally reviewed by me in its entirety. I confirm that the documentation accurately reflects all work, treatment, procedures, and medical decision making performed by me. Attending Attestation - Resident Resident Name: Augusto Gutierrez - ED Attending Attestation I have performed the following: I have examined & evaluated the patient, The case was reviewed & discussed with the resident, I agree w/resident's findings & plan, Exceptions are as noted - HPI HPI: 01/08/20 19:29 The patient is a 74 year old male with a significant past medical history of obesity, hernias, HTN and Gallbladder removal who presents to the ED with abdominal pain and nausea/vomiting since yesterday. The patient has come in multiple times for similar symptoms and was last seen by GI specialist Dr. Conn. - Physicial Exam PE: 01/08/20 20:01 Obese 74-year-old male presents with abdominal pain and nausea he stated that he vomited earlier Head normocephalic atraumatic Neck is supple Lungs are clear to auscultation CVS regular rate and rhythm S1-S2 Protuberant abdomen, reducible umbilical hernia skin warm and dry Extremities +1 pitting edema Neuro alert and oriented x3, moving all extremities - Medical Decision Making 01/08/20 21:47 Diff diag includes incarcerated hernia, small bowel obstruction, gastroenteritis , gastritis, IBS labs ct scan abd/pel ordered 01/08/20 23:14 Patient does not have any fever CBC is unremarkable Chemistries are essentially unremarkable UA did not show any infection CAT scan no acute small bowel obstruction, there is a fat-containing hernia that has been seen on previous CAT scans and some urinary retention but the patient later voided Patient was discharged to follow-up with his primary care physician
[2020-01-08] MEDS ORDERED: SODIUM CHLORIDE 0.9% 500 ML INFUS.BAG IV ONE (19:01)
[2020-01-08] MEDS ORDERED: ACETAMINOPHEN 1000 MG/100 ML VIAL (NON FORMULARY) IVPB ONE (19:01)
[2020-01-08] MEDS ORDERED: ONDANSETRON 4 MG/2 ML VIAL IVPB ONE (19:20)
--- NOTE | 2020-01-08 19:31 | PDOC ---
History of Present Illness - General Chief Complaint: Pain Stated Complaint: ABD PAIN Time Seen by Provider: 01/08/20 17:30 History Source: Patient Exam Limitations: No Limitations - History of Present Illness Initial Comments: 01/08/20 23:30 74M PMH HTN,HLD, DM, CKD, IBS presenting with 1 day of abdominal pain, painful abdominal hernia, n/v, po intolerance. Denies f/c. Denies sob. Endorses ventral hernia that has been around for years which is now causing pain. Endorsed pain radiation to chest from abdomen. past lap micah h/o multiple visits to hospital for known hernias that become painful and swell. Past History - Past Medical History Allergies/Adverse Reactions: Allergies Allergy/AdvReac Type Severity Reaction Status Date / Time No Known Allergies Allergy Verified 01/08/20 17:50 Home Medications: Ambulatory Orders Gabapentin [Neurontin] 400 mg PO HS 01/22/16 Quetiapine Fumarate [Seroquel -] 50 mg PO HS 01/22/16 Tamsulosin HCl [Flomax -] 0.4 mg PO HS 01/22/16 Atorvastatin Calcium [Lipitor] 10 mg PO HS 01/06/17 Roflumilast [Daliresp] 500 mcg PO DAILY 01/06/17 Aspirin [ASA -] 81 mg PO DAILY tab.chew 01/08/17 Pantoprazole Sodium [Protonix -] 40 mg PO DAILY #30 tablet.ec 01/08/17 Methylnaltrexone Lynch [Relistor -] 12 mg SQ DAILY #30 kit MDD 1 04/26/17 Rifaximin [Xifaxan -] 550 mg PO TID #60 tablet MDD 3 04/26/17 Metoclopramide HCl [Reglan -] 5 mg PO TIDAC #90 tablet 01/30/18 Naloxegol Oxalate [Movantik] 25 mg PO AM #30 tablet 01/30/18 metFORMIN XR [Glucophage Xr -] 500 mg PO BID #60 tab.sr.24h 01/30/18 Amlodipine Besylate [Norvasc -] 10 mg PO DAILY tablet 02/02/18 Lipase/Protease/Amylase [Adama Figueroa 36,000 Units Capsule] 1 cap PO TIDCM capsule. 02/02/18 Losartan Potassium [Cozaar -] 100 mg PO DAILY tablet 02/02/18 Oseltamivir Phosphate [Tamiflu -] 75 mg PO BID #10 capsule 01/22/19 Oseltamivir Phosphate [Tamiflu -] 75 mg PO BID #9 capsule 01/22/19 Oxycodone HCl/Acetaminophen [Oxycodone-Acetaminophen 5-325] 1 each PO BID PRN #10 tablet MDD 2 01/22/19 Anemia: Yes Asthma: No Cancer: No Cardiac Disorders: Yes CVA: No COPD: No CHF: No DVT: No Dementia: No Diabetes: Yes GI Disorders: Yes (GERD) Disorders: No HTN: Yes Hypercholesterolemia: Yes Liver Disease: Yes Psychiatric Problems: Yes Seizures: No Thyroid Disease: No - Surgical History Abdominal Surgery: Yes (gallbladder) Appendectomy: No Cardiac Surgery: No Cholecystectomy: Yes Lung Surgery: No Neurologic Surgery: No Orthopedic Surgery: Yes (R.ANKLE SX WITH SCREWS) - Immunization History Td Vaccination: Yes TDAP Vaccination: Yes Immunization Up to Date: Yes - Psycho Social/Smoking Cessation Hx Smoking History: Never smoked Have you smoked in the past 12 months: No Information on smoking cessation initiated: No Hx Alcohol Use: No Drug/Substance Use Hx: No Substance Use Type: None Hx Substance Use Treatment: No Review of Systems - Review of Systems Able to Perform ROS?: Yes Comments:: 01/08/20 23:30 CONSTITUTIONAL: Denies F / C HEENT: Denies headache RESP: Denies SOB CARD: Denies chest pain, palpitations GI: endorses hernia : Denies dysuria *Physical Exam - Vital Signs Last Vital Signs Temp Pulse Resp BP Pulse Ox 98.3 F 88 18 183/86 H 100 01/08/20 17:41 01/08/20 17:41 01/08/20 17:41 01/08/20 17:41 01/08/20 17:41 - Physical Exam 01/08/20 23:30 GEN: NAD, comfortable. AAOx3. HEENT: NC/AT, EOMI, PERRL. No facial asymmetry. Normal voice. Supple neck w/ FROM. CV: S1/S2, RRR, no m/r/g LUNG: CTAB, no wheezes, crackles, rales, rhonchi. GI: Tender ventral hernia w/o overlying skin changes; diffuse TTP. obese, distended, soft, +BS, no guarding, no rebound. MSK: 2+ distal pulses. No LE edema. No obvious deformities of all extremities. SKIN: Warm, dry, no rashes appreciated. PSYCH: anxious, odd affect ED Treatment Course - LABORATORY CBC & Chemistry Diagram: 01/08/20 19:30 01/08/20 19:30 Medical Decision Making - Medical Decision Making 01/08/20 19:13 74M PMH HTN,HLD, DM, CKD, IBS w/ 1 day of abdominal pain roshni.around hernia w/ n/v. DDx - eval for obstruction, incarcerated hernia; possible PUD - GI labs - EKG - CXR - Meds - CT 01/08/20 21:02 EKG 1752 HR 91 DC 188 QRS 108 QTc 447; NSR; TWI V1; appears unchanged from 01/21/19 EKG. pt pain decreased s/p meds 01/08/20 22:40 The urinary bladder volume is approximately 600 mL - ? representing prominent physiologic distention versus mild/early retention. If clinically indicated correlate with pre - and post - void sonography. The remainder of the exam appears unchanged in comparison to a CT study of 12/03/2018. Small umbilical hernia containing a very short segment of a small bowel loop without CT evidence of obstruction. Moderate midline epigastric ventral hernia containing fat only. Possible diffuse hepatic steatosis. Status post cholecystectomy. Mild common bile duct dilatation is again noted. Clinical/laboratory correlation is suggested. Diffuse colonic fecal retention which is probably moderate. Note is again made of mild bibasilar groundglass attenuation possibly on the basis of small airway disease. 01/08/20 23:03 urine sent patient urinated approx 900cc in volume f/u UA 01/08/20 23:11 UA neg pt reassured; questions answered, return precautions provided dc home w/ pcp f/u Discharge - Discharge Information Problems reviewed: Yes Clinical Impression/Diagnosis: Abdominal pain Qualifiers: Abdominal location: unspecified location Qualified Code(s): R10.9 - Unspecified abdominal pain Condition: Stable Disposition: HOME - Admission No - Follow up/Referral Referrals: Donna Galdamez MD [Primary Care Provider] - - Patient Discharge Instructions Patient Printed Discharge Instructions: DI for Abdominal Pain-Adult Additional Instructions: Your blood work and CT scan were reassuring; there does not appear to be a medical or surgical emergency. Follow up with your primary care doctor in the next 3-5 days. Take tylenol as directed on the label for pain. Continue with your home medications as prescribed. Return to the nearest Emergency Department if you experience: - worsening or changing pain - redness over the hernia - severe or bloody vomiting - fevers Lewis anlisis de tania y tomografa computarizada fueron tranquilizadores; no parece ser wagner emergencia mdica o quirrgica. David un seguimiento con lewis mdico de atencin primaria en los prximos 3-5 galeana. Carnuel tylenol uriel se indica en la etiqueta para el dolor. Contine con nnamdi medicamentos caseros segn lo prescrito. Regrese al departamento de emergencias ms chadd si experimenta: - empeoramiento o cambio del dolor - enrojecimiento sobre la hernia - vmitos severos o con tania - fiebres - Post Discharge Activity
[2020-01-08] MEDS ORDERED: morphine CARPU-JECT 2 MG/1 ML DISP.SYRIN IVPUSH ONE (19:32)
[2020-01-08] MEDS ORDERED: ONDANSETRON 4 MG/2 ML VIAL ONE (19:35)
[2020-01-08] MEDS ORDERED: ACETAMINOPHEN INJECTION 100 ML IVPB ONE (19:35)
[2020-01-08] MEDS ORDERED: MORPHINE SULFATE 2 MG/ML VIAL ONE (19:35)
[2020-01-08 19:49] LABS: BASO % 0.5 % (0-2.0); EOS % 1.5 % (0-4.5); HEMATOCRIT 44.5 % (35.4-49); HEMOGLOBIN 14.7 GM/dL (11.7-16.9); LYMPH % 22.7 % (8-40); MCH 31.2 pg (25.7-33.7); MCHC 33.1 g/dl (32.0-35.9); MEAN CELL VOLUME 94.2 fl (80-96); MEAN PLT VOLUME 7.3 fl (7.5-11.1); MONO % 8.3 % (3.8-10.2); PLATELET COUNT 300 K/MM3 (134-434); RBC 4.72 M/mm3 (4.00-5.60); RDW 14.3 % (11.9-15.9)
[2020-01-08 20:09] LABS: INR 0.98 (0.83-1.09); PROTHROMBIN TIME (PATIENT) 11.6 SEC (9.7-13.0)
[2020-01-08 20:11] LABS: ACTIVATED PTT 34.1 SECONDS (25.2-36.5)
[2020-01-08 20:31] LABS: ALBUMIN 4.2 g/dl (3.4-5.0); BILIRUBIN,TOTAL 0.4 mg/dL (0.2-1); CALCIUM 9.4 mg/dL (8.5-10.1); CREATININE 1.1 mg/dL (0.55-1.3); POTASSIUM 4.2 mmol/L (3.5-5.1)
[2020-01-08 23:04] LABS: URINE APPEARANCE CLEAR; URINE BILIRUBIN NEGATIVE (NEGATIVE); URINE COLOR YELLOW; URINE GLUCOSE (UA) NEGATIVE (NEGATIVE); URINE KETONE NEGATIVE (NEGATIVE); URINE LEUK ESTERASE NEGATIVE (NEGATIVE); URINE NITRITE NEGATIVE (NEGATIVE); URINE PROTEIN NEGATIVE (NEGATIVE); URINE UROBILINOGEN 0.2 mg/dL (0.2-1.0)
[2020-01-09 00:32] VITALS: BP 163/100; PULSE 80
--- NOTE | 2020-01-10 12:30 | EKG ---
Test Reason : Blood Pressure : / mmHG Vent. Rate : 091 BPM Atrial Rate : 091 BPM P-R Int : 188 ms QRS Dur : 108 ms QT Int : 364 ms P-R-T Axes : 041 -13 057 degrees QTc Int : 447 ms NORMAL SINUS RHYTHM POSSIBLE LEFT ATRIAL ENLARGEMENT SEPTAL INFARCT , AGE UNDETERMINED ABNORMAL ECG WHEN COMPARED WITH ECG OF 21-JAN-2019 23:56, PREMATURE VENTRICULAR COMPLEXES ARE NO LONGER PRESENT Confirmed by MD Bel, Fredy ([id number]) on 01/10/2020 12:29:37 PM Referred By: Confirmed By:Fredy Staples MD
== END 2020-01-09 | disposition home or self-care (01) ==
LOC: JER 17:19
PROC: 3E033NZ Introduction of Analgesics, Hypnotics, Sedatives into Peripheral Vein, Percutaneous Approach (ICD-10-PCS; principal; 2020-01-08)
PROC: 3E033GC Introduction of Other Therapeutic Substance into Peripheral Vein, Percutaneous Approach (ICD-10-PCS; 2020-01-08)
PROC: 3E033NZ Introduction of Analgesics, Hypnotics, Sedatives into Peripheral Vein, Percutaneous Approach (ICD-10-PCS; 2020-01-08)
DX: K43.9 Ventral hernia without obstruction or gangrene (principal); I12.9 Hypertensive chronic kidney disease with stage 1 through stage 4 chronic kidney disease, or unspecified chronic kidney disease; E11.22 Type 2 diabetes mellitus with diabetic chronic kidney disease; N18.9 Chronic kidney disease, unspecified; Z79.84 Long term (current) use of oral hypoglycemic drugs; K21.9 Gastro-esophageal reflux disease without esophagitis; D64.9 Anemia, unspecified; Z86.59 Personal history of other mental and behavioral disorders
CPT/HCPCS: 36415; 74177-TC; 80053; 81003; 82550; 82553; 83690; 84484; 85025; 85610; 85730; 86850; 86900; 86901; 93005; 93010; 96374; 96375; 99285-25; J0131

== ENCOUNTER 2020-01-11 15:53 | Emergency (ER) | payer MEDICARE, OTHER ==
[2020-01-11 16:18] VITALS: TEMP 98.1; BMI 33.9
--- NOTE | 2020-01-11 16:30 | PDOC ---
History of Present Illness - General Chief Complaint: Pain Stated Complaint: ABD PAIN Time Seen by Provider: 01/11/20 16:29 History Source: Patient, Old Records Exam Limitations: No Limitations - History of Present Illness Initial Comments: 01/11/20 16:30 Alex Moraes is a 74M with PMH HTN, HLD, NIDDM, known reducible umbilical and ventral hernias, presenting with abdominal pain with N/V. Patient was recently seen in [facility] ED for same complaint earlier this week, concerned for bowel obstruction vs. incarcerated hernia, CT scan reveals unobstructed umbilical hernia, ventral hernia with fat only, CBD dilation, and moderate colonic fecal retention. Patient discharged home with PMD f/u and acetaminophen, return precautions. Patient has surgery f/u with Dr. Robert Lopez but has not gone to see. Now presents with more abdominal pain around hernia sites, reports nausea/vomiting, not tolerating PO, not taking any medications for pain. Also reports some weakness, dizziness, JENKINS. Had a BM last night, says he saw black stools and some blood. Denies any RUQ colicky pain and has history of cholecystectomy, abnormal foods ingested, fever/chills, denies alcohol ingestion. Here in ED demanding pain control and surgery for his hernias. Past History - Past Medical History Allergies/Adverse Reactions: Allergies Allergy/AdvReac Type Severity Reaction Status Date / Time No Known Allergies Allergy Verified 01/11/20 16:16 Home Medications: Ambulatory Orders Gabapentin [Neurontin] 400 mg PO HS 01/22/16 Quetiapine Fumarate [Seroquel -] 50 mg PO HS 01/22/16 Tamsulosin HCl [Flomax -] 0.4 mg PO HS 01/22/16 Atorvastatin Calcium [Lipitor] 10 mg PO HS 01/06/17 Roflumilast [Daliresp] 500 mcg PO DAILY 01/06/17 Aspirin [ASA -] 81 mg PO DAILY tab.chew 01/08/17 Pantoprazole Sodium [Protonix -] 40 mg PO DAILY #30 tablet.ec 01/08/17 Methylnaltrexone [place] [Relistor -] 12 mg SQ DAILY #30 kit MDD 1 04/26/17 Rifaximin [Xifaxan -] 550 mg PO TID #60 tablet MDD 3 04/26/17 Metoclopramide HCl [Reglan -] 5 mg PO TIDAC #90 tablet 01/30/18 Naloxegol Oxalate [Movantik] 25 mg PO AM #30 tablet 01/30/18 metFORMIN XR [Glucophage Xr -] 500 mg PO BID #60 tab.sr.24h 01/30/18 Amlodipine Besylate [Norvasc -] 10 mg PO DAILY tablet 02/02/18 Lipase/Protease/Amylase [Adama Figueroa 36,000 Units Capsule] 1 cap PO TIDCM capsule. 02/02/18 Losartan Potassium [Cozaar -] 100 mg PO DAILY tablet 02/02/18 Oseltamivir Phosphate [Tamiflu -] 75 mg PO BID #10 capsule 01/22/19 Oseltamivir Phosphate [Tamiflu -] 75 mg PO BID #9 capsule 01/22/19 Oxycodone HCl/Acetaminophen [Oxycodone-Acetaminophen 5-325] 1 each PO BID PRN #10 tablet MDD 2 01/22/19 Anemia: Yes Asthma: No Cancer: No Cardiac Disorders: Yes CVA: No COPD: No CHF: No DVT: No Dementia: No Diabetes: Yes GI Disorders: Yes (GERD) Disorders: No HTN: Yes Hypercholesterolemia: Yes Liver Disease: Yes Psychiatric Problems: Yes Seizures: No Thyroid Disease: No - Surgical History Abdominal Surgery: Yes (gallbladder) Appendectomy: No Cardiac Surgery: No Cholecystectomy: Yes Lung Surgery: No Neurologic Surgery: No Orthopedic Surgery: Yes (R.ANKLE SX WITH SCREWS) - Immunization History Td Vaccination: Yes TDAP Vaccination: Yes Immunization Up to Date: Yes - Psycho Social/Smoking Cessation Hx Smoking History: Unknown if ever smoked Have you smoked in the past 12 months: No Information on smoking cessation initiated: No Hx Alcohol Use: No Drug/Substance Use Hx: No Substance Use Type: None Hx Substance Use Treatment: No Review of Systems - Review of Systems Able to Perform ROS?: Yes Constitutional: No: Chills, Fever HEENTM: Yes: Blurred Vision. No: Hearing Loss, Dental Problems Respiratory: No: Cough, Shortness of Breath Cardiac (ROS): Yes: Lightheadedness. No: Chest Pain, Irregular Heart Rate, Palpitations, Syncope ABD/GI: Yes: Blood Streaked Bowels, Nausea, Poor Appetite, Poor Fluid Intake, Vomiting, Abdominal cramping. No: Constipated, Diarrhea : No: Burning, Dysuria, Discharge, Frequency, Flank Pain, Hematuria, Incontinence, Pain Musculoskeletal: No: Back Pain, Muscle Pain Integumentary: No: Symptoms Reported Neurological: Yes: Weakness. No: Headache, Numbness, Dizziness Endocrine: No: Symptoms Reported Hematologic/Lymphatic: No: Symptoms Reported All Other Systems: Reviewed and Negative *Physical Exam - Vital Signs Last Vital Signs Temp Pulse Resp BP Pulse Ox 98.1 F 80 18 170/78 98 01/11/20 16:13 01/11/20 16:13 01/11/20 16:13 01/11/20 16:13 01/11/20 16:13 - Physical Exam General Appearance: Yes: Nourished, Appropriately Dressed, Mild Distress, Obese HEENT: positive: EOMI, [place], Normal ENT Inspection, Normal Voice, Symmetrical, Pharynx Normal, Hearing Grossly Normal. negative: Scleral Icterus (R), Scleral Icterus (L), Pharyngeal Erythema, Tonsillar Exudate, Tonsillar Erythema Neck: positive: Normal Thyroid, Supple. negative: Tender, Trachea midline, Rigid, Decreased range of motion, Lymphadenopathy (R), Lymphadenopathy (L), Tender lateral, Tender midline Respiratory/Chest: positive: Lungs Clear, Normal Breath Sounds. negative: Chest Tender, Respiratory Distress, Accessory Muscle Use, Crackles, Rales, Rhonchi, Stridor, Wheezing Cardiovascular: positive: Regular Rhythm, Regular Rate. negative: Murmur Gastrointestinal/Abdominal: positive: Normal Bowel Sounds, Soft, Protuberent, Hernia (3.0in diameter ventral hernia to right upper abdomen, periumbilical hernia), Other (ventral hernia is easily reducible without pain, no erythema/skin changes). negative: Tender, Guarding, Rebound Musculoskeletal: positive: Normal Inspection. negative: CVA Tenderness, Vertebral Tenderness Extremity: positive: Normal Capillary Refill, Normal Inspection, Normal Range of Motion, Pelvis Stable, Pedal Edema (1+), Swelling. negative: Tender Integumentary: positive: Normal Color, Warm Neurologic: positive: Fully Oriented, Alert, Normal Mood/Affect, Normal Response ED Treatment Course - LABORATORY CBC & Chemistry Diagram: 01/11/20 17:00 01/11/20 17:00 Medical Decision Making - Medical Decision Making 01/11/20 17:05 Patient presents with abdominal pain from ventral hernia with nausea/vomiting. Hernia is reducible, has known recent CTAP with contrast showing no obstruction. Now complaining of black stools with blood streaks. Hernia is non-tender and reducible in ED, patient complains of pain but does not show rebound/guarding on exam. Getting CMP/CBC for eval anemia and infection, lipase for eval pancreatitis, FOBT for eval rectal bleeding. Giving 650mg acetaminophen for abdominal pain. Will likely need outpatient surgery f/u Dr. Lopez if labs WNL. 01/11/20 18:47 Labs notable for: - CMP WNL - CBC WNL - lipase WNL - FOBT negative No concerning anemia or rectal bleeding at this time. VS stable. Stable for discharge home with F/U with Dr. Lopez. 01/11/20 19:36 Re-evaluated, abdomen non-tender still, but reporting black stools and pain out of proportion to exam. Ordering CTA AP with 1L NS, 2mg morphine, 4mg Zofran, IV insert. 01/11/20 23:[address] for CTA. Pain decreased on repeat evaluation, doing better. Signed out to night team, will f/u CTA. If no pathology noted, stable to discharge home with PMD and surgery clinic f/u. May need pain medications at home, if no pathology noted no indication for opiate management, needs to see PMD for further care. 01/12/20 00:20 CTA negative for acute pathology. Stable for d/c home with PMD f/u. Discharge - Discharge Information Problems reviewed: Yes Clinical Impression/Diagnosis: Ventral hernia Qualifiers: Obstruction and gangrene presence: without obstruction or gangrene Qualified Code(s): K43.9 - Ventral hernia without obstruction or gangrene Abdominal pain Qualifiers: Abdominal location: unspecified location Qualified Code(s): R10.9 - Unspecified abdominal pain Condition: Stable Disposition: HOME - Admission No - Follow up/Referral Referrals: Donna Galdamez MD [Primary Care Provider] - Robert Lopez MD [Staff Physician] - - Patient Discharge Instructions Patient Printed Discharge Instructions: DI for Ventral Hernia Additional Instructions: Today you were evaluated for abdominal pain. Your hernia does not need emergency repair at this time. You need to follow-up with Dr. Robert Lopez as your doctor recommends, and see Dr. Galdamez in the next 3 days for further care. You do not have any concerning findings at this time requiring emergency treatment or medication. You need to see your primary doctor for further evaluation of your pain and medication prescriptions. If you experience worsening pain, bloody stools, chest pain, fever, become unable to walk, or have any other new or concerning symptoms, please return to the emergency room. - Post Discharge Activity
[2020-01-11] MEDS ORDERED: ACETAMINOPHEN 325 MG TABLET (FP) PO ONE (17:32)
[2020-01-11 17:33] LABS: BASO % 0.3 % (0-2.0); EOS % 1.4 % (0-4.5); HEMOGLOBIN 14.2 GM/dL (11.7-16.9); LYMPH % 18.7 % (8-40); MCH 31.7 pg (25.7-33.7); MCHC 33.8 g/dl (32.0-35.9); MEAN CELL VOLUME 93.9 fl (80-96); MEAN PLT VOLUME 7.3 fl (7.5-11.1); MONO % 7.9 % (3.8-10.2); NEUT % 71.7 % (42.8-82.8); PLATELET COUNT 273 K/MM3 (134-434); RBC 4.47 M/mm3 (4.00-5.60); RDW 14.1 % (11.9-15.9); WHITE BLOOD COUNT 8.4 K/mm3 (4.0-10.0)
[2020-01-11] MEDS ORDERED: ACETAMINOPHEN 325 MG TABLET (FP) ONE (17:38)
[2020-01-11 17:59] LABS: ALBUMIN 4.2 g/dl (3.4-5.0); BILIRUBIN,TOTAL 0.5 mg/dL (0.2-1); BLOOD UREA NITROGEN 22.1 mg/dL (7-18); CALCIUM 9.2 mg/dL (8.5-10.1); CREATININE 1.1 mg/dL (0.55-1.3); POTASSIUM 4.3 mmol/L (3.5-5.1); TOT PROT 7.8 g/dl (6.4-8.2)
[2020-01-11] MEDS ORDERED: morphine CARPU-JECT 4 MG/1 ML DISP.SYRIN IVPUSH ONE (19:33)
[2020-01-11] MEDS ORDERED: SODIUM CHLORIDE 0.9% 500 ML INFUS.BAG IV ONE (19:33)
[2020-01-11] MEDS ORDERED: ONDANSETRON 4 MG TABLET PO PRN (19:33)
--- NOTE | 2020-01-11 19:39 | PDOC ---
Documentation entered by Ángel Smiley SCRIBE, acting as scribe for Kolby Diaz MD. Kolby Diaz MD: This documentation has been prepared by the Baljit hughes Nirvannie, SCRIBE, under my direction and personally reviewed by me in its entirety. I confirm that the documentation accurately reflects all work, treatment, procedures, and medical decision making performed by me. Attending Attestation - Resident Resident Name: DcNiranjan - ED Attending Attestation I have performed the following: I have examined & evaluated the patient, The case was reviewed & discussed with the resident, I agree w/resident's findings & plan, Exceptions are as noted - HPI HPI: 01/15/20 19:17 see below - Physicial Exam PE: 01/15/20 19:17 see below - Medical Decision Making 01/11/20 16:47 74y M hx of htn, hl, NIDDM, with pain in his site of umbilical/ventral hernia. Pt presented recently for similar complaint including CT abdomen without signs of obstruction. Pt endorse persistent n/v, feeling generally weak. Pt endorses having diffuse abdominal pain. Pt notes that he has had chronic abdominal pain but recently the pain has been so bad that he cannot sleep. The pt denies any fever chills. pt did endorse seeing black stool. pt denies any cp, sob, lightheadedness, palpitatiosn. pt notes he was given fu with surgury for hernia, but he has not yet followed up. Exam: General: no acute distress Pulm: cta b/l card: rrr abd: soft, no focal tendenrses, reducible/soft ventral hernia ddx - pt has no clnical signs suggestive of a incarcerated hernia. as pt had CT recently, consider possible mesenteric ischemia (blood in stool, pain out of proportion to exam) - will obtain CTA will give fluids, zofran will PO challenge 01/11/20 19:47 case signed out to evening team to fu with results and disposition the patient.
[2020-01-11] MEDS ORDERED: MORPHINE SULFATE 2 MG/ML VIAL ONE (21:42)
--- NOTE | 2020-01-12 00:21 | PDOC ---
*Physical Exam - Vital Signs Last Vital Signs Temp Pulse Resp BP Pulse Ox 98.1 F 80 18 170/78 98 01/11/20 16:13 01/11/20 16:13 01/11/20 16:13 01/11/20 16:13 01/11/20 16:13 01/12/20 00:[address] Pt handed off from Dr[address] Irwin. Pain from inguinal hernia. CT NEG. Plan to dc home ED Treatment Course - LABORATORY CBC & Chemistry Diagram: 01/11/20 17:00 01/11/20 17:00 - ADDITIONAL ORDERS Additional order review: Laboratory Results 01/11/20 01/11/20 18:00 17:00 Sodium 137 Potassium 4.3 Chloride 102 Carbon Dioxide 28 Anion Gap 7 L BUN 22.1 H Creatinine 1.1 Est GFR (CKD-EPI)AfAm 76.78 Est GFR (CKD-EPI)NonAf 66.24 Random Glucose 154 H Calcium 9.2 Total Bilirubin 0.5 AST 22 ALT 33 Alkaline Phosphatase 65 Total Protein 7.8 Albumin 4.2 Lipase 41 L Stool Occult Blood Negative 01/11/20 17:00 RBC 4.47 MCV 93.9 MCHC 33.8 RDW 14.1 MPV 7.3 L Neutrophils % 71.7 Lymphocytes % 18.7 Monocytes % 7.9 Eosinophils % 1.4 Basophils % 0.3 - Medications Given in the ED: ED Medications Discontinued Medications Generic Name Dose Route Start Last Admin Trade Name Freq PRN Reason Stop Dose Admin Acetaminophen 650 mg 01/11/20 17:32 01/11/20 17:48 Tylenol - PO 01/11/20 17:33 650 mg ONCE ONE Administration Morphine Sulfate 2 mg 01/11/20 19:33 01/11/20 21:46 Morphine Injection - IVPUSH 01/11/20 19:34 2 mg ONCE ONE Administration Sodium Chloride 1,000 ml 01/11/20 19:33 01/11/20 21:47 Normal Saline - IV 01/11/20 19:34 1,000 ml ONCE ONE Administration Discharge - Discharge Information Problems reviewed: Yes Clinical Impression/Diagnosis: Ventral hernia Qualifiers: Obstruction and gangrene presence: without obstruction or gangrene Qualified Code(s): K43.9 - Ventral hernia without obstruction or gangrene Abdominal pain Qualifiers: Abdominal location: unspecified location Qualified Code(s): R10.9 - Unspecified abdominal pain Condition: Stable Disposition: HOME - Follow up/Referral Referrals: Robert Lopez MD [Staff Physician] - Donna Galdamez MD [Primary Care Provider] - - Patient Discharge Instructions Patient Printed Discharge Instructions: DI for Ventral Hernia Additional Instructions: Today you were evaluated for abdominal pain. Your hernia does not need emergency repair at this time. You need to follow-up with Dr. Robert Lopez as your doctor recommends, and see Dr. Galdamez in the next 3 days for further care. You do not have any concerning findings at this time requiring emergency treatment or medication. You need to see your primary doctor for further evaluation of your pain and medication prescriptions. If you experience worsening pain, bloody stools, chest pain, fever, become unable to walk, or have any other new or concerning symptoms, please return to the emergency room. - Post Discharge Activity
[2020-01-12 01:42] VITALS: BP 155/71; PULSE 76
== END 2020-01-12 01:35 | disposition home or self-care (01) ==
LOC: JER 15:53
DX: K43.9 Ventral hernia without obstruction or gangrene (principal); K42.9 Umbilical hernia without obstruction or gangrene; I10 Essential (primary) hypertension; E78.5 Hyperlipidemia, unspecified; E11.9 Type 2 diabetes mellitus without complications; D64.9 Anemia, unspecified; K76.9 Liver disease, unspecified; Z79.84 Long term (current) use of oral hypoglycemic drugs; Z79.82 Long term (current) use of aspirin; Z90.49 Acquired absence of other specified parts of digestive tract
CPT/HCPCS: 36415; 74174-TC; 80053; 82272; 83690; 85025; 99284-25; Q9967

== ENCOUNTER 2020-09-22 20:48 | Inpatient (IN) | payer MEDICARE, OTHER ==
[2020-09-22] MEDS ORDERED: VANCOMYCIN 1 GM in D5W (PRE-DOCKED) 1,000 MG/250 ML IVPB ONE (21:41)
[2020-09-22] MEDS ORDERED: CEFTRIAXONE 1,000 MG in DEXTROSE 5%-WATER - 50 ML IVPB ONE (21:41)
[2020-09-22] MEDS ORDERED: ACETAMINOPHEN 1000 MG/100 ML VIAL (NON FORMULARY) IVPB ONE (21:47)
[2020-09-22] MEDS ORDERED: ACETAMINOPHEN INJECTION 100 ML IVPB ONE (21:50)
[2020-09-22] MEDS ORDERED: CEFTRIAXONE 1 GM/50 ML BAG ONE (21:50)
[2020-09-22] MEDS ORDERED: VANCOMYCIN 1 GRAM (PRE-DOCKED) 1,000 MG/250 ML BAG IVPB ONE (21:50)
[2020-09-22] MEDS ORDERED: morphine CARPU-JECT 4 MG/1 ML DISP.SYRIN IVPUSH ONE (22:07)
[2020-09-22 22:09] LABS: BASO % 0.4 % (0-2.0); EOS % 0.4 % (0-4.5); HEMATOCRIT 38.1 % (35.4-49); HEMOGLOBIN 12.8 GM/dL (11.7-16.9); LYMPH % 22.2 % (8-40); MCH 30.6 pg (25.7-33.7); MCHC 33.6 g/dl (32.0-35.9); MEAN CELL VOLUME 91.1 fl (80-96); MEAN PLT VOLUME 8.7 fl (7.5-11.1); MONO % 11.7 % (3.8-10.2); NEUT % 65.3 % (42.8-82.8); PLATELET COUNT 293 K/MM3 (134-434); RBC 4.18 M/mm3 (4.00-5.60); RDW 16.2 % (11.9-15.9); WHITE BLOOD COUNT 7.6 K/mm3 (4.0-10.0)
[2020-09-22 22:13] LABS: INR 1.36 (0.83-1.09); PROTHROMBIN TIME (PATIENT) 16.6 SEC (9.7-13.0)
[2020-09-22 22:21] LABS: POTASSIUM 5.8 mmol/L (3.5-5.1)
[2020-09-22 22:23] LABS: CALCIUM 8.7 mg/dL (8.5-10.1)
[2020-09-22] MEDS ORDERED: MORPHINE SULFATE 2 MG/ML VIAL ONE (22:23)
[2020-09-22 22:24] LABS: ALBUMIN 3.8 g/dl (3.4-5.0); BLOOD UREA NITROGEN 26.6 mg/dL (7-18)
[2020-09-22 22:27] LABS: CREATININE 1.4 mg/dL (0.55-1.3)
[2020-09-22 22:28] LABS: BILIRUBIN,TOTAL 1.4 mg/dL (0.2-1)
[2020-09-22 22:29] LABS: TOT PROT 7.6 g/dl (6.4-8.2)
[2020-09-22 22:32] LABS: N-TERMINAL BNP 3468.6 pg/ml (5-125)
[2020-09-23 00:17] LABS: POTASSIUM 4.5 mmol/L (3.5-5.1)
[2020-09-23 00:19] LABS: CALCIUM 8.6 mg/dL (8.5-10.1)
[2020-09-23 00:20] LABS: ALBUMIN 3.6 g/dl (3.4-5.0); BLOOD UREA NITROGEN 26.8 mg/dL (7-18)
[2020-09-23 00:23] LABS: CREATININE 1.3 mg/dL (0.55-1.3)
[2020-09-23 00:24] LABS: BILIRUBIN,TOTAL 1.3 mg/dL (0.2-1)
[2020-09-23] MEDS ORDERED: ACETAMINOPHEN 1000 MG/100 ML VIAL (NON FORMULARY) IVPB ONE ×2 (03:43→19:39)
[2020-09-23] MEDS ORDERED: ACETAMINOPHEN INJECTION 100 ML IVPB ONE (04:03)
[2020-09-23] MEDS ORDERED: HEPARIN NA (PORCINE) 5,000 UNITS/ML 1ML VIAL ONE ×2 (06:07→15:07)
[2020-09-23] MEDS: HEPARIN NA (PORCINE) 5,000 UNITS/ML 1ML VIAL SQ SCH ×3 (06:23→22:24)
[2020-09-23 06:42] LABS: BASO % 0.6 % (0-2.0); EOS % 0.8 % (0-4.5); HEMATOCRIT 38.1 % (35.4-49); HEMOGLOBIN 12.7 GM/dL (11.7-16.9); LYMPH % 22.4 % (8-40); MCH 30.4 pg (25.7-33.7); MCHC 33.4 g/dl (32.0-35.9); MEAN PLT VOLUME 8.6 fl (7.5-11.1); MONO % 12.4 % (3.8-10.2); NEUT % 63.8 % (42.8-82.8); PLATELET COUNT 291 K/MM3 (134-434); RBC 4.19 M/mm3 (4.00-5.60); RDW 16.4 % (11.9-15.9); WHITE BLOOD COUNT 6.4 K/mm3 (4.0-10.0)
[2020-09-23 07:01] LABS: POTASSIUM 4.5 mmol/L (3.5-5.1)
[2020-09-23 07:06] LABS: ALBUMIN 3.8 g/dl (3.4-5.0); BLOOD UREA NITROGEN 25.9 mg/dL (7-18); CALCIUM 8.9 mg/dL (8.5-10.1)
[2020-09-23 07:09] LABS: CREATININE 1.4 mg/dL (0.55-1.3); PHOSPHOROUS 3.2 mg/dL (2.5-4.9)
[2020-09-23 07:11] LABS: BILIRUBIN,TOTAL 1.4 mg/dL (0.2-1); TOT PROT 7.1 g/dl (6.4-8.2)
[2020-09-23] MEDS: INSULIN SLIDING SCALE (NOVOLOG) 1 VIAL SQ SCH ×4 (07:41→22:26)
[2020-09-23] MEDS ORDERED: TAMSULOSIN HCL 0.4 MG CAP ONE (08:55)
[2020-09-23] MEDS: TAMSULOSIN HCL 0.4 MG CAP PO SCH (09:10)
[2020-09-23] MEDS ORDERED: ASPIRIN 81 MG CHEWABLE TABLETS ONE (09:34)
[2020-09-23] MEDS ORDERED: PANTOPRAZOLE 40 MG TABLET ONE (09:34)
[2020-09-23] MEDS ORDERED: FERROUS SO4 325 MG TABLET (FP) ONE (09:35)
[2020-09-23] MEDS ORDERED: LOSARTAN POTASSIUM 50 MG TABLET ONE (09:35)
[2020-09-23] MEDS ORDERED: CEFEPIME 2 GM/100 ML BAG IVPB ONE (09:35)
[2020-09-23] MEDS: ASPIRIN 81 MG CHEWABLE TABLETS PO SCH (09:50)
[2020-09-23] MEDS: PANTOPRAZOLE 40 MG TABLET PO SCH (09:50)
[2020-09-23] MEDS: LOSARTAN POTASSIUM 50 MG TABLET PO SCH (09:50)
[2020-09-23] MEDS: CEFEPIME 2 GM in DEXTROSE 5%-WATER 100 ML IVPB SCH ×2 (09:50→20:39)
[2020-09-23] MEDS ORDERED: CEFEPIME HCL/D5W 2 GM/50 ML BAG IVPB SCH (10:00)
[2020-09-23] MEDS: FERROUS SO4 325 MG TABLET (FP) PO SCH (10:24)
[2020-09-23] MEDS: GABAPENTIN 400 MG CAPSULE PO SCH ×2 (10:24→22:26)
[2020-09-23] MEDS: ROFLUMILAST 500 MCG TABLET PO SCH (10:24)
[2020-09-23 11:02] LABS: BILIRUBIN,DIRECT 0.8 mg/dL (0.0-0.2)
[2020-09-23] MEDS ORDERED: INSULIN SLIDING SCALE (NOVOLOG) 1 VIAL SQ ONE (12:24)
[2020-09-23] MEDS ORDERED: SODIUM CHLORIDE 1,000 ML IV SCH (14:00)
[2020-09-23] MEDS ORDERED: FUROSEMIDE 40 MG/4 ML INJECTABLE VIAL IVPUSH ONE (15:00)
[2020-09-23] MEDS: SODIUM CHLORIDE 1 GM TABLET PO SCH ×2 (17:36→22:26)
[2020-09-23] MEDS: ACETAMINOPHEN 325 MG TABLET (FP) PO PRN (17:37)
[2020-09-23] MEDS: oxyCODONE HCL 5 MG TABLET PO PRN (17:38)
[2020-09-23 22:22] LABS: POTASSIUM 4.2 mmol/L (3.5-5.1)
[2020-09-23 22:24] LABS: BLOOD UREA NITROGEN 26.9 mg/dL (7-18); CALCIUM 8.7 mg/dL (8.5-10.1)
[2020-09-23] MEDS: ATORVASTATIN CA 10 MG TABLET (FP) PO SCH (22:25)
[2020-09-23] MEDS: QUEtiapine FUMARATE 25 MG TABLET PO SCH (22:25)
[2020-09-23] MEDS: traZODone HCL 50 MG TABLET (FP) PO SCH (22:25)
[2020-09-23 22:27] LABS: CREATININE 1.6 mg/dL (0.55-1.3)
[2020-09-23 22:34] LABS: URINE APPEARANCE CLEAR; URINE BILIRUBIN NEGATIVE (NEGATIVE); URINE COLOR YELLOW; URINE GLUCOSE (UA) NEGATIVE (NEGATIVE); URINE KETONE NEGATIVE (NEGATIVE); URINE LEUK ESTERASE NEGATIVE (NEGATIVE); URINE NITRITE NEGATIVE (NEGATIVE); URINE PROTEIN NEGATIVE (NEGATIVE); URINE UROBILINOGEN 0.2 mg/dL (0.2-1.0)
[2020-09-24] MEDS: CEFEPIME 2 GM in DEXTROSE 5%-WATER 100 ML IVPB SCH ×2 (02:04→13:28)
[2020-09-24] MEDS: oxyCODONE HCL 5 MG TABLET PO PRN ×2 (06:19→19:02)
[2020-09-24] MEDS: HEPARIN NA (PORCINE) 5,000 UNITS/ML 1ML VIAL SQ SCH ×3 (06:19→21:42)
[2020-09-24] MEDS: INSULIN SLIDING SCALE (NOVOLOG) 1 VIAL SQ SCH ×4 (06:19→21:40)
[2020-09-24 08:17] LABS: BASO % 0.4 % (0-2.0); EOS % 1.3 % (0-4.5); HEMATOCRIT 37.5 % (35.4-49); HEMOGLOBIN 12.4 GM/dL (11.7-16.9); LYMPH % 14.8 % (8-40); MCH 30.1 pg (25.7-33.7); MCHC 33.1 g/dl (32.0-35.9); MEAN CELL VOLUME 90.9 fl (80-96); MEAN PLT VOLUME 8.2 fl (7.5-11.1); MONO % 10.2 % (3.8-10.2); NEUT % 73.3 % (42.8-82.8); PLATELET COUNT 257 K/MM3 (134-434); RBC 4.12 M/mm3 (4.00-5.60); RDW 16.3 % (11.9-15.9); WHITE BLOOD COUNT 7.4 K/mm3 (4.0-10.0)
[2020-09-24 08:35] LABS: POTASSIUM 3.9 mmol/L (3.5-5.1)
[2020-09-24 08:37] LABS: CALCIUM 8.7 mg/dL (8.5-10.1)
[2020-09-24 08:38] LABS: ALBUMIN 3.5 g/dl (3.4-5.0); BLOOD UREA NITROGEN 26.4 mg/dL (7-18)
[2020-09-24 08:41] LABS: CREATININE 1.5 mg/dL (0.55-1.3)
[2020-09-24 08:42] LABS: BILIRUBIN,TOTAL 1.2 mg/dL (0.2-1)
[2020-09-24 08:43] LABS: TOT PROT 6.8 g/dl (6.4-8.2)
[2020-09-24] MEDS: TAMSULOSIN HCL 0.4 MG CAP PO SCH (10:44)
[2020-09-24] MEDS: ASPIRIN 81 MG CHEWABLE TABLETS PO SCH (10:44)
[2020-09-24] MEDS: LOSARTAN POTASSIUM 50 MG TABLET PO SCH (10:44)
[2020-09-24] MEDS: ROFLUMILAST 500 MCG TABLET PO SCH (10:45)
[2020-09-24] MEDS: PANTOPRAZOLE 40 MG TABLET PO SCH (10:46)
[2020-09-24] MEDS: FERROUS SO4 325 MG TABLET (FP) PO SCH (10:46)
[2020-09-24] MEDS: GABAPENTIN 400 MG CAPSULE PO SCH ×2 (10:46→21:42)
[2020-09-24] MEDS ORDERED: FUROSEMIDE 40 MG/4 ML INJECTABLE VIAL IVPUSH ONE (13:31)
[2020-09-24] MEDS: PIPERACILLIN/TAZOB 3.375 GM 3.375 GM in DEXTROSE 5%-WATER - 50 ML IVPB SCH ×2 (14:47→18:35)
[2020-09-24 15:16] LABS: POTASSIUM 4.2 mmol/L (3.5-5.1)
[2020-09-24 15:21] LABS: BLOOD UREA NITROGEN 23.5 mg/dL (7-18); CALCIUM 8.4 mg/dL (8.5-10.1)
[2020-09-24 15:24] LABS: CREATININE 1.3 mg/dL (0.55-1.3)
[2020-09-24] MEDS: AMMONIUM LACTATE 12% LOTION 225 GM BOTTLE TP SCH (18:05)
[2020-09-24] MEDS: CALCIUM ACETATE/AL SULFATE TOP 1.9 GM/PACKET PACKET TP SCH (18:06)
[2020-09-24] MEDS: ACETAMINOPHEN 325 MG TABLET (FP) PO PRN (19:04)
[2020-09-24] MEDS: QUEtiapine FUMARATE 25 MG TABLET PO SCH (21:41)
[2020-09-24] MEDS: traZODone HCL 50 MG TABLET (FP) PO SCH (21:41)
[2020-09-24] MEDS: ATORVASTATIN CA 10 MG TABLET (FP) PO SCH (21:41)
[2020-09-25] MEDS: ACETAMINOPHEN 325 MG TABLET (FP) PO PRN ×4 (01:06→18:28)
[2020-09-25] MEDS: oxyCODONE HCL 5 MG TABLET PO PRN ×4 (01:06→18:28)
[2020-09-25] MEDS: PIPERACILLIN/TAZOB 3.375 GM 3.375 GM in DEXTROSE 5%-WATER - 50 ML IVPB SCH ×3 (01:07→17:40)
[2020-09-25] MEDS: INSULIN SLIDING SCALE (NOVOLOG) 1 VIAL SQ SCH ×4 (06:50→21:15)
[2020-09-25] MEDS: HEPARIN NA (PORCINE) 5,000 UNITS/ML 1ML VIAL SQ SCH ×3 (06:51→21:14)
[2020-09-25 08:13] LABS: BASO % 0.5 % (0-2.0); HEMATOCRIT 37.7 % (35.4-49); HEMOGLOBIN 12.3 GM/dL (11.7-16.9); LYMPH % 21.3 % (8-40); MCH 29.8 pg (25.7-33.7); MCHC 32.5 g/dl (32.0-35.9); MEAN CELL VOLUME 91.9 fl (80-96); MEAN PLT VOLUME 7.9 fl (7.5-11.1); MONO % 13.9 % (3.8-10.2); NEUT % 61.3 % (42.8-82.8); PLATELET COUNT 242 K/MM3 (134-434); RBC 4.11 M/mm3 (4.00-5.60); RDW 16.7 % (11.9-15.9); WHITE BLOOD COUNT 5.9 K/mm3 (4.0-10.0)
[2020-09-25 08:38] LABS: POTASSIUM 4.8 mmol/L (3.5-5.1)
[2020-09-25 08:51] LABS: CALCIUM 8.8 mg/dL (8.5-10.1)
[2020-09-25 08:52] LABS: ALBUMIN 3.2 g/dl (3.4-5.0); BLOOD UREA NITROGEN 21.9 mg/dL (7-18)
[2020-09-25 08:55] LABS: BILIRUBIN,TOTAL 0.9 mg/dL (0.2-1); CREATININE 1.4 mg/dL (0.55-1.3); TOT PROT 6.2 g/dl (6.4-8.2)
[2020-09-25 09:05] LABS: PHOSPHOROUS 3.7 mg/dL (2.5-4.9)
[2020-09-25] MEDS: TAMSULOSIN HCL 0.4 MG CAP PO SCH ×2 (10:52→21:14)
[2020-09-25] MEDS: PANTOPRAZOLE 40 MG TABLET PO SCH (10:52)
[2020-09-25] MEDS: ASPIRIN 81 MG CHEWABLE TABLETS PO SCH (10:52)
[2020-09-25] MEDS: GABAPENTIN 400 MG CAPSULE PO SCH ×2 (10:53→21:15)
[2020-09-25] MEDS: ROFLUMILAST 500 MCG TABLET PO SCH (10:54)
[2020-09-25] MEDS: FERROUS SO4 325 MG TABLET (FP) PO SCH (10:54)
[2020-09-25] MEDS: LOSARTAN POTASSIUM 50 MG TABLET PO SCH (10:55)
[2020-09-25] MEDS: FUROSEMIDE 40 MG/4 ML INJECTABLE VIAL IVPUSH SCH (13:09)
[2020-09-25] MEDS: AMMONIUM LACTATE 12% LOTION 225 GM BOTTLE TP SCH (13:16)
[2020-09-25] MEDS: CALCIUM ACETATE/AL SULFATE TOP 1.9 GM/PACKET PACKET TP SCH (13:16)
[2020-09-25] MEDS: COLLAGENASE CLOSTRIDIUM HIST. 30 GRAMS TUBE TP SCH (16:39)
[2020-09-25] MEDS: ATORVASTATIN CA 10 MG TABLET (FP) PO SCH (21:13)
[2020-09-25] MEDS: QUEtiapine FUMARATE 25 MG TABLET PO SCH (21:13)
[2020-09-25] MEDS: traZODone HCL 50 MG TABLET (FP) PO SCH (21:14)
[2020-09-26] MEDS: ACETAMINOPHEN 325 MG TABLET (FP) PO PRN ×3 (00:34→15:36)
[2020-09-26] MEDS: oxyCODONE HCL 5 MG TABLET PO PRN ×3 (00:35→15:37)
[2020-09-26] MEDS: PIPERACILLIN/TAZOB 3.375 GM 3.375 GM in DEXTROSE 5%-WATER - 50 ML IVPB SCH ×3 (01:45→17:01)
[2020-09-26] MEDS: HEPARIN NA (PORCINE) 5,000 UNITS/ML 1ML VIAL SQ SCH ×3 (06:17→21:38)
[2020-09-26] MEDS: INSULIN SLIDING SCALE (NOVOLOG) 1 VIAL SQ SCH ×4 (06:32→21:40)
[2020-09-26] MEDS: CEFEPIME 2 GM in DEXTROSE 5%-WATER 100 ML IVPB SCH ×2 (07:26→07:29)
[2020-09-26 08:04] LABS: BASO % 0.5 % (0-2.0); HEMATOCRIT 36.7 % (35.4-49); HEMOGLOBIN 11.9 GM/dL (11.7-16.9); MCH 29.8 pg (25.7-33.7); MCHC 32.5 g/dl (32.0-35.9); MEAN CELL VOLUME 91.4 fl (80-96); MEAN PLT VOLUME 7.6 fl (7.5-11.1); MONO % 13.3 % (3.8-10.2); NEUT % 57.2 % (42.8-82.8); PLATELET COUNT 247 K/MM3 (134-434); RBC 4.01 M/mm3 (4.00-5.60); RDW 16.5 % (11.9-15.9); WHITE BLOOD COUNT 6.3 K/mm3 (4.0-10.0)
[2020-09-26 08:36] LABS: BLOOD UREA NITROGEN 18.3 mg/dL (7-18); MAGNESIUM 1.7 mg/dL (1.8-2.4)
[2020-09-26 08:39] LABS: PHOSPHOROUS 3.5 mg/dL (2.5-4.9)
[2020-09-26 09:15] LABS: POTASSIUM 4.3 mmol/L (3.5-5.1)
[2020-09-26 09:16] LABS: CALCIUM 8.3 mg/dL (8.5-10.1)
[2020-09-26 09:20] LABS: CREATININE 1.3 mg/dL (0.55-1.3)
[2020-09-26] MEDS ORDERED: MAGNESIUM SULF 50% (8.12 MEQ/2 ML-1 GM VIAL) IVPB ONE (09:30)
[2020-09-26 09:32] LABS: N-TERMINAL BNP 1515.5 pg/ml (5-125)
[2020-09-26] MEDS: ASPIRIN 81 MG CHEWABLE TABLETS PO SCH (10:05)
[2020-09-26] MEDS: GABAPENTIN 400 MG CAPSULE PO SCH ×2 (10:07→21:39)
[2020-09-26] MEDS: ROFLUMILAST 500 MCG TABLET PO SCH (10:07)
[2020-09-26] MEDS: PANTOPRAZOLE 40 MG TABLET PO SCH (10:07)
[2020-09-26] MEDS: FUROSEMIDE 40 MG/4 ML INJECTABLE VIAL IVPUSH SCH ×2 (10:11→16:35)
[2020-09-26] MEDS: LOSARTAN POTASSIUM 50 MG TABLET PO SCH (10:11)
[2020-09-26] MEDS: FERROUS SO4 325 MG TABLET (FP) PO SCH (10:11)
[2020-09-26] MEDS ORDERED: MAGNESIUM SULFATE IN WATER 2 GM/50 ML IVPB IVPB ONE (11:00)
[2020-09-26] MEDS: CALCIUM ACETATE/AL SULFATE TOP 1.9 GM/PACKET PACKET TP SCH (11:28)
[2020-09-26] MEDS: AMMONIUM LACTATE 12% LOTION 225 GM BOTTLE TP SCH (11:29)
[2020-09-26] MEDS: COLLAGENASE CLOSTRIDIUM HIST. 30 GRAMS TUBE TP SCH (11:29)
[2020-09-26] MEDS: QUEtiapine FUMARATE 25 MG TABLET PO SCH (21:37)
[2020-09-26] MEDS: traZODone HCL 50 MG TABLET (FP) PO SCH (21:37)
[2020-09-26] MEDS: TAMSULOSIN HCL 0.4 MG CAP PO SCH (21:37)
[2020-09-26] MEDS: ATORVASTATIN CA 10 MG TABLET (FP) PO SCH (21:38)
[2020-09-27] MEDS: PIPERACILLIN/TAZOB 3.375 GM 3.375 GM in DEXTROSE 5%-WATER - 50 ML IVPB SCH ×3 (02:00→16:59)
[2020-09-27] MEDS ORDERED: oxyCODONE HCL 5 MG TABLET PO ONE (04:27)
[2020-09-27] MEDS ORDERED: ACETAMINOPHEN 1000 MG/100 ML VIAL (NON FORMULARY) IVPB ONE ×3 (04:29→21:33)
[2020-09-27] MEDS: FUROSEMIDE 40 MG/4 ML INJECTABLE VIAL IVPUSH SCH (06:19)
[2020-09-27] MEDS: HEPARIN NA (PORCINE) 5,000 UNITS/ML 1ML VIAL SQ SCH ×3 (06:20→21:24)
[2020-09-27] MEDS: INSULIN SLIDING SCALE (NOVOLOG) 1 VIAL SQ SCH ×4 (06:20→21:25)
[2020-09-27 07:08] LABS: BASO % 0.4 % (0-2.0); EOS % 2.7 % (0-4.5); HEMATOCRIT 35.9 % (35.4-49); HEMOGLOBIN 11.7 GM/dL (11.7-16.9); LYMPH % 17.9 % (8-40); MCH 29.9 pg (25.7-33.7); MCHC 32.6 g/dl (32.0-35.9); MEAN CELL VOLUME 91.6 fl (80-96); MEAN PLT VOLUME 7.9 fl (7.5-11.1); MONO % 12.1 % (3.8-10.2); NEUT % 66.9 % (42.8-82.8); PLATELET COUNT 237 K/MM3 (134-434); RBC 3.92 M/mm3 (4.00-5.60); RDW 16.5 % (11.9-15.9); WHITE BLOOD COUNT 7.1 K/mm3 (4.0-10.0)
[2020-09-27 07:20] LABS: POTASSIUM 4.6 mmol/L (3.5-5.1)
[2020-09-27 07:28] LABS: CALCIUM 8.8 mg/dL (8.5-10.1)
[2020-09-27 07:29] LABS: ALBUMIN 3.5 g/dl (3.4-5.0); BLOOD UREA NITROGEN 24.1 mg/dL (7-18)
[2020-09-27 07:32] LABS: BILIRUBIN,TOTAL 0.8 mg/dL (0.2-1); CREATININE 1.4 mg/dL (0.55-1.3); TOT PROT 6.9 g/dl (6.4-8.2)
[2020-09-27] MEDS: ACETAMINOPHEN 325 MG TABLET (FP) PO PRN ×2 (07:45→20:49)
[2020-09-27] MEDS: LOSARTAN POTASSIUM 50 MG TABLET PO SCH (09:54)
[2020-09-27] MEDS: ASPIRIN 81 MG CHEWABLE TABLETS PO SCH (09:54)
[2020-09-27] MEDS: FERROUS SO4 325 MG TABLET (FP) PO SCH (09:54)
[2020-09-27] MEDS: ROFLUMILAST 500 MCG TABLET PO SCH (09:55)
[2020-09-27] MEDS: PANTOPRAZOLE 40 MG TABLET PO SCH (09:55)
[2020-09-27] MEDS: GABAPENTIN 400 MG CAPSULE PO SCH ×2 (09:55→21:26)
[2020-09-27] MEDS: CALCIUM ACETATE/AL SULFATE TOP 1.9 GM/PACKET PACKET TP SCH (10:23)
[2020-09-27] MEDS: COLLAGENASE CLOSTRIDIUM HIST. 30 GRAMS TUBE TP SCH (10:23)
[2020-09-27] MEDS: AMMONIUM LACTATE 12% LOTION 225 GM BOTTLE TP SCH (10:24)
[2020-09-27] MEDS ORDERED: FUROSEMIDE 40 MG/4 ML INJECTABLE VIAL IVPUSH SCH (18:00)
[2020-09-27] MEDS: ATORVASTATIN CA 10 MG TABLET (FP) PO SCH (21:23)
[2020-09-27] MEDS: TAMSULOSIN HCL 0.4 MG CAP PO SCH (21:23)
[2020-09-27] MEDS: traZODone HCL 50 MG TABLET (FP) PO SCH (21:23)
[2020-09-27] MEDS: QUEtiapine FUMARATE 25 MG TABLET PO SCH (21:23)
[2020-09-28] MEDS ORDERED: PIPERACILLIN/TAZOBACTAM 3.375 GM VIAL IVPB ONE (01:21)
[2020-09-28] MEDS ORDERED: DEXTROSE 5%-WATER - 50 ML IVPB ONE (01:21)
[2020-09-28] MEDS: PIPERACILLIN/TAZOB 3.375 GM 3.375 GM in DEXTROSE 5%-WATER - 50 ML IVPB SCH (01:25)
[2020-09-28] MEDS: HEPARIN NA (PORCINE) 5,000 UNITS/ML 1ML VIAL SQ SCH ×3 (06:15→21:04)
[2020-09-28] MEDS: INSULIN SLIDING SCALE (NOVOLOG) 1 VIAL SQ SCH ×4 (06:17→23:58)
[2020-09-28] MEDS ORDERED: INSULIN (NOVOLOG) ASPART 100 UNITS/ML 10ML VIAL ONE (07:48)
[2020-09-28] MEDS: ACETAMINOPHEN 325 MG TABLET (FP) PO PRN (08:24)
[2020-09-28] MEDS: AMOX TR/POT CLAV 875MG/125MG TABLETS (FP) PO SCH ×2 (08:24→16:38)
[2020-09-28 08:28] LABS: BASO % 0.6 % (0-2.0); EOS % 1.9 % (0-4.5); HEMATOCRIT 38.9 % (35.4-49); HEMOGLOBIN 12.8 GM/dL (11.7-16.9); LYMPH % 27.2 % (8-40); MCH 30.4 pg (25.7-33.7); MCHC 32.9 g/dl (32.0-35.9); MEAN CELL VOLUME 92.4 fl (80-96); MEAN PLT VOLUME 8.2 fl (7.5-11.1); MONO % 11.8 % (3.8-10.2); NEUT % 58.5 % (42.8-82.8); PLATELET COUNT 222 K/MM3 (134-434); RBC 4.21 M/mm3 (4.00-5.60); RDW 16.6 % (11.9-15.9); WHITE BLOOD COUNT 9.8 K/mm3 (4.0-10.0)
[2020-09-28 08:43] LABS: POTASSIUM 4.2 mmol/L (3.5-5.1)
[2020-09-28 08:45] LABS: MAGNESIUM 2.1 mg/dL (1.8-2.4)
[2020-09-28 08:46] LABS: ALBUMIN 3.6 g/dl (3.4-5.0); BLOOD UREA NITROGEN 31.1 mg/dL (7-18); CALCIUM 9.2 mg/dL (8.5-10.1)
[2020-09-28 08:49] LABS: CREATININE 1.6 mg/dL (0.55-1.3)
[2020-09-28 08:50] LABS: PHOSPHOROUS 3.9 mg/dL (2.5-4.9)
[2020-09-28] MEDS: FERROUS SO4 325 MG TABLET (FP) PO SCH (09:01)
[2020-09-28] MEDS: LOSARTAN POTASSIUM 50 MG TABLET PO SCH (09:01)
[2020-09-28] MEDS: ASPIRIN 81 MG CHEWABLE TABLETS PO SCH (09:01)
[2020-09-28] MEDS: FUROSEMIDE 40 MG/4 ML INJECTABLE VIAL IVPUSH SCH (09:02)
[2020-09-28] MEDS: PANTOPRAZOLE 40 MG TABLET PO SCH (09:02)
[2020-09-28] MEDS: ROFLUMILAST 500 MCG TABLET PO SCH (09:02)
[2020-09-28] MEDS: CALCIUM ACETATE/AL SULFATE TOP 1.9 GM/PACKET PACKET TP SCH (09:03)
[2020-09-28] MEDS: GABAPENTIN 400 MG CAPSULE PO SCH ×2 (09:03→21:05)
[2020-09-28] MEDS: AMMONIUM LACTATE 12% LOTION 225 GM BOTTLE TP SCH (09:03)
[2020-09-28] MEDS ORDERED: FUROSEMIDE 40 MG/4 ML INJECTABLE VIAL IVPUSH SCH ×2 (10:00)
[2020-09-28] MEDS ORDERED: ACETAMINOPHEN 325 MG TABLET (FP) PO PRN (10:07)
[2020-09-28] MEDS: oxyCODONE HCL 5 MG TABLET PO PRN ×2 (10:23→23:18)
[2020-09-28] MEDS ORDERED: ACETAMINOPHEN 1000 MG/100 ML VIAL (NON FORMULARY) IVPB PRN (14:00)
[2020-09-28] MEDS: COLLAGENASE CLOSTRIDIUM HIST. 30 GRAMS TUBE TP SCH (14:18)
[2020-09-28] MEDS ORDERED: TRIMETHOBENZAMIDE HCL 200MG/2ML INJ IM ONE (18:54)
[2020-09-28] MEDS: ATORVASTATIN CA 10 MG TABLET (FP) PO SCH (21:04)
[2020-09-28] MEDS: TAMSULOSIN HCL 0.4 MG CAP PO SCH (21:04)
[2020-09-28] MEDS: traZODone HCL 50 MG TABLET (FP) PO SCH (21:04)
[2020-09-28] MEDS: QUEtiapine FUMARATE 25 MG TABLET PO SCH (21:05)
[2020-09-29] MEDS: INSULIN SLIDING SCALE (NOVOLOG) 1 VIAL SQ SCH ×4 (07:18→21:58)
[2020-09-29] MEDS: HEPARIN NA (PORCINE) 5,000 UNITS/ML 1ML VIAL SQ SCH ×3 (07:19→21:56)
[2020-09-29] MEDS: AMOX TR/POT CLAV 875MG/125MG TABLETS (FP) PO SCH ×2 (07:44→17:30)
[2020-09-29] MEDS: oxyCODONE HCL 5 MG TABLET PO PRN ×2 (07:44→22:53)
[2020-09-29 08:18] LABS: BASO % 0.5 % (0-2.0); EOS % 0.9 % (0-4.5); HEMATOCRIT 37.4 % (35.4-49); HEMOGLOBIN 12.5 GM/dL (11.7-16.9); MCH 30.5 pg (25.7-33.7); MCHC 33.4 g/dl (32.0-35.9); MEAN CELL VOLUME 91.5 fl (80-96); MEAN PLT VOLUME 8.8 fl (7.5-11.1); MONO % 11.9 % (3.8-10.2); NEUT % 65.7 % (42.8-82.8); PLATELET COUNT 190 K/MM3 (134-434); RBC 4.08 M/mm3 (4.00-5.60); RDW 16.3 % (11.9-15.9); WHITE BLOOD COUNT 7.7 K/mm3 (4.0-10.0)
[2020-09-29 08:51] LABS: POTASSIUM 4.6 mmol/L (3.5-5.1)
[2020-09-29 08:53] LABS: CALCIUM 9.1 mg/dL (8.5-10.1)
[2020-09-29 08:54] LABS: ALBUMIN 3.5 g/dl (3.4-5.0); MAGNESIUM 2.1 mg/dL (1.8-2.4)
[2020-09-29 08:56] LABS: PHOSPHOROUS 4.4 mg/dL (2.5-4.9)
[2020-09-29 08:57] LABS: CREATININE 1.8 mg/dL (0.55-1.3)
[2020-09-29 08:58] LABS: BILIRUBIN,TOTAL 0.8 mg/dL (0.2-1); TOT PROT 6.9 g/dl (6.4-8.2)
[2020-09-29] MEDS ORDERED: PT OWN MED DRAWER 7, Y5N ONE (09:08)
[2020-09-29] MEDS: GABAPENTIN 400 MG CAPSULE PO SCH ×2 (09:11→21:55)
[2020-09-29] MEDS: ASPIRIN 81 MG CHEWABLE TABLETS PO SCH (09:11)
[2020-09-29] MEDS: LOSARTAN POTASSIUM 50 MG TABLET PO SCH (09:11)
[2020-09-29] MEDS: PANTOPRAZOLE 40 MG TABLET PO SCH (09:11)
[2020-09-29] MEDS: FERROUS SO4 325 MG TABLET (FP) PO SCH (09:12)
[2020-09-29] MEDS: COLLAGENASE CLOSTRIDIUM HIST. 30 GRAMS TUBE TP SCH (09:12)
[2020-09-29] MEDS: FUROSEMIDE 40 MG/4 ML INJECTABLE VIAL IVPUSH SCH (09:12)
[2020-09-29] MEDS: ROFLUMILAST 500 MCG TABLET PO SCH (09:12)
[2020-09-29] MEDS: CALCIUM ACETATE/AL SULFATE TOP 1.9 GM/PACKET PACKET TP SCH (09:12)
[2020-09-29] MEDS: AMMONIUM LACTATE 12% LOTION 225 GM BOTTLE TP SCH (12:37)
[2020-09-29] MEDS: ATORVASTATIN CA 10 MG TABLET (FP) PO SCH (21:54)
[2020-09-29] MEDS: TAMSULOSIN HCL 0.4 MG CAP PO SCH (21:54)
[2020-09-29] MEDS: QUEtiapine FUMARATE 25 MG TABLET PO SCH (21:55)
[2020-09-29] MEDS: traZODone HCL 50 MG TABLET (FP) PO SCH (22:00)
[2020-09-29] MEDS ORDERED: ACETAMINOPHEN 325 MG TABLET (FP) PO ONE (23:51)
[2020-09-30] MEDS ORDERED: ACETAMINOPHEN 325 MG TABLET (FP) PO ONE (03:50)
[2020-09-30] MEDS: oxyCODONE HCL 5 MG TABLET PO PRN ×2 (05:57→13:59)
[2020-09-30] MEDS: INSULIN SLIDING SCALE (NOVOLOG) 1 VIAL SQ SCH ×4 (06:13→22:38)
[2020-09-30 07:42] LABS: POTASSIUM 4.4 mmol/L (3.5-5.1)
[2020-09-30 07:45] LABS: CALCIUM 9.1 mg/dL (8.5-10.1)
[2020-09-30 07:46] LABS: BLOOD UREA NITROGEN 48.3 mg/dL (7-18); MAGNESIUM 2.3 mg/dL (1.8-2.4)
[2020-09-30 07:49] LABS: CREATININE 1.9 mg/dL (0.55-1.3); PHOSPHOROUS 4.6 mg/dL (2.5-4.9)
[2020-09-30] MEDS: AMOX TR/POT CLAV 875MG/125MG TABLETS (FP) PO SCH ×2 (08:38→17:05)
[2020-09-30] MEDS ORDERED: PT OWN MED DRAWER 7, Y5N ONE ×2 (09:07→14:10)
[2020-09-30] MEDS: FERROUS SO4 325 MG TABLET (FP) PO SCH (09:09)
[2020-09-30] MEDS: PANTOPRAZOLE 40 MG TABLET PO SCH (09:09)
[2020-09-30] MEDS: LOSARTAN POTASSIUM 50 MG TABLET PO SCH (09:09)
[2020-09-30] MEDS: GABAPENTIN 400 MG CAPSULE PO SCH ×2 (09:09→22:29)
[2020-09-30] MEDS: ASPIRIN 81 MG CHEWABLE TABLETS PO SCH (09:09)
[2020-09-30] MEDS: CALCIUM ACETATE/AL SULFATE TOP 1.9 GM/PACKET PACKET TP SCH (09:10)
[2020-09-30] MEDS: AMMONIUM LACTATE 12% LOTION 225 GM BOTTLE TP SCH (09:10)
[2020-09-30] MEDS: COLLAGENASE CLOSTRIDIUM HIST. 30 GRAMS TUBE TP SCH (09:10)
[2020-09-30] MEDS: ROFLUMILAST 500 MCG TABLET PO SCH (10:25)
[2020-09-30] MEDS ORDERED: INSULIN (NOVOLOG) ASPART 100 UNITS/ML 10ML VIAL ONE (11:23)
[2020-09-30 14:58] VITALS: BMI 33.5
[2020-09-30] MEDS ORDERED: ACETAMINOPHEN 1000 MG/100 ML VIAL (NON FORMULARY) IVPB ONE (18:00)
[2020-09-30] MEDS: QUEtiapine FUMARATE 25 MG TABLET PO SCH (22:29)
[2020-09-30] MEDS: traZODone HCL 50 MG TABLET (FP) PO SCH (22:29)
[2020-09-30] MEDS: ATORVASTATIN CA 10 MG TABLET (FP) PO SCH (22:29)
[2020-09-30] MEDS: TAMSULOSIN HCL 0.4 MG CAP PO SCH (22:29)
[2020-10-01] MEDS ORDERED: ACETAMINOPHEN 325 MG TABLET (FP) ONE (02:23)
[2020-10-01] MEDS: oxyCODONE HCL 5 MG TABLET PO PRN ×3 (02:24→16:26)
[2020-10-01] MEDS: INSULIN SLIDING SCALE (NOVOLOG) 1 VIAL SQ SCH ×4 (06:23→21:41)
[2020-10-01 08:41] LABS: BASO % 0.7 % (0-2.0); EOS % 1.7 % (0-4.5); HEMATOCRIT 36.4 % (35.4-49); HEMOGLOBIN 12.3 GM/dL (11.7-16.9); LYMPH % 23.5 % (8-40); MCH 31.1 pg (25.7-33.7); MCHC 33.9 g/dl (32.0-35.9); MEAN CELL VOLUME 91.7 fl (80-96); MEAN PLT VOLUME 8.7 fl (7.5-11.1); MONO % 10.6 % (3.8-10.2); NEUT % 63.5 % (42.8-82.8); PLATELET COUNT 164 K/MM3 (134-434); RBC 3.97 M/mm3 (4.00-5.60); RDW 16.5 % (11.9-15.9); WHITE BLOOD COUNT 7.8 K/mm3 (4.0-10.0)
[2020-10-01 08:57] LABS: POTASSIUM 4.6 mmol/L (3.5-5.1)
[2020-10-01 09:08] LABS: BLOOD UREA NITROGEN 48.4 mg/dL (7-18); CALCIUM 9.1 mg/dL (8.5-10.1)
[2020-10-01 09:12] LABS: CREATININE 1.7 mg/dL (0.55-1.3)
[2020-10-01 09:58] LABS: N-TERMINAL BNP 2655.9 pg/ml (5-125)
[2020-10-01] MEDS: ROFLUMILAST 500 MCG TABLET PO SCH (10:03)
[2020-10-01] MEDS: CALCIUM ACETATE/AL SULFATE TOP 1.9 GM/PACKET PACKET TP SCH (10:05)
[2020-10-01] MEDS: ASPIRIN 81 MG CHEWABLE TABLETS PO SCH (10:05)
[2020-10-01] MEDS: AMOX TR/POT CLAV 875MG/125MG TABLETS (FP) PO SCH ×2 (10:06→17:21)
[2020-10-01] MEDS: LOSARTAN POTASSIUM 50 MG TABLET PO SCH (10:06)
[2020-10-01] MEDS: GABAPENTIN 400 MG CAPSULE PO SCH ×2 (10:07→21:36)
[2020-10-01] MEDS: FERROUS SO4 325 MG TABLET (FP) PO SCH (10:07)
[2020-10-01] MEDS: AMMONIUM LACTATE 12% LOTION 225 GM BOTTLE TP SCH (10:08)
[2020-10-01] MEDS: COLLAGENASE CLOSTRIDIUM HIST. 30 GRAMS TUBE TP SCH (10:08)
[2020-10-01] MEDS: PANTOPRAZOLE 40 MG TABLET PO SCH (12:06)
[2020-10-01] MEDS: FUROSEMIDE 40 MG TABLET (FP) PO SCH (15:21)
[2020-10-01] MEDS: ACETAMINOPHEN 500 MG TABLET (FP) PO PRN (21:35)
[2020-10-01] MEDS: traZODone HCL 50 MG TABLET (FP) PO SCH (21:36)
[2020-10-01] MEDS: QUEtiapine FUMARATE 25 MG TABLET PO SCH (21:36)
[2020-10-01] MEDS: ATORVASTATIN CA 10 MG TABLET (FP) PO SCH (21:36)
[2020-10-01] MEDS: TAMSULOSIN HCL 0.4 MG CAP PO SCH (21:36)
[2020-10-01] MEDS ORDERED: INSULIN (NOVOLOG) ASPART 100 UNITS/ML 10ML VIAL ONE (21:40)
[2020-10-02] MEDS: oxyCODONE HCL 5 MG TABLET PO PRN ×3 (01:22→16:14)
[2020-10-02] MEDS: ACETAMINOPHEN 500 MG TABLET (FP) PO PRN ×2 (04:42→22:00)
[2020-10-02] MEDS: INSULIN SLIDING SCALE (NOVOLOG) 1 VIAL SQ SCH ×4 (06:19→22:07)
[2020-10-02] MEDS: AMOX TR/POT CLAV 875MG/125MG TABLETS (FP) PO SCH ×2 (08:01→17:16)
[2020-10-02] MEDS ORDERED: PT OWN MED DRAWER 7, Y5N ONE ×2 (09:45→11:01)
[2020-10-02] MEDS: LOSARTAN POTASSIUM 50 MG TABLET PO SCH (09:48)
[2020-10-02] MEDS: ROFLUMILAST 500 MCG TABLET PO SCH (09:48)
[2020-10-02] MEDS: FERROUS SO4 325 MG TABLET (FP) PO SCH (09:49)
[2020-10-02] MEDS: FUROSEMIDE 40 MG TABLET (FP) PO SCH (09:49)
[2020-10-02] MEDS: PANTOPRAZOLE 40 MG TABLET PO SCH (09:49)
[2020-10-02] MEDS: GABAPENTIN 400 MG CAPSULE PO SCH ×2 (09:49→21:59)
[2020-10-02] MEDS: ASPIRIN 81 MG CHEWABLE TABLETS PO SCH (09:49)
[2020-10-02] MEDS: CALCIUM ACETATE/AL SULFATE TOP 1.9 GM/PACKET PACKET TP SCH (10:21)
[2020-10-02] MEDS: AMMONIUM LACTATE 12% LOTION 225 GM BOTTLE TP SCH (10:21)
[2020-10-02] MEDS: COLLAGENASE CLOSTRIDIUM HIST. 30 GRAMS TUBE TP SCH (10:21)
[2020-10-02] MEDS ORDERED: INSULIN (NOVOLOG) ASPART 100 UNITS/ML 10ML VIAL ONE ×2 (16:02→20:46)
[2020-10-02] MEDS: QUEtiapine FUMARATE 25 MG TABLET PO SCH (21:59)
[2020-10-02] MEDS: traZODone HCL 50 MG TABLET (FP) PO SCH (21:59)
[2020-10-02] MEDS: TAMSULOSIN HCL 0.4 MG CAP PO SCH (21:59)
[2020-10-02] MEDS: ATORVASTATIN CA 10 MG TABLET (FP) PO SCH (21:59)
[2020-10-03] MEDS: oxyCODONE HCL 5 MG TABLET PO PRN ×3 (01:26→17:40)
[2020-10-03] MEDS: ACETAMINOPHEN 500 MG TABLET (FP) PO PRN ×2 (05:52→12:19)
[2020-10-03] MEDS: INSULIN SLIDING SCALE (NOVOLOG) 1 VIAL SQ SCH ×4 (06:38→21:45)
[2020-10-03 07:08] LABS: POTASSIUM 4.5 mmol/L (3.5-5.1)
[2020-10-03 07:14] LABS: CALCIUM 8.9 mg/dL (8.5-10.1)
[2020-10-03 07:15] LABS: ALBUMIN 3.1 g/dl (3.4-5.0); BLOOD UREA NITROGEN 48.6 mg/dL (7-18)
[2020-10-03 07:18] LABS: CREATININE 1.7 mg/dL (0.55-1.3)
[2020-10-03 07:19] LABS: TOT PROT 6.4 g/dl (6.4-8.2)
[2020-10-03] MEDS: AMOX TR/POT CLAV 875MG/125MG TABLETS (FP) PO SCH ×2 (07:31→17:40)
[2020-10-03 08:09] LABS: BILIRUBIN,TOTAL 0.8 mg/dL (0.2-1)
[2020-10-03] MEDS ORDERED: PT OWN MED DRAWER 7, Y5N ONE (09:04)
[2020-10-03] MEDS: PANTOPRAZOLE 40 MG TABLET PO SCH (09:09)
[2020-10-03] MEDS: ROFLUMILAST 500 MCG TABLET PO SCH (09:09)
[2020-10-03] MEDS: CALCIUM ACETATE/AL SULFATE TOP 1.9 GM/PACKET PACKET TP SCH (09:10)
[2020-10-03] MEDS: ASPIRIN 81 MG CHEWABLE TABLETS PO SCH (09:10)
[2020-10-03] MEDS: AMMONIUM LACTATE 12% LOTION 225 GM BOTTLE TP SCH (09:10)
[2020-10-03] MEDS: LOSARTAN POTASSIUM 50 MG TABLET PO SCH (09:10)
[2020-10-03] MEDS: FERROUS SO4 325 MG TABLET (FP) PO SCH (09:10)
[2020-10-03] MEDS: FUROSEMIDE 40 MG TABLET (FP) PO SCH (09:10)
[2020-10-03] MEDS: COLLAGENASE CLOSTRIDIUM HIST. 30 GRAMS TUBE TP SCH (09:11)
[2020-10-03] MEDS: GABAPENTIN 400 MG CAPSULE PO SCH ×2 (09:11→21:40)
[2020-10-03] MEDS ORDERED: INSULIN (NOVOLOG) ASPART 100 UNITS/ML 10ML VIAL ONE (11:09)
[2020-10-03] MEDS: traZODone HCL 50 MG TABLET (FP) PO SCH (21:40)
[2020-10-03] MEDS: ATORVASTATIN CA 10 MG TABLET (FP) PO SCH (21:40)
[2020-10-03] MEDS: TAMSULOSIN HCL 0.4 MG CAP PO SCH (21:40)
[2020-10-03] MEDS: QUEtiapine FUMARATE 25 MG TABLET PO SCH (21:48)
[2020-10-03] MEDS: ACETAMINOPHEN 1000 MG/100 ML VIAL (NON FORMULARY) IVPB PRN (22:41)
[2020-10-04] MEDS: oxyCODONE HCL 5 MG TABLET PO PRN (05:21)
[2020-10-04] MEDS ORDERED: PT OWN MED DRAWER 7, Y5N ONE ×2 (05:56→09:46)
[2020-10-04] MEDS: INSULIN SLIDING SCALE (NOVOLOG) 1 VIAL SQ SCH ×2 (06:38→11:32)
[2020-10-04 06:56] VITALS: PULSE 89
[2020-10-04] MEDS ORDERED: BENZOCAINE/MENTH/CETYLPYRD CL 1 EACH LOZENGE MM PRN (07:49)
[2020-10-04] MEDS: AMOX TR/POT CLAV 875MG/125MG TABLETS (FP) PO SCH (08:50)
[2020-10-04] MEDS: ACETAMINOPHEN 1000 MG/100 ML VIAL (NON FORMULARY) IVPB PRN (08:50)
[2020-10-04] MEDS: LOSARTAN POTASSIUM 50 MG TABLET PO SCH (09:48)
[2020-10-04] MEDS: ASPIRIN 81 MG CHEWABLE TABLETS PO SCH (09:48)
[2020-10-04] MEDS: ROFLUMILAST 500 MCG TABLET PO SCH (09:49)
[2020-10-04] MEDS: FERROUS SO4 325 MG TABLET (FP) PO SCH (09:50)
[2020-10-04] MEDS: FUROSEMIDE 40 MG TABLET (FP) PO SCH (09:50)
[2020-10-04] MEDS: PANTOPRAZOLE 40 MG TABLET PO SCH (09:50)
[2020-10-04] MEDS: GABAPENTIN 400 MG CAPSULE PO SCH (09:50)
[2020-10-04] MEDS: CALCIUM ACETATE/AL SULFATE TOP 1.9 GM/PACKET PACKET TP SCH (10:55)
[2020-10-04] MEDS: COLLAGENASE CLOSTRIDIUM HIST. 30 GRAMS TUBE TP SCH (10:55)
[2020-10-04] MEDS: AMMONIUM LACTATE 12% LOTION 225 GM BOTTLE TP SCH (10:55)
[2020-10-04 12:54] VITALS: BP 141/69; TEMP 97.4
== END 2020-10-04 15:02 | disposition home health service (06) | DRG 602 ==
LOC: JER 20:48 → JERBED 23:34 → J6WEST-2 09-23 16:45 → J8W 09-27 17:37
PROVIDERS: ADMIT Internal Medicine; ATTEND Student in an Organized Health Care Education/Training Program
DX: L03.115 Cellulitis of right lower limb (principal); I50.23 Acute on chronic systolic (congestive) heart failure; I13.0 Hypertensive heart and chronic kidney disease with heart failure and stage 1 through stage 4 chronic kidney disease, or unspecified chronic kidney disease; N17.9 Acute kidney failure, unspecified; E87.1 Hypo-osmolality and hyponatremia; L97.828 Non-pressure chronic ulcer of other part of left lower leg with other specified severity; R18.8 Other ascites; L03.116 Cellulitis of left lower limb; E11.22 Type 2 diabetes mellitus with diabetic chronic kidney disease; N18.30 Chronic kidney disease, stage 3 unspecified; E11.622 Type 2 diabetes mellitus with other skin ulcer; I25.10 Atherosclerotic heart disease of native coronary artery without angina pectoris; J44.9 Chronic obstructive pulmonary disease, unspecified; E87.5 Hyperkalemia; E83.42 Hypomagnesemia; B95.2 Enterococcus as the cause of diseases classified elsewhere; K58.9 Irritable bowel syndrome, unspecified; E66.9 Obesity, unspecified; Z68.34 Body mass index [BMI] 34.0-34.9, adult; E11.621 Type 2 diabetes mellitus with foot ulcer; K21.9 Gastro-esophageal reflux disease without esophagitis; N40.0 Benign prostatic hyperplasia without lower urinary tract symptoms; K43.9 Ventral hernia without obstruction or gangrene; K57.90 Diverticulosis of intestine, part unspecified, without perforation or abscess without bleeding; K59.09 Other constipation; Z85.46 Personal history of malignant neoplasm of prostate
CPT/HCPCS: 36415; 71045-TC-FY; 73590-TC-LT-FY; 73590-TC-RT-FY; 76775-TC; 80048; 80053; 81003; 82248; 82436; 82565; 82962; 82977; 83036; 83735; 83880; 83930; 83935; 84100; 84133; 84300; 85025; 85610; 85651; 85730; 86140; 87040; 87070; 87205; 93005; 93010; 93306-TC; 97116-GP; 97161-GP; 99285-25; C9803; J0131; J1644; U0003

== ENCOUNTER 2020-10-05 17:52 | Inpatient (IN) | payer MEDICARE, OTHER ==
[2020-10-05] MEDS ORDERED: FUROSEMIDE 40 MG/4 ML INJECTABLE VIAL IVPUSH ONE (19:41)
[2020-10-05] MEDS ORDERED: AMPICILLIN NA/SULBACTAM NA 1.5 GM in SODIUM CHLORIDE 100 ML IVPB ONE (19:41)
[2020-10-05] MEDS ORDERED: PIPERACILLIN/TAZOB 3.375 GM 3.375 GM in DEXTROSE 5%-WATER - 50 ML IVPB ONE (19:45)
[2020-10-05 20:13] LABS: EOS % 0.8 % (0-4.5)
[2020-10-05 20:25] LABS: BASO % 0.6 % (0-2.0); HEMOGLOBIN 11.4 GM/dL (11.7-16.9); LYMPH % 13.7 % (8-40); MCH 29.2 pg (25.7-33.7); MCHC 31.8 g/dl (32.0-35.9); MEAN CELL VOLUME 91.7 fl (80-96); MEAN PLT VOLUME 8.2 fl (7.5-11.1); MONO % 7.1 % (3.8-10.2); NEUT % 77.8 % (42.8-82.8); RBC 3.92 M/mm3 (4.00-5.60); RDW 16.7 % (11.9-15.9)
[2020-10-05 20:32] LABS: POTASSIUM 4.1 mmol/L (3.5-5.1)
[2020-10-05 20:34] LABS: CALCIUM 8.9 mg/dL (8.5-10.1)
[2020-10-05 20:35] LABS: ALBUMIN 3.6 g/dl (3.4-5.0)
[2020-10-05 20:37] LABS: CREATININE 1.2 mg/dL (0.55-1.3)
[2020-10-05 20:39] LABS: BILIRUBIN,TOTAL 1.2 mg/dL (0.2-1); TOT PROT 7.5 g/dl (6.4-8.2)
[2020-10-05 20:49] LABS: PLATELET COUNT 155 K/MM3 (134-434); PLATELET ESTIMATE ADEQUATE
[2020-10-05 20:57] LABS: BLOOD UREA NITROGEN 21.8 mg/dL (7-18)
[2020-10-05] MEDS ORDERED: ALBUTEROL SO4 HFA INHALER IH PRN (23:51)
[2020-10-06 01:43] VITALS: BP 139/71; PULSE 89; TEMP 98.2; BMI 38.2
[2020-10-06] MEDS ORDERED: oxyCODONE HCL 5 MG TABLET PO PRN ×2 (02:02)
[2020-10-06] MEDS ORDERED: ONDANSETRON 4 MG/2 ML VIAL IVPB PRN (02:02)
[2020-10-06] MEDS: INSULIN SLIDING SCALE (NOVOLOG) 1 VIAL SQ SCH ×2 (06:12→11:47)
[2020-10-06] MEDS ORDERED: AMOX TR/POT CLAV 875MG/125MG TABLETS (FP) PO SCH (08:00)
[2020-10-06 08:14] LABS: BASO % 0.6 % (0-2.0); EOS % 0.8 % (0-4.5); HEMATOCRIT 37.6 % (35.4-49); HEMOGLOBIN 12.4 GM/dL (11.7-16.9); LYMPH % 18.9 % (8-40); MCH 30.1 pg (25.7-33.7); MEAN CELL VOLUME 91.4 fl (80-96); MEAN PLT VOLUME 7.9 fl (7.5-11.1); MONO % 7.5 % (3.8-10.2); NEUT % 72.2 % (42.8-82.8); PLATELET COUNT 195 K/MM3 (134-434); RBC 4.11 M/mm3 (4.00-5.60); RDW 17.3 % (11.9-15.9); WHITE BLOOD COUNT 9.3 K/mm3 (4.0-10.0)
[2020-10-06 08:35] LABS: POTASSIUM 4.1 mmol/L (3.5-5.1)
[2020-10-06 08:38] LABS: BLOOD UREA NITROGEN 21.7 mg/dL (7-18)
[2020-10-06 08:41] LABS: CREATININE 1.3 mg/dL (0.55-1.3)
[2020-10-06] MEDS ORDERED: PT OWN MED DRAWER 7, Y5N ONE (09:54)
[2020-10-06] MEDS ORDERED: ISOSORBIDE MONONITRATE 30 MG TAB.SR.24H (FP) PO SCH (10:00)
[2020-10-06] MEDS ORDERED: LOSARTAN POTASSIUM 50 MG TABLET PO SCH (10:00)
[2020-10-06] MEDS ORDERED: ENOXAPARIN NA (PORCINE) 40 MG/0.4 ML DISP.SYRIN SQ SCH (10:00)
[2020-10-06] MEDS ORDERED: ASPIRIN 81 MG CHEWABLE TABLETS PO SCH (10:00)
[2020-10-06] MEDS ORDERED: amLODIPine BESYLATE 10 MG TABLET (FP) PO SCH (10:00)
[2020-10-06] MEDS ORDERED: TIOTROPIUM BROMIDE 2.5 MCG (SPIRIVA) RESPIMAT INHALER IH SCH (10:00)
[2020-10-06] MEDS ORDERED: FUROSEMIDE 40 MG TABLET (FP) PO SCH (10:00)
[2020-10-06] MEDS ORDERED: PANTOPRAZOLE 40 MG TABLET PO SCH (10:00)
[2020-10-06] MEDS ORDERED: GABAPENTIN 400 MG CAPSULE PO SCH (10:00)
[2020-10-06] MEDS ORDERED: ATORVASTATIN CA 10 MG TABLET (FP) PO SCH (22:00)
[2020-10-06] MEDS ORDERED: QUEtiapine FUMARATE 200 MG TABLET PO SCH (22:00)
[2020-10-06] MEDS ORDERED: TAMSULOSIN HCL 0.4 MG CAP PO SCH (22:00)
== END 2020-10-06 12:20 | disposition left against medical advice (07) | DRG 603 ==
LOC: JER 17:52 → JERBED 22:35 → J7W 10-06 01:13
PROVIDERS: ADMIT Family Medicine; ATTEND Family Medicine
DX: L03.115 Cellulitis of right lower limb (principal); L03.116 Cellulitis of left lower limb; K21.9 Gastro-esophageal reflux disease without esophagitis; I12.9 Hypertensive chronic kidney disease with stage 1 through stage 4 chronic kidney disease, or unspecified chronic kidney disease; I25.10 Atherosclerotic heart disease of native coronary artery without angina pectoris; E78.5 Hyperlipidemia, unspecified; E11.9 Type 2 diabetes mellitus without complications; N40.0 Benign prostatic hyperplasia without lower urinary tract symptoms; N18.9 Chronic kidney disease, unspecified; L89.892 Pressure ulcer of other site, stage 2; E66.9 Obesity, unspecified; Z68.38 Body mass index [BMI] 38.0-38.9, adult
CPT/HCPCS: 36415; 71045-TC-FY; 80048; 80053; 82962; 85025; 93005; 93010; 99285-25; C9803; U0003

== ENCOUNTER 2020-10-22 04:31 | Inpatient (IN) | payer MEDICARE, OTHER ==
[2020-10-22] MEDS ORDERED: ASPIRIN 81 MG CHEWABLE TABLETS PO ONE (04:49)
[2020-10-22] MEDS ORDERED: ASPIRIN 81 MG CHEWABLE TABLETS ONE (04:59)
[2020-10-22] MEDS ORDERED: morphine CARPU-JECT 4 MG/1 ML DISP.SYRIN IVPUSH ONE (05:41)
[2020-10-22 05:45] LABS: BASO % 0.6 % (0-2.0); EOS % 0.3 % (0-4.5); HEMATOCRIT 34.3 % (35.4-49); HEMOGLOBIN 11.4 GM/dL (11.7-16.9); LYMPH % 14.9 % (8-40); MCH 29.9 pg (25.7-33.7); MCHC 33.3 g/dl (32.0-35.9); MEAN CELL VOLUME 89.8 fl (80-96); MONO % 11.9 % (3.8-10.2); NEUT % 72.3 % (42.8-82.8); PLATELET COUNT 231 K/MM3 (134-434); RBC 3.82 M/mm3 (4.00-5.60); RDW 17.7 % (11.9-15.9); WHITE BLOOD COUNT 6.9 K/mm3 (4.0-10.0)
[2020-10-22 05:55] LABS: INR 1.35 (0.83-1.09); PROTHROMBIN TIME (PATIENT) 16.2 SEC (9.7-13.0)
[2020-10-22] MEDS ORDERED: morphine SULFATE 4 MG/ML VIAL ONE (06:04)
[2020-10-22 06:14] LABS: ALBUMIN 3.4 g/dl (3.4-5.0); BLOOD UREA NITROGEN 25.5 mg/dL (7-18)
[2020-10-22 06:16] LABS: CALCIUM 8.6 mg/dL (8.5-10.1)
[2020-10-22 06:17] LABS: CREATININE 1.3 mg/dL (0.55-1.3)
[2020-10-22 06:18] LABS: BILIRUBIN,TOTAL 1.6 mg/dL (0.2-1); TOT PROT 7.2 g/dl (6.4-8.2)
[2020-10-22 06:22] LABS: N-TERMINAL BNP 3660.5 pg/ml (5-125)
[2020-10-22] MEDS ORDERED: FUROSEMIDE 40 MG/4 ML INJECTABLE VIAL IVPUSH ONE (08:34)
[2020-10-22 08:46] LABS: EPI CELLS 6 /uL (0-25.1); HYALINE CASTS 1 /uL (0-3.1); PH,URINE 5.5 (5.0-8.0); URINE APPEARANCE CLEAR; URINE BACTERIA 160 /uL (0-1359); URINE BILIRUBIN NEGATIVE (NEGATIVE); URINE COLOR YELLOW; URINE GLUCOSE (UA) NEGATIVE (NEGATIVE); URINE KETONE NEGATIVE (NEGATIVE); URINE LEUK ESTERASE NEGATIVE (NEGATIVE); URINE NITRITE NEGATIVE (NEGATIVE); URINE PROTEIN 1+ (NEGATIVE); URINE RBC 6 /uL (0-23.9); URINE WBC 3 /uL (0-25.8)
[2020-10-22] MEDS ORDERED: FUROSEMIDE 40 MG/4 ML INJECTABLE VIAL ONE (08:59)
[2020-10-22] MEDS ORDERED: DOCUSATE SODIUM 100 MG CAPSULE (FP) PO ONE ×2 (11:20→11:56)
[2020-10-22] MEDS ORDERED: LOSARTAN POTASSIUM 50 MG TABLET ONE (14:36)
[2020-10-22] MEDS ORDERED: amLODIPine BESYLATE 5 MG TABLET (FP) ONE (14:36)
[2020-10-22] MEDS: amLODIPine BESYLATE 10 MG TABLET (FP) PO SCH (14:46)
[2020-10-22] MEDS: LOSARTAN POTASSIUM 50 MG TABLET PO SCH (14:46)
[2020-10-22] MEDS: TIOTROPIUM BROMIDE 2.5 MCG (SPIRIVA) RESPIMAT INHALER IH SCH (15:07)
[2020-10-22] MEDS: INSULIN SLIDING SCALE (NOVOLOG) 1 VIAL SQ SCH (16:31)
[2020-10-22] MEDS ORDERED: QUEtiapine FUMARATE 100 MG TABLET (FP) ONE (21:38)
[2020-10-22] MEDS ORDERED: TAMSULOSIN HCL 0.4 MG CAP ONE (21:38)
[2020-10-22] MEDS ORDERED: GABAPENTIN 100 MG CAPSULE ONE (21:39)
[2020-10-22] MEDS: GABAPENTIN 400 MG CAPSULE PO SCH (21:44)
[2020-10-22] MEDS: TAMSULOSIN HCL 0.4 MG CAP PO SCH (21:44)
[2020-10-22] MEDS: QUEtiapine FUMARATE 100 MG TABLET (FP) PO SCH (21:45)
[2020-10-22] MEDS ORDERED: ZOLPIDEM TARTRATE 5 MG TABLET PO PRN (22:00)
[2020-10-23 03:00] VITALS: BMI 40.6
[2020-10-23] MEDS: INSULIN SLIDING SCALE (NOVOLOG) 1 VIAL SQ SCH ×3 (06:00→16:39)
[2020-10-23 07:19] LABS: BASO % 0.9 % (0-2.0); EOS % 1.2 % (0-4.5); HEMATOCRIT 31.7 % (35.4-49); HEMOGLOBIN 10.7 GM/dL (11.7-16.9); LYMPH % 20.7 % (8-40); MCH 30.1 pg (25.7-33.7); MCHC 33.8 g/dl (32.0-35.9); MEAN CELL VOLUME 89.1 fl (80-96); MONO % 14.8 % (3.8-10.2); NEUT % 62.4 % (42.8-82.8); PLATELET COUNT 213 K/MM3 (134-434); RBC 3.56 M/mm3 (4.00-5.60); RDW 17.6 % (11.9-15.9); WHITE BLOOD COUNT 5.8 K/mm3 (4.0-10.0)
[2020-10-23 07:25] LABS: INR 1.4 (0.83-1.09); PROTHROMBIN TIME (PATIENT) 17.1 SEC (9.7-13.0)
[2020-10-23 07:32] LABS: CALCIUM 8.2 mg/dL (8.5-10.1)
[2020-10-23 07:33] LABS: BLOOD UREA NITROGEN 29.8 mg/dL (7-18); MAGNESIUM 1.9 mg/dL (1.8-2.4)
[2020-10-23 07:36] LABS: CREATININE 1.1 mg/dL (0.55-1.3); PHOSPHOROUS 3.8 mg/dL (2.5-4.9)
[2020-10-23 07:37] LABS: BILIRUBIN,TOTAL 1.6 mg/dL (0.2-1); TOT PROT 6.3 g/dl (6.4-8.2)
[2020-10-23] MEDS ORDERED: PT OWN MED DRAWER 7, Y5N ONE (09:12)
[2020-10-23] MEDS: LOSARTAN POTASSIUM 50 MG TABLET PO SCH (09:52)
[2020-10-23] MEDS: ASPIRIN 81 MG CHEWABLE TABLETS PO SCH (09:52)
[2020-10-23] MEDS: ISOSORBIDE MONONITRATE 30 MG TAB.SR.24H (FP) PO SCH (09:52)
[2020-10-23] MEDS: GABAPENTIN 400 MG CAPSULE PO SCH ×2 (09:52→21:24)
[2020-10-23] MEDS: amLODIPine BESYLATE 10 MG TABLET (FP) PO SCH (09:52)
[2020-10-23] MEDS ORDERED: SODIUM BICARBONATE PO SCH (10:00)
[2020-10-23] MEDS ORDERED: OMEPRAZOLE PO SCH (10:00)
[2020-10-23] MEDS ORDERED: [UNRECOGNIZED DRUG - OTHER] PO SCH (10:00)
[2020-10-23] MEDS ORDERED: FUROSEMIDE 40 MG/4 ML INJECTABLE VIAL IVPUSH SCH (10:00)
[2020-10-23] MEDS: TIOTROPIUM BROMIDE 2.5 MCG (SPIRIVA) RESPIMAT INHALER IH SCH (12:25)
[2020-10-23] MEDS: COLLAGENASE CLOSTRIDIUM HIST. 30 GRAMS TUBE TP SCH (14:37)
[2020-10-23] MEDS: oxyCODONE HCL 5 MG TABLET PO PRN ×2 (14:38→22:48)
[2020-10-23] MEDS: TAMSULOSIN HCL 0.4 MG CAP PO SCH (21:24)
[2020-10-23] MEDS: QUEtiapine FUMARATE 100 MG TABLET (FP) PO SCH (21:25)
[2020-10-24] MEDS: INSULIN SLIDING SCALE (NOVOLOG) 1 VIAL SQ SCH ×3 (06:37→16:41)
[2020-10-24] MEDS: FUROSEMIDE 40 MG TABLET (FP) PO SCH (09:35)
[2020-10-24] MEDS: GABAPENTIN 400 MG CAPSULE PO SCH ×2 (09:35→21:07)
[2020-10-24] MEDS: ISOSORBIDE MONONITRATE 30 MG TAB.SR.24H (FP) PO SCH (09:35)
[2020-10-24] MEDS: amLODIPine BESYLATE 10 MG TABLET (FP) PO SCH (09:35)
[2020-10-24] MEDS: ASPIRIN 81 MG CHEWABLE TABLETS PO SCH (09:35)
[2020-10-24] MEDS: LOSARTAN POTASSIUM 50 MG TABLET PO SCH (09:36)
[2020-10-24] MEDS: TIOTROPIUM BROMIDE 2.5 MCG (SPIRIVA) RESPIMAT INHALER IH SCH (09:36)
[2020-10-24] MEDS: COLLAGENASE CLOSTRIDIUM HIST. 30 GRAMS TUBE TP SCH (09:36)
[2020-10-24] MEDS: oxyCODONE HCL 5 MG TABLET PO PRN ×2 (09:48→17:49)
[2020-10-24 13:25] LABS: BASO % 0.6 % (0-2.0); EOS % 2.4 % (0-4.5); HEMATOCRIT 33.1 % (35.4-49); HEMOGLOBIN 10.8 GM/dL (11.7-16.9); LYMPH % 13.7 % (8-40); MCH 29.5 pg (25.7-33.7); MCHC 32.6 g/dl (32.0-35.9); MEAN CELL VOLUME 90.5 fl (80-96); MEAN PLT VOLUME 7.5 fl (7.5-11.1); MONO % 12.1 % (3.8-10.2); NEUT % 71.2 % (42.8-82.8); PLATELET COUNT 284 K/MM3 (134-434); RBC 3.66 M/mm3 (4.00-5.60); RDW 18.1 % (11.9-15.9); WHITE BLOOD COUNT 6.6 K/mm3 (4.0-10.0)
[2020-10-24 13:32] LABS: INR 1.22 (0.83-1.09); PROTHROMBIN TIME (PATIENT) 14.9 SEC (9.7-13.0)
[2020-10-24 13:33] LABS: BLOOD UREA NITROGEN 23.8 mg/dL (7-18); CALCIUM 8.7 mg/dL (8.5-10.1)
[2020-10-24 13:34] LABS: ALBUMIN 3.2 g/dl (3.4-5.0); MAGNESIUM 1.9 mg/dL (1.8-2.4)
[2020-10-24 13:35] LABS: ACTIVATED PTT 31.7 SECONDS (25.2-36.5)
[2020-10-24 13:37] LABS: CREATININE 1.1 mg/dL (0.55-1.3); PHOSPHOROUS 3.4 mg/dL (2.5-4.9)
[2020-10-24 13:38] LABS: BILIRUBIN,TOTAL 1.2 mg/dL (0.2-1); TOT PROT 6.9 g/dl (6.4-8.2)
[2020-10-24] MEDS: TAMSULOSIN HCL 0.4 MG CAP PO SCH (21:06)
[2020-10-24] MEDS: HEPARIN NA (PORCINE) 5,000 UNITS/ML 1ML VIAL SQ SCH (21:06)
[2020-10-24] MEDS: QUEtiapine FUMARATE 100 MG TABLET (FP) PO SCH (21:07)
[2020-10-25] MEDS: HEPARIN NA (PORCINE) 5,000 UNITS/ML 1ML VIAL SQ SCH ×3 (05:50→22:08)
[2020-10-25] MEDS: INSULIN SLIDING SCALE (NOVOLOG) 1 VIAL SQ SCH ×3 (07:30→17:22)
[2020-10-25 07:45] LABS: INR 1.19 (0.83-1.09); PROTHROMBIN TIME (PATIENT) 14.6 SEC (9.7-13.0)
[2020-10-25 07:47] LABS: ACTIVATED PTT 30.8 SECONDS (25.2-36.5)
[2020-10-25 07:49] LABS: BASO % 0.5 % (0-2.0); EOS % 2.6 % (0-4.5); LYMPH % 18.5 % (8-40); MCH 30.3 pg (25.7-33.7); MCHC 33.5 g/dl (32.0-35.9); MEAN CELL VOLUME 90.5 fl (80-96); MEAN PLT VOLUME 7.4 fl (7.5-11.1); MONO % 11.1 % (3.8-10.2); NEUT % 67.3 % (42.8-82.8); PLATELET COUNT 289 K/MM3 (134-434); RBC 3.64 M/mm3 (4.00-5.60); RDW 17.9 % (11.9-15.9); WHITE BLOOD COUNT 8.1 K/mm3 (4.0-10.0)
[2020-10-25 08:09] LABS: CALCIUM 8.5 mg/dL (8.5-10.1)
[2020-10-25 08:10] LABS: ALBUMIN 3.1 g/dl (3.4-5.0); BLOOD UREA NITROGEN 22.4 mg/dL (7-18); MAGNESIUM 2.1 mg/dL (1.8-2.4)
[2020-10-25 08:12] LABS: BILIRUBIN,DIRECT 0.7 mg/dL (0.0-0.2); CREATININE 1.2 mg/dL (0.55-1.3)
[2020-10-25 08:13] LABS: PHOSPHOROUS 3.1 mg/dL (2.5-4.9)
[2020-10-25 08:14] LABS: BILIRUBIN,TOTAL 1.1 mg/dL (0.2-1); TOT PROT 6.6 g/dl (6.4-8.2)
[2020-10-25] MEDS: amLODIPine BESYLATE 10 MG TABLET (FP) PO SCH (09:49)
[2020-10-25] MEDS: ISOSORBIDE MONONITRATE 30 MG TAB.SR.24H (FP) PO SCH (09:50)
[2020-10-25] MEDS: FUROSEMIDE 40 MG TABLET (FP) PO SCH (09:50)
[2020-10-25] MEDS: ASPIRIN 81 MG CHEWABLE TABLETS PO SCH (09:50)
[2020-10-25] MEDS: GABAPENTIN 400 MG CAPSULE PO SCH ×2 (09:50→22:06)
[2020-10-25] MEDS: LOSARTAN POTASSIUM 50 MG TABLET PO SCH (09:51)
[2020-10-25] MEDS: TIOTROPIUM BROMIDE 2.5 MCG (SPIRIVA) RESPIMAT INHALER IH SCH (09:52)
[2020-10-25] MEDS: COLLAGENASE CLOSTRIDIUM HIST. 30 GRAMS TUBE TP SCH (09:52)
[2020-10-25] MEDS: ACETAMINOPHEN 325 MG TABLET (FP) PO PRN (10:10)
[2020-10-25] MEDS: oxyCODONE HCL 5 MG TABLET PO PRN ×2 (10:11→22:06)
[2020-10-25] MEDS: QUEtiapine FUMARATE 100 MG TABLET (FP) PO SCH (22:07)
[2020-10-25] MEDS: TAMSULOSIN HCL 0.4 MG CAP PO SCH (22:08)
[2020-10-26] MEDS: HEPARIN NA (PORCINE) 5,000 UNITS/ML 1ML VIAL SQ SCH ×3 (06:19→21:47)
[2020-10-26] MEDS: INSULIN SLIDING SCALE (NOVOLOG) 1 VIAL SQ SCH ×3 (06:20→18:05)
[2020-10-26] MEDS: oxyCODONE HCL 5 MG TABLET PO PRN ×2 (06:20→20:04)
[2020-10-26 07:45] LABS: BASO % 0.9 % (0-2.0); EOS % 4.6 % (0-4.5); HEMATOCRIT 33.6 % (35.4-49); HEMOGLOBIN 11.3 GM/dL (11.7-16.9); LYMPH % 22.1 % (8-40); MCH 30.2 pg (25.7-33.7); MCHC 33.6 g/dl (32.0-35.9); MEAN PLT VOLUME 7.3 fl (7.5-11.1); MONO % 12.6 % (3.8-10.2); NEUT % 59.8 % (42.8-82.8); PLATELET COUNT 266 K/MM3 (134-434); RBC 3.73 M/mm3 (4.00-5.60); RDW 18.5 % (11.9-15.9)
[2020-10-26 07:49] LABS: INR 1.18 (0.83-1.09); PROTHROMBIN TIME (PATIENT) 14.2 SEC (9.7-13.0)
[2020-10-26 07:51] LABS: ACTIVATED PTT 32.9 SECONDS (25.2-36.5)
[2020-10-26 08:15] LABS: ALBUMIN 3.1 g/dl (3.4-5.0); CALCIUM 8.6 mg/dL (8.5-10.1)
[2020-10-26 08:16] LABS: BLOOD UREA NITROGEN 26.9 mg/dL (7-18); MAGNESIUM 2.1 mg/dL (1.8-2.4)
[2020-10-26 08:19] LABS: CREATININE 1.3 mg/dL (0.55-1.3); PHOSPHOROUS 3.7 mg/dL (2.5-4.9)
[2020-10-26 08:20] LABS: BILIRUBIN,TOTAL 1.4 mg/dL (0.2-1); TOT PROT 6.7 g/dl (6.4-8.2)
[2020-10-26] MEDS: ASPIRIN 81 MG CHEWABLE TABLETS PO SCH (09:04)
[2020-10-26] MEDS: GABAPENTIN 400 MG CAPSULE PO SCH ×2 (09:04→21:44)
[2020-10-26] MEDS: LOSARTAN POTASSIUM 50 MG TABLET PO SCH (09:05)
[2020-10-26] MEDS: ACETAMINOPHEN 325 MG TABLET (FP) PO PRN (09:07)
[2020-10-26] MEDS: FUROSEMIDE 40 MG TABLET (FP) PO SCH (09:07)
[2020-10-26] MEDS: amLODIPine BESYLATE 10 MG TABLET (FP) PO SCH (09:07)
[2020-10-26] MEDS: ISOSORBIDE MONONITRATE 30 MG TAB.SR.24H (FP) PO SCH (09:07)
[2020-10-26] MEDS: COLLAGENASE CLOSTRIDIUM HIST. 30 GRAMS TUBE TP SCH (09:08)
[2020-10-26] MEDS: TIOTROPIUM BROMIDE 2.5 MCG (SPIRIVA) RESPIMAT INHALER IH SCH (09:08)
[2020-10-26] MEDS: QUEtiapine FUMARATE 100 MG TABLET (FP) PO SCH (21:44)
[2020-10-26] MEDS: TAMSULOSIN HCL 0.4 MG CAP PO SCH (21:44)
[2020-10-27] MEDS: ACETAMINOPHEN 325 MG TABLET (FP) PO PRN ×3 (00:48→15:49)
[2020-10-27] MEDS: INSULIN SLIDING SCALE (NOVOLOG) 1 VIAL SQ SCH ×3 (06:41→15:55)
[2020-10-27] MEDS: HEPARIN NA (PORCINE) 5,000 UNITS/ML 1ML VIAL SQ SCH ×3 (06:42→22:30)
[2020-10-27 07:16] LABS: BASO % 0.6 % (0-2.0); EOS % 3.2 % (0-4.5); HEMATOCRIT 32.3 % (35.4-49); HEMOGLOBIN 10.7 GM/dL (11.7-16.9); LYMPH % 20.7 % (8-40); MCHC 33.2 g/dl (32.0-35.9); MEAN CELL VOLUME 90.5 fl (80-96); MEAN PLT VOLUME 7.4 fl (7.5-11.1); MONO % 9.6 % (3.8-10.2); NEUT % 65.9 % (42.8-82.8); PLATELET COUNT 263 K/MM3 (134-434); RBC 3.57 M/mm3 (4.00-5.60); RDW 18.3 % (11.9-15.9); WHITE BLOOD COUNT 6.9 K/mm3 (4.0-10.0)
[2020-10-27 07:40] LABS: BLOOD UREA NITROGEN 27.5 mg/dL (7-18); CALCIUM 8.5 mg/dL (8.5-10.1); MAGNESIUM 2.1 mg/dL (1.8-2.4)
[2020-10-27 07:41] LABS: ALBUMIN 2.9 g/dl (3.4-5.0)
[2020-10-27 07:42] LABS: TOT PROT 6.2 g/dl (6.4-8.2)
[2020-10-27 07:43] LABS: CREATININE 1.3 mg/dL (0.55-1.3)
[2020-10-27 07:44] LABS: PHOSPHOROUS 3.6 mg/dL (2.5-4.9)
[2020-10-27] MEDS: oxyCODONE HCL 5 MG TABLET PO PRN ×3 (08:31→23:39)
[2020-10-27] MEDS: ASPIRIN 81 MG CHEWABLE TABLETS PO SCH (09:07)
[2020-10-27] MEDS: amLODIPine BESYLATE 10 MG TABLET (FP) PO SCH (09:08)
[2020-10-27] MEDS: FUROSEMIDE 40 MG TABLET (FP) PO SCH (09:08)
[2020-10-27] MEDS: GABAPENTIN 400 MG CAPSULE PO SCH ×2 (09:08→22:31)
[2020-10-27] MEDS: LOSARTAN POTASSIUM 50 MG TABLET PO SCH (09:08)
[2020-10-27] MEDS: ISOSORBIDE MONONITRATE 30 MG TAB.SR.24H (FP) PO SCH (09:08)
[2020-10-27] MEDS: TIOTROPIUM BROMIDE 2.5 MCG (SPIRIVA) RESPIMAT INHALER IH SCH (09:09)
[2020-10-27] MEDS: COLLAGENASE CLOSTRIDIUM HIST. 30 GRAMS TUBE TP SCH (10:58)
[2020-10-27] MEDS: TAMSULOSIN HCL 0.4 MG CAP PO SCH (22:30)
[2020-10-27] MEDS: QUEtiapine FUMARATE 100 MG TABLET (FP) PO SCH (22:31)
[2020-10-28] MEDS: ACETAMINOPHEN 325 MG TABLET (FP) PO PRN ×2 (06:24→20:33)
[2020-10-28] MEDS: HEPARIN NA (PORCINE) 5,000 UNITS/ML 1ML VIAL SQ SCH ×3 (06:24→21:07)
[2020-10-28 06:50] LABS: HEMATOCRIT 31.2 % (35.4-49); HEMOGLOBIN 10.5 GM/dL (11.7-16.9); MCH 30.2 pg (25.7-33.7); MCHC 33.6 g/dl (32.0-35.9); MEAN CELL VOLUME 89.9 fl (80-96); MEAN PLT VOLUME 7.4 fl (7.5-11.1); PLATELET COUNT 249 K/MM3 (134-434); RBC 3.47 M/mm3 (4.00-5.60); WHITE BLOOD COUNT 5.8 K/mm3 (4.0-10.0)
[2020-10-28] MEDS: INSULIN SLIDING SCALE (NOVOLOG) 1 VIAL SQ SCH ×4 (06:52→17:42)
[2020-10-28 07:09] LABS: BLOOD UREA NITROGEN 30.7 mg/dL (7-18); CALCIUM 8.6 mg/dL (8.5-10.1)
[2020-10-28 07:10] LABS: MAGNESIUM 2.1 mg/dL (1.8-2.4)
[2020-10-28 07:12] LABS: CREATININE 1.1 mg/dL (0.55-1.3)
[2020-10-28] MEDS: amLODIPine BESYLATE 10 MG TABLET (FP) PO SCH (09:11)
[2020-10-28] MEDS: FUROSEMIDE 40 MG TABLET (FP) PO SCH (09:11)
[2020-10-28] MEDS: TAMSULOSIN HCL 0.4 MG CAP PO SCH (09:11)
[2020-10-28] MEDS: ASPIRIN 81 MG CHEWABLE TABLETS PO SCH (09:11)
[2020-10-28] MEDS: LOSARTAN POTASSIUM 50 MG TABLET PO SCH (09:11)
[2020-10-28] MEDS: COLLAGENASE CLOSTRIDIUM HIST. 30 GRAMS TUBE TP SCH (09:14)
[2020-10-28] MEDS: TIOTROPIUM BROMIDE 2.5 MCG (SPIRIVA) RESPIMAT INHALER IH SCH (09:14)
[2020-10-28] MEDS ORDERED: SODIUM BICARBONATE PO SCH (10:00)
[2020-10-28] MEDS ORDERED: [UNRECOGNIZED DRUG - OTHER] PO SCH (10:00)
[2020-10-28] MEDS ORDERED: OMEPRAZOLE PO SCH (10:00)
[2020-10-28] MEDS: ISOSORBIDE MONONITRATE 30 MG TAB.SR.24H (FP) PO SCH (10:53)
[2020-10-28] MEDS: GABAPENTIN 400 MG CAPSULE PO SCH ×2 (10:53→21:08)
[2020-10-28] MEDS ORDERED: INSULIN SLIDING SCALE (NOVOLOG) 1 VIAL SQ ONE (12:35)
[2020-10-28] MEDS ORDERED: QUEtiapine FUMARATE 100 MG TABLET (FP) PO SCH (22:00)
[2020-10-28] MEDS ORDERED: oxyCODONE HCL 5 MG TABLET PO ONE (23:32)
[2020-10-29] MEDS: HEPARIN NA (PORCINE) 5,000 UNITS/ML 1ML VIAL SQ SCH ×3 (07:17→21:15)
[2020-10-29] MEDS: INSULIN SLIDING SCALE (NOVOLOG) 1 VIAL SQ SCH ×3 (07:51→16:39)
[2020-10-29 08:48] LABS: HEMOGLOBIN 10.4 GM/dL (11.7-16.9); MCH 30.2 pg (25.7-33.7); MCHC 33.5 g/dl (32.0-35.9); MEAN CELL VOLUME 90.2 fl (80-96); MEAN PLT VOLUME 7.3 fl (7.5-11.1); PLATELET COUNT 244 K/MM3 (134-434); RBC 3.44 M/mm3 (4.00-5.60); RDW 18.2 % (11.9-15.9); WHITE BLOOD COUNT 5.8 K/mm3 (4.0-10.0)
[2020-10-29] MEDS: TAMSULOSIN HCL 0.4 MG CAP PO SCH (08:58)
[2020-10-29 09:16] LABS: CALCIUM 8.4 mg/dL (8.5-10.1)
[2020-10-29 09:17] LABS: BLOOD UREA NITROGEN 32.8 mg/dL (7-18); MAGNESIUM 1.9 mg/dL (1.8-2.4)
[2020-10-29 09:20] LABS: CREATININE 1.4 mg/dL (0.55-1.3); PHOSPHOROUS 4.5 mg/dL (2.5-4.9)
[2020-10-29] MEDS: LOSARTAN POTASSIUM 50 MG TABLET PO SCH (10:09)
[2020-10-29] MEDS: amLODIPine BESYLATE 10 MG TABLET (FP) PO SCH (10:09)
[2020-10-29] MEDS: FUROSEMIDE 40 MG TABLET (FP) PO SCH (10:09)
[2020-10-29] MEDS: ASPIRIN 81 MG CHEWABLE TABLETS PO SCH (10:10)
[2020-10-29] MEDS: GABAPENTIN 400 MG CAPSULE PO SCH ×2 (10:10→21:15)
[2020-10-29] MEDS: ISOSORBIDE MONONITRATE 30 MG TAB.SR.24H (FP) PO SCH (10:10)
[2020-10-29] MEDS: oxyCODONE HCL 5 MG TABLET PO PRN ×2 (10:10→17:51)
[2020-10-29] MEDS: TIOTROPIUM BROMIDE 2.5 MCG (SPIRIVA) RESPIMAT INHALER IH SCH (10:13)
[2020-10-29] MEDS: COLLAGENASE CLOSTRIDIUM HIST. 30 GRAMS TUBE TP SCH (10:15)
[2020-10-29] MEDS ORDERED: QUEtiapine FUMARATE 200 MG TABLET PO SCH (22:00)
[2020-10-30] MEDS: oxyCODONE HCL 5 MG TABLET PO PRN ×2 (01:23→09:08)
[2020-10-30] MEDS: HEPARIN NA (PORCINE) 5,000 UNITS/ML 1ML VIAL SQ SCH (07:05)
[2020-10-30] MEDS: INSULIN SLIDING SCALE (NOVOLOG) 1 VIAL SQ SCH (07:13)
[2020-10-30] MEDS: GABAPENTIN 400 MG CAPSULE PO SCH (09:07)
[2020-10-30] MEDS: LOSARTAN POTASSIUM 50 MG TABLET PO SCH (09:07)
[2020-10-30] MEDS: FUROSEMIDE 40 MG TABLET (FP) PO SCH (09:07)
[2020-10-30] MEDS: ASPIRIN 81 MG CHEWABLE TABLETS PO SCH (09:07)
[2020-10-30] MEDS: amLODIPine BESYLATE 10 MG TABLET (FP) PO SCH (09:07)
[2020-10-30] MEDS: TAMSULOSIN HCL 0.4 MG CAP PO SCH (09:07)
[2020-10-30] MEDS: ISOSORBIDE MONONITRATE 30 MG TAB.SR.24H (FP) PO SCH (09:08)
[2020-10-30 09:25] LABS: HEMATOCRIT 32.4 % (35.4-49); HEMOGLOBIN 10.7 GM/dL (11.7-16.9); MCHC 33.1 g/dl (32.0-35.9); MEAN CELL VOLUME 90.8 fl (80-96); MEAN PLT VOLUME 7.8 fl (7.5-11.1); PLATELET COUNT 250 K/MM3 (134-434); RBC 3.57 M/mm3 (4.00-5.60); RDW 18.8 % (11.9-15.9); WHITE BLOOD COUNT 6.4 K/mm3 (4.0-10.0)
[2020-10-30 09:36] VITALS: BP 108/58; PULSE 70; TEMP 97.8
[2020-10-30 09:57] LABS: BLOOD UREA NITROGEN 31.5 mg/dL (7-18)
[2020-10-30 09:58] LABS: MAGNESIUM 2.2 mg/dL (1.8-2.4)
[2020-10-30 10:00] LABS: CREATININE 1.3 mg/dL (0.55-1.3); PHOSPHOROUS 4.6 mg/dL (2.5-4.9)
[2020-10-30] MEDS: COLLAGENASE CLOSTRIDIUM HIST. 30 GRAMS TUBE TP SCH (12:04)
[2020-10-30] MEDS: TIOTROPIUM BROMIDE 2.5 MCG (SPIRIVA) RESPIMAT INHALER IH SCH (12:05)
== END 2020-10-30 12:26 | disposition home health service (06) | DRG 291 ==
LOC: JER 04:31 → JERBED 09:38 → JICU 10-23 02:25 → J6WEST-2 10-28 06:58
PROVIDERS: ADMIT Internal Medicine; ATTEND Student in an Organized Health Care Education/Training Program
DX: I13.0 Hypertensive heart and chronic kidney disease with heart failure and stage 1 through stage 4 chronic kidney disease, or unspecified chronic kidney disease (principal); I50.33 Acute on chronic diastolic (congestive) heart failure; Z68.41 Body mass index [BMI] 40.0-44.9, adult; L97.929 Non-pressure chronic ulcer of unspecified part of left lower leg with unspecified severity; L97.911 Non-pressure chronic ulcer of unspecified part of right lower leg limited to breakdown of skin; E87.1 Hypo-osmolality and hyponatremia; N18.30 Chronic kidney disease, stage 3 unspecified; K21.9 Gastro-esophageal reflux disease without esophagitis; N40.0 Benign prostatic hyperplasia without lower urinary tract symptoms; E11.9 Type 2 diabetes mellitus without complications; E66.09 Other obesity due to excess calories; J44.9 Chronic obstructive pulmonary disease, unspecified; I87.2 Venous insufficiency (chronic) (peripheral); E11.622 Type 2 diabetes mellitus with other skin ulcer; S70.01XA Contusion of right hip, initial encounter; E78.5 Hyperlipidemia, unspecified; K43.9 Ventral hernia without obstruction or gangrene; R00.0 Tachycardia, unspecified; R07.9 Chest pain, unspecified; T14.90XA Injury, unspecified, initial encounter; X58.XXXA Exposure to other specified factors, initial encounter; Y93.9 Activity, unspecified; Y92.89 Other specified places as the place of occurrence of the external cause; Y99.9 Unspecified external cause status
CPT/HCPCS: 36415; 71045-TC-FY; 74177-TC; 80048; 80053; 81003; 82248; 82550; 82553; 82962; 83605; 83690; 83735; 83880; 84100; 84484; 85025; 85027; 85610; 85730; 87077; 87086; 93005; 93010; 97116-GP; 97161-GP; 99285-25; C9803; J1644; Q9967; U0003

== ENCOUNTER 2020-11-02 05:58 | Emergency (ER) | payer MEDICARE, OTHER ==
[2020-11-02 06:31] VITALS: BP 135/57; PULSE 84; TEMP 98.2; BMI 31.5
[2020-11-02] MEDS ORDERED: ACETAMINOPHEN 1000 MG/100 ML VIAL (NON FORMULARY) IVPB ONE (07:35)
[2020-11-02] MEDS ORDERED: ACETAMINOPHEN INJECTION 100 ML IVPB ONE (07:46)
[2020-11-02 08:17] LABS: BASO % 0.7 % (0-2.0); HEMATOCRIT 33.1 % (35.4-49); HEMOGLOBIN 11.2 GM/dL (11.7-16.9); LYMPH % 17.2 % (8-40); MCH 30.5 pg (25.7-33.7); MCHC 33.8 g/dl (32.0-35.9); MEAN CELL VOLUME 90.2 fl (80-96); MEAN PLT VOLUME 7.3 fl (7.5-11.1); MONO % 10.9 % (3.8-10.2); NEUT % 70.2 % (42.8-82.8); PLATELET COUNT 290 K/MM3 (134-434); RBC 3.67 M/mm3 (4.00-5.60); RDW 19.2 % (11.9-15.9); WHITE BLOOD COUNT 8.3 K/mm3 (4.0-10.0)
[2020-11-02 08:25] LABS: POTASSIUM 4.2 mmol/L (3.5-5.1)
[2020-11-02 08:26] LABS: ALBUMIN 3.6 g/dl (3.4-5.0); BLOOD UREA NITROGEN 21.6 mg/dL (7-18); CALCIUM 8.8 mg/dL (8.5-10.1)
[2020-11-02 08:30] LABS: CREATININE 1.1 mg/dL (0.55-1.3)
[2020-11-02 08:32] LABS: BILIRUBIN,TOTAL 1.6 mg/dL (0.2-1); TOT PROT 7.6 g/dl (6.4-8.2)
[2020-11-02 08:33] LABS: INR 1.27 (0.83-1.09); PROTHROMBIN TIME (PATIENT) 15.3 SEC (9.7-13.0)
[2020-11-02 08:35] LABS: N-TERMINAL BNP 3038.9 pg/ml (5-125)
[2020-11-02 08:36] LABS: ACTIVATED PTT 33.2 SECONDS (25.2-36.5)
== END 2020-11-02 10:13 | disposition home or self-care (01) ==
LOC: JER 05:58
PROC: 3E033GC Introduction of Other Therapeutic Substance into Peripheral Vein, Percutaneous Approach (ICD-10-PCS; principal; 2020-11-02)
DX: M79.10 Myalgia, unspecified site (principal); M79.89 Other specified soft tissue disorders
CPT/HCPCS: 36415; 71045-TC-FY; 80053; 83880; 84484; 85025; 85610; 85730; 93005; 93010; 99285-25; J0131